=== PATIENT | female | born 1945 | race Caucasian/White ===

== ENCOUNTER 2022-12-13 07:48 | Outpatient (REF) | payer MEDICARE, SELFPAY ==
[2022-12-13 09:14] LABS: Estimated Average Glucose 186 mg/dL; Hemoglobin A1c % 8.1 %
[2022-12-13 09:20] LABS: Alanine Aminotransferase 28 U/L (0-31); Albumin Level 4.4 g/dL (3.5-5.0); Alkaline Phosphatase 66 U/L (39-117); Anion Gap 17 (12-20); Aspartate Amino Transferase 30 U/L (5-31); Bilirubin Total 0.6 mg/dL (0.0-1.0); Blood Urea Nitrogen 21 mg/dL (9-16); Calcium 10.1 mg/dL (8.4-10.2); Carbon Dioxide 27 mmol/L (22-29); Chloride 101 mmol/L (96-108); Estimated Glomerular Filt Rate > 60; Glucose Random 183 mg/dL (60-115); Potassium 4.6 mmol/L (3.3-5.1); Sodium 140 mmol/L (135-145)
== END 2022-12-13 07:49 | disposition home or self-care (01) ==
LOC: HO.LAB 07:48
PROVIDERS: PCP Internal Medicine; Visit Provider Internal Medicine
DX: Z00.00 Encounter for general adult medical examination without abnormal findings (principal); E11.9 Type 2 diabetes mellitus without complications; E78.00 Pure hypercholesterolemia, unspecified; F43.0 Acute stress reaction; I10 Essential (primary) hypertension
CPT/HCPCS: 36415; 80053; 83036

== ENCOUNTER 2023-03-16 07:24 | Outpatient (REF) | payer MEDICARE, SELFPAY ==
[2023-03-16 11:37] LABS: Estimated Average Glucose 160 mg/dL; Hemoglobin A1c % 7.2 %
[2023-03-16 11:50] LABS: Alanine Aminotransferase 16 U/L (0-31); Albumin Level 4.5 g/dL (3.5-5.0); Alkaline Phosphatase 64 U/L (39-117); Anion Gap 17 (12-20); Aspartate Amino Transferase 19 U/L (5-31); Bilirubin Total 0.8 mg/dL (0.0-1.0); Blood Urea Nitrogen 26 mg/dL (9-16); Calcium 10.4 mg/dL (8.4-10.2); Carbon Dioxide 27 mmol/L (22-29); Chloride 102 mmol/L (96-108); Estimated Glomerular Filt Rate 50; Glucose Random 149 mg/dL (60-115); Potassium 4.5 mmol/L (3.3-5.1); Sodium 141 mmol/L (135-145); Total Protein 7.6 g/dL (6.5-8.0)
== END 2023-03-16 07:25 | disposition home or self-care (01) ==
LOC: HO.HMGCLDS 07:24
PROVIDERS: PCP Internal Medicine; Visit Provider Internal Medicine
DX: E11.65 Type 2 diabetes mellitus with hyperglycemia (principal); I10 Essential (primary) hypertension
CPT/HCPCS: 36415; 80053; 83036

== ENCOUNTER 2023-06-13 08:09 | Outpatient (REF) | payer MEDICARE, SELFPAY ==
[2023-06-13 08:52] LABS: Estimated Average Glucose 174 mg/dL; Hemoglobin A1c % 7.7 % (<6.0)
[2023-06-13 09:30] LABS: Alanine Aminotransferase 21 U/L (0-31); Albumin Level 4.7 g/dL (3.5-5.0); Alkaline Phosphatase 66 U/L (39-117); Anion Gap 14 (12-20); Aspartate Amino Transferase 25 U/L (5-31); Bilirubin Total 0.7 mg/dL (0.0-1.0); Blood Urea Nitrogen 16 mg/dL (9-16); Calcium 10.1 mg/dL (8.4-10.2); Carbon Dioxide 27 mmol/L (22-29); Chloride 103 mmol/L (96-108); Estimated Glomerular Filt Rate > 60; Glucose Random 172 mg/dL (60-115); Potassium 4.6 mmol/L (3.3-5.1); Sodium 139 mmol/L (135-145); Total Protein 7.7 g/dL (6.5-8.0)
== END 2023-06-13 08:10 | disposition home or self-care (01) ==
LOC: HO.LAB 08:09
PROVIDERS: PCP Internal Medicine; Visit Provider Internal Medicine
DX: E11.9 Type 2 diabetes mellitus without complications (principal); E78.00 Pure hypercholesterolemia, unspecified; I10 Essential (primary) hypertension
CPT/HCPCS: 36415; 80053; 83036

== ENCOUNTER 2023-09-05 07:04 | Outpatient (REF) | payer MEDICARE, SELFPAY ==
[2023-09-05 11:15] LABS: Estimated Average Glucose 197 mg/dL; Hemoglobin A1c % 8.5 % (<6.0)
[2023-09-05 11:27] LABS: Alanine Aminotransferase 24 U/L (0-31); Albumin Level 4.6 g/dL (3.5-5.0); Alkaline Phosphatase 68 U/L (39-117); Anion Gap 15 (12-20); Aspartate Amino Transferase 26 U/L (5-31); Bilirubin Total 0.7 mg/dL (0.0-1.0); Blood Urea Nitrogen 23 mg/dL (9-16); Calcium 9.8 mg/dL (8.4-10.2); Carbon Dioxide 26 mmol/L (22-29); Chloride 103 mmol/L (96-108); Cholesterol 130 mg/dL (<200); Estimated Glomerular Filt Rate 59; Glucose Random 225 mg/dL (60-115); HDL Cholesterol 34 mg/dL (>40); LDL Cholesterol Calculated 29 mg/dL (<100); Potassium 4.7 mmol/L (3.3-5.1); Sodium 139 mmol/L (135-145); Total Protein 7.6 g/dL (6.5-8.0); Triglycerides 337 mg/dL (<150)
[2023-09-05 11:31] LABS: Microalbum/Creatinine Ratio Ur 16.1 ug/mg cr (<30)
[2023-09-05 11:44] LABS: Vitamin B12 368 pg/mL (200-900)
== END 2023-09-05 07:05 | disposition home or self-care (01) ==
LOC: HO.HMGCLDS 07:04
PROVIDERS: PCP Internal Medicine; Visit Provider Internal Medicine
DX: E11.65 Type 2 diabetes mellitus with hyperglycemia (principal); E78.00 Pure hypercholesterolemia, unspecified; I10 Essential (primary) hypertension; M81.8 Other osteoporosis without current pathological fracture
CPT/HCPCS: 36415; 80053; 80061; 82043; 82306; 82570; 82607; 83036; 84443

== ENCOUNTER 2023-12-05 07:40 | Outpatient (REF) | payer MEDICARE, SELFPAY ==
[2023-12-05 11:24] LABS: Estimated Average Glucose 203 mg/dL; Hemoglobin A1c % 8.7 % (<6.0)
[2023-12-05 12:09] LABS: Alanine Aminotransferase 22 U/L (0-31); Albumin Level 4.5 g/dL (3.5-5.0); Alkaline Phosphatase 69 U/L (39-117); Anion Gap 13 (12-20); Aspartate Amino Transferase 22 U/L (5-31); Bilirubin Total 0.6 mg/dL (0.0-1.0); Blood Urea Nitrogen 22 mg/dL (9-16); Calcium 10.1 mg/dL (8.4-10.2); Carbon Dioxide 27 mmol/L (22-29); Chloride 104 mmol/L (96-108); Estimated Glomerular Filt Rate > 60; Glucose Random 225 mg/dL (60-115); Sodium 139 mmol/L (135-145); Total Protein 7.7 g/dL (6.5-8.0)
== END 2023-12-05 07:41 | disposition home or self-care (01) ==
LOC: HO.HMGCLDS 07:40
PROVIDERS: PCP Internal Medicine; Visit Provider Internal Medicine
DX: Z00.01 Encounter for general adult medical examination with abnormal findings (principal); E11.65 Type 2 diabetes mellitus with hyperglycemia; E78.00 Pure hypercholesterolemia, unspecified; I10 Essential (primary) hypertension
CPT/HCPCS: 36415; 80053; 83036

== ENCOUNTER 2024-03-05 07:09 | Outpatient (REF) | payer MEDICARE, SELFPAY ==
[2024-03-05 11:24] LABS: Estimated Average Glucose 163 mg/dL; Hemoglobin A1c % 7.3 % (<6.0)
[2024-03-05 11:25] LABS: Alanine Aminotransferase 17 U/L (0-31); Albumin Level 4.5 g/dL (3.5-5.0); Alkaline Phosphatase 66 U/L (39-117); Anion Gap 14 (12-20); Aspartate Amino Transferase 20 U/L (5-31); Bilirubin Total 0.4 mg/dL (0.0-1.0); Blood Urea Nitrogen 23 mg/dL (9-16); Calcium 10.2 mg/dL (8.4-10.2); Carbon Dioxide 24 mmol/L (22-29); Chloride 105 mmol/L (96-108); Estimated Glomerular Filt Rate 53; Glucose Random 166 mg/dL (60-115); Potassium 4.5 mmol/L (3.3-5.1); Sodium 138 mmol/L (135-145); Total Protein 7.9 g/dL (6.5-8.0)
== END 2024-03-05 07:10 | disposition home or self-care (01) ==
LOC: HO.HMGCLDS 07:09
PROVIDERS: PCP Internal Medicine; Visit Provider Internal Medicine
DX: E11.65 Type 2 diabetes mellitus with hyperglycemia (principal); I10 Essential (primary) hypertension
CPT/HCPCS: 36415; 80053; 83036

== ENCOUNTER 2024-06-11 06:38 | Outpatient (REF) | payer MEDICARE, SELFPAY ==
[2024-06-11 11:22] LABS: Estimated Average Glucose 160 mg/dL; Hemoglobin A1c % 7.2 % (<6.0)
[2024-06-11 11:31] LABS: Alanine Aminotransferase 16 U/L (0-31); Albumin Level 4.3 g/dL (3.5-5.0); Alkaline Phosphatase 65 U/L (39-117); Anion Gap 13 (12-20); Aspartate Amino Transferase 19 U/L (5-31); Bilirubin Total 0.6 mg/dL (0.0-1.0); Blood Urea Nitrogen 15 mg/dL (9-16); Calcium 10.3 mg/dL (8.4-10.2); Carbon Dioxide 25 mmol/L (22-29); Chloride 105 mmol/L (96-108); Estimated Glomerular Filt Rate > 60; Glucose Random 184 mg/dL (60-115); Potassium 4.9 mmol/L (3.3-5.1); Sodium 138 mmol/L (135-145); Total Protein 8.2 g/dL (6.5-8.0)
== END 2024-06-11 06:39 | disposition home or self-care (01) ==
LOC: HO.HMGCLDS 06:38
PROVIDERS: PCP Internal Medicine; Visit Provider Internal Medicine
DX: E11.9 Type 2 diabetes mellitus without complications (principal); G47.62 Sleep related leg cramps; I10 Essential (primary) hypertension
CPT/HCPCS: 36415; 80053; 83036

== ENCOUNTER 2024-09-03 06:49 | Outpatient (REF) | payer MEDICARE, SELFPAY ==
[2024-09-03 11:12] LABS: MANUAL DIFF FLAG NO
[2024-09-03 11:33] LABS: Alanine Aminotransferase 13 U/L (0-31); Albumin Level 4.4 g/dL (3.5-5.0); Alkaline Phosphatase 65 U/L (39-117); Anion Gap 13 (12-20); Aspartate Amino Transferase 28 U/L (5-31); Bilirubin Total 0.5 mg/dL (0.0-1.0); Blood Urea Nitrogen 24 mg/dL (9-16); Calcium 10.1 mg/dL (8.4-10.2); Carbon Dioxide 26 mmol/L (22-29); Chloride 103 mmol/L (96-108); Cholesterol 104 mg/dL (<200); Estimated Glomerular Filt Rate > 60; Glucose Random 121 mg/dL (60-115); HDL Cholesterol 32 mg/dL (>40); LDL Cholesterol Calculated 14 mg/dL (<100); Potassium 4.2 mmol/L (3.3-5.1); Sodium 138 mmol/L (135-145); Total Protein 9.8 g/dL (6.5-8.0); Triglycerides 292 mg/dL (<150)
[2024-09-03 11:37] LABS: Basophils Percent Auto 0.4 % (0-2); Eosinophils Absolute Auto 0.1 X10*3/uL (0.0-0.4); Eosinophils Percent Auto 2.2 % (0-4); Hematocrit 35.1 % (37.0-47.0); Hemoglobin 11.2 g/dl (12.0-16.0); Imm Gran Abs Auto 0.03 X10*3/uL (0.00-0.03); Imm Gran Pct Auto 0.7 % (0.0-0.4); Lymphocytes Absolute Auto 1.8 X10*3/uL (1.2-4.9); Lymphocytes Percent Auto 39.8 % (20-40); Mean Corpuscular HGB Conc 31.9 g/dl (31.0-35.0); Mean Corpuscular Hemoglobin 29.3 pg (27.0-33.0); Mean Corpuscular Volume 91.9 fL (80.0-98.0); Mean Platelet Volume 9.3 fL (9.4-12.3); Monocytes Absolute Auto 0.4 X10*3/uL (0.1-1.2); Monocytes Percent Auto 9.2 % (2-11); Neutrophils Absolute Auto 2.2 x10*3/uL (2.0-8.3); Neutrophils Percent Auto 47.7 % (45-73); Platelet Count 290 X10*3/uL (160-400); Red Blood Count 3.82 X10*6/uL (4.20-5.50); Red Cell Distribution Width 14.6 % (11.0-16.0); White Blood Count 4.6 X10*3/uL (4.8-10.8)
[2024-09-03 11:58] LABS: Vitamin B12 438 pg/mL (200-900)
[2024-09-03 12:03] LABS: Estimated Average Glucose 154 mg/dL; Hemoglobin A1C 220.5227 umol/L
[2024-09-03 12:05] LABS: Creatinine Urine 76.73 mg/dL; Microalbum/Creatinine Ratio Ur 217.6 ug/mg cr (<30)
== END 2024-09-03 06:50 | disposition home or self-care (01) ==
LOC: HO.HMGCLDS 06:49
PROVIDERS: PCP Internal Medicine; Visit Provider Internal Medicine
DX: E11.9 Type 2 diabetes mellitus without complications (principal); G47.62 Sleep related leg cramps; I10 Essential (primary) hypertension
CPT/HCPCS: 36415; 80053; 80061; 82043; 82306; 82570; 82607; 83036; 85025

== ENCOUNTER 2024-10-27 09:00 | Outpatient (RCR) | payer MEDICARE, SELFPAY ==
--- NOTE | 2024-10-04 11:08 | MHC.PT.EP ---
[facility] [place] Office [place] [facility] [place] [facility] [address] Lucretia Traore [address] [phone] F: [phone] F: [phone] F: [phone] F: [phone] Physical Therapy Plan of Care Date of Evaluation: 10/04/24 Date of Surgery: n/a Diagnosis: back pain Assessment: Patient is a 79 year old female presenting to PT with complaints of pain in her back. Pt reports onset of pain began about 2 weeks ago due to possibly moving some furniture. She presents today with impairments in pain, lumbar ROM, core strength, hip strength. 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 Pt expresses residential goal of reducing pain, and is motivated to work towards this in PT. Clinical presentation today is most consistent with signs and sx associated with back pain and pt will benefit from skilled PT 2 week x 4 weeks to address the following problems and impairments noted upon evaluation: pain, lumbar ROM, core strength, hip strength. These problems limit the patient with the following functional activities: standing, ADLs, lifting, work. The prescribed treatment plan of care is medically necessary. Co-morbidities of DM, HTN were identified and taken into considerations of plan of care. Pt was educated on HEP, role of PT, prognosis, POC. Frequency and Duration: The patient will be seen 2 x week x 4 weeks Short Term Goals: Pt will demonstrate improved lumbar ROM to in available range to be pain free in 2 weeks. Pt will demonstrate improved hip strength by 1/3 grade in 2 weeks. Detention Goals: Pt will demonstrate improved Raymundo score by 10% in 4 weeks for improved functional mobility. Pt will demonstrate ability to ambulate with min to no pain in 4 weeks for return to work. Pt will demonstrate ability to lift with min to no pain in 4 weeks for return to PLOF. Treatment Plan: Modalities to reduce pain, spasms and effusion. Manual therapy to restore motion and function. Therapeutic exercise to improve strength and flexibility. Neuromuscular re-education for posture and balance. Therapeutic activities to return to functional activities of daily living. Electronically signed by: Candy Steel, PT, DPT, ATC Please sign and return to therapist. Thank you for your referral.
== END 2024-11-18 08:17 | disposition home or self-care (01) ==
LOC: HO.PTCHIC 09:00
PROVIDERS: PCP Internal Medicine; Visit Provider Internal Medicine
DX: M54.50 Low back pain, unspecified (principal); M48.061 Spinal stenosis, lumbar region without neurogenic claudication
CPT/HCPCS: 97110; 97140; 97161

== ENCOUNTER 2024-12-16 08:11 | Outpatient (REF) | payer MEDICARE, SELFPAY ==
[2024-12-16 10:34] LABS: Estimated Average Glucose 114 mg/dL; Hemoglobin A1C 112.5952 umol/L; Hemoglobin A1c % 5.6 % (<6.0)
[2024-12-16 10:58] LABS: Alanine Aminotransferase 8 U/L (0-31); Albumin Level 4.2 g/dL (3.5-5.0); Alkaline Phosphatase 65 U/L (39-117); Anion Gap 10 (12-20); Aspartate Amino Transferase 20 U/L (5-31); Bilirubin Total 0.5 mg/dL (0.0-1.0); Blood Urea Nitrogen 34 mg/dL (9-16); Carbon Dioxide 27 mmol/L (22-29); Chloride 104 mmol/L (96-108); Estimated Glomerular Filt Rate 41; Glucose Random 109 mg/dL (60-115); Potassium 4.2 mmol/L (3.3-5.1); Sodium 137 mmol/L (135-145); Total Protein 9.9 g/dL (6.5-8.0)
== END 2024-12-16 08:12 | disposition home or self-care (01) ==
LOC: HO.HMGCLDS 08:11
PROVIDERS: PCP Internal Medicine; Visit Provider Internal Medicine
DX: E11.9 Type 2 diabetes mellitus without complications (principal); E78.2 Mixed hyperlipidemia; I10 Essential (primary) hypertension; L57.0 Actinic keratosis
CPT/HCPCS: 36415; 80053; 83036

== ENCOUNTER 2025-03-16 07:14 | Outpatient (REF) | payer MEDICARE, SELFPAY ==
--- OUTSIDE RECORDS SUMMARY | 2025-03-16 07:17 | XMS_ITS | Patient Health Record ---
Author Organization [facility] Address [address] [place] [address] Care Team Providers Care Instructional Technology Coordinator Name Role Phone Didier Reyna MD Primary Care Provider Maria AlejandraMinh Denise Unavailable [phone] Reason For Referral No Information Medications Medication SIG (Take, Route, Frequency, Duration) Notes Start Date End Date Status Vitamin D Active Vitamin C Active Baby Aspirin Active Vanicream . as directed External ly bid to feet for 30 days Active Calcium Carbonate-Vit D-Min 600-200 MG-UNIT 1 tablet with food Orally Twice a day Active Centrum Silver Orally Activ e hydroCHLOROthiazide 25 MG 1 tablet Orall y Once a day Active Glimepiride 4 MG 1 tablet with breakf ast or the first main meal of the day Orally Once a day Active Lisinopril 40 MG 1 tablet Orally Once a day Active metFORMIN HCl 500 MG 1 tablet with meals Orally Twice a day Active Extra Depth Orthopedic Shoes (1 Pair) with Customized Heat Molded Multidensity Innersoles (3 Pair) as directed Dx: NIDDM (E11.9), Hammertoe Foot Deformity (M20.41,M20.42), Preulcerative Skin Lesion(s) (L85.1) 04/08/2016 Active Immunizations Vaccine Route Administration Date Status Comme nts Influenza Unknown 06/19/2015 Administered Problems Problem Type SNOMED Code ICD Code Onset Dates Problem Status W/U Status Risk Notes Problem Acquired hammer toe of right foot ([id number] 9105) Other hammer toe(s) (acquired), right foot (M20.41) Active confirmed Problem Acquired hammer toe of left foot (141747529712 9103) Other hammer toe(s) (acquired), left foot (M20.42) Active confirmed Problem Type 2 diabetes mellitus without complications (E11.9) Active confirmed Plan Of Treatment No Information Insurance Providers Payer Name Payer Address Payer Phone Subscriber Number Group Number Insured Name Patient Relationship to Insured Coverage Start Date Coverage End Date [employer] Preferred [address] [place] [address] [phone] [id number] Marlen Cesar i Self - patient is the insured Medical (General) History Medical History History ICD Code High blood pressure Diabetic
[2025-03-16 10:44] LABS: Estimated Average Glucose 128 mg/dL; Hemoglobin A1c % 6.1 % (<6.0)
[2025-03-16 11:10] LABS: Alanine Aminotransferase 8 U/L (0-31); Albumin Level 4.3 g/dL (3.5-5.0); Alkaline Phosphatase 57 U/L (39-117); Anion Gap 12 (12-20); Aspartate Amino Transferase 22 U/L (5-31); Bilirubin Total 0.4 mg/dL (0.0-1.0); Blood Urea Nitrogen 25 mg/dL (9-16); Carbon Dioxide 27 mmol/L (22-29); Chloride 102 mmol/L (96-108); Estimated Glomerular Filt Rate 54; Glucose Random 99 mg/dL (60-115); Potassium 4.1 mmol/L (3.3-5.1); Sodium 137 mmol/L (135-145); Total Protein 9.3 g/dL (6.5-8.0)
[2025-03-16 11:14] LABS: Thyroid Stimulating Hormone 5.94 uIU/mL (0.32-4.0); Vitamin D 25-OH Total 7.9 ng/mL (>30)
== END 2025-03-16 07:15 | disposition home or self-care (01) ==
LOC: HO.HMGCLDS 07:14
PROVIDERS: PCP Internal Medicine; Visit Provider Internal Medicine
DX: E11.9 Type 2 diabetes mellitus without complications (principal); I10 Essential (primary) hypertension; M48.061 Spinal stenosis, lumbar region without neurogenic claudication; M81.8 Other osteoporosis without current pathological fracture; R63.4 Abnormal weight loss
CPT/HCPCS: 36415; 80053; 82306; 83036; 84443

== ENCOUNTER 2025-06-19 08:17 | Outpatient (REF) | payer MEDICARE, SELFPAY ==
--- OUTSIDE RECORDS SUMMARY | 2025-06-19 09:29 | XMS_ITS | Patient Health Record ---
[facility] Address [address] [place] [address] Care Team Providers Care Member Of Parliament Name Role Phone Didier Reyna MD Primary Care Provider Minh Gongora Unavailable [phone] Reason For Referral No Information Medications Medication SIG (Take, Route, Frequency, Duration) Notes Start Date End Date Status Vitamin D Active Vitamin C Active Baby Aspirin Active Vanicream . as directed External ly bid to feet; Duration: 30 days Active Calcium Carbonate-Vit D-Min 600-200 [...] Problem Acquired hammer toe of right foot ([id number] 5) Other hammer toe(s) (acquired), right foot (M20.41) Active confirmed Problem Acquired hammer toe of left foot (737973948807188 3) Other hammer toe(s) (acquired), left foot (M20.42) Active confirmed Problem Type II diabetes mellitus without complication (322637007) Type 2 diabetes mellitus without complications (E11.9) Active confirmed Plan Of Treatment No Information Insurance Providers Payer Name Payer Address Payer Phone Subscriber Number Group Number Insured Name Patient Relationship to Insured Coverage Start Date Coverage End Date [employer] Preferred [address] [place] [address] [id number] Marlen Cesar i Self - patient is the insured Medical (General) History Medical History History ICD Code High blood pressure Diabetic
[2025-06-19 10:38] LABS: Hemoglobin A1C 106.3344 umol/L; Total Hemoglobin (HGBA1C) 2394.4810 umol/L
[2025-06-19 10:55] LABS: Alanine Aminotransferase < 6 U/L (0-31); Albumin Level 3.9 g/dL (3.5-5.0); Alkaline Phosphatase 70 U/L (39-117); Anion Gap 12 (12-20); Aspartate Amino Transferase 25 U/L (5-31); Blood Urea Nitrogen 40 mg/dL (9-16); Calcium 11.5 mg/dL (8.4-10.2); Carbon Dioxide 27 mmol/L (22-29); Chloride 99 mmol/L (96-108); Estimated Glomerular Filt Rate 37; Potassium 3.8 mmol/L (3.3-5.1); Sodium 134 mmol/L (135-145); Total Protein 10.2 g/dL (6.5-8.0)
== END 2025-06-19 08:18 | disposition home or self-care (01) ==
LOC: HO.HMGCLDS 08:17
PROVIDERS: PCP Internal Medicine; Visit Provider Internal Medicine
DX: I10 Essential (primary) hypertension (principal); E11.9 Type 2 diabetes mellitus without complications; E03.9 Hypothyroidism, unspecified; E55.9 Vitamin D deficiency, unspecified; M48.061 Spinal stenosis, lumbar region without neurogenic claudication
CPT/HCPCS: 36415; 80053; 83036

== ENCOUNTER 2025-06-30 11:52 | Outpatient (REF) | payer MEDICARE, SELFPAY ==
--- OUTSIDE RECORDS SUMMARY | 2025-06-30 12:52 | XMS_ITS | Patient Health Record ---
[facility] Address [address] [place] [address] Care Team Providers Care Director Of Patient Financial Services Name Role Phone Didier Reyna MD Primary Care Provider Minh Gongora Unavailable [phone] Reason For Referral No Information Medications Medication [...] Problem Acquired hammer toe of right foot (241379517967606 5) Other hammer toe(s) (acquired), right foot (M20.41) Active confirmed Problem Acquired hammer toe of left foot (641839112754323 3) Other hammer toe(s) (acquired), left foot (M20.42) Active confirmed Problem Type II diabetes mellitus without complication (788200011) Type 2 diabetes mellitus without complications (E11.9) Active confirmed Plan Of Treatment No Information Insurance Providers Payer Name Payer Address Payer Phone Subscriber Number Group Number Insured Name Patient Relationship to Insured Coverage Start Date Coverage End Date [employer] Preferred [address] [place] [address] [id number] Marlen Cesar i Self - patient is the insured Medical (General) History Medical History History ICD Code High blood pressure Diabetic
[2025-06-30 13:31] LABS: MANUAL DIFF FLAG NO
[2025-06-30 13:56] LABS: Hematocrit 27.5 % (37.0-47.0); Hemoglobin 8.5 g/dl (12.0-16.0); Imm Gran Abs Auto 0.04 X10*3/uL (0.00-0.03); Imm Gran Pct Auto 0.5 % (0.0-0.4); Lymphocytes Absolute Auto 2.2 X10*3/uL (1.2-4.9); Mean Corpuscular HGB Conc 30.9 g/dl (31.0-35.0); Mean Corpuscular Hemoglobin 27.2 pg (27.0-33.0); Mean Corpuscular Volume 88.1 fL (80.0-98.0); NRBC Abs Auto 0.000 X10*3/uL (0.0-0.012); NRBC Pct Auto 0.0 /100WBC (0.0-0.2); Platelet Count 439 X10*3/uL (160-400); Red Blood Count 3.12 X10*6/uL (4.20-5.50); White Blood Count 8.0 X10*3/uL (4.8-10.8)
[2025-06-30 14:27] LABS: Alanine Aminotransferase < 6 U/L (0-31); Albumin Level 3.4 g/dL (3.5-5.0); Alkaline Phosphatase 69 U/L (39-117); Anion Gap 13 (12-20); Aspartate Amino Transferase 29 U/L (5-31); Blood Urea Nitrogen 46 mg/dL (9-16); Carbon Dioxide 25 mmol/L (22-29); Chloride 100 mmol/L (96-108); Estimated Glomerular Filt Rate 20; Potassium 4.1 mmol/L (3.3-5.1); Sodium 134 mmol/L (135-145); Total Protein 9.7 g/dL (6.5-8.0)
[2025-06-30 14:40] LABS: Microalbum/Creatinine Ratio Ur 220.4 ug/mg cr (<30)
[2025-06-30 14:45] LABS: Calcium 12.8 mg/dL (8.4-10.2)
[2025-06-30 14:46] LABS: Parathyroid Hormone Intact 47.5 pg/mL (8.7-77.1)
[2025-06-30 14:50] LABS: Thyroid Stimulating Hormone 1.36 uIU/mL (0.32-4.0)
== END 2025-06-30 11:53 | disposition home or self-care (01) ==
LOC: HO.HMGCLDS 11:52
PROVIDERS: PCP Internal Medicine; Visit Provider Internal Medicine
DX: E83.52 Hypercalcemia (principal); E11.22 Type 2 diabetes mellitus with diabetic chronic kidney disease; N18.9 Chronic kidney disease, unspecified; M48.061 Spinal stenosis, lumbar region without neurogenic claudication; R54 Age-related physical debility; R63.4 Abnormal weight loss; Z68.20 Body mass index [BMI] 20.0-20.9, adult
CPT/HCPCS: 36415; 80053; 82043; 82306; 82570; 83970; 84100; 84443; 85025; 99202

== ENCOUNTER 2025-06-30 14:41 | Outpatient (AMB) | payer MEDICARE, SELFPAY ==
--- NOTE | 2025-06-30 14:46 | A.OFFVIS_ITS ---
Vital Signs 06/30/25 14:50 Height 5 ft 4 in Weight 117 lb 11.629 oz BMI 20.2 BP 92/44 L Blood Pressure Location Rt brachial Position Sitting Pulse 93 Pulse Source Pulse Oximeter Pulse Oximetry (%) 93 Oxygen Delivery Method Room Air Intake Visit Reasons: Hypercalcemia Intake Note: NEW Patient presents today to establish care for Hypercalcemia: Senior Quality Assurance Specialist Required: No Accompanied by: Daughter Allergies No Known Allergies Allergy (Verified 06/30/25 14:47) HPI Comments Details: 79 years old female with past medical history of type 2 diabetes, spinal stenosis, hypotension, seen in the office for evaluation of hypercalcemia suspected to be secondary to hyperparathyroidism. - The patient has been experiencing significant weight loss since August, having lost about 60 pounds from 180 lbs to 117 lbs. - There is a history of spinal stenosis, which the patient believes might be contributing to the weight loss, although this is not typically associated with such severe weight loss. - The patient has been experiencing back pain, which is reportedly painful when standing and alleviated when sitting or lying down. - Recent discovery of kidney damage, although previously the kidneys were in good condition. - The patient has been experiencing fatigue and increased thirst and polyuria/nocturia, but not irritability or mood changes or AMS. - There is a no family history of hypercalcemia or osteoporosis that the patient is aware of. - The patient has never been diagnosed with calcium problems or prescribed calcium supplements despite a past consultation suggesting stopping calcium intake. - The patient?s daughter has a history of kidney stones, but the patient does not. Review of Systems: - Constitutional: Notable weight loss, fatigue. - Musculoskeletal: Back pain, muscle weakness. - Renal: Recent kidney damage, history of increased thirst. - GI: No bleeding in stools. - Neuropsychiatric: Increased irritability Physical exam: General: Frail appearing, sitting in a wheelchair. NAD. Neck/Thyroid: Thyroid not palpable, no nodules. CV: RRR, no murmur. No edema. Resp:Lungs clear to auscultation bilaterally Abdomen: Soft, nontender. nondistended MSK: No tenderness to palpation of spinous processes Extremities/Neuro: No weakness or tremor of outstretched hands Labs Laboratory Tests 09/03/24 06/30/25 06:58 11:59 WBC 4.6 L 8.0 Hgb 11.2 L 8.5 L D RDW 14.6 17.2 H Plt Count 290 439 H D Laboratory Tests 03/16/25 06/19/25 06/30/25 07:47 08:30 11:59 Potassium 3.8 4.1 BUN 25 H 40 H 46 H Creatinine 0.99 1.38 2.31 H Estimated GFR 37 20 Calcium 10.0 11.5 H D 12.8 H* D Phosphorus 4.6 H Total Protein 9.3 H 10.2 H 9.7 H Albumin 4.3 3.9 3.4 L 25-OH Vitamin D Total 7.9 L 14.1 L TSH 5.94 H 1.36 Laboratory Tests 06/30/25 11:59 PTH Intact 47.5 PFSH Medical History History of high cholesterol Hx of type 2 diabetes mellitus Hx of spinal stenosis Hx of acute arthritis Hx of essential hypertension Surgical History No pertinent past surgical history Family History Father HTN (hypertension) Myocardial disease Diabetes mellitus Hypercholesteremia Mother Diabetes mellitus Family history of breast cancer Social History Alcohol intake: current Alcohol intake frequency: does not drink Patient Tobacco Use Status: Former Tobacco user Physical Exam Vital Signs: Last Vital Signs Pulse 93 06/30/25 14:50 BP 92/44 L 06/30/25 14:50 Pulse Ox 93 06/30/25 14:50 Oxygen Delivery Method Room Air 06/30/25 14:50 BMI result Body Mass Index 20.2 Assessment & Plan Assessment & Plan (1) Hypercalcemia: Code(s): E83.52 - Hypercalcemia Category: Medical (2) Hyperparathyroidism: Code(s): E21.3 - Hyperparathyroidism, unspecified Category: Medical Plan Hypercalcemia Hyperparathyroidism The patient is a 79 years old female, with recently diagnosed hypercalcemia as well as kidney dysfunction. Open for the questioning patient reports that she had lost about 60 lb since 09/19/2024 unintentionally. Review of her labs shows that besides hypercalcemia and progressive kidney dysfunction she also has hyperproteinemia, as well as inappropriately normal PTH despite hypercalcemia. What her kidney dysfunction could be related to progressive hypercalcemia, the other symptoms including weight loss, hyperproteinemia, anemia can not be explained by hypoparathyroidism. While her inappropriately normal PTH and hypercalcemia points toward primary hyperparathyroidism, I suspect that her severe vitamin-D deficiency may be the reason why PTH she is not entirely suppressed. Furthermore am concerned that the combination of hypercalcemia, kidney dysfunction, back pain, weight loss and hyperproteinemia is more concerning for multiple myeloma in this patient that is also noted to have anemia. Plan Discussed with the patient and his daughter the physiology of bone metabolism, hypocalcemia and its symptoms. Discussed with the patient differential diagnosis including primary hyperparathyroidism, multiple myeloma or other malignancy related or PTH independent hypercalcemia. Explained to the patient that PTH inappropriately normal could be related to severe vitamin-D deficiency Advised the patient to continue taking vitamin-D 17765 IU weekly and rechec her levels in 3-6 month to see improvement Discussed with the patient and her daughter that I would like to perform a series of studies that we would allow us to have a little more clarity on what is causing her hypercalcemia and other symptoms. Those test would include blood work, bone density scan and urine tests. Provided education to the patient and the daughter about symptoms of severe hypercalcemia and advised the patient that if the symptoms. Patient needs to go to emergency department. Advised the patient to stay well hydrated Discussed with the patient and the family that is our suspicion of multiple myeloma or other malignancy associated hypercalcemia, and referral to Oncology would be necessary Orders: Orders Calcium Today E21.3 - Hyperparathyroidism, unspecified, E83.52 - Hypercalcemia Calcium, Ionized Today E21.3 - Hyperparathyroidism, unspecified, E83.52 - Hypercalcemia Parathyroid Hormone Related Pr Today E21.3 - Hyperparathyroidism, unspecified, E83.52 - Hypercalcemia Protein Electrophoresis, Serum Today E21.3 - Hyperparathyroidism, unspecified, E83.52 - Hypercalcemia Protein Electrophoresis,Ran Ur Today E21.3 - Hyperparathyroidism, unspecified, E83.52 - Hypercalcemia XR DEXA appendicular skeleton Today E21.3 - Hyperparathyroidism, unspecified, E83.52 - Hypercalcemia XR DEXA axial skeleton Today E21.3 - Hyperparathyroidism, unspecified, E83.52 - Hypercalcemia Complete Blood Count Auto Diff Today E21.3 - Hyperparathyroidism, unspecified, E83.52 - Hypercalcemia [place]/Lambda Light Chain Serum Today E21.3 - Hyperparathyroidism, unspecified, E83.52 - Hypercalcemia Parathyroid Hormone Intact Today E21.3 - Hyperparathyroidism, unspecified, E83.52 - Hypercalcemia Magnesium Today E21.3 - Hyperparathyroidism, unspecified, E83.52 - Hypercalcemia Alkaline Phosphatase Bone Today E21.3 - Hyperparathyroidism, unspecified, E83.52 - Hypercalcemia Basic Metabolic Panel Today E21.3 - Hyperparathyroidism, unspecified, E83.52 - Hypercalcemia Immunoglobulins,IgG IgA IgM Today E21.3 - Hyperparathyroidism, unspecified, E83.52 - Hypercalcemia Patient Instructions: The [email or web address] location closest to [place], [place], is at?[address] [place] [address]. Hypercalcemia: What to Watch For What it is: Dbjdep-flcj-[id number] calcium in the blood. It can affect the brain, heart, kidneys, stomach, and muscles. Common Symptoms * Brain: fatigue, confusion or ?fog,? headache, irritability, sleepiness * Muscles: weakness, low energy * Kidneys/urine: peeing more often, dehydration, kidney stone pain (sharp flank pain, blood in urine) * Stomach/bowels: nausea, poor appetite, constipation, belly pain * Heart: palpitations, feeling faint * General: increased thirst, dry mouth, itching Call 911 or go to the ER now if you have: * Severe confusion, fainting, new chest pain, very fast or very slow heartbeat * Severe vomiting, cannot keep fluids down * Severe flank/back pain with fever or blood in urine Call your clinic within 24?48 hours if you notice: * Worsening confusion, new weakness, headaches * Increased thirst/urination or signs of dehydration (very dark urine, dizziness) * New or worsening constipation not improving with fluids/fiber * Any kidney-stone symptoms Daily Self-Check (takes 1 minute) * Fluids: Aim for pale-yellow urine; drink water regularly unless your clinician gave a fluid restriction. * Bowels: Note constipation or abdominal pain. * Mind/energy: Any new confusion, sleepiness, or unusual fatigue? * Urination: More frequent or painful? Any visible blood? * Meds taken today? (see list below) Hydration & Diet * Prefer water; limit alcohol. * Normal diet unless told otherwise; avoid excessive dairy or calcium-fortified products and mqee-yhm-kbdihpu calcium/vitamin D. Coding Level of Care Code New Pt Level 5 (91814) Complex EM visit Add On G2211 Diagnoses Hypercalcemia E83.52 Hyperparathyroidism E21.3 Time Spent (min) 60 Comment Time spent on review of previous records, history, exam/plan and patient education.
[2025-06-30 14:50] VITALS: BP 92/44; PULSE 93; O2SAT 93; BMI 20.2
== END 2025-06-30 16:03 | disposition home or self-care (01) ==
LOC: HO.ENCR 14:42
PROVIDERS: PCP Internal Medicine; Visit Provider Student in an Organized Health Care Education/Training Program
DX: E83.52 Hypercalcemia (principal)
CPT/HCPCS: 99205; G2211

== ENCOUNTER 2025-07-03 14:57 | Outpatient (AMB) | payer MEDICARE, SELFPAY ==
[2025-07-03 14:58] VITALS: BP 76/44; PULSE 97; O2SAT 98; BMI 20.1
--- NOTE | 2025-07-03 14:58 | HO.NEPHOV ---
Vital Signs 07/03/25 14:58 Height 5 ft 4 in Weight 117 lb BMI 20.1 BP 76/44 L Blood Pressure Location Rt brachial Position Sitting Pulse 97 Pulse Source Pulse Oximeter Pulse Oximetry (%) 98 Oxygen Delivery Method Room Air Intake Visit Reasons: ENP: CKD, Hypercalcemia, confirmed Supervisor Advice Required: No Accompanied by: Daughter Allergies No Known Allergies Allergy (Verified 07/03/25 15:01) Medication List - Last Reconciled 07/03/25 by Chidi Cohen MD amlodipine 2.5 mg PO DAILY aspirin 81 mg PO DAILY ergocalciferol (vitamin D2) 1,250 mcg PO QWEEK lisinopril 40 mg PO DAILY magnesium oxide 400 mg PO DAILY metformin 1,000 mg PO BID simvastatin 10 mg PO BEDTIME vitamins A,C,N-mrdw-jkymkm 4,296 mcg-226 mg-90 mg (PreserVision AREDS) 1 cap PO BID HPI Comments Details: - The patient is a 80-year-old female presenting with hypercalcemia, - Hypercalcemia: Calcium levels increased from 11.5 to 12.8 mg/dL. Recently seen by endocrinology. Workup has been ordered. - newly diagnosed Acute kidney injury: Kidney function decreased from 37% to 20%. In February 2025 serum creatinine was 0.99. On June 19 creatinine bumped up to 1.38 and as of June 30 creatinine was 2.31. She is currently on lisinopril 40 mg along with hydrochlorothiazide. - Anemia: Hemoglobin decreased from 11.2 in August 2024 to 8.5 g/dL, -history of Hypertension: Managed with lisinopril and amlodipine, - Diabetes mellitus: Controlled with metformin, - Spinal stenosis: Present but less concerning currently. She has recently lost about 60 lb over the last 10 months. Appetite has been fair. No nausea or vomiting. No constipation. No bone pain. No edema. No gross hematuria no kidney stones. [facility] Medical History History of high cholesterol Hx of type 2 diabetes mellitus Hx of spinal stenosis Hx of acute arthritis Hx of essential hypertension Surgical History No pertinent past surgical history Family History Father HTN (hypertension) Myocardial disease Diabetes mellitus Hypercholesteremia Mother Diabetes mellitus Family history of breast cancer Social History Alcohol intake: current Alcohol intake frequency: does not drink Patient Tobacco Use Status: Former Tobacco user Review of Systems Const Denies fever(s) and Denies weight loss Card Denies chest pain Resp Denies cough and Denies hemoptysis GI Denies abdominal pain, Denies diarrhea and Denies nausea Musc Denies back pain Neuro Denies focal weakness Physical Exam Vital Signs: Last Vital Signs Pulse 97 07/03/25 14:58 BP 76/44 L 07/03/25 14:58 Pulse Ox 98 07/03/25 14:58 Oxygen Delivery Method Room Air 07/03/25 14:58 BMI result Body Mass Index 20.1 Comfortable in a wheelchair Neck supple no JVD. Lungs entry equal no rales. Heart S1-S2 heard no gallop or rub. Abdomen soft nontender. Neuro alert awake oriented. No asterixis. Extremities no edema. Results Reviewed Nephrology Results: Hgb, (12.0-16.0) 8.5 g/dl L Δ 06/30/25 WBC, (4.8-10.8) 8.0 X10*3/uL 06/30/25 Plt Count, (160-400) 439 X10*3/uL H Δ 06/30/25 Sodium, (135-145) 134 mmol/L L 06/30/25 Potassium, (3.3-5.1) 4.1 mmol/L 06/30/25 Chloride, (96-108) 100 mmol/L 06/30/25 Carbon Dioxide, (22-29) 25 mmol/L 06/30/25 BUN, (9-16) 46 mg/dL H 06/30/25 Creatinine, (0.5-1.4) 2.31 mg/dL H 06/30/25 Calcium, (8.4-10.2) 12.8 mg/dL H* Δ 06/30/25 Phosphorus, (2.7-4.5) 4.6 mg/dL H 06/30/25 PTH Intact, (8.7-77.1) 47.5 pg/mL 06/30/25 Urine Creatinine 150.59 mg/dL 06/30/25 Assessment & Plan Assessment & Plan (1) JE (acute kidney injury): Code(s): N17.9 - Acute kidney failure, unspecified Category: Medical (2) Hypercalcemia: Code(s): E83.52 - Hypercalcemia Category: Medical (3) Anemia: Code(s): D64.9 - Anemia, unspecified Category: Medical Plan Elderly woman with acute kidney injury. The combination of anemia with hypercalcemia and anemia raises a suspicion for multiple myeloma. Intact PTH is appropriately suppressed Today the blood pressure is rather low This could be contributing to hypoperfusion and further lowering the kidney function Recommendations : Discontinue lisinopril and amlodipine due to low blood pressure. Workup ordered for JE including ultrasonogram. Urine for protein creatinine ratio. Check serum electrophoresis. Discontinue vitamin-D in view of severe hypercalcemia Clinically she appears euvolemic. She will have lab work done again in the next 48 hours if serum calcium continues to increase she made need IV hydration and further therapy to correct hypercalcemia while workup is in progress. All the questions were answered She returned to office in the next couple of weeks. . Orders: Orders Creatinine Urine Today E83.52 - Hypercalcemia, N17.9 - Acute kidney failure, unspecified Total Protein Urine Random Today E83.52 - Hypercalcemia, N17.9 - Acute kidney failure, unspecified UA and rflx microscopic Today E83.52 - Hypercalcemia, N17.9 - Acute kidney failure, unspecified US renal BI Today N17.9 - Acute kidney failure, unspecified Patient Instructions: - Stop taking vitamin D, lisinopril, and amlodipine. - Continue taking metformin as prescribed. - Begin iron supplements as directed. - Attend scheduled blood and urine tests. - Follow up for kidney ultrasound appointment. Patient was informed and verbally consented to the use of an ambient scribe for clinic note documentation during this visit. Coding Level of Care Code New Pt Level 4 (90217) Diagnoses JE (acute kidney injury) N17.9 Hypercalcemia E83.52 Anemia D64.9
--- OUTSIDE RECORDS SUMMARY | 2025-07-03 17:20 | XMS_ITS | Patient Health Record ---
[facility] Address [address] [place] [address] Care Team Providers Care Loom Cleaner Name Role Phone Didier Reyna MD Primary Care Provider Minh Gongora Unavailable [phone] Reason For Referral No Information Medications Medication [...] Problem Acquired hammer toe of right foot (549190099783725 5) Other hammer toe(s) (acquired), right foot (M20.41) Active confirmed Problem Acquired hammer toe of left foot (378010809046056 3) Other hammer toe(s) (acquired), left foot (M20.42) Active confirmed Problem Type II diabetes mellitus without complication (242564103) Type 2 diabetes mellitus without complications (E11.9) Active confirmed Plan Of Treatment No Information Insurance Providers Payer Name Payer Address Payer Phone Subscriber Number Group Number Insured Name Patient Relationship to Insured Coverage Start Date Coverage End Date [employer] Preferred [address] [place] [address] [phone] [id number] Marlen Cesar i Self - patient is the insured Medical (General) History Medical History History ICD Code High blood pressure Diabetic
== END 2025-07-03 15:22 | disposition home or self-care (01) ==
LOC: HO.HKA 14:58
PROVIDERS: PCP Internal Medicine; Referring Provider Internal Medicine; Visit Provider Internal Medicine Hypertension Specialist
DX: N17.9 Acute kidney failure, unspecified (principal); E83.52 Hypercalcemia; D64.9 Anemia, unspecified
CPT/HCPCS: 99204

== ENCOUNTER → 2025-07-03 14:57 | Outpatient (BNVA) | payer MEDICARE, SELFPAY | PROVIDERS: PCP Internal Medicine; Referring Provider Internal Medicine; Visit Provider Internal Medicine Hypertension Specialist | DX: N17.9 Acute kidney failure, unspecified (principal); E83.52 Hypercalcemia; D64.9 Anemia, unspecified | CPT/HCPCS: 99202 ==

== ENCOUNTER 2025-07-05 09:23 | Outpatient (REF) | payer MEDICARE, SELFPAY ==
--- NOTE | ~2025-07-05 | US_ITS ---
CLINICAL HISTORY: N17.9 - Acute kidney failure, unspecified US Renal Comparison: None provided Findings: Right kidney normal size and echotexture and measures 10.2 cm x 3.3 cm x 5.6 cm. Left kidney normal size and echotexture and measures 10.2 cm x 4.7 cm x 3.7 cm. There is a 1.2 cm cortical cyst of the midpole of the left kidney. No collecting system dilatation of either kidney. Normal color Doppler. IMPRESSION: 1. 1.2 cm left renal cyst. Otherwise unremarkable study. This document has been electronically signed by: Martha Shepherd MD on 07/05/2025 17:23:46
[2025-07-05 13:29] LABS: MANUAL DIFF FLAG NO
[2025-07-05 13:39] LABS: Hematocrit 28.6 % (37.0-47.0); Hemoglobin 8.4 g/dl (12.0-16.0); Imm Gran Abs Auto 0.03 X10*3/uL (0.00-0.03); Imm Gran Pct Auto 0.4 % (0.0-0.4); Lymphocytes Absolute Auto 2.1 X10*3/uL (1.2-4.9); Mean Corpuscular HGB Conc 29.4 g/dl (31.0-35.0); Mean Corpuscular Hemoglobin 26.5 pg (27.0-33.0); Mean Corpuscular Volume 90.2 fL (80.0-98.0); NRBC Abs Auto 0.020 X10*3/uL (0.0-0.012); NRBC Pct Auto 0.3 /100WBC (0.0-0.2); Platelet Count 454 X10*3/uL (160-400); Red Blood Count 3.17 X10*6/uL (4.20-5.50); White Blood Count 7.4 X10*3/uL (4.8-10.8)
[2025-07-05 13:44] LABS: Appearance Urine Hazy; Glucose Urine UA Negative (Negative); PH 5.5 (5.0-9.0); Specific Gravity - Urine >= 1.030 (1.005-1.025); UMIC TRIGGER UA YES
[2025-07-05 14:20] LABS: Epith (RTE) Cast Present
[2025-07-05 14:30] LABS: Parathyroid Hormone Intact 48.3 pg/mL (8.7-77.1)
[2025-07-05 14:37] LABS: Anion Gap 11 (12-20); Blood Urea Nitrogen 31 mg/dL (9-16); Calcium 12.9 mg/dL (8.4-10.2); Carbon Dioxide 26 mmol/L (22-29); Chloride 104 mmol/L (96-108); Estimated Glomerular Filt Rate 27; Magnesium 3.0 mg/dL (1.6-2.6); Potassium 4.4 mmol/L (3.3-5.1); Sodium 137 mmol/L (135-145)
[2025-07-05 14:58] LABS: Total Protein Urine Random 339 mg/dL (<12)
[2025-07-06 15:33] LABS: Calcium, Ionized 6.9 mg/dL (4.7-5.5)
[2025-07-07 15:48] LABS: PES - Abn Protein Band 1 3.3 g/dL (NONE DETECTED); Prot Elec - Albumin 3.6 g/dL (3.8-4.8); Prot Elec - Alpha1 0.6 g/dL (0.2-0.3); Prot Elec - Alpha2 1.3 g/dL (0.5-0.9); Prot Elec - Beta 1 0.4 g/dL (0.4-0.6); Prot Elec - Beta 2 0.2 g/dL (0.2-0.5); Prot Elec - Gamma 3.6 g/dL (0.8-1.7); Prot Elec - Total Protein 9.7 g/dL (6.1-8.1)
[2025-07-17 12:54] LABS: PEU Ran-Abn Protein Band 1 384.9 mg/dL (NONE DETECTED); PEU-Protein Creat Ratio Rand 4.787 (0.024-0.184); PEU-Rand. Prot/Creat Ratio 4787 mg/g creat (24-184); PEU-Random Ur. Gamma Globulin 76 %; PEU-Random Urine A1 Globulin 3 %; PEU-Random Urine A2 Globulin 7 %; PEU-Random Urine Albumin 9 %; PEU-Random Urine Beta Globulin 5 %; PEU-Random Urine Creatinine 127 mg/dL (20-275); PEU-Random Urine Protein 608 mg/dL (5-24)
== END 2025-07-05 09:24 | disposition home or self-care (01) ==
LOC: HO.US 09:23
PROVIDERS: Absent Provider Internal Medicine; PCP Internal Medicine; Referring Provider Student in an Organized Health Care Education/Training Program; Visit Provider Internal Medicine Hypertension Specialist
DX: E21.3 Hyperparathyroidism, unspecified (principal); N17.9 Acute kidney failure, unspecified
CPT/HCPCS: 76775; 80048; 81001; 82330; 82570; 82784; 83735; 83970; 84156; 84165; 84166; 85025

== ENCOUNTER → 2025-07-05 09:25 | Outpatient (BNV) | payer MEDICARE, SELFPAY | PROVIDERS: Absent Provider Internal Medicine; PCP Internal Medicine; Referring Provider Student in an Organized Health Care Education/Training Program; Visit Provider Specialist | DX: N17.9 Acute kidney failure, unspecified (principal); N28.1 Cyst of kidney, acquired | CPT/HCPCS: 76775 ==

== ENCOUNTER 2025-07-06 11:55 | Inpatient (IN) | payer MEDICARE, SELFPAY ==
--- NOTE | ~2025-07-06 | XR_ITS ---
CLINICAL HISTORY: hypercalcemia, concern for myeloma 18 view skeletal survey Comparison: None provided Findings: No fracture. Degenerative changes of the spine. Multifocal small lucent foci throughout the bones. No radiopaque foreign body. IMPRESSION: 1. Multifocal lucent foci throughout the bones, nonspecific, however may be seen in the setting of multiple myeloma. This document has been electronically signed by: Marilyn Hardwick MD on 07/06/2025 19:12:31
[2025-07-06 12:21] VITALS: BP 93/51; PULSE 91; RESP 18; TEMP 36.3; O2SAT 98; BMI 44.3
--- NOTE | 2025-07-06 12:21 | ED.GENADULT ---
HPI - General Adult General Chief complaint: Recheck/Abnormal Lab/Rx Stated complaint: High calcium Time Seen by Provider: 07/06/25 12:42 Source: patient and family Mode of arrival: ambulatory Limitations: no limitations History of Present Illness ED Provider: HPI narrative: 80-year-old female was instructed by Dr. Gomez to go to emergency department, she was referred to hematology by employee benefits specialist, Dr. Gomez has not seen the patient yet but noted abnormal blood work and notified patient to present to the ER for IV fluids and additional medications. Patient has been seen by employee benefits specialist and rod hanger on 06/30 and 07/03 respectively, has been losing a lot of weight and they understand that she has been worked up for either multiple myeloma or a blood dyscrasia. She has been generally tired, but when she presented to the ER she had an appetite and requested food. She is here with her daughter. Related Data Home Medications ?Medication ?Instructions ?Recorded ?Confirmed metformin 1,000 mg tablet 1,000 mg PO BID 06/27/25 07/06/25 simvastatin 10 mg tablet 10 mg PO BEDTIME 06/27/25 07/06/25 magnesium oxide 400 mg PO DAILY 06/30/25 07/06/25 vitamins A,C,B-ynhv-pjkhgk 4,296 1 cap PO BID 06/30/25 07/06/25 mcg-226 mg-90 mg capsule (PreserVision AREDS) acetaminophen 650 mg 650 mg PO Q8H PRN Pain 07/06/25 07/06/25 tablet,extended release aspirin 81 mg tablet,delayed 81 mg PO DAILY 07/06/25 07/06/25 release cetirizine 10 mg tablet 5 mg PO DAILY 07/06/25 07/06/25 ferrous sulfate 325 mg (65 mg 325 mg PO DAILY 07/06/25 07/06/25 iron) tablet multivitamin 1 tab PO DAILY 07/06/25 07/06/25 Allergies Allergy/AdvReac Type Severity Reaction Status Date / Time No Known Allergies Allergy Verified 07/06/25 12:25 Review of Systems Constitutional: Constitutional: Reports as per HPI [facility] Past Medical History Medical History History of high cholesterol Hx of type 2 diabetes mellitus Hx of spinal stenosis Hx of acute arthritis Hx of essential hypertension Surgical History No pertinent past surgical history Family History Family History Father HTN (hypertension) Myocardial disease Diabetes mellitus Hypercholesteremia Mother Diabetes mellitus Family history of breast cancer Social History Social History Household Members: Spouse Housing: House Do you presently have visiting nurse or other home services: No Alcohol intake: current Alcohol intake frequency: does not drink Patient Tobacco Use Status: Former Tobacco user service: No Physical Exam ED Vital Signs: Vital Signs - 24 hr 07/06/25 12:21 07/06/25 12:47 Temperature 97.4 F 97.9 F Pulse Rate 91 90 Respiratory Rate 18 19 Blood Pressure 93/51 L 144/63 H Pulse Oximetry 98 95 Oxygen Delivery Method Room Air Room Air BMI result Body Mass Index 44.3 Const Other: General: ?Elderly woman appears of stated age ? ?PERRLA, EOMI, MMM, ? Neck: Kyphosis ? ?CV: S1-S2 ? ?Resp: ?No wheezing rales rhonchi no stridor moving air well ? Abd: ?Bowel sounds are present, no tenderness no rebound no rigidity ? ?MSK: No lower extremity edema ? Skin: Skin call you consistent with her age ? ?Neuro: ?Alert and oriented x3, moving upper and lower extremities symmetrically, no obvious facial asymmetry noted, cranial nerves 2-12 intact Course Course Course Narrative: This is a rapid medical exam performed by Dot Lan NP: Additional HPI, ROS, PE not included below will be deferred to primary provider. Patient is a 80y/o F referred by oncology for hypercalcemia/anemia and admission. Daughter reports 60# wt loss since august. Mildly hypotensive in triage, 93/51. Medications Administered Generic Name Dose Route Start Last Admin Trade Name Freq PRN Reason Stop Dose Admin Aspirin 81 mg 07/07/25 09:00 07/09/25 08:22 Aspirin Enteric Coated 81 Mg Tablet. PO 81 mg DAILY SARA Administration Atorvastatin Calcium 10 mg 07/07/25 21:00 07/08/25 20:30 Atorvastatin Calcium 10 Mg Tablet PO 10 mg BEDTIME SARA Administration Ferrous Sulfate 324 mg 07/07/25 10:45 07/09/25 08:22 Ferrous Sulfate 324 Mg Tablet. PO 324 mg DAILY SARA Administration Furosemide 40 mg 07/07/25 09:30 07/09/25 08:29 Furosemide 40 Mg/4 Ml Vial IVPUSH 40 mg Q12H SARA Administration Protocol Heparin Sodium (Porcine) 5,000 unit 07/06/25 15:00 07/08/25 04:10 Heparin Sodium,Porcine 5,000 Unit/Ml Vial SUBCUT 5,000 unit On Hold: 07/08/25 10:20 Q12H SARA Administration Sodium Chloride 1,000 mls @ 100 mls/hr 07/07/25 09:30 07/08/25 23:39 Ns IVCONT 100 mls/hr .Q10H SARA Administration Insulin Human Lispro 0 unit 07/06/25 16:30 07/09/25 07:56 Insulin Lispro 100 Unit/Ml 3 Ml Vial SUBCUT Not Given QIDACHS [facility] Protocol Loratadine 5 mg 07/07/25 09:00 07/09/25 08:22 Loratadine 10 Mg Tablet PO 5 mg DAILY SARA Administration Melatonin 6 mg 07/06/25 14:41 07/06/25 20:19 Melatonin 3 Mg Tablet PO 6 mg BEDTIME PRN Administration Insomnia Multivitamins/Vitamin C 1 tab 07/08/25 09:00 07/09/25 08:22 Multivitamin Tablet PO 1 tab DAILY SARA Administration Pt Own(Vitamins A,C, 1 cap 07/07/25 21:30 07/09/25 08:25 E-Ofal-Ztdgdy [ PO 1 cap Preservision Areds] BID SARA Administration 4,296 Mcg-226 Mg Sodium Chloride 3 ml 07/06/25 16:00 07/09/25 08:23 0.9 % Sodium Chloride Flush 3 Ml Syringe IVFLUSH 3 ml QSHIFT SARA Administration Discontinued Medications Generic Name Dose Route Start Last Admin Trade Name Freq PRN Reason Stop Dose Admin Lactated Ringer's 1,000 mls @ 0 mls/hr 07/06/25 13:00 07/06/25 14:36 Lr IV Infused .Q0M SARA Infusion Wide Open Magnesium Oxide 400 mg 07/07/25 09:00 07/07/25 07:49 Magnesium Oxide 400 Mg Tablet PO 400 mg DAILY SARA Administration Non-Formulary Medication 1 cap 07/07/25 10:45 07/07/25 11:50 Vitamins A,C,F-Bzyk-Lvawvg [Preservision Areds] PO Not Given BID SARA Potassium Chloride 40 meq 07/09/25 07:27 07/09/25 08:23 Potassium Chloride Er 20 Meq Tab.Er.Prt PO 07/09/25 07:28 40 meq ONCE ONE Administration Potassium Chloride 10 meq 07/09/25 07:28 07/09/25 08:23 Potassium Chloride Er 10 Meq Tablet.Er PO 07/09/25 07:29 10 meq ONCE ONE Administration Zoledronic Acid 5 mg 07/06/25 13:32 07/06/25 15:38 Zoledronic Acid/Mannitol-Water 5 Mg/100 Ml Pggybk.Btl IV 5 mg ONCE PRN Administration Infusion Center Medical Decision Making Medical Decision Making MDM Narrative: 1:28 PM 07/06/2025 (Dr. Jay Lawrence): Upon initial patient's presentation I reached out to employee benefits specialist who saw her on June 30 2 figure out if this is any additional medications to provide to the patient outside of fluids, steroids, calcitonin etc. Dr. Tamez stated that he did not recommend patient to go to the ER, I measured patient is corrected calcium was 14.1 but that was when she had an JE and her renal function has that improved, I will recheck her electrolytes we will start with fluids, I also send a tiger text to Dr. Gomez to confirm that patient needs admission, as patient was sent to the ER but Dr. Gomez has not evaluated the patient yet. No ECG changes, on check-in patient was slightly hypotensive but her blood pressure has rebounded, and she requested food and has been eating without any issues. 1:35 PM 07/06/2025 (Dr. Jay Lawrence): Dr. Gomez would like for the patient to be admitted for bone skeletal survey as well as infusion of Zometa Differential Diagnosis Differential Diagnoses: The differential diagnosis associated with the presentation includes (Hypercalcemia, dysrhythmia, other electrolyte derangements, multiple myeloma, leukemia) Admission/Observation Consideration of admission/observation: Escalation of care including admission/observation considered Consult Healthcare Provider Management of the patient was discussed with: Safety Companion (Dr. Tamez, and Dr. Gomez) Lab Data [facility] Lab Attestation statement: I reviewed the patient's lab results. 07/09/25 06:16 07/09/25 06:16 Labs: Lab Results 07/06/25 Range/Units 13:10 WBC 6.7 (4.8-10.8) X10*3/uL RBC 3.26 L (4.20-5.50) X10*6/uL Hgb 8.7 L (12.0-16.0) g/dl Hct 29.0 L (37.0-47.0) % MCV 89.0 (80.0-98.0) fL MCH 26.7 L (27.0-33.0) pg MCHC 30.0 L (31.0-35.0) g/dl RDW 17.4 H (11.0-16.0) % Plt Count 386 (160-400) X10*3/uL MPV 8.3 L (9.4-12.3) fL Immature Gran % (Auto) 0.3 (0.0-0.4) % Neut % (Auto) 59.3 (45-73) % Lymph % (Auto) 26.9 (20-40) % [place] % (Auto) 10.2 (2-11) % Eos % (Auto) 2.7 (0-4) % Baso % (Auto) 0.6 (0-2) % Lymph # (Auto) 1.8 (1.2-4.9) X10*3/uL [place] # (Auto) 0.7 (0.1-1.2) X10*3/uL Eos # (Auto) 0.2 (0.0-0.4) X10*3/uL Baso # (Auto) 0.0 (0.0-0.2) X10*3/uL Abs Immat Gran (auto) 0.02 (0.00-0.03) X10*3/uL Absolute Neuts (auto) 4.0 (2.0-8.3) x10*3/uL Absolute Nucleated RBC 0.000 (0.0-0.012) X10*3/uL Nucleated RBC % (auto) 0.0 (0.0-0.2) /100WBC Sodium 137 (135-145) mmol/L Potassium 4.6 (3.3-5.1) mmol/L Chloride 105 (96-108) mmol/L Carbon Dioxide 27 (22-29) mmol/L Anion Gap 10 L (12-20) BUN 29 H (9-16) mg/dL Creatinine 1.82 H (0.5-1.4) mg/dL Estim Creat Clear Calc 32.0 Estimated GFR 27 Random Glucose 91 (60-115) mg/dL Calcium 12.9 H* (8.4-10.2) mg/dL Ionized Calcium 7.2 H* (4.7-5.5) mg/dL Magnesium 2.9 H (1.6-2.6) mg/dL Total Bilirubin 0.4 (0.0-1.0) mg/dL AST 29 (5-31) U/L ALT < 6 (0-31) U/L Alkaline Phosphatase 73 (39-117) U/L Total Creatine Kinase 18 L (26-140) U/L Total Protein 9.7 H (6.5-8.0) g/dL Albumin 3.5 (3.5-5.0) g/dL Lipase 131 H (8-78) U/L Independent Interpretation I performed an independent interpretation of an: EKG (98 B<P. No WI shortening, no QT shortening, no QTC prolongation, otherwise unremarkable EKG) Critical Care Time Critical Care Time Critical Care Time: Yes Total Critical Care Time: 35 Attestation: Time is exclusive of separately billable procedures. Time includes: direct patient care, patient reassessment, coordination of patient care, interpretation of data (laboratory data, pulse oximetry, arterial blood gases and chest xrays), review of patient's medical records, medical consultation and documentation of patient care. Procedures excluded from critical care time: central intravenous line placement and electrocardiography. Discharge Plan Discharge Clinical Impression: Hypercalcemia Patient Disposition: Admitted As Inpatient Interventions: Admission Worksheet (ED) Last Done: 07/06/25 15:25 Discharge Date/Time: 07/06/25 16:55
[2025-07-06 12:47] VITALS: BP 144/63; PULSE 90; RESP 19; TEMP 36.6; O2SAT 95
--- NOTE | 2025-07-06 12:49 | ECG_ITS ---
Test Reason : weakness Blood Pressure : */* mmHG Vent. Rate : 98 BPM Atrial Rate : 98 BPM P-R Int : 170 ms QRS Dur : 82 ms QT Int : 320 ms P-R-T Axes : -2 -26 54 degrees QTcB Int : 408 ms Normal sinus rhythm Cannot rule out Anterior infarct , age undetermined Abnormal ECG No previous ECGs available Referred By: Jay Lawrence Electronically Signed By: AILYN WRIGHT MD
[2025-07-06] MEDS: Lactated Ringers 1,000 ML 999 ML IV (13:11)
--- OUTSIDE RECORDS SUMMARY | 2025-07-06 13:11 | XMS_ITS | Patient Health Record ---
[facility] Address [address] [place] [address] Care Team Providers Care Collector Name Role Phone Didier Reyna MD Primary Care Provider Minh Gongora Unavailable [phone] Reason For Referral No Information Medications Medication [...] Problem Acquired hammer toe of right foot (338086586510698 5) Other hammer toe(s) (acquired), right foot (M20.41) Active confirmed Problem Acquired hammer toe of left foot ([id number] 3) Other hammer toe(s) (acquired), left foot (M20.42) Active confirmed Problem Type II diabetes mellitus without complication (908448102) Type 2 diabetes mellitus without complications (E11.9) Active confirmed Plan Of Treatment No Information Insurance Providers Payer Name Payer Address Payer Phone Subscriber Number Group Number Insured Name Patient Relationship to Insured Coverage Start Date Coverage End Date [employer] Pref[employer] [address] [place] [address] [id number] Marlen Cesar i Self - patient is the insured Medical (General) History Medical History History ICD Code High blood pressure Diabetic
[2025-07-06 13:19] LABS: MANUAL DIFF FLAG NO
[2025-07-06 13:21] LABS: Hematocrit 29.0 % (37.0-47.0); Hemoglobin 8.7 g/dl (12.0-16.0); Imm Gran Abs Auto 0.02 X10*3/uL (0.00-0.03); Imm Gran Pct Auto 0.3 % (0.0-0.4); Lymphocytes Absolute Auto 1.8 X10*3/uL (1.2-4.9); Mean Corpuscular HGB Conc 30.0 g/dl (31.0-35.0); Mean Corpuscular Hemoglobin 26.7 pg (27.0-33.0); Mean Corpuscular Volume 89.0 fL (80.0-98.0); NRBC Abs Auto 0.000 X10*3/uL (0.0-0.012); NRBC Pct Auto 0.0 /100WBC (0.0-0.2); Platelet Count 386 X10*3/uL (160-400); Red Blood Count 3.26 X10*6/uL (4.20-5.50); White Blood Count 6.7 X10*3/uL (4.8-10.8)
[2025-07-06 13:32] VITALS: BP 148/64; PULSE 87; RESP 17; TEMP 36.6; O2SAT 97
[2025-07-06 13:47] LABS: Alanine Aminotransferase < 6 U/L (0-31); Albumin Level 3.5 g/dL (3.5-5.0); Alkaline Phosphatase 73 U/L (39-117); Anion Gap 10 (12-20); Aspartate Amino Transferase 29 U/L (5-31); Blood Urea Nitrogen 29 mg/dL (9-16); Calcium 12.9 mg/dL (8.4-10.2); Carbon Dioxide 27 mmol/L (22-29); Chloride 105 mmol/L (96-108); Creatinine Clr Calc Pharmacy 32.0; Estimated Glomerular Filt Rate 27; Lipase 131 U/L (8-78); Magnesium 2.9 mg/dL (1.6-2.6); Potassium 4.6 mmol/L (3.3-5.1); Sodium 137 mmol/L (135-145); Total Protein 9.7 g/dL (6.5-8.0)
--- NOTE | 2025-07-06 14:48 | PM.IMHP ---
History of Present Illness Date of Service: 07/06/25 Attending physician on admission: Emanuel Cuevas Chief Complaint: hypercalcemia This is a 80-year-old female who was sent to the emergency department due to hypercalcemia. Patient has had increasing renal function, weight loss, increasing calcium levels. She has been followed by Nephrology and there is concern for multiple myeloma. Due to increasing calcium levels up to 12.9 she was sent to the emergency department for treatment. She reports 60 pound weight loss over the past year. In the emergency department she was treated with IV fluid and a dose of zoledronic acid. Patient has no specific physical complaints at this time. Review of Systems Review of Systems: Yes all other systems are reviewed and are negative Constitutional: Constitutional: Denies chills and Denies fever(s) ENT: Denies dizziness Cardiovascular: Cardiovascular: Denies chest pain, Denies palpitations and Denies dyspnea Respiratory: Respiratory: Denies cough and Denies dyspnea Gastrointestinal: Gastrointestinal: Denies abdominal pain, Denies nausea and Denies vomiting Neurologic: Denies dizziness Endocrine: Endocrine: Denies palpitations [facility] Medical History History of high cholesterol Hx of type 2 diabetes mellitus Hx of spinal stenosis Hx of acute arthritis Hx of essential hypertension Family History Father HTN (hypertension) Myocardial disease Diabetes mellitus Hypercholesteremia Mother Diabetes mellitus Family history of breast cancer Surgical History No pertinent past surgical history Social History Alcohol intake: current Alcohol intake frequency: does not drink Patient Tobacco Use Status: Former Tobacco user Advance Directives: No Advance Directives Information Provided: Yes Do you have a plan to hurt others: No Plan Patient : No Meds Allergies Allergy/AdvReac Type Severity Reaction Status Date / Time No Known Allergies Allergy Verified 07/06/25 12:25 Active Medications: Current Medications Acetaminophen (Acetaminophen 325 Mg Tablet) 650 mg PO ONCE PRN PRN Reason: Infusion Center Lactated Ringer's (Lr) 1,000 mls @ 0 mls/hr IV .Q0M SARA Last Infusion: 07/06/25 14:36 Dose: Infused Sodium Chloride (0.9 % Sodium Chloride Flush 10 Ml Syringe) 5 ml IVFLUSH ONCE PRN PRN Reason: Infusion Center Zoledronic Acid (Zoledronic Acid/Mannitol-Water 5 Mg/100 Ml Pggybk.Btl) 5 mg IV ONCE PRN PRN Reason: Infusion Center Home Medications ?Medication ?Instructions ?Recorded ?Confirmed ?Last Taken ?Type metformin 1,000 mg tablet 1,000 mg PO BID 06/27/25 07/06/25 07/06/25 History simvastatin 10 mg tablet 10 mg PO BEDTIME 06/27/25 07/06/25 07/05/25 History magnesium oxide 400 mg PO DAILY 06/30/25 07/06/25 07/06/25 History vitamins A,C,I-aigv-qmsxii 4,296 1 cap PO BID 06/30/25 07/06/25 07/06/25 History mcg-226 mg-90 mg capsule (PreserVision AREDS) acetaminophen 650 mg 650 mg PO Q8H PRN Pain 07/06/25 07/06/25 Unknown History tablet,extended release aspirin 81 mg tablet,delayed 81 mg PO DAILY 07/06/25 07/06/25 07/06/25 History release cetirizine 10 mg tablet 5 mg PO DAILY 07/06/25 07/06/25 07/06/25 History ferrous sulfate 325 mg (65 mg 325 mg PO DAILY 07/06/25 07/06/25 07/06/25 History iron) tablet multivitamin 1 tab PO DAILY 07/06/25 07/06/25 07/06/25 History Physical Exam Vital Signs and Narrative: Vital Signs: Last Vital Signs Temp 97.8 F 07/06/25 13:32 Pulse 87 07/06/25 13:32 Resp 17 07/06/25 13:32 BP 148/64 H 07/06/25 13:32 Pulse Ox 97 07/06/25 13:32 O2 Del Method Room Air 07/06/25 13:32 BMI result Body Mass Index 44.3 Const: Other: Frail elderly female resting in bed comfortably General: cooperative, alert and awake Orientation/consciousness: patient oriented x3 Resp: Effort & Inspection: normal respiratory effort, able to speak in complete sentences, no respiratory distress and no use of accessory muscles Cardio: Rate: regular rate GI: Inspection: No distended Palpation (GI): Soft to palpation and nontender Neuro: General: patient oriented x3, moves all extremities and CN's II-XI intact bilaterally Results Labs 07/06/25 13:10 07/06/25 13:10 Labs: Laboratory Results - last 24 hr 07/06/25 13:10 MCV 89.0 MCH 26.7 L MCHC 30.0 L RDW 17.4 H Plt Count 386 MPV 8.3 L Immature Gran % (Auto) 0.3 Neut % (Auto) 59.3 Lymph % (Auto) 26.9 [place] % (Auto) 10.2 Eos % (Auto) 2.7 Baso % (Auto) 0.6 Lymph # (Auto) 1.8 [place] # (Auto) 0.7 Eos # (Auto) 0.2 Baso # (Auto) 0.0 Abs Immat Gran (auto) 0.02 Absolute Neuts (auto) 4.0 Absolute Nucleated RBC 0.000 Nucleated RBC % (auto) 0.0 Anion Gap 10 L Estim Creat Clear Calc 32.0 Estimated GFR 27 Random Glucose 91 Calcium 12.9 H* Magnesium 2.9 H Total Bilirubin 0.4 AST 29 ALT < 6 Alkaline Phosphatase 73 Total Creatine Kinase 18 L Total Protein 9.7 H Albumin 3.5 Lipase 131 H Assessment and Plan (1) Hypercalcemia: Status: Acute (2) Anemia: Status: Acute Plan This is a 80-year-old female with history of diabetes, hypertension with recent weight loss, anemia, worsening renal insufficiency admitted for hypercalcemia Hypercalcemia calcium levels up to 12.9. With anemia, worsening renal function, concern for multiple myeloma Plan for bone survey IVF received dose of zometa in ED heme/onc consult, nephrology consult follow calcium levels CKD3 recently diagnosed and progressively worsening. work up ongoing will treated with IVF follow BMP nephrology consult Anemia hematology consult pending no acute blood loss possibly due to MM trend H/H DM hold metformin SSI, POCs, ADA diet HTN due to low bp recently, her bp meds have been stopped dvt ppx - mechanical devices code status - DNR/DNI Patient will likely require 2 midnight stay in the hospital for management of hypercalcemia requiring IV fluids, IV Zometa, specialist evaluation and close monitoring Quality Stroke Does the patient have a stroke diagnosis?: No VTE Prior VTE?: No VTE Risk Level:: Medical - moderate - high VTE Device Contraindication: N/A - Device Ordered VTE Drug Contraindication: N/A - Med Ordered
--- NOTE | 2025-07-06 15:24 | HO.NURTONUR ---
Pt being admitted for hypercalcemia and worsening kidney function. Pt has been seen by nephrology for hypercalcemia, weight loss, and kidney insufficiency. Concerned for multiple myeloma. Hem/onc MD Jason Cadena sent pt to ED today for calcium 12.9. Pt has no current complaints except chronic fatigue. Calcium- 12.9 Cr 1.82 Hgb- 8.7 Pt with 20g LFA. Received 1L LR. VSS. Neuro intact. Uses wheelchair per daughter. Calm and cooperative.
--- NOTE | 2025-07-06 15:25 | PHA.MEDREC ---
Addendum entered by Shawn Kaplan PharmD 07/06/25 15:28: reviewed Original Note: Pharmacy Consult ? Medication Reconciliation Pharmacy has completed the medication reconciliation. Spoke with pt and pt daughter at bedside and they had a list on hand they confirmed with me. Pt no longer taking Amlodipine, Hydrochlorothiazide or Lisinopril as of yesterday, stating she had a Dr visit and her BP was low so her Dr stopped those.
--- NOTE | 2025-07-06 16:10 | MHC.EDTECH ---
pt walked with assistance to restroom
[2025-07-06] MEDS: 0.9 % Sodium Chloride Flush 3 ML SYRINGE IVFLUSH (16:22)
--- NOTE | 2025-07-06 16:44 | PM.HEMONCCN ---
Subjective - Subjective Chief complaint: Consult for: 1. Hypercalcemia. 2. Plasma cell dyscrasia. Patient: new to practice Consult date: 07/06/25 Requesting Physician: Eve Briceno MD Primary Care Provider: Eve Briceno MD Family Provider: Eve Briceno MD Medical Summary: DIAGNOSIS: 1 HYPERCALCEMIA. 2. PLASMA CELL DYSCRASIA. Guide Dog Instructor Utilized?: No - Bengali Speaking HPI - Consult Narrative Reason for consult: Consult for: 1. Hypercalcemia. 2. Question of myeloma. Narrative: Marlen Rey is a 80 year old lady. I advised her to come in on account of hypercalcemia with a calcium of 12.9. BUN 46, IRON ERECTOR 2.3. 07/05: CBC: WBC 7.4, HGB 8.4, HCT 28.6, PLT 454. Total protein 9.7 She was recently seen by Dr. Tang from Endocrine, who started the workup for hypercalcemia. IPTH: Normal. IgG 4918, IgA 41, IgM 25. ROS: She tells me lately she has been extremely fatigued. Denies fever chills no night sweats. She has lost taste for food. Appetite has declined. She can only eat a little bit at a time. She has lost 60 lb since August. Last week he was 125 and now down to 117 lb. She denies any headache no dizziness. No chest pain or trouble breathing. Denies any abdominal pain nausea vomiting heartburn indigestion. She does get diarrhea now and then. She has been taking the iron so stool is black. He had a colonoscopy awhile back which was negative. Denies any dysuria or hematuria. Denies frequency. She has history of spinal stenosis. She gets back pain. She has to sit most of the time. Denies any lower extremity weakness. She has depression. Skin rashes no pruritus. In the emergency department she was treated with IV fluid and a dose of zoledronic acid. 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 She is . Has 3 children. She quit smoking in her 30s. Denied alcohol. Alcohol intake: current Alcohol intake frequency: does not drink Patient Tobacco Use Status: Former Tobacco user Advance Directives: No Advance Directives Information Provided: Yes Review of Systems - Constitutional Reports system reviewed and no additional complaints, except as documented, Reports fatigue, Reports lack of energy, Reports malaise, Reports poor appetite, Reports weight loss - Eyes Reports system reviewed and no additional complaints, except as documented - ENT Reports system reviewed and no additional complaints, except as documented - Cardiovascular Reports system reviewed and no additional complaints, except as documented - Respiratory Reports no additional respiratory complaints - Gastrointestinal Reports system reviewed and no additional complaints, except as documented - Genitourinary Reports no additional female genitourinary complaints - Musculoskeletal Reports system reviewed and no additional complaints, except as documented - Integumentary/Breasts Skin/Breast: Reports no additional skin complaints - Neurologic Denies dizziness - Psychiatric Reports system reviewed and no additional complaints, except as documented - Endocrine Reports no additional endocrine complaints - Hematologic/Lymphatic Reports system reviewed and no additional complaints, except as documented - Allergic/Immunologic Reports system reviewed and no additional complaints, except as documented Oncology Screenings - ECOG Performance Status ECOG Performance Status: 0 PMFSH Medical History: Medical History (Last Reviewed 07/07/25 @ 11:25 by Jerica Goss PT) History of high cholesterol Hx of acute arthritis Hx of essential hypertension Hx of spinal stenosis Hx of type 2 diabetes mellitus Functional capacity: independent ambulation Patient : No Family History: Family History (Last Reviewed 07/06/25 @ 14:50 by JOSIE Brown) Father HTN (hypertension) Myocardial disease Diabetes mellitus Hypercholesteremia Mother Diabetes mellitus Family history of breast cancer Surgical History: Surgical History (Last Reviewed 07/07/25 @ 11:25 by Jerica Goss PT) No pertinent past surgical history Social History: Social History (Last Reviewed 07/06/25 @ 14:50 by JOSIE Brown) Living Situation History: Household Members: Spouse Housing: House Do you presently have visiting nurse or other home services: No Tobacco History: Patient Tobacco Use Status: Former Tobacco user Occupation Assessmet: service: No Home Medications and Allergies Current Medications: Current Medications Acetaminophen (Acetaminophen 325 Mg Tablet) 650 mg PO ONCE PRN PRN Reason: Infusion Center Acetaminophen (Acetaminophen 325 Mg Tablet) 650 mg PO Q6H PRN PRN Reason: Pain, Mild 1-3,fever,headache Dextrose (Dextrose 50 % 25 Gm/50 Ml Syringe) 25 gm IVPUSH Q15M PRN; Protocol PRN Reason: per Hypoglycemia Standing Ord. Glucose (Glucose Gel 15 Gm Gel..Gram.) 15 gm PO Q15M PRN; Protocol PRN Reason: per Hypoglycemia Standing Ord. Heparin Sodium (Porcine) (Heparin Sodium,Porcine 5,000 Unit/Ml Vial) 5,000 unit SUBCUT Q12H [facility] Last Admin: 07/06/25 16:23 Dose: 5,000 unit Lactated Ringer's (Lr) 1,000 mls @ 0 mls/hr IV .Q0M [facility] Last Infusion: 07/06/25 14:36 Dose: Infused Insulin Human Lispro (Insulin Lispro 100 Unit/Ml 3 Ml Vial) 0 unit SUBCUT QIDACHS [facility]; Protocol Magnesium Hydroxide (Milk Of Magnesia 30 Ml Oral.Susp) 30 ml PO DAILY PRN PRN Reason: Constipation Melatonin (Melatonin 3 Mg Tablet) 6 mg PO BEDTIME PRN PRN Reason: Insomnia Sodium Chloride (0.9 % Sodium Chloride Flush 10 Ml Syringe) 5 ml IVFLUSH ONCE PRN PRN Reason: Infusion Center Sodium Chloride (0.9 % Sodium Chloride Flush 3 Ml Syringe) 3 ml IVFLUSH QSHIFT [facility] Last Admin: 07/06/25 16:22 Dose: 3 ml Home Medications ?Medication ?Instructions ?Recorded ?Confirmed ?Type metformin 1,000 mg tablet 1,000 mg PO BID 06/27/25 07/06/25 History simvastatin 10 mg tablet 10 mg PO BEDTIME 06/27/25 07/06/25 History magnesium oxide 400 mg PO DAILY 06/30/25 07/06/25 History vitamins A,C,Y-avrc-lokvpv 4,296 1 cap PO BID 06/30/25 07/06/25 History mcg-226 mg-90 mg capsule (PreserVision AREDS) acetaminophen 650 mg 650 mg PO Q8H PRN Pain 07/06/25 07/06/25 History tablet,extended release aspirin 81 mg tablet,delayed 81 mg PO DAILY 07/06/25 07/06/25 History release cetirizine 10 mg tablet 5 mg PO DAILY 07/06/25 07/06/25 History ferrous sulfate 325 mg (65 mg 325 mg PO DAILY 07/06/25 07/06/25 History iron) tablet multivitamin 1 tab PO DAILY 07/06/25 07/06/25 History Allergies Allergy/AdvReac Type Severity Reaction Status Date / Time No Known Allergies Allergy Verified 07/06/25 12:25 Physical Exam Vital signs: Vital Signs Temp 97.8 F 07/06/25 13:32 Pulse 87 07/06/25 13:32 Resp 17 07/06/25 13:32 BP 148/64 H 07/06/25 13:32 Pulse Ox 97 07/06/25 13:32 O2 Del Method Room Air 07/06/25 13:32 Intake & Output 07/05/25 07/06/25 07/06/25 18:59 06:59 18:59 Intake Total 1000 / 1000 Balance 1000 / 1000 Intake: Intake, IV Amount 1000 / 1000 Lactated Ringers 1,000 ml @ 1000 / 1000 Wide Open IV .Q0M [facility] Rx#: [id number] Other: Weight 117 kg Weight 117 kg - Constitutional Present: mild distress - Routine HEENT Exam Head: Present: normal inspection, normocephalic Eye: Present: normal appearance ENT: Present: mucous membranes moist - Routine Neck Exam Present: supple - Routine Respiratory Exam Present: CTAB - Routine Cardiovascular Exam Cardiovascular: Present: S1, S2 - Routine Abdominal Exam Present: soft, nontender - Routine Extremities Exam Present: nontender - Routine Skin Exam Present: intact, normal turgor Hem/Onc Consult Result - Labs CBC & Chem 7: 07/10/25 06:17 07/10/25 06:17 Labs: Short CBC 07/06/25 Range/Units 13:10 WBC 6.7 (4.8-10.8) X10*3/uL Hgb 8.7 L (12.0-16.0) g/dl Hct 29.0 L (37.0-47.0) % Plt Count 386 (160-400) X10*3/uL BMP 07/06/25 13:10 Sodium 137 Potassium 4.6 Chloride 105 Carbon Dioxide 27 BUN 29 H Creatinine 1.82 H Calcium 12.9 H* Cardiac Enzymes 07/06/25 Range/Units 13:10 Total Creatine Kinase 18 L (26-140) U/L Liver Function 07/06/25 Range/Units 13:10 Total Bilirubin 0.4 (0.0-1.0) mg/dL AST 29 (5-31) U/L ALT < 6 (0-31) U/L Alkaline Phosphatase 73 (39-117) U/L Albumin 3.5 (3.5-5.0) g/dL Assessment and Plan Patient Active problem list reviewed?: Yes (1) Hypercalcemia Status: Acute Assessment and plan: 80-year-old lady, with history of:History of high cholesterol, type 2 diabetes mellitus, spinal stenosis, acute arthritis, essential hypertension, presenting with Hypercalcemia. CBC: WBC 6.7, HGB 8.7, HCT 29, PLT 386. BUN 29. IRON ERECTOR 1.82. Mitch 12.9. ALB 3.5, AP 73. LDH: 99. Recently, her calcium level has been progressively increasing. DIFFERENTIAL DIAGNOSIS: 1. MULTIPLE MYELOMA: Her picture is consistent with it. Her SIEP: Ig, IgG A:41, IgM: 25. SPEP revealed: Restricted band, M spike. She has obvious secondary complications including anemia, CKD, B symptoms, and hypercalcemia. 2. HYPERPARATHYROIDISM: Not likely, iPTH is normal. 48.3. 3. HYPERVITAMINOSIS D: vitamin D levels were elevated on 06/30/2025 as she was on supplementation that has been stopped now. PLAN: Will proceed with further evaluation. She has had immunofixation done. Will look for a monoclonal spike. Will check serum free light chain ratio. Check a skeletal survey: 1. Multifocal lucent foci throughout the bones, nonspecific, however may be seen in the setting of multiple myeloma. She will need a bone marrow exam, to confirm the diagnosis. Then definitive treatment can be recommended. PET scan, will be needed for staging, can be scheduled as an outpatient. Meanwhile she has received IV bisphosphonate: Zometa and is being admitted for further workup and hydration. Thanks, CC: Eve Birceno. - Time Spent With Patient Time Spent with Patient (in minutes): 30
[2025-07-06 16:55] VITALS: BP 120/70; PULSE 56; RESP 14; TEMP 37.2; O2SAT 99
[2025-07-06 16:58] LABS: Glucose, Whole Blood 99 mg/dL (60-115)
[2025-07-06 20:00] VITALS: BP 134/62; PULSE 97; RESP 18; TEMP 36.7; O2SAT 96
[2025-07-06 20:42] LABS: Glucose, Whole Blood 88 mg/dL (60-115)
[2025-07-07] MEDS: 0.9 % Sodium Chloride Flush 3 ML SYRINGE IVFLUSH ×2 (00:10→07:53)
[2025-07-07 04:00] VITALS: BP 122/56; PULSE 74; RESP 18; TEMP 36.5; O2SAT 98
[2025-07-07 06:19] LABS: Anion Gap 8 (12-20); Blood Urea Nitrogen 24 mg/dL (9-16); Calcium 11.7 mg/dL (8.4-10.2); Carbon Dioxide 28 mmol/L (22-29); Chloride 106 mmol/L (96-108); Creatinine Clr Calc Pharmacy 32.9; Estimated Glomerular Filt Rate 28; Potassium 3.6 mmol/L (3.3-5.1); Sodium 138 mmol/L (135-145)
[2025-07-07 06:46] LABS: Hematocrit 24.7 % (37.0-47.0); Hemoglobin 7.2 g/dl (12.0-16.0); Mean Corpuscular HGB Conc 29.1 g/dl (31.0-35.0); Mean Corpuscular Hemoglobin 26.3 pg (27.0-33.0); Mean Corpuscular Volume 90.1 fL (80.0-98.0); NRBC Abs Auto 0.000 X10*3/uL (0.0-0.012); NRBC Pct Auto 0.0 /100WBC (0.0-0.2); Platelet Count 316 X10*3/uL (160-400); Red Blood Count 2.74 X10*6/uL (4.20-5.50); White Blood Count 4.7 X10*3/uL (4.8-10.8)
[2025-07-07 07:37] LABS: Glucose, Whole Blood 88 mg/dL (60-115)
[2025-07-07 07:46] VITALS: BP 149/68; PULSE 86; RESP 16; TEMP 36.1; O2SAT 94
[2025-07-07] MEDS: Aspirin Enteric Coated 81 MG TABLET.DR PO (07:49)
--- NOTE | 2025-07-07 09:15 | PM.PNNEP ---
Subjective Subjective Date of Service: 07/07/25 Interval history: Calcium trending down as well as creatinine wtih IV fluids skeletal survey showing multiple lytic lesions Physical Exam Vital Signs: Vital Signs: Last Vital Signs Temp 97.0 F 07/07/25 07:46 Pulse 86 07/07/25 07:46 Resp 16 07/07/25 07:46 BP 149/68 H 07/07/25 07:46 Pulse Ox 94 07/07/25 07:46 O2 Del Method Room Air 07/07/25 07:46 BMI result Body Mass Index 44.3 General: in mild acute distress, ill appearing Nutritional Appearance: well nourished and overweight Eyes: appearance normal, both eyes and all related structures; Alignment and Position: alignment normal and position normal Neck: No lymphadenopathy, no thyromegaly Resp: bilateral air entry equal, no added sounds present Cardio: Regular rate, regular rhythm; Heart sounds: S1 normal heart sound present and S2 normal heart sound present GI: soft, nontender, no guarding, no hepatosplenomegaly : bladder normal to inspection, bladder normal to palpation, no renal angle tenderness Skin: no rashes or lesions noted and elasticity normal Neuro: alert, oriented x 3, moves all extremities Objective Data Labs 07/07/25 05:42 07/07/25 05:42 Labs: Laboratory Results - last 24 hr 07/06/25 07/06/25 07/06/25 13:10 16:27 16:43 WBC 6.7 RBC 3.26 L Hgb 8.7 L Hct 29.0 L MCV 89.0 MCH 26.7 L MCHC 30.0 L RDW 17.4 H Plt Count 386 MPV 8.3 L Immature Gran % (Auto) 0.3 Neut % (Auto) 59.3 Lymph % (Auto) 26.9 Beckham % (Auto) 10.2 Eos % (Auto) 2.7 Baso % (Auto) 0.6 Lymph # (Auto) 1.8 Beckham # (Auto) 0.7 Eos # (Auto) 0.2 Baso # (Auto) 0.0 Abs Immat Gran (auto) 0.02 Absolute Neuts (auto) 4.0 Absolute Nucleated RBC 0.000 Nucleated RBC % (auto) 0.0 Hold Purple Top Sodium 137 Potassium 4.6 Chloride 105 Carbon Dioxide 27 Anion Gap 10 L BUN 29 H Creatinine 1.82 H Estim Creat Clear Calc 32.0 Estimated GFR 27 POC Glucose 99 Random Glucose 91 Calcium 12.9 H* Magnesium 2.9 H Total Bilirubin 0.4 AST 29 ALT < 6 Alkaline Phosphatase 73 Lactate Dehydrogenase 99 L Total Creatine Kinase 18 L Total Protein 9.7 H Albumin 3.5 Lipase 131 H Blood Type B Positive Antibody Screen NEGATIVE 07/06/25 07/07/25 07/07/25 20:33 05:42 07:11 WBC 4.7 L RBC 2.74 L Hgb 7.2 L Hct 24.7 L MCV 90.1 MCH 26.3 L MCHC 29.1 L RDW 17.7 H Plt Count 316 MPV 8.6 L Immature Gran % (Auto) Neut % (Auto) Lymph % (Auto) Beckham % (Auto) Eos % (Auto) Baso % (Auto) Lymph # (Auto) Beckham # (Auto) Eos # (Auto) Baso # (Auto) Abs Immat Gran (auto) Absolute Neuts (auto) Absolute Nucleated RBC 0.000 Nucleated RBC % (auto) 0.0 Hold Purple Top Sodium 138 Potassium 3.6 D Chloride 106 Carbon Dioxide 28 Anion Gap 8 L BUN 24 H Creatinine 1.77 H Estim Creat Clear Calc 32.9 Estimated GFR 28 POC Glucose 88 88 Random Glucose 92 Calcium 11.7 H D Magnesium Total Bilirubin AST ALT Alkaline Phosphatase Lactate Dehydrogenase Total Creatine Kinase Total Protein Albumin Lipase Blood Type Antibody Screen 07/07/25 Unknown WBC RBC Hgb Hct MCV MCH MCHC RDW Plt Count MPV Immature Gran % (Auto) Neut % (Auto) Lymph % (Auto) Beckham % (Auto) Eos % (Auto) Baso % (Auto) Lymph # (Auto) Beckham # (Auto) Eos # (Auto) Baso # (Auto) Abs Immat Gran (auto) Absolute Neuts (auto) Absolute Nucleated RBC Nucleated RBC % (auto) Hold Purple Top SEE NOTE Sodium Potassium Chloride Carbon Dioxide Anion Gap BUN Creatinine Estim Creat Clear Calc Estimated GFR POC Glucose Random Glucose Calcium Magnesium Total Bilirubin AST ALT Alkaline Phosphatase Lactate Dehydrogenase Total Creatine Kinase Total Protein Albumin Lipase Blood Type Antibody Screen Procedures Date of Service Date of Service: 07/07/25 Assessment & Plan Assessment and plan (1) Hypercalcemia: Status: Acute (2) JE (acute kidney injury): Status: Acute Plan Acute kidney injury: Hypercalcemia: Patient has JE secondary to hypercalcemia and volume depletion secondary to hypercalcemia and is improving with the correction PTH 48, vitamin D levels were elevated on 06/30/2025 as she was on supplementation that has been stopped now. Skeleteal survery concerning for multiple lytic lesions suggestive of myeloma, pending SPEP, UPEP and immunofixation. Would recommend consulting hematology. calcium decreased from 12.9 to 11.7 this morning; received a dose of Zolendronic acid in the ED Can switch from LR to NS as LR has some calcium (3meq/L), will add low dose lasix BID to assist with calcuria. Nephrology will continue to follow. Time Spent With Patient Time: Total time managing care of this patient today ____ minutes. Progress Note: Quality Stroke Does the patient have a stroke diagnosis?: No
[2025-07-07] MEDS: Furosemide 40 MG/4 ML VIAL IVPUSH ×2 (09:48→21:37)
--- NOTE | 2025-07-07 10:30 | MHC.CM.PN ---
pt lives with has mow has a ride home asking for a vna when dcd dc plan home
--- NOTE | 2025-07-07 10:36 | MHC.CM.PN ---
pt is indepedent has no services dc plan home no services
[2025-07-07 10:49] VITALS: BMI 20.1
[2025-07-07] MEDS: Ferrous Sulfate 324 MG TABLET.DR PO (11:02)
[2025-07-07 11:27] VITALS: BMI 20.1
--- NOTE | 2025-07-07 11:36 | MHC.CLN ---
NUTRITION DIET RX DM 2000 KCALS. SIGNIFICANT WEIGHT LOSS X 10 MONTHS -35%. PER ONCOLOGY NOTE, SUSPECTED MYELOMA. QUALIFIES MODERATELY MALNOURISHED IN THE CONTEXT OF CHRONIC ILLNESS. NO SUPPLEMENT AT THIS TIME DUE TO HYPERCALCEMIA. NO REPORTED CONCERNS WITH APPETITE. FOLLOW FOR PO INTAKE AND PLAN OF CARE. SEE CLINICAL NUTRITION ASSESSMENT 07/07/25.
--- NOTE | 2025-07-07 11:37 | P.PNIM_ITS ---
Subjective Subjective Date of Service: 07/07/25 Interval History: minimal bony pain but c/o weakness; Cr improved; OK with transfusion if needed Review of Systems Review of Systems: Yes all other systems are reviewed and are negative Physical Exam 2 Vital Signs: Vital Signs: Last Vital Signs Temp 97.0 F 07/07/25 07:46 Pulse 86 07/07/25 07:46 Resp 16 07/07/25 07:46 BP 149/68 H 07/07/25 07:46 Pulse Ox 94 07/07/25 07:46 O2 Del Method Room Air 07/07/25 07:46 BMI result Body Mass Index 20.1 Gen: in no acute distress HEENT: sclera anicteric, moist mucus membranes Neck: supple Lungs: clear to auscultation bilaterally Heart: regular rate and rhythm, no murmurs Abd: soft, non-tender, non-distended Ext: no edema Skin: warm/well-perfused Neuro: alert and oriented x3, no focal findings Psych: appropriate affect Objective Data Active Medications Acetaminophen (Acetaminophen 325 Mg Tablet) 650 mg PO ONCE PRN PRN Reason: Infusion Center Acetaminophen (Acetaminophen 325 Mg Tablet) 650 mg PO Q6H PRN PRN Reason: Pain, Mild 1-3,fever,headache Aspirin (Aspirin Enteric Coated 81 Mg Tablet.) 81 mg PO DAILY [facility] Last Admin: 07/07/25 07:49 Dose: 81 mg Documented By: LB Dextrose (Dextrose 50 % 25 Gm/50 Ml Syringe) 25 gm IVPUSH Q15M PRN; Protocol PRN Reason: per Hypoglycemia Standing Ord. Ferrous Sulfate (Ferrous Sulfate 324 Mg Tablet.) 324 mg PO DAILY [facility] Last Admin: 07/07/25 11:02 Dose: 324 mg Documented By: LB Furosemide (Furosemide 40 Mg/4 Ml Vial) 40 mg IVPUSH Q12H [facility]; Protocol Last Admin: 07/07/25 09:48 Dose: 40 mg Documented By: LB Glucose (Glucose Gel 15 Gm Gel..Gram.) 15 gm PO Q15M PRN; Protocol PRN Reason: per Hypoglycemia Standing Ord. Heparin Sodium (Porcine) (Heparin Sodium,Porcine 5,000 Unit/Ml Vial) 5,000 unit SUBCUT Q12H [facility] Last Admin: 07/07/25 04:43 Dose: 5,000 unit Documented By: MAAME Sodium Chloride (Ns) 1,000 mls @ 100 mls/hr IVCONT .Q10H [facility] Last Admin: 07/07/25 09:47 Dose: 100 mls/hr Documented By: LB Insulin Human Lispro (Insulin Lispro 100 Unit/Ml 3 Ml Vial) 0 unit SUBCUT QIDACHS [facility]; Protocol Last Admin: 07/07/25 07:42 Dose: Not Given Documented By: LB Non-Admin Reason: No Insulin Coverage Loratadine (Loratadine 10 Mg Tablet) 5 mg PO DAILY [facility] Last Admin: 07/07/25 07:49 Dose: 5 mg Documented By: LB Magnesium Hydroxide (Milk Of Magnesia 30 Ml Oral.Susp) 30 ml PO DAILY PRN PRN Reason: Constipation Melatonin (Melatonin 3 Mg Tablet) 6 mg PO BEDTIME PRN PRN Reason: Insomnia Last Admin: 07/06/25 20:19 Dose: 6 mg Documented By: JIGNA Sodium Chloride (0.9 % Sodium Chloride Flush 10 Ml Syringe) 5 ml IVFLUSH ONCE PRN PRN Reason: Infusion Center Sodium Chloride (0.9 % Sodium Chloride Flush 3 Ml [facility]) [facility] Last Admin: 07/07/25 07:53 Dose: 3 ml Documented By: LB Labs 07/07/25 05:42 07/07/25 05:42 Labs: Laboratory Results - last 24 hr 07/06/25 07/06/25 07/06/25 13:10 16:27 16:43 MCV 89.0 MCH 26.7 L MCHC 30.0 L RDW 17.4 H Plt Count 386 MPV 8.3 L Immature Gran % (Auto) 0.3 Neut % (Auto) 59.3 Lymph % (Auto) 26.9 [place] % (Auto) 10.2 Eos % (Auto) 2.7 Baso % (Auto) 0.6 Lymph # (Auto) 1.8 [place] # (Auto) 0.7 Eos # (Auto) 0.2 Baso # (Auto) 0.0 Abs Immat Gran (auto) 0.02 Absolute Neuts (auto) 4.0 Absolute Nucleated RBC 0.000 Nucleated RBC % (auto) 0.0 Hold Purple Top Anion Gap 10 L Estim Creat Clear Calc 32.0 Estimated GFR 27 POC Glucose 99 Random Glucose 91 Calcium 12.9 H* Magnesium 2.9 H Total Bilirubin 0.4 AST 29 ALT < 6 Alkaline Phosphatase 73 Lactate Dehydrogenase 99 L Total Creatine Kinase 18 L Total Protein 9.7 H Albumin 3.5 Lipase 131 H Blood Type B Positive Antibody Screen NEGATIVE 07/06/25 07/07/25 07/07/25 20:33 05:42 07:11 MCV 90.1 MCH 26.3 L MCHC 29.1 L RDW 17.7 H Plt Count 316 MPV 8.6 L Immature Gran % (Auto) Neut % (Auto) Lymph % (Auto) [place] % (Auto) Eos % (Auto) Baso % (Auto) Lymph # (Auto) [place] # (Auto) Eos # (Auto) Baso # (Auto) Abs Immat Gran (auto) Absolute Neuts (auto) Absolute Nucleated RBC 0.000 Nucleated RBC % (auto) 0.0 Hold Purple Top Anion Gap 8 L Estim Creat Clear Calc 32.9 Estimated GFR 28 POC Glucose 88 88 Random Glucose 92 Calcium 11.7 H D Magnesium Total Bilirubin AST ALT Alkaline Phosphatase Lactate Dehydrogenase Total Creatine Kinase Total Protein Albumin Lipase Blood Type Antibody Screen 07/07/25 Unknown MCV MCH MCHC RDW Plt Count MPV Immature Gran % (Auto) Neut % (Auto) Lymph % (Auto) [place] % (Auto) Eos % (Auto) Baso % (Auto) Lymph # (Auto) [place] # (Auto) Eos # (Auto) Baso # (Auto) Abs Immat Gran (auto) Absolute Neuts (auto) Absolute Nucleated RBC Nucleated RBC % (auto) Hold Purple Top SEE NOTE Anion Gap Estim Creat Clear Calc Estimated GFR POC Glucose Random Glucose Calcium Magnesium Total Bilirubin AST ALT Alkaline Phosphatase Lactate Dehydrogenase Total Creatine Kinase Total Protein Albumin Lipase Blood Type Antibody Screen Assessment and Plan (1) Hypercalcemia: Status: Acute (2) Monoclonal gammopathies: Status: Acute (3) JE (acute kidney injury): Status: Acute Plan d2, 80yo F with DM2, HTN, CKD3 sent in by kier tender for hypercalcemia and JE due to likely multiple myeloma hyperCa of malignancy JE/CKD3 - improved after IV zolendronate in ED, continue IV fluids and started furosemide to provoked calciuresis; Nephrology following multiple myeloma - immunofixation, SPEP, FLCR, b2MG pending, Heme/Onc consulted, will need outpt PET/CT + bone marrow biopsy then follow up for treatment anemia of chronic disease - T+S active, transfuse if Hb 7 or less tomorrow DM2: hold MTF, give kt-dose lispro HTN: no longer on meds due to low BP recently HLD: statin VTE ppx: UFH dispo: PT eval In my clinical judgment, the patient requires continued inpatient hospitalization for the following reasons: IV fluids, IV diuretic Total time managing care of this patient today: 45 minutes. Quality Stroke Does the patient have a stroke diagnosis?: No VTE Prior VTE?: No VTE Risk Level:: Medical - moderate - high VTE Device Contraindication: N/A - Device Ordered VTE Drug Contraindication: N/A - Med Ordered
[2025-07-07 11:46] LABS: Glucose, Whole Blood 100 mg/dL (60-115)
[2025-07-07 15:25] VITALS: BP 129/60; PULSE 90; RESP 16; TEMP 37; O2SAT 94
[2025-07-07 15:44] LABS: Calcium, Ionized 7.2 mg/dL (4.7-5.5)
[2025-07-07 16:09] LABS: Glucose, Whole Blood 99 mg/dL (60-115)
[2025-07-07 17:47] VITALS: TEMP 37
[2025-07-07 19:48] VITALS: BP 120/53; PULSE 90; RESP 18; TEMP 37.5; O2SAT 92
[2025-07-07 20:11] LABS: Glucose, Whole Blood 116 mg/dL (60-115)
[2025-07-07] MEDS: VITAMINS A C E ZINC COPPER 1 EACH PO (21:47)
[2025-07-08] VITALS (9 sets, daily range): BP systolic 104–143; BP diastolic 51–84; PULSE 78–96; RESP 16–19; TEMP 36.1–36.9; O2SAT 93–96
[2025-07-08 06:36] LABS: Hematocrit 22.4 % (37.0-47.0); Mean Corpuscular HGB Conc 30.4 g/dl (31.0-35.0); Mean Corpuscular Hemoglobin 26.9 pg (27.0-33.0); Mean Corpuscular Volume 88.5 fL (80.0-98.0); NRBC Abs Auto 0.000 X10*3/uL (0.0-0.012); NRBC Pct Auto 0.0 /100WBC (0.0-0.2); Platelet Count 263 X10*3/uL (160-400); Red Blood Count 2.53 X10*6/uL (4.20-5.50); White Blood Count 3.8 X10*3/uL (4.8-10.8)
[2025-07-08 06:48] LABS: Hemoglobin 6.8 g/dl (12.0-16.0)
[2025-07-08 07:09] LABS: Anion Gap 8 (12-20); Blood Urea Nitrogen 22 mg/dL (9-16); Carbon Dioxide 26 mmol/L (22-29); Chloride 108 mmol/L (96-108); Creatinine Clr Calc Pharmacy 26.4; Estimated Glomerular Filt Rate 34; Potassium 3.3 mmol/L (3.3-5.1); Sodium 139 mmol/L (135-145)
[2025-07-08 07:15] LABS: Glucose, Whole Blood 87 mg/dL (60-115)
[2025-07-08 07:18] LABS: Calcium 9.5 mg/dL (8.4-10.2)
[2025-07-08] MEDS: Ferrous Sulfate 324 MG TABLET.DR PO (07:59)
[2025-07-08] MEDS: Aspirin Enteric Coated 81 MG TABLET.DR PO (07:59)
[2025-07-08] MEDS: Furosemide 40 MG/4 ML VIAL IVPUSH ×2 (08:00→20:30)
[2025-07-08] MEDS: 0.9 % Sodium Chloride Flush 3 ML SYRINGE IVFLUSH ×2 (08:00→23:41)
[2025-07-08] MEDS: VITAMINS A C E ZINC COPPER 1 EACH PO ×2 (08:00→20:30)
--- NOTE | 2025-07-08 09:26 | HO.PM.IMPN ---
Subjective Subjective Date of Service: 07/08/25 Interval History: Ca normalized; SCr improved; but Hb 6.8; consents to transfusion. Weak but minimal pain. Review of Systems Review of Systems: Yes all other systems are reviewed and are negative Physical Exam Vital Signs: Vital Signs: Last Vital Signs Temp 98 F 07/08/25 06:58 Pulse 83 07/08/25 06:58 Resp 16 07/08/25 06:58 BP 130/66 07/08/25 06:58 Pulse Ox 95 07/08/25 06:58 O2 Del Method Room Air 07/08/25 06:58 BMI result Body Mass Index 20.1 Gen: in no acute distress HEENT: sclera anicteric, pale but moist mucus membranes Neck: supple Lungs: clear to auscultation bilaterally Heart: regular rate and rhythm, no murmurs Abd: soft, non-tender, non-distended Ext: no edema Skin: warm/well-perfused Neuro: alert and oriented x3, no focal findings Psych: appropriate affect Objective Data Active Medications Acetaminophen (Acetaminophen 325 Mg Tablet) 650 mg PO ONCE PRN PRN Reason: Infusion Center Acetaminophen (Acetaminophen 325 Mg Tablet) 650 mg PO Q6H PRN PRN Reason: Pain, Mild 1-3,fever,headache Aspirin (Aspirin Enteric Coated 81 Mg Tablet.) 81 mg PO DAILY [facility] Last Admin: 07/08/25 07:59 Dose: 81 mg Documented By: DOM Atorvastatin Calcium (Atorvastatin Calcium 10 Mg Tablet) 10 mg PO BEDTIME [facility] Last Admin: 07/07/25 21:37 Dose: 10 mg Documented By: NIKOLAI Dextrose (Dextrose 50 % 25 Gm/50 Ml Syringe) 25 gm IVPUSH Q15M PRN; Protocol PRN Reason: per Hypoglycemia Standing Ord. Ferrous Sulfate (Ferrous Sulfate 324 Mg Tablet.) 324 mg PO DAILY [facility] Last Admin: 07/08/25 07:59 Dose: 324 mg Documented By: DOM Furosemide (Furosemide 40 Mg/4 Ml Vial) 40 mg IVPUSH Q12H [facility]; Protocol Last Admin: 07/08/25 08:00 Dose: 40 mg Documented By: DOM Glucose (Glucose Gel 15 Gm Gel..Gram.) 15 gm PO Q15M PRN; Protocol PRN Reason: per Hypoglycemia Standing Ord. Heparin Sodium (Porcine) (Heparin Sodium,Porcine 5,000 Unit/Ml Vial) 5,000 unit SUBCUT Q12H [facility] Last Admin: 07/08/25 04:10 Dose: 5,000 unit Documented By: NIKOLAI Sodium Chloride (Ns) 1,000 mls @ 100 mls/hr IVCONT .Q10H [facility] Last Admin: 07/08/25 07:58 Dose: 100 mls/hr Documented By: DOM Insulin Human Lispro (Insulin Lispro 100 Unit/Ml 3 Ml Vial) 0 unit SUBCUT QIDACHS [facility]; Protocol Last Admin: 07/08/25 07:12 Dose: Not Given Documented By: DOM Non-Admin Reason: No Insulin Coverage Loratadine (Loratadine 10 Mg Tablet) 5 mg PO DAILY [facility] Last Admin: 07/08/25 07:59 Dose: 5 mg Documented By: DOM Magnesium Hydroxide (Milk Of Magnesia 30 Ml Oral.Susp) 30 ml PO DAILY PRN PRN Reason: Constipation Melatonin (Melatonin 3 Mg Tablet) 6 mg PO BEDTIME PRN PRN Reason: Insomnia Last Admin: 07/06/25 20:19 Dose: 6 mg Documented By: JIGNA Multivitamins/Vitamin C (Multivitamin Tablet) 1 tab PO DAILY [facility] Last Admin: 07/08/25 07:59 Dose: 1 tab Documented By: DOM Pt Own(Vitamins A,C, [id number] [ Preservision Areds] 4,296 Mcg-226 Mg 1 cap PO BID [facility] Last Admin: 07/08/25 08:00 Dose: 1 cap Documented By: DOM Sodium Chloride (0.9 % Sodium Chloride Flush 10 Ml Syringe) 5 ml IVFLUSH ONCE PRN PRN Reason: Infusion Center Sodium Chloride (0.9 % Sodium Chloride Flush 3 Ml Syringe) 3 ml IVFLUSH QSHIFT [facility] Last Admin: 07/08/25 08:00 Dose: 3 ml Documented By: DOM Labs 07/08/25 06:04 07/08/25 06:04 Labs: Laboratory Results - last 24 hr 07/06/25 07/06/25 07/07/25 13:10 16:43 11:42 MCV MCH MCHC RDW Plt Count MPV Absolute Nucleated RBC Nucleated RBC % (auto) Anion Gap Estim Creat Clear Calc Estimated GFR POC Glucose 100 Random Glucose Calcium Ionized Calcium 7.2 H* Vnxu-3-Sfnmguywbogiu 15.90 H Blood Type B Positive Antibody Screen NEGATIVE Crossmatch See Detail 07/07/25 07/07/25 07/08/25 16:01 20:08 06:04 MCV 88.5 MCH 26.9 L MCHC 30.4 L RDW 17.9 H Plt Count 263 MPV 8.2 L Absolute Nucleated RBC 0.000 Nucleated RBC % (auto) 0.0 Anion Gap 8 L Estim Creat Clear Calc 26.4 Estimated GFR 34 POC Glucose 99 116 H Random Glucose 87 Calcium 9.5 D Ionized Calcium [id number]-9-[id number] Blood Type Antibody Screen Crossmatch 07/08/25 07:11 MCV MCH MCHC RDW Plt Count MPV Absolute Nucleated RBC Nucleated RBC % (auto) Anion Gap Estim Creat Clear Calc Estimated GFR POC Glucose 87 Random Glucose Calcium Ionized Calcium [id number] Blood Type Antibody Screen Crossmatch Assessment and Plan (1) Hypercalcemia: Status: Acute (2) Monoclonal gammopathies: Status: Acute (3) JE (acute kidney injury): Status: Acute Plan d3, 80yo F with DM2, HTN, CKD3 sent in by leather scraper for hypercalcemia and JE due to likely multiple myeloma hyperCa of malignancy, JE/CKD3: improved after IV zolendronate in ED, continue IV fluids and started furosemide to provoked calciuresis; Nephrology following multiple myeloma: immunofixation, SPEP, FLCR, b2MG pending, Heme/Onc consulted, will need outpt PET/CT + bone marrow biopsy then follow up for treatment anemia of chronic disease: transfuse 2u pRBCs, recheck CBC tomorrow DM2: hold MTF, give kt-dose lispro HTN: no longer on meds due to low BP recently HLD: statin VTE ppx: UFH dispo: PT- STR In my clinical judgment, the patient requires continued inpatient hospitalization for the following reasons: transfusion Total time managing care of this patient today: 45 minutes. Quality Stroke Does the patient have a stroke diagnosis?: No VTE Prior VTE?: No VTE Risk Level:: Medical - moderate - high VTE Device Contraindication: N/A - Device Ordered VTE Drug Contraindication: N/A - Med Ordered
[2025-07-08 11:13] LABS: Glucose, Whole Blood 107 mg/dL (60-115)
--- NOTE | 2025-07-08 12:29 | P.CDIM_ITS ---
PROVIDER RESPONSE TEXT: To clarify, the appropriate diagnosis supported by the clinical indicators: Malnutrition: Moderate QUERY TEXT: PHYSICIAN'S DOCUMENTATION REQUEST Date of Query: 07/07/2025 12:18 PM EDT Patient Name: Marlen Rey Admit Date: 07/06/2025 Dear Emanuel Cuevas MD, A review of the medical record indicates additional documentation may be needed. Please review below and update the documentation accordingly. Clinical Indicators: Clinical nutrition notes 07/07/25 - Patient qualifies as moderately malnourished in context of chronic illness. Weight loss x 10 months. Per Oncology note, suspected Myeloma. No supplement at this time due to hypercalcemia. Based on the above, is there a diagnosis that correlates with these findings? Malnutrition mild, moderate, severe Cachectic possible, probable, suspected etc. Weight loss possible, probable, suspected etc. Other specified Other (explain) Clinically unable to determine (explain) Thank you, Roslyn Knight, CCS, CDIS Use of terms such as suspected, likely, concern for, or probable (associated with a specific diagnosis that is being evaluated, monitored, or treated as if it exists) are acceptable and can be coded in the inpatient setting, when documented at the time of discharge. Please use your independent medical judgment in providing your response. THIS QUERY IS PART OF THE PERMANENT MEDICAL RECORD
[2025-07-08 16:31] LABS: Glucose, Whole Blood 92 mg/dL (60-115)
[2025-07-08 20:32] LABS: Glucose, Whole Blood 125 mg/dL (60-115)
[2025-07-09 03:26] VITALS: BP 142/65; PULSE 77; RESP 18; TEMP 36.8; O2SAT 95
[2025-07-09 06:30] LABS: Hematocrit 29.2 % (37.0-47.0); Hemoglobin 9.2 g/dl (12.0-16.0); Mean Corpuscular HGB Conc 31.5 g/dl (31.0-35.0); Mean Corpuscular Hemoglobin 27.2 pg (27.0-33.0); Mean Corpuscular Volume 86.4 fL (80.0-98.0); NRBC Abs Auto 0.000 X10*3/uL (0.0-0.012); NRBC Pct Auto 0.0 /100WBC (0.0-0.2); Platelet Count 217 X10*3/uL (160-400); Red Blood Count 3.38 X10*6/uL (4.20-5.50); White Blood Count 4.2 X10*3/uL (4.8-10.8)
[2025-07-09 06:49] LABS: Anion Gap 7 (12-20); Blood Urea Nitrogen 19 mg/dL (9-16); Carbon Dioxide 25 mmol/L (22-29); Chloride 111 mmol/L (96-108); Creatinine Clr Calc Pharmacy 29.8; Estimated Glomerular Filt Rate 40; Potassium 3.0 mmol/L (3.3-5.1); Sodium 140 mmol/L (135-145)
[2025-07-09 06:53] LABS: Calcium 8.3 mg/dL (8.4-10.2)
--- NOTE | 2025-07-09 07:16 | HO.PM.IMPN ---
Subjective Subjective Date of Service: 07/09/25 Interval History: Daughter at the bedside during this interaction Hemoglobin 9.2 status post 2 units PRBC on 07/08/2025 Potassium 3-repleted to goal PT recommended short-term rehab awaiting placement Otherwise hypercalcemia downtrending Medically optimized Review of Systems Review of Systems: Yes all other systems are reviewed and are negative Physical Exam Exam: Exam: General: AOx3, frail, not in acute distress Resp: CTA bilaterally CVS: S1, S2, RRR GI: +BS, NT, no distention Skin: Warm, dry Neuro: Cranial nerves II-XII grossly intact bilaterally. Motor grossly intact bilaterally Extremities: No edema Psych: Appropriate affect Vital Signs: Vital Signs: Last Vital Signs Temp 98.2 F 07/09/25 03:26 Pulse 77 07/09/25 03:26 Resp 18 07/09/25 03:26 BP 142/65 H 07/09/25 03:26 Pulse Ox 95 07/09/25 03:26 O2 Del Method Room Air 07/09/25 03:26 BMI result Body Mass Index 20.1 Objective Data Active Medications Acetaminophen (Acetaminophen 325 Mg Tablet) 650 mg PO ONCE PRN PRN Reason: Infusion Center Acetaminophen (Acetaminophen 325 Mg Tablet) 650 mg PO Q6H PRN PRN Reason: Pain, Mild 1-3,fever,headache Aspirin (Aspirin Enteric Coated 81 Mg Tablet.) 81 mg PO DAILY [facility] Last Admin: 07/08/25 07:59 Dose: 81 mg Documented By: DOM Atorvastatin Calcium (Atorvastatin Calcium 10 Mg Tablet) 10 mg PO BEDTIME [facility] Last Admin: 07/08/25 20:30 Dose: 10 mg Documented By: NIKOLAI Dextrose (Dextrose 50 % 25 Gm/50 Ml Syringe) 25 gm IVPUSH Q15M PRN; Protocol PRN Reason: per Hypoglycemia Standing Ord. Ferrous Sulfate (Ferrous Sulfate 324 Mg Tablet.) 324 mg PO DAILY [facility] Last Admin: 07/08/25 07:59 Dose: 324 mg Documented By: DOM Furosemide (Furosemide 40 Mg/4 Ml Vial) 40 mg IVPUSH Q12H [facility]; Protocol Last Admin: 07/08/25 20:30 Dose: 40 mg Documented By: NIKOLAI Glucose (Glucose Gel 15 Gm Gel..Gram.) 15 gm PO Q15M PRN; Protocol PRN Reason: per Hypoglycemia Standing Ord. Heparin Sodium (Porcine) (Heparin Sodium,Porcine 5,000 Unit/Ml Vial) 5,000 unit SUBCUT Q12H [facility] On Hold: 07/08/25 10:20 Last Admin: 07/08/25 04:10 Dose: 5,000 unit Documented By: NIKOLAI Sodium Chloride (Ns) 1,000 mls @ 100 mls/hr IVCONT .Q10H [facility] Last Admin: 07/08/25 23:39 Dose: 100 mls/hr Documented By: NIKOLAI Insulin Human Lispro (Insulin Lispro 100 Unit/Ml 3 Ml Vial) 0 unit SUBCUT QIDACHS [facility]; Protocol Last Admin: 07/08/25 21:23 Dose: Not Given Documented By: NIKOLAI Non-Admin Reason: No Insulin Coverage Loratadine (Loratadine 10 Mg Tablet) 5 mg PO DAILY [facility] Last Admin: 07/08/25 07:59 Dose: 5 mg Documented By: DOM Magnesium Hydroxide (Milk Of Magnesia 30 Ml Oral.Susp) 30 ml PO DAILY PRN PRN Reason: Constipation Melatonin (Melatonin 3 Mg Tablet) 6 mg PO BEDTIME PRN PRN Reason: Insomnia Last Admin: 07/06/25 20:19 Dose: 6 mg Documented By: JIGNA Multivitamins/Vitamin C (Multivitamin Tablet) 1 tab PO DAILY [facility] Last Admin: 07/08/25 07:59 Dose: 1 tab Documented By: DOM Pt Own(Vitamins A,C, [id number] [ Preservision Areds] 4,296 Mcg-226 Mg 1 cap PO BID [facility] Last Admin: 07/08/25 20:30 Dose: 1 cap Documented By: NIKOLAI Sodium Chloride (0.9 % Sodium Chloride Flush 10 Ml Syringe) 5 ml IVFLUSH ONCE PRN PRN Reason: Infusion Center Sodium Chloride (0.9 % Sodium Chloride Flush 3 Ml Syringe) 3 ml IVFLUSH QSHIFT [facility] Last Admin: 07/08/25 23:41 Dose: 3 ml Documented By: NIKOLAI Labs 07/09/25 06:16 07/09/25 06:16 Labs: Laboratory Results - last 24 hr 07/06/25 07/08/25 07/08/25 16:43 06:04 11:07 MCV MCH MCHC RDW Plt Count MPV Absolute Nucleated RBC Nucleated RBC % (auto) Anion Gap Estim Creat Clear Calc Estimated GFR POC Glucose 107 Random Glucose Calcium 9.5 D Blood Type B Positive Antibody Screen NEGATIVE Crossmatch See Detail 07/08/25 07/08/25 07/09/25 16:26 20:29 06:16 MCV 86.4 MCH 27.2 MCHC 31.5 RDW 17.4 H Plt Count 217 MPV 8.3 L Absolute Nucleated RBC 0.000 Nucleated RBC % (auto) 0.0 Anion Gap 7 L Estim Creat Clear Calc 29.8 Estimated GFR 40 POC Glucose 92 125 H Random Glucose 86 Calcium 8.3 L D Blood Type Antibody Screen Crossmatch Assessment and Plan (1) Hypercalcemia: Status: Acute (2) Monoclonal gammopathies: Status: Acute Plan d4, 80yo F with DM2, HTN, CKD3 sent in by administrative liaison for hypercalcemia and JE due to likely multiple myeloma hyperCa of malignancy, JE/CKD3: improved after IV zolendronate in ED, DC IV fluids and cont furosemide to provoked calciuresis; Nephrology following multiple myeloma: immunofixation, SPEP, FLCR, b2MG pending, Heme/Onc consulted, will need outpt PET/CT + bone marrow biopsy then follow up for treatment anemia of chronic disease:s/p 2u pRBCs on 07/08/25 with optimal response DM2: hold MTF, give kt-dose lispro HTN: no longer on meds due to low BP recently HLD: statin VTE ppx: UFH dispo: PT- STR Patient needs ongoing hospitalization due to deconditioning and short-term rehab placement,electrolyte replacement, deconditioned Total time managing care of this patient today: 45 minutes. Quality Stroke Does the patient have a stroke diagnosis?: No VTE Prior VTE?: No VTE Risk Level:: Medical - moderate - high VTE Device Contraindication: N/A - Device Ordered VTE Drug Contraindication: N/A - Med Ordered
[2025-07-09 07:24] VITALS: BP 149/62; PULSE 70; RESP 18; TEMP 36.1; O2SAT 96
[2025-07-09 07:54] LABS: Glucose, Whole Blood 91 mg/dL (60-115)
[2025-07-09] MEDS: Aspirin Enteric Coated 81 MG TABLET.DR PO (08:22)
[2025-07-09] MEDS: Ferrous Sulfate 324 MG TABLET.DR PO (08:22)
[2025-07-09] MEDS: Potassium Chloride ER 20 MEQ TAB.ER.PRT 40 MEQ PO (08:23)
[2025-07-09] MEDS: 0.9 % Sodium Chloride Flush 3 ML SYRINGE IVFLUSH ×2 (08:23→16:34)
[2025-07-09] MEDS: Potassium Chloride ER 10 MEQ TABLET.ER PO (08:23)
[2025-07-09] MEDS: VITAMINS A C E ZINC COPPER 1 EACH PO (08:25)
[2025-07-09] MEDS: Furosemide 40 MG/4 ML VIAL IVPUSH (08:29)
--- NOTE | 2025-07-09 10:37 | MHC.CM.PN ---
PT rec STR. Discussed with patient and daughter at bedside. [facility] choice. Provided list of SNF's for review. After review, they will provide alternate choices.
[2025-07-09 11:32] LABS: Glucose, Whole Blood 119 mg/dL (60-115)
[2025-07-09 13:16] VITALS: BP 134/61
[2025-07-09 16:00] VITALS: BP 150/67; PULSE 70; RESP 16; TEMP 36.4; O2SAT 96
[2025-07-09 16:31] LABS: Glucose, Whole Blood 109 mg/dL (60-115)
[2025-07-09 20:00] VITALS: BP 141/61; PULSE 76; RESP 18; TEMP 36.3; O2SAT 95
[2025-07-09 20:16] LABS: Glucose, Whole Blood 178 mg/dL (60-115)
[2025-07-10] MEDS: 0.9 % Sodium Chloride Flush 3 ML SYRINGE IVFLUSH ×4 (00:09→20:11)
[2025-07-10 02:55] VITALS: BP 135/63; PULSE 66; RESP 16; TEMP 36.3; O2SAT 97
[2025-07-10 06:22] LABS: MANUAL DIFF FLAG NO
[2025-07-10 06:23] LABS: Hematocrit 33.3 % (37.0-47.0); Hemoglobin 10.3 g/dl (12.0-16.0); Imm Gran Abs Auto 0.02 X10*3/uL (0.00-0.03); Imm Gran Pct Auto 0.4 % (0.0-0.4); Lymphocytes Absolute Auto 1.8 X10*3/uL (1.2-4.9); Mean Corpuscular HGB Conc 30.9 g/dl (31.0-35.0); Mean Corpuscular Hemoglobin 27.1 pg (27.0-33.0); Mean Corpuscular Volume 87.6 fL (80.0-98.0); NRBC Abs Auto 0.000 X10*3/uL (0.0-0.012); NRBC Pct Auto 0.0 /100WBC (0.0-0.2); Platelet Count 250 X10*3/uL (160-400); Red Blood Count 3.80 X10*6/uL (4.20-5.50); White Blood Count 4.7 X10*3/uL (4.8-10.8)
[2025-07-10 06:43] LABS: Alanine Aminotransferase < 6 U/L (0-31); Albumin Level 3.0 g/dL (3.5-5.0); Alkaline Phosphatase 66 U/L (39-117); Anion Gap 8 (12-20); Aspartate Amino Transferase 27 U/L (5-31); Blood Urea Nitrogen 18 mg/dL (9-16); Calcium 8.3 mg/dL (8.4-10.2); Carbon Dioxide 25 mmol/L (22-29); Chloride 109 mmol/L (96-108); Creatinine Clr Calc Pharmacy 26.9; Estimated Glomerular Filt Rate 35; Magnesium 1.8 mg/dL (1.6-2.6); Potassium 3.1 mmol/L (3.3-5.1); Sodium 139 mmol/L (135-145); Total Protein 8.5 g/dL (6.5-8.0)
--- NOTE | 2025-07-10 07:07 | HO.PM.IMPN ---
Subjective Subjective Date of Service: 07/10/25 Interval History: Awaiting PTOT recs SDR placement likely tomorrow Ca 9.3 today pain free, able to ambulate without major pain as she reported Pt very grateful and thankful for the care she is receiving Review of Systems Review of Systems: Yes all other systems are reviewed and are negative Physical Exam Exam: Exam: General: AOx3, frail, not in acute distress Resp: CTA bilaterally CVS: S1, S2, RRR GI: +BS, NT, no distention Skin: Warm, dry Neuro:Motor grossly intact bilaterally Extremities: No edema Psych: Appropriate affect Vital Signs: Vital Signs: Last Vital Signs Temp 97.3 F 07/10/25 02:55 Pulse 66 07/10/25 02:55 Resp 16 07/10/25 02:55 BP 135/63 07/10/25 02:55 Pulse Ox 97 07/10/25 02:55 O2 Del Method Room Air 07/10/25 02:55 BMI result Body Mass Index 20.1 Objective Data Active Medications Acetaminophen (Acetaminophen 325 Mg Tablet) 650 mg PO ONCE PRN PRN Reason: Infusion Center Acetaminophen (Acetaminophen 325 Mg Tablet) 650 mg PO Q6H PRN PRN Reason: Pain, Mild 1-3,fever,headache Aspirin (Aspirin Enteric Coated 81 Mg Tablet.) 81 mg PO DAILY [facility] Last Admin: 07/09/25 08:22 Dose: 81 mg Documented By: NEHEMIAS Atorvastatin Calcium (Atorvastatin Calcium 10 Mg Tablet) 10 mg PO BEDTIME [facility] Last Admin: 07/09/25 20:40 Dose: 10 mg Documented By: BETH Dextrose (Dextrose 50 % 25 Gm/50 Ml Syringe) 25 gm IVPUSH Q15M PRN; Protocol PRN Reason: per Hypoglycemia Standing Ord. Ferrous Sulfate (Ferrous Sulfate 324 Mg Tablet.) 324 mg PO DAILY [facility] Last Admin: 07/09/25 08:22 Dose: 324 mg Documented By: NEHEMAIS Furosemide (Furosemide 40 Mg Tablet) 40 mg PO BID@0830,1330 [facility]; Protocol Last Admin: 07/09/25 13:16 Dose: 40 mg Documented By: NEHEMIAS Glucose (Glucose Gel 15 Gm Gel..Gram.) 15 gm PO Q15M PRN; Protocol PRN Reason: per Hypoglycemia Standing Ord. Heparin Sodium (Porcine) (Heparin Sodium,Porcine 5,000 Unit/Ml Vial) 5,000 unit SUBCUT Q12H [facility] On Hold: 07/08/25 10:20 Last Admin: 07/08/25 04:10 Dose: 5,000 unit Documented By: NIKOLAI Insulin Human Lispro (Insulin Lispro 100 Unit/Ml 3 Ml Vial) 0 unit SUBCUT QIDACHS [facility]; Protocol Last Admin: 07/09/25 20:40 Dose: 2 unit Documented By: BETH Loratadine (Loratadine 10 Mg Tablet) 5 mg PO DAILY [facility] Last Admin: 07/09/25 08:22 Dose: 5 mg Documented By: NEHEMIAS Magnesium Hydroxide (Milk Of Magnesia 30 Ml Oral.Susp) 30 ml PO DAILY PRN PRN Reason: Constipation Melatonin (Melatonin 3 Mg Tablet) 6 mg PO BEDTIME PRN PRN Reason: Insomnia Last Admin: 07/06/25 20:19 Dose: 6 mg Documented By: JIGNA Multivitamins/Vitamin C (Multivitamin Tablet) 1 tab PO DAILY [facility] Last Admin: 07/09/25 08:22 Dose: 1 tab Documented By: NEHEMIAS Pt Own(Vitamins A,C, [id number] [ Preservision Areds] 4,296 Mcg-226 Mg 1 cap PO BID [facility] Last Admin: 07/09/25 20:42 Dose: Not Given Documented By: BETH Non-Admin Reason: Med Not Available Sodium Chloride (0.9 % Sodium Chloride Flush 10 Ml Syringe) 5 ml IVFLUSH ONCE PRN PRN Reason: Infusion Center Sodium Chloride (0.9 % Sodium Chloride Flush 3 Ml Syringe) 3 ml IVFLUSH QSHIFT [facility] Last Admin: 07/10/25 00:09 Dose: 3 ml Documented By: BETH Labs 07/10/25 06:17 07/10/25 06:17 Labs: Laboratory Results - last 24 hr 07/09/25 07/09/25 07/09/25 07:28 11:17 16:26 MCV MCH MCHC RDW Plt Count MPV Immature Gran % (Auto) Neut % (Auto) Lymph % (Auto) Emery % (Auto) Eos % (Auto) Baso % (Auto) Lymph # (Auto) Emery # (Auto) Eos # (Auto) Baso # (Auto) Abs Immat Gran (auto) Absolute Neuts (auto) Absolute Nucleated RBC Nucleated RBC % (auto) Anion Gap Estim Creat Clear Calc Estimated GFR POC Glucose 91 119 H 109 Random Glucose Calcium Magnesium Total Bilirubin AST ALT Alkaline Phosphatase Total Protein Albumin 07/09/25 07/10/25 19:47 06:17 MCV 87.6 MCH 27.1 MCHC 30.9 L RDW 17.4 H Plt Count 250 MPV 8.2 L Immature Gran % (Auto) 0.4 Neut % (Auto) 45.5 Lymph % (Auto) 38.3 Emery % (Auto) 11.4 H Eos % (Auto) 4.0 Baso % (Auto) 0.4 Lymph # (Auto) 1.8 Emery # (Auto) 0.5 Eos # (Auto) 0.2 Baso # (Auto) 0.0 Abs Immat Gran (auto) 0.02 Absolute Neuts (auto) 2.1 Absolute Nucleated RBC 0.000 Nucleated RBC % (auto) 0.0 Anion Gap 8 L Estim Creat Clear Calc 26.9 Estimated GFR 35 POC Glucose 178 H Random Glucose 95 Calcium 8.3 L Magnesium 1.8 Total Bilirubin 0.4 AST 27 ALT < 6 Alkaline Phosphatase 66 Total Protein 8.5 H Albumin 3.0 L Assessment and Plan (1) Hypercalcemia: Status: Acute Plan d4, 80yo F with DM2, HTN, CKD3 sent in by sample distributor for hypercalcemia and JE due to likely multiple myeloma hyperCa of malignancy, JE/CKD3: improved after IV zolendronate in ED, DC IV fluids and cont furosemide to provoked calciuresis; Nephrology following. We will continue outpatient management once discharge multiple myeloma: immunofixation, SPEP, FLCR, b2MG pending, Heme/Onc consulted, will need outpt PET/CT + bone marrow biopsy then follow up for treatment anemia of chronic disease:s/p 2u pRBCs on 07/08/25 with optimal response, H&H stable since then DM2: Continue hold MTF, give kt-dose lispro HTN: no longer on meds due to low BP recently HLD: statin VTE ppx: UFH dispo: PT- STR Patient needs ongoing hospitalization due to deconditioning and short-term rehab placement,electrolyte replacement, deconditioned Total time managing care of this patient today: 45 minutes. Quality Stroke Does the patient have a stroke diagnosis?: No VTE Prior VTE?: No VTE Risk Level:: Medical - moderate - high VTE Device Contraindication: N/A - Device Ordered VTE Drug Contraindication: N/A - Med Ordered
[2025-07-10 07:35] VITALS: BP 153/69; PULSE 74; RESP 18; TEMP 36.4; O2SAT 96
[2025-07-10 07:40] LABS: Glucose, Whole Blood 92 mg/dL (60-115)
[2025-07-10] MEDS: Ferrous Sulfate 324 MG TABLET.DR PO (07:47)
[2025-07-10] MEDS: Aspirin Enteric Coated 81 MG TABLET.DR PO (07:47)
[2025-07-10] MEDS: Potassium Chloride ER 20 MEQ TAB.ER.PRT 40 MEQ PO (07:47)
--- NOTE | 2025-07-10 09:17 | MHC.CLN ---
F/U DIET RX DM 2000 KCALS. SIGNIFICANT WEIGHT LOSS X 10 MONTHS -35%. PO INTAKE 50-75%, USUALLY GOOD. FOLLOW FOR PO INTAKE AND PLAN OF CARE.
[2025-07-10 11:41] LABS: Glucose, Whole Blood 93 mg/dL (60-115)
[2025-07-10 12:24] LABS: Kappa/Lambda Lt Ch Free Ratio 0.01 (0.26-1.65)
--- NOTE | 2025-07-10 12:55 | MHC.CM.PN ---
Addendum entered by Lamar Schaeffer RN 07/10/25 12:57: Will need updated PT for authZoraida Munguia to covering PT w/ this request. Original Note: Patient accepted bed at [facility], who will initiate auth.
[2025-07-10 12:58] VITALS: BP 117/60
[2025-07-10 13:46] VITALS: BP 117/60
[2025-07-10 15:57] VITALS: BP 148/67; PULSE 73; RESP 16; TEMP 36.5; O2SAT 96
[2025-07-10 16:36] LABS: Glucose, Whole Blood 109 mg/dL (60-115)
[2025-07-10 20:00] VITALS: BP 161/70; PULSE 75; RESP 18; TEMP 36.2; O2SAT 96
[2025-07-10 20:32] LABS: Glucose, Whole Blood 115 mg/dL (60-115)
[2025-07-11 02:53] VITALS: BP 150/67; PULSE 67; RESP 16; TEMP 36; O2SAT 96
[2025-07-11 06:07] LABS: MANUAL DIFF FLAG NO
[2025-07-11 06:21] LABS: Hematocrit 32.4 % (37.0-47.0); Hemoglobin 10.1 g/dl (12.0-16.0); Imm Gran Abs Auto 0.02 X10*3/uL (0.00-0.03); Imm Gran Pct Auto 0.4 % (0.0-0.4); Lymphocytes Absolute Auto 1.8 X10*3/uL (1.2-4.9); Mean Corpuscular HGB Conc 31.2 g/dl (31.0-35.0); Mean Corpuscular Hemoglobin 27.0 pg (27.0-33.0); Mean Corpuscular Volume 86.6 fL (80.0-98.0); NRBC Abs Auto 0.000 X10*3/uL (0.0-0.012); NRBC Pct Auto 0.0 /100WBC (0.0-0.2); Platelet Count 259 X10*3/uL (160-400); Red Blood Count 3.74 X10*6/uL (4.20-5.50); White Blood Count 5.2 X10*3/uL (4.8-10.8)
[2025-07-11 06:34] LABS: Alanine Aminotransferase < 6 U/L (0-31); Albumin Level 2.9 g/dL (3.5-5.0); Alkaline Phosphatase 61 U/L (39-117); Anion Gap 8 (12-20); Aspartate Amino Transferase 26 U/L (5-31); Blood Urea Nitrogen 18 mg/dL (9-16); Calcium 8.2 mg/dL (8.4-10.2); Carbon Dioxide 25 mmol/L (22-29); Chloride 110 mmol/L (96-108); Creatinine Clr Calc Pharmacy 33.7; Estimated Glomerular Filt Rate 46; Magnesium 1.8 mg/dL (1.6-2.6); Potassium 3.3 mmol/L (3.3-5.1); Sodium 140 mmol/L (135-145); Total Protein 8.3 g/dL (6.5-8.0)
[2025-07-11 07:11] VITALS: BP 138/60; PULSE 70; RESP 16; TEMP 36.7; O2SAT 96
[2025-07-11 07:17] LABS: Glucose, Whole Blood 116 mg/dL (60-115)
--- NOTE | 2025-07-11 07:19 | P.PNIM_ITS ---
Subjective Subjective Date of Service: 07/11/25 Physical Exam 2 Vital Signs: Vital Signs: Last Vital Signs Temp 98.0 F 07/11/25 07:11 Pulse 70 07/11/25 07:11 Resp 16 07/11/25 07:11 BP 138/60 07/11/25 07:11 Pulse Ox 96 07/11/25 07:11 O2 Del Method Room Air 07/11/25 07:11 BMI result Body Mass Index 20.1 Objective Data Active Medications Acetaminophen (Acetaminophen 325 Mg Tablet) 650 mg PO ONCE PRN PRN Reason: Infusion Center Acetaminophen (Acetaminophen 325 Mg Tablet) 650 mg PO Q6H PRN PRN Reason: Pain, Mild 1-3,fever,headache Aspirin (Aspirin Enteric Coated 81 Mg Tablet.) 81 mg PO DAILY [facility] Last Admin: 07/10/25 07:47 Dose: 81 mg Documented By: NEHEMIAS Atorvastatin Calcium (Atorvastatin Calcium 10 Mg Tablet) 10 mg PO BEDTIME [facility] Last Admin: 07/10/25 20:11 Dose: 10 mg Documented By: WONGILFrancisco Dextrose (Dextrose 50 % 25 Gm/50 Ml Syringe) 25 gm IVPUSH Q15M PRN; Protocol PRN Reason: per Hypoglycemia Standing Ord. Ferrous Sulfate (Ferrous Sulfate 324 Mg Tablet.) 324 mg PO DAILY [facility] Last Admin: 07/10/25 07:47 Dose: 324 mg Documented By: NEHEMIAS Furosemide (Furosemide 40 Mg Tablet) 40 mg PO BID@0830,1330 [facility]; Protocol Last Admin: 07/10/25 12:58 Dose: 40 mg Documented By: NEHEMIAS Glucose (Glucose Gel 15 Gm Gel..Gram.) 15 gm PO Q15M PRN; Protocol PRN Reason: per Hypoglycemia Standing Ord. Heparin Sodium (Porcine) (Heparin Sodium,Porcine 5,000 Unit/Ml Vial) 5,000 unit SUBCUT Q12H [facility] On Hold: 07/08/25 10:20 Last Admin: 07/08/25 04:10 Dose: 5,000 unit Documented By: NIKOLAI Insulin Human Lispro (Insulin Lispro 100 Unit/Ml 3 Ml Vial) 0 unit SUBCUT QIDACHS [facility]; Protocol Last Admin: 07/11/25 07:18 Dose: Not Given Documented By: LOUISE Non-Admin Reason: No Insulin Coverage Loratadine (Loratadine 10 Mg Tablet) 5 mg PO DAILY [facility] Last Admin: 07/10/25 07:47 Dose: 5 mg Documented By: NEHEMIAS Magnesium Hydroxide (Milk Of Magnesia 30 Ml Oral.Susp) 30 ml PO DAILY PRN PRN Reason: Constipation Melatonin (Melatonin 3 Mg Tablet) 6 mg PO BEDTIME PRN PRN Reason: Insomnia Last Admin: 07/06/25 20:19 Dose: 6 mg Documented By: HEMANTASY Melatonin (Melatonin 3 Mg Tablet) 6 mg PO BEDTIME [facility] Last Admin: 07/10/25 20:10 Dose: 6 mg Documented By: ANN Multivitamins/Vitamin C (Multivitamin Tablet) 1 tab PO DAILY [facility] Last Admin: 07/10/25 07:47 Dose: 1 tab Documented By: NEHEMIAS Pt Own(Vitamins A,C, A-Lhtq-Ziyrgy [ Preservision Areds] 4,296 Mcg-226 Mg 1 cap PO BID [facility] Last Admin: 07/10/25 20:12 Dose: Not Given Documented By: ANN Non-Admin Reason: Med Not Available Sodium Chloride (0.9 % Sodium Chloride Flush 10 Ml Syringe) 5 ml IVFLUSH ONCE PRN PRN Reason: Infusion Center Sodium Chloride (0.9 % Sodium Chloride Flush 3 Ml Syringe) 3 ml IVFLUSH QSHIFT [facility] Last Admin: 07/10/25 20:11 Dose: 3 ml Documented By: ANN Labs 07/11/25 05:22 07/11/25 05:22 Labs: Laboratory Results - last 24 hr 07/07/25 07/08/25 07/10/25 17:50 06:04 07:37 MCV MCH MCHC RDW Plt Count MPV Immature Gran % (Auto) Neut % (Auto) Lymph % (Auto) [place] % (Auto) Eos % (Auto) Baso % (Auto) Lymph # (Auto) [place] # (Auto) Eos # (Auto) Baso # (Auto) Abs Immat Gran (auto) Absolute Neuts (auto) Absolute Nucleated RBC Nucleated RBC % (auto) Smear Path Review SEE NOTE Anion Gap Estim Creat Clear Calc Estimated GFR POC Glucose 92 Random Glucose Calcium Magnesium Total Bilirubin AST ALT Alkaline Phosphatase Total Protein Albumin Free [place] LC, Quant 17.0 Free Lambda LC, Quant 1249.4 H Free [place]/Lambda Ratio 0.01 L 07/10/25 07/10/25 07/10/25 11:36 16:18 20:27 MCV MCH MCHC RDW Plt Count MPV Immature Gran % (Auto) Neut % (Auto) Lymph % (Auto) [place] % (Auto) Eos % (Auto) Baso % (Auto) Lymph # (Auto) [place] # (Auto) Eos # (Auto) Baso # (Auto) Abs Immat Gran (auto) Absolute Neuts (auto) Absolute Nucleated RBC Nucleated RBC % (auto) Smear Path Review Anion Gap Estim Creat Clear Calc Estimated GFR POC Glucose 93 109 115 Random Glucose Calcium Magnesium Total Bilirubin AST ALT Alkaline Phosphatase Total Protein Albumin Free [place] LC, Quant Free Lambda LC, Quant Free [place]/Lambda Ratio 07/11/25 07/11/25 05:22 07:13 MCV 86.6 MCH 27.0 MCHC 31.2 RDW 17.3 H Plt Count 259 MPV 8.6 L Immature Gran % (Auto) 0.4 Neut % (Auto) 48.6 Lymph % (Auto) 35.3 [place] % (Auto) 11.4 H Eos % (Auto) 3.7 Baso % (Auto) 0.6 Lymph # (Auto) 1.8 [place] # (Auto) 0.6 Eos # (Auto) 0.2 Baso # (Auto) 0.0 Abs Immat Gran (auto) 0.02 Absolute Neuts (auto) 2.5 Absolute Nucleated RBC 0.000 Nucleated RBC % (auto) 0.0 Smear Path Review Anion Gap 8 L Estim Creat Clear Calc 33.7 Estimated GFR 46 POC Glucose 116 H Random Glucose 97 Calcium 8.2 L Magnesium 1.8 Total Bilirubin 0.4 AST 26 ALT < 6 Alkaline Phosphatase 61 Total Protein 8.3 H Albumin 2.9 L Free [place] LC, Quant Free Lambda LC, Quant Free [place]/Lambda Ratio Quality Stroke Does the patient have a stroke diagnosis?: No VTE Prior VTE?: No VTE Risk Level:: Medical - moderate - high VTE Device Contraindication: N/A - Device Ordered VTE Drug Contraindication: N/A - Med Ordered
--- NOTE | 2025-07-11 09:19 | MHC.CM.PN ---
pt being dcd today to [facility]
[2025-07-11] MEDS: Milk of Magnesia 30 ML ORAL.SUSP PO (09:28)
[2025-07-11] MEDS: Aspirin Enteric Coated 81 MG TABLET.DR PO (09:28)
[2025-07-11] MEDS: Ferrous Sulfate 324 MG TABLET.DR PO (09:28)
[2025-07-11] MEDS: 0.9 % Sodium Chloride Flush 3 ML SYRINGE IVFLUSH (09:30)
[2025-07-11 11:52] LABS: Glucose, Whole Blood 112 mg/dL (60-115)
--- NOTE | 2025-07-11 12:39 | PM.DS ---
DS: Providers Provider Date of Service: 07/11/25 Date of admission: 07/06/25 14:24 Date of discharge: 07/11/25 Primary care physician: Eve Briceno MD Consults: 07/06/25 14:20 Consult to Hematology / Oncology Routine Consulting Provider: [facility] Oncology/Hematology Reason for consultation: hypercalcemia, anemia ?MM Has provider been notified: No Consult to Nephrology Routine Consulting Provider: [facility] Reason for consultation: hypercalcemia, JE Has provider been notified: No DS: Diagnosis Discharge Diagnosis (1) Hypercalcemia: Status: Acute DS: Summary Hospital Course Hospital Course: Humeral hypercalcemia of undiagnosed malignancy (multiple myeloma) Patient is a very sweet and pleasant 80yo F with DM2, HTN, CKD3 sent in by import/export analyst for possible symptomatic (back pain, constipation) hypercalcemia and JE due to likely multiple myeloma on 07/06/2025. She was treated with zolendronate , fluids and furosemide and she responded well to the above management. We will need to follow-up with nephrology outpatient multiple myeloma: immunofixation, SPEP, FLCR, b2MG pending, Heme/Onc consulted, will need outpt PET/CT + bone marrow biopsy then follow up for treatment. Patient's bone marrow biopsy was scheduled for 07/11/2025 which has been postponed as she is just being discharged today on 07/11/2025. anemia of chronic disease: Patient had drop in her hemoglobin, unclear source. She was transfused 2u pRBCs on 07/08/25 with optimal response, H&H stable since then not requiring any further transfusions. Remained hemodynamically stable. Patient needs to follow up with PCP within a week and repeat her CBC DM2: Discontinued MTF during this hospitalization secondary to JE on CKD, and we gave her correction dose lispro while inpatient. Patient needs to see her jeep mechanic and re-initiate based on her HTN: no longer on meds due to low BP recently HLD: statin VTE ppx: UFH dispo: PT- STR Patient has mobility issues, PTOT recommended short-term rehab hence the patient is being discharged to rehab Time spent discussing smoking cessation with patient: more than 10 minutes Status at Discharge Functional status at discharge: uses cane/walker Overall status at discharge: patient is progressing back to baseline Time Attestation Discharge Coordination Time (in mins): 45 Quality: Safe Use of Opioids Does Pt have an Active Cancer Diagnosis on the Problem List?: Yes Opioid Measure Date for [facility] Report: 06/11/25 Opioid Measure Time for [facility] Report: 13:14 Quality: Stroke Does the patient have a stroke diagnosis?: No Physical Exam Vital Signs: Vital Signs: Last Vital Signs Temp 98.0 F 07/11/25 07:11 Pulse 70 07/11/25 07:11 Resp 16 07/11/25 07:11 BP 138/60 07/11/25 07:11 Pulse Ox 96 07/11/25 07:11 O2 Del Method Room Air 07/11/25 07:11 BMI result Body Mass Index 20.1 DS: Data Data Completed and Pending Labs on day of discharge: Laboratory Results - last 24 hr 07/10/25 07/10/25 07/11/25 16:18 20:27 05:22 WBC 5.2 RBC 3.74 L Hgb 10.1 L Hct 32.4 L MCV 86.6 MCH 27.0 MCHC 31.2 RDW 17.3 H Plt Count 259 MPV 8.6 L Immature Gran % (Auto) 0.4 Neut % (Auto) 48.6 Lymph % (Auto) 35.3 [place] % (Auto) 11.4 H Eos % (Auto) 3.7 Baso % (Auto) 0.6 Lymph # (Auto) 1.8 [place] # (Auto) 0.6 Eos # (Auto) 0.2 Baso # (Auto) 0.0 Abs Immat Gran (auto) 0.02 Absolute Neuts (auto) 2.5 Absolute Nucleated RBC 0.000 Nucleated RBC % (auto) 0.0 Sodium 140 Potassium 3.3 Chloride 110 H Carbon Dioxide 25 Anion Gap 8 L BUN 18 H Creatinine 1.15 Estim Creat Clear Calc 33.7 Estimated GFR 46 POC Glucose 109 115 Random Glucose 97 Calcium 8.2 L Magnesium 1.8 Total Bilirubin 0.4 AST 26 ALT < 6 Alkaline Phosphatase 61 Total Protein 8.3 H Albumin 2.9 L 07/11/25 07/11/25 07:13 11:43 WBC RBC Hgb Hct MCV MCH MCHC RDW Plt Count MPV Immature Gran % (Auto) Neut % (Auto) Lymph % (Auto) [place] % (Auto) Eos % (Auto) Baso % (Auto) Lymph # (Auto) [place] # (Auto) Eos # (Auto) Baso # (Auto) Abs Immat Gran (auto) Absolute Neuts (auto) Absolute Nucleated RBC Nucleated RBC % (auto) Sodium Potassium Chloride Carbon Dioxide Anion Gap BUN Creatinine Estim Creat Clear Calc Estimated GFR POC Glucose 116 H 112 Random Glucose Calcium Magnesium Total Bilirubin AST ALT Alkaline Phosphatase Total Protein Albumin Discharge Plan Discharge Anticipated Discharge Date/Time: 07/11/25 12:29 Patient Disposition: Xfer SNF Discharge Diagnosis: Symptomatic humoral hypercalcemia of malignancy, likely MM(not yet officially diagnosed) Referrals: [facility] [Other] - 1 Week Eve Briceno MD [Primary Care Provider, Internal Medicine] - 1 Week Discharge Medications: New furosemide 40 mg Tablet 40 mg PO BID@0830,1330 30 Days Qty: 60 3RF Protocol: Hold for SBP< HOLD for SBP < : 90 Continued cetirizine 10 mg Tablet 5 mg PO DAILY ferrous sulfate 325 mg (65 mg iron) Tablet 325 mg PO DAILY multivitamin Tablet 1 tab PO DAILY aspirin 81 mg tablet,delayed release (DR/EC) 81 mg PO DAILY acetaminophen 650 mg Tablet Extended Release 650 mg PO Q8H PRN (Reason: Pain) simvastatin 10 mg tablet 10 mg PO BEDTIME PreserVision AREDS 4,296 mcg-226 mg-90 mg capsule 1 cap PO BID magnesium oxide 400 mg magnesium capsule 400 mg PO DAILY Discontinued metformin 1,000 mg tablet 1,000 mg PO BID Discharge Orders: Discharge Order (Routine); Ordered 07/11/25 Ordered By: Annetta Danielson Diet: Low salt diet Activity on Discharge: As tolerated Stand Alone Forms: Patient Portal Discharge page Print Language: Serbian Activity Restrictions/Additional Instructions: Short-term rehab-please follow PTOT recommendations See your primary oncologist-for official diagnosis of multiple myeloma You were supposed to have biopsy today Please stop taking metformin as her kidney numbers have not completely recovered Care Plan Goals: Watching out for signs and symptoms of hypercalcemia: Causes Calcium helps build strong bones and teeth. It also helps muscles contract and nerves send signals. When the parathyroid glands work right, they release hormones that help maintain the right balance of calcium in the blood. Parathyroid hormones trigger: Bones to release calcium into the blood. The digestive tract to absorb more calcium. The kidneys to release less calcium and activate more vitamin D. Vitamin D plays a baron role in the body's ability to absorb calcium. This delicate balance between too little calcium in the blood and hypercalcemia can be affected by various factors. Hypercalcemia can be caused by: Overactive parathyroid glands. This also is called hyperparathyroidism. It's the most common cause of hypercalcemia. Overactive parathyroid glands make too much parathyroid hormone. The condition can stem from a small tumor that isn't cancer. It also can stem from one or more of the four parathyroid glands becoming larger. Cancer. Lung cancer, breast cancer and some blood cancers can raise the risk of hypercalcemia. Cancer that spreads to the bones also raises the risk. Other diseases. Conditions such as tuberculosis and sarcoidosis can raise blood levels of vitamin D. That in turn spurs the digestive tract to absorb more calcium. Genetic factors. A rare genetic condition called familial hypocalciuric hypercalcemia causes an increase of calcium in the blood. This condition doesn't cause symptoms or complications of hypercalcemia. Little or no movement. People who have a condition that causes them to spend a lot of time sitting or lying down can get hypercalcemia. Over time, bones that don't bear weight release calcium into the blood. Serious dehydration. This is a common cause of mild or short-term hypercalcemia. Having less fluid in the blood causes a rise in calcium. Some medicines. Medicines such as lithium and thiazide diuretics might cause more parathyroid hormone to be released. Supplements. Taking too much calcium or vitamin D supplements over time can raise calcium levels in the blood. Complications Hypercalcemia can lead to medical conditions that include: Osteoporosis. This condition involves thinning bones. It could develop if the bones keep releasing calcium into the blood. Osteoporosis can lead to broken bones, curving of the spinal column and loss of height. Kidney stones. If the urine contains too much calcium, crystals might form in the kidneys. Over time, the crystals can combine to form kidney stones. Passing a stone can be very painful. Kidney failure. This condition limits the kidneys' ability to clean the blood and get rid of extra fluid. It can develop over time as hypercalcemia damages the kidneys. Nervous system conditions. Serious hypercalcemia can lead to confusion, dementia and coma. Coma can be fatal. Irregular heart rhythm. This also is called arrhythmia. Hypercalcemia can affect the electrical signals that control the heartbeat. That can cause the heart to beat out of rhythm. Follow-up with primary care within a week after discharge Follow-up with primary jeep mechanic within a week after discharge for management of hypercalcemia Follow up with Nephrology for management of possible CKD Maintain adequate hydration Health Concerns: See above Plan of Treatment: See above Assessment: See above Patient Instructions: Multiple Myeloma (DC), Osteolysis (DC), Anemia (DC), Hypercalcemia (DC), Serum Free Light Chain Testing (GEN)
[2025-07-11 13:24] VITALS: BP 154/67; PULSE 89; RESP 18; TEMP 37.1; O2SAT 99
[2025-07-12 16:34] LABS: Kappa, Serum 25 mg/dL (176-443)
[2025-07-18 19:14] LABS: PES - Abn Protein Band 1 2.8 g/dL (NONE DETECTED); Prot Elec - Albumin 3.0 g/dL (3.8-4.8); Prot Elec - Alpha1 0.5 g/dL (0.2-0.3); Prot Elec - Alpha2 1.1 g/dL (0.5-0.9); Prot Elec - Beta 1 0.4 g/dL (0.4-0.6); Prot Elec - Beta 2 0.1 g/dL (0.2-0.5); Prot Elec - Gamma 3.1 g/dL (0.8-1.7); Prot Elec - Total Protein 8.2 g/dL (6.1-8.1)
== END 2025-07-11 13:35 | disposition skilled nursing facility (03) | DRG 841 ==
LOC: HO.ED 13:14 → HO.EDOVER 14:36 → HO.S3 15:01
PROVIDERS: Family Medicine; Internal Medicine; Internal Medicine Medical Oncology; Admitting Provider Physician Assistant Medical; Emergency Provider Emergency Medicine; PCP Internal Medicine; Visit Provider Student in an Organized Health Care Education/Training Program
DX: C90.00 Multiple myeloma not having achieved remission (principal); E44.0 Moderate protein-calorie malnutrition; N17.9 Acute kidney failure, unspecified; E83.52 Hypercalcemia; I12.9 Hypertensive chronic kidney disease with stage 1 through stage 4 chronic kidney disease, or unspecified chronic kidney disease; Z68.20 Body mass index [BMI] 20.0-20.9, adult; N18.30 Chronic kidney disease, stage 3 unspecified; E11.22 Type 2 diabetes mellitus with diabetic chronic kidney disease; D17.0 Benign lipomatous neoplasm of skin and subcutaneous tissue of head, face and neck; D63.0 Anemia in neoplastic disease; D63.1 Anemia in chronic kidney disease; E78.5 Hyperlipidemia, unspecified; Z87.891 Personal history of nicotine dependence; Z79.82 Long term (current) use of aspirin; Z79.899 Other long term (current) drug therapy
CPT/HCPCS: 36415; 77075; 80048; 80053; 82232; 82330; 82550; 82784; 82947; 83521; 83615; 83690; 83735; 83883; 84165; 85025; 85027; 86334; 86335; 86850; 86900; 86901; 86923; 93005; 97161; 97165; 97530; 99285; J1644; J1938; J3489; J7120; P9016

== ENCOUNTER → 2025-07-06 12:49 | Outpatient (BNV) | payer MEDICARE, SELFPAY | PROVIDERS: Admitting Provider Physician Assistant Medical; Emergency Provider Emergency Medicine; PCP Internal Medicine; Visit Provider Internal Medicine Cardiovascular Disease | DX: R94.31 Abnormal electrocardiogram [ECG] [EKG] (principal); R53.1 Weakness | CPT/HCPCS: 93010 ==

== ENCOUNTER 2025-07-06 14:24 | Outpatient (BNV) | payer MEDICARE, SELFPAY | END 2025-07-06 18:21 | PROVIDERS: Admitting Provider Physician Assistant Medical; Emergency Provider Emergency Medicine; PCP Internal Medicine; Visit Provider Student in an Organized Health Care Education/Training Program | DX: E83.52 Hypercalcemia (principal) | CPT/HCPCS: 77075 ==

== ENCOUNTER → 2025-07-06 14:24 | Outpatient (BNV) | payer MEDICARE, SELFPAY | PROVIDERS: Admitting Provider Physician Assistant Medical; Emergency Provider Emergency Medicine; PCP Internal Medicine; Visit Provider Physician Assistant Medical | DX: E83.52 Hypercalcemia (principal); D47.2 Monoclonal gammopathy; N17.9 Acute kidney failure, unspecified; D64.9 Anemia, unspecified | CPT/HCPCS: 99223; 99232 ==

== ENCOUNTER → 2025-07-06 14:24 | Outpatient (BNV) | payer MEDICARE, SELFPAY | PROVIDERS: Admitting Provider Physician Assistant Medical; Emergency Provider Emergency Medicine; PCP Internal Medicine; Visit Provider Internal Medicine Medical Oncology | DX: E83.52 Hypercalcemia (principal) | CPT/HCPCS: 99222 ==

== ENCOUNTER → 2025-07-06 14:24 | Outpatient (BNV) | payer MEDICARE, SELFPAY | PROVIDERS: Admitting Provider Physician Assistant Medical; Emergency Provider Emergency Medicine; PCP Internal Medicine; Visit Provider Internal Medicine Critical Care Medicine | DX: E83.52 Hypercalcemia (principal); N17.9 Acute kidney failure, unspecified | CPT/HCPCS: 99232 ==

== ENCOUNTER → 2025-07-17 09:20 | Outpatient (BNV) | payer MEDICARE, SELFPAY | PROVIDERS: PCP Internal Medicine; Visit Provider Internal Medicine Medical Oncology | DX: C90.00 Multiple myeloma not having achieved remission (principal) | CPT/HCPCS: 99214 ==

== ENCOUNTER 2025-07-28 09:56 | Outpatient (REF) | payer MEDICARE, SELFPAY ==
[2025-07-28 10:16] LABS: MANUAL DIFF FLAG NO
[2025-07-28 10:45] LABS: Hematocrit 34.7 % (37.0-47.0); Hemoglobin 10.6 g/dl (12.0-16.0); Imm Gran Abs Auto 0.03 X10*3/uL (0.00-0.03); Imm Gran Pct Auto 0.5 % (0.0-0.4); Lymphocytes Absolute Auto 2.2 X10*3/uL (1.2-4.9); Mean Corpuscular HGB Conc 30.5 g/dl (31.0-35.0); Mean Corpuscular Hemoglobin 26.9 pg (27.0-33.0); Mean Corpuscular Volume 88.1 fL (80.0-98.0); NRBC Abs Auto 0.000 X10*3/uL (0.0-0.012); NRBC Pct Auto 0.0 /100WBC (0.0-0.2); Platelet Count 434 X10*3/uL (160-400); Red Blood Count 3.94 X10*6/uL (4.20-5.50); White Blood Count 6.3 X10*3/uL (4.8-10.8)
--- OUTSIDE RECORDS SUMMARY | 2025-07-28 11:10 | XMS_ITS | Patient Health Record ---
[facility] Address [address] [place] [address] Care Team Providers Care Boom Conveyor Operator Name Role Phone Didier Reyna MD Primary Care Provider Minh Gongora Unavailable [phone] Reason For Referral No Information Medications Medication [...] Problem Acquired hammer toe of right foot (762515466041869 5) Other hammer toe(s) (acquired), right foot (M20.41) Active confirmed Problem Acquired hammer toe of left foot ([id number] 3) Other hammer toe(s) (acquired), left foot (M20.42) Active confirmed Problem Type II diabetes mellitus without complication (468568047) Type 2 diabetes mellitus without complications (E11.9) Active confirmed Plan Of Treatment No Information Insurance Providers Payer Name Payer Address Payer Phone Subscriber Number Group Number Insured Name Patient Relationship to Insured Coverage Start Date Coverage End Date [employer] [address] [place] [id number] [phone] [id number] Marlen Cesar i Self - patient is the insured Medical (General) History Medical History History ICD Code High blood pressure Diabetic
[2025-07-28 11:20] LABS: Albumin Level 3.6 g/dL (3.5-5.0); Calcium 9.1 mg/dL (8.4-10.2)
[2025-07-28 11:22] LABS: Alanine Aminotransferase 7 U/L (0-31); Albumin Level 3.6 g/dL (3.5-5.0); Alkaline Phosphatase 93 U/L (39-117); Anion Gap 11 (12-20); Aspartate Amino Transferase 29 U/L (5-31); Blood Urea Nitrogen 14 mg/dL (9-16); Calcium 9.3 mg/dL (8.4-10.2); Carbon Dioxide 31 mmol/L (22-29); Chloride 99 mmol/L (96-108); Estimated Glomerular Filt Rate 51; Potassium 3.3 mmol/L (3.3-5.1); Sodium 138 mmol/L (135-145); Total Protein 10.0 g/dL (6.5-8.0)
[2025-08-02 17:08] LABS: Kappa, Serum 29 mg/dL (176-443)
[2025-08-04 16:18] LABS: Parathyroid Hormone Related Pr 19 pg/mL (11-20)
--- OUTSIDE RECORDS SUMMARY | 2025-09-17 20:00 | XMS_ITS | Clinical Summary ---
Author Organization Unknown Care Team Providers Care Automotive Service Technician Name Role Phone ASHWINI OTHER, SADIA Unavailable Unavailab ruth FERNANDO RN, RUPALI Unavailable Unavailab ruth HANLEY LPN, DIMPLE Unavailable Unavailable TEMI PT, RADHA Unavailable Unavailable DIALLO AFTER SCHOOL COORDINATOR, RANDOLPH Unavailable Unavailable READING OT, GRACIA Unavailable Unavailable CONDINO BAD CLOTH CHECKER/HIGUERA, NASH Unavailable Unav ailable Payers Payer Name Policy Type Policy Number Effective Date Expira tion Date [id number] Problems Condition Name Condition Details Condition Category Status Onset Date Resolution Date Last Treatment Date Treating Clinician Comments HYPERCALCEMI A Active 2024-09 00:00: 00 Allergies, Adverse Reactions, Alerts Allergy Name Allergy Type Status Severity Reaction(s) Onset Date Inactive Date Treating Clinician Comments NO KNOWN ALLERGIES Propensity to adverse reactions Active 2024-09 10:14: 57 Vital Signs Vital Name Observation Time Observation Value Commen ts Temperature 2025-07-26 08:27:00.000 97.7 [degF] Temperature 2025-07-25 10:59:00.000 97.5 [degF] Temperature 2025-07-21 10:18:00.000 98.7 [degF] BMI (%) 2025-07-21 10:03:12.000 18 kg/m2 Height 2025-07-21 10:03:07.000 64 [in_us] Pulse 2025-07-26 08:27:00.000 80 /min Pulse 2025-07-25 10:59:00.000 81 /min Pulse 2025-07-21 10:18:00.000 86 /min O2 Saturation (%) 2025-07-26 08:27:00.000 99 % O2 Saturation (%) 2025-07-25 10:59:00.000 99 % O2 Saturation (%) 2025-07-21 10:18:00.000 96 % Respirations 2025-07-26 08:27:00.000 18 /min Respirations 2025-07-25 10:59:00.000 18 /min Respirations 2025-07-21 10:18:00.000 17 /min Weight (lbs) 2025-07-21 10:03:12.000 109 [lb_av] Systolic Blood Pressure 2025-07-26 08:27:00.000 132 mm [Hg] Systolic Blood Pressure 2025-07-25 10:59:00.000 118 mm [Hg] Systolic Blood Pressure 2025-07-21 10:18:00.000 114 mm [Hg] Diastolic Blood Pressure 2025-07-26 08:27:00.000 [...] TION MANAGEMENT; RN TO ASSESS AND OBSERVE, SPORTS PSYCHOLOGIST/FINANCIAL SUPERVISOR TO OBSERVE FALL RISK FACTORS AND EDUCATE PATIENT/CAREGIVER ON STRATEGIES TO MINIMIZE THE RISK OF FALLING. [code = FALL REDUCTION MANAGEMENT; RN TO ASSESS AND OBSERVE, SPORTS PSYCHOLOGIST/FINANCIAL SUPERVISOR TO OBSERVE FALL RISK FACTORS AND EDUCATE PATIENT/CAREGIVER ON STRATEGIES TO MINIMIZE THE RISK OF FALLING.] Future Scheduled Test GENITOURIN JULIETTE MANAGEMENT; RN TO ASSESS AND TEACH, SPORTS PSYCHOLOGIST/FINANCIAL SUPERVISOR TO OBSERVE AND TEACH RELATED TO ALTERED GENITOURINARY STATUS TO MINIMIZE COMPLICATIONS AND REDUCE HOSPITALIZATION. [code = GENITOURINARY MANAGEMENT; RN TO ASSESS AND TEACH, SPORTS PSYCHOLOGIST/FINANCIAL SUPERVISOR TO OBSERVE AND TEACH RELATED TO ALTERED GENITOURINARY STATUS TO MINIMIZE COMPLICATIONS AND REDUCE HOSPITALIZATION.] Future Scheduled Test ANEMIA MAN AGEMENT; RN TO ASSESS AND TEACH, FINANCIAL SUPERVISOR/SPORTS PSYCHOLOGIST TO OBSERVE AND TEACH AND PROVIDE EDUCATION ON ANEMIA. [code = ANEMIA MANAGEMENT; RN TO ASSESS AND TEACH, FINANCIAL SUPERVISOR/SPORTS PSYCHOLOGIST TO OBSERVE AND TEACH AND PROVIDE EDUCATION ON ANEMIA.] Future Scheduled Test RN TO OBSE RVE, ASSESS, EVALUATE, AND DEVELOP AN INDIVIDUALIZED PLAN OF CARE. AGENCY MAY ACCEPT ORDERS FROM CONSULTING PHYSICIANS. RN TO OBSERVE AND ASSESS, SPORTS PSYCHOLOGIST/FINANCIAL SUPERVISOR TO OBSERVE FOR RISK FOR FALLS AND INSTRUCT IN FALL PREVENTION, HOME SAFETY, MEDICATION MANAGEMENT, INFECTION PREVENTION, AND NUTRITION MANAGEMENT. RN/SPORTS PSYCHOLOGIST/FINANCIAL SUPERVISOR NURSE MAY PERFORM O2 SATURATION LEVEL ON ADMISSION AND PRN FOR RN TO ASSESS/SPORTS PSYCHOLOGIST TO OBSERVE PATIENT, WITH NOTIFICATION TO THE PHYSICIAN IF SATURATION IS 90% IN THE ABSENCE OF MORE SPECIFIC PARAMETERS FROM THE PHYSICIAN. AGENCY MAY PERFORM A RESUMPTION OF CARE VISIT FOLLOWING ANY HOSPITAL ADMISSION. RN/SPORTS PSYCHOLOGIST/FINANCIAL SUPERVISOR TO MONITOR CO-MORBID CONDITIONS LISTED ON THE PLAN OF CARE AND ANY NEW CONDITIONS THAT PRESENT THEMSELVES DURING THIS EPISODE TO IDENTIFY CHANGES AND INTERVENE TO MINIMIZE COMPLICATIONS. [code = RN TO OBSERVE, ASSESS, EVALUATE, AND DEVELOP AN INDIVIDUALIZED PLAN OF CARE. AGENCY MAY ACCEPT ORDERS FROM CONSULTING PHYSICIANS. RN TO OBSERVE AND ASSESS, SPORTS PSYCHOLOGIST/FINANCIAL SUPERVISOR TO OBSERVE FOR RISK FOR FALLS AND INSTRUCT IN FALL PREVENTION, HOME SAFETY, MEDICATION MANAGEMENT, INFECTION PREVENTION, AND NUTRITION MANAGEMENT. RN/SPORTS PSYCHOLOGIST/FINANCIAL SUPERVISOR NURSE MAY PERFORM O2 SATURATION LEVEL ON ADMISSION AND PRN FOR RN TO ASSESS/SPORTS PSYCHOLOGIST TO OBSERVE PATIENT, WITH NOTIFICATION TO THE PHYSICIAN IF SATURATION IS 90% IN THE ABSENCE OF MORE SPECIFIC PARAMETERS FROM THE PHYSICIAN. AGENCY MAY PERFORM A RESUMPTION OF CARE VISIT FOLLOWING ANY HOSPITAL ADMISSION. RN/SPORTS PSYCHOLOGIST/FINANCIAL SUPERVISOR TO MONITOR CO-MORBID CONDITIONS LISTED ON THE PLAN OF CARE AND ANY NEW CONDITIONS THAT PRESENT THEMSELVES DURING THIS EPISODE TO IDENTIFY CHANGES AND INTERVENE TO MINIMIZE COMPLICATIONS.] Future Scheduled Test PAIN MANAG EMENT; RN TO ASSESS AND TEACH, FINANCIAL SUPERVISOR/SPORTS PSYCHOLOGIST TO OBSERVE AND TEACH AND PROVIDE EDUCATION ON PAIN MANAGEMENT TECHNIQUES. [code = PAIN MANAGEMENT; RN TO ASSESS AND TEACH, FINANCIAL SUPERVISOR/SPORTS PSYCHOLOGIST TO OBSERVE AND TEACH AND PROVIDE EDUCATION ON PAIN MANAGEMENT TECHNIQUES.] Future Scheduled Test RISK FOR H OSPITALIZATION; RN TO ASSESS/TEACH, FINANCIAL SUPERVISOR/SPORTS PSYCHOLOGIST TO OBSERVE/TEACH PATIENT/CAREGIVER ON RISK FOR HOSPITALIZATION/EMERGENCY ROOM VISITS, TEACH SIGNS AND SYMPTOMS THAT PUT PATIENT AT RISK, WHEN TO NOTIFY NURSE/PHYSICIAN OF COMPLICATIONS/DECLINE, AND WHEN TO CALL 911. [code = RISK FOR HOSPITALIZATION; RN TO ASSESS/TEACH, FINANCIAL SUPERVISOR/SPORTS PSYCHOLOGIST TO OBSERVE/TEACH PATIENT/CAREGIVER ON RISK FOR HOSPITALIZATION/EMERGENCY ROOM VISITS, TEACH SIGNS AND SYMPTOMS THAT PUT PATIENT AT RISK, WHEN TO NOTIFY NURSE/PHYSICIAN OF COMPLICATIONS/DECLINE, AND WHEN TO CALL 911.] Future Scheduled Test MEDICATION MANAGEMENT; RN/SPORTS PSYCHOLOGIST/FINANCIAL SUPERVISOR TO REVIEW MEDICATIONS FOR INTERACTIONS, EFFECTIVENESS OF DRUG THERAPY, AND SIGNS/SYMPTOMS OF ADVERSE REACTIONS. MAY INSTRUCT AND REINFORCE MEDICATION TEACHING RELATED TO THE USE OF MEDICATIONS, DOSAGE, FREQUENCY, PURPOSE, SIDE EFFECTS, AND TO REPORT COMPLICATIONS. [code = MEDICATION MANAGEMENT; RN/SPORTS PSYCHOLOGIST/FINANCIAL SUPERVISOR TO REVIEW MEDICATIONS FOR INTERACTIONS, EFFECTIVENESS OF DRUG THERAPY, AND SIGNS/SYMPTOMS OF ADVERSE REACTIONS. MAY INSTRUCT AND REINFORCE MEDICATION TEACHING RELATED TO THE USE OF MEDICATIONS, DOSAGE, FREQUENCY, PURPOSE, SIDE EFFECTS, AND TO REPORT COMPLICATIONS.] Future Scheduled Test RN TO ASSE SS, OBSERVE, AND EDUCATE; SPORTS PSYCHOLOGIST/FINANCIAL SUPERVISOR TO OBSERVE AND REINFORCE EDUCATION ON ELECTROLYTE IMBALANCES INCLUDING STRATEGIES TO MINIMIZE THE RISK OF HOSPITALIZATION. [code = RN TO ASSESS, OBSERVE, AND EDUCATE; SPORTS PSYCHOLOGIST/FINANCIAL SUPERVISOR TO OBSERVE AND REINFORCE EDUCATION ON ELECTROLYTE IMBALANCES INCLUDING STRATEGIES TO MINIMIZE THE RISK OF HOSPITALIZATION.] Future Scheduled Test AGENCY MAY PERFORM A RESUMPTION OF CARE VISIT FOLLOWING ANY HOSPITAL ADMISSION. OT TO EVALUATE, OBSERVE / ASSESS, AND MONITOR, ANUPAM TO OBSERVE AND MONITOR, PROVIDE SKILLED THERAPEUTIC INTERVENTION, ACTIVITY, EDUCATION, AND TRAINING TO ADDRESS; ACTIVITIES OF DAILY LIVING (OT/BAD CLOTH CHECKER) MEAL PREPARATION AND CLEANUP (OT/BAD CLOTH CHECKER) CHAIR TRANSFERS (OT/BAD CLOTH CHECKER) TOILET TRANSFER (OT/BAD CLOTH CHECKER) BATH/SHOWER TRANSFER (OT/BAD CLOTH CHECKER) CAR TRANSFER (OT/ANUPAM) HOME ACTIVITY / EXERCISE PROGRAM (OT/BAD CLOTH CHECKER) POSTURAL CONTROL/BALANCE (OT/BAD CLOTH CHECKER) THERAPEUTIC EXERCISE (OT/BAD CLOTH CHECKER) OT/ANUPAM TO MONITOR AND EDUCATE ON OXYGEN SATURATION DURING ADLS/IADLS, NOTIFY PHYSICIAN AND/OR THE RN CLINICAL PARTS SALES REPRESENTATIVE FOR PHYSICIAN NOTIFICATION AND IF O2 SATS BELOW 90% AFTER 10 MIN OF REST. OT/BAD CLOTH CHECKER MAY EDUCATE ON PAIN MANAGEMENT CLINICALLY INDICATED. [code = AGENCY MAY PERFORM A RESUMPTION OF CARE VISIT FOLLOWING ANY HOSPITAL ADMISSION. OT TO EVALUATE, OBSERVE / ASSESS, AND MONITOR, ANUPAM TO OBSERVE AND MONITOR, PROVIDE SKILLED THERAPEUTIC INTERVENTION, ACTIVITY, EDUCATION, AND TRAINING TO ADDRESS; ACTIVITIES OF DAILY LIVING (OT/ANUPAM) MEAL PREPARATION AND CLEANUP (OT/BAD CLOTH CHECKER) CHAIR TRANSFERS (OT/ANUPAM) TOILET TRANSFER (OT/BAD CLOTH CHECKER) BATH/SHOWER TRANSFER (OT/ANUPAM) CAR TRANSFER (OT/BAD CLOTH CHECKER) HOME ACTIVITY / EXERCISE PROGRAM (OT/ANUPAM) POSTURAL CONTROL/BALANCE (OT/ANUPAM) THERAPEUTIC EXERCISE (OT/ANUPAM) OT/ANUPAM TO MONITOR AND EDUCATE ON OXYGEN SATURATION DURING ADLS/IADLS, NOTIFY PHYSICIAN AND/OR THE RN CLINICAL PARTS SALES REPRESENTATIVE FOR PHYSICIAN NOTIFICATION AND IF O2 SATS BELOW 90% AFTER 10 MIN OF REST. OT/BAD CLOTH CHECKER MAY EDUCATE ON PAIN MANAGEMENT CLINICALLY INDICATED.] Future Scheduled Test AGENCY MAY PERFORM A RESUMPTION OF CARE VISIT FOLLOWING ANY HOSPITAL ADMISSION. PT TO EVALUATE, OBSERVE / ASSESS, AND MONITOR, AFTER SCHOOL COORDINATOR TO OBSERVE AND MONITOR, PROVIDE SKILLED THERAPEUTIC INTERVENTION, ACTIVITY, EDUCATION, AND TRAINING TO ADDRESS; PT/AFTER SCHOOL COORDINATOR TO PROVIDE GAIT TRAINING FOR IMPROVED MOBILITY AND /OR TO NORMALIZE GAIT PATTERN NEUROMUSCULAR RE-EDUCATION / BALANCE / POSTURAL CONTROL (PT) THERAPEUTIC EXERCISES AND ESTABLISHING A HOME EXERCISE PROGRAM (PT/AFTER SCHOOL COORDINATOR) PT/AFTER SCHOOL COORDINATOR TO PROVIDE STAIR TRAINING SIT TO/FROM STAND TRANSFERS (PT/AFTER SCHOOL COORDINATOR) PT / AFTER SCHOOL COORDINATOR TO MONITOR AND EDUCATE ON OXYGEN SATURATION DURING ADLS/IADLS, NOTIFY PHYSICIAN AND/OR THE RN CLINICAL PARTS SALES REPRESENTATIVE FOR PHYSICIAN NOTIFICATION AND IF O2 SATS BELOW PHYSICIAN ORDERED PARAMETERS AFTER 10 MIN OF REST PT / AFTER SCHOOL COORDINATOR TO MONITOR FOR HYPO/HYPERGLYCEMIA AND CONDUCT ROUTINE FOOT INSPECTIONS. RECORD PATIENT REPORTED BLOOD SUGAR LEVELS AND NOTIFY PHYSICIAN AND/OR THE RN CLINICAL PARTS SALES REPRESENTATIVE FOR PHYSICIAN NOTIFICATION IF BLOOD SUGAR LEVELS ARE OUTSIDE ORDERED PARAMETERS. TEACH PATIENT/CAREGIVER ON DAILY FOOT INSPECTIONS PT/AFTER SCHOOL COORDINATOR TO IDENTIFY FALL RISK FACTORS; EDUCATE THE PATIENT/CAREGIVER ON WAYS TO REDUCE FALL RISK FACTORS AND ESTABLISH HOME EXERCISE PROGRAM TO MINIMIZE FALL RISK. MAY TEACH THE PATIENT FLOOR RECOVERY WHEN CLINICALLY APPROPRIATE PT / AFTER SCHOOL COORDINATOR MAY EDUCATE ON PAIN MANAGEMENT CLINICALLY INDICATED, INCLUDING NON-PHARMACOLOGICAL PAIN REDUCTION TECHNIQUES [code = AGENCY MAY PERFORM A RESUMPTION OF CARE VISIT FOLLOWING ANY HOSPITAL ADMISSION. PT TO EVALUATE, OBSERVE / ASSESS, AND MONITOR, AFTER SCHOOL COORDINATOR TO OBSERVE AND MONITOR, PROVIDE SKILLED THERAPEUTIC INTERVENTION, ACTIVITY, EDUCATION, AND TRAINING TO ADDRESS; PT/AFTER SCHOOL COORDINATOR TO PROVIDE GAIT TRAINING FOR IMPROVED MOBILITY AND /OR TO NORMALIZE GAIT PATTERN NEUROMUSCULAR RE-EDUCATION / BALANCE / POSTURAL CONTROL (PT) THERAPEUTIC EXERCISES AND ESTABLISHING A HOME EXERCISE PROGRAM (PT/AFTER SCHOOL COORDINATOR) PT/AFTER SCHOOL COORDINATOR TO PROVIDE STAIR TRAINING SIT TO/FROM STAND TRANSFERS (PT/AFTER SCHOOL COORDINATOR) PT / AFTER SCHOOL COORDINATOR TO MONITOR AND EDUCATE ON OXYGEN SATURATION DURING ADLS/IADLS, NOTIFY PHYSICIAN AND/OR THE RN CLINICAL PARTS SALES REPRESENTATIVE FOR PHYSICIAN NOTIFICATION AND IF O2 SATS BELOW PHYSICIAN ORDERED PARAMETERS AFTER 10 MIN OF REST PT / AFTER SCHOOL COORDINATOR TO MONITOR FOR HYPO/HYPERGLYCEMIA AND CONDUCT ROUTINE FOOT INSPECTIONS. RECORD PATIENT REPORTED BLOOD SUGAR LEVELS AND NOTIFY PHYSICIAN AND/OR THE RN CLINICAL PARTS SALES REPRESENTATIVE FOR PHYSICIAN NOTIFICATION IF BLOOD SUGAR LEVELS ARE OUTSIDE ORDERED PARAMETERS. TEACH PATIENT/CAREGIVER ON DAILY FOOT INSPECTIONS PT/AFTER SCHOOL COORDINATOR TO IDENTIFY FALL RISK FACTORS; EDUCATE THE PATIENT/CAREGIVER ON WAYS TO REDUCE FALL RISK FACTORS AND ESTABLISH HOME EXERCISE PROGRAM TO MINIMIZE FALL RISK. MAY TEACH THE PATIENT FLOOR RECOVERY WHEN CLINICALLY APPROPRIATE PT / AFTER SCHOOL COORDINATOR MAY EDUCATE ON PAIN MANAGEMENT CLINICALLY INDICATED, [...] Notes Progress Notes <paragraph>[Visit Date: 2024 by GRACIA AGUIRRE OT]:</paragraph><paragraph>PROVIDED CARE:PATIENT IS 80-YEAR-OLD FEMALE REFERRED FOR SKILLED OCCUPATIONAL THERAPY EVALUATION DUE TO BACK PAIN, HYPERCALCEMIA AND ACUTE KIDNEY INJURY. PATIENT DENIES ANY CURRENT BACK PAIN AND STATES PAIN WAS IN AUGUST WHEN SHE WAS DIAGNOSED SPINAL STENOSIS HOWEVER SHE IS EXPERIENCING SIGNIFICANT AMOUNTS OF WEAKNESS SECONDARY TO HYPERCALCEMIA. PATIENT CURRENTLY LIVES IN A SINGLE FAMILY TWO-STORY HOME WITH HER AND DOG AND STATES THAT HER DAUGHTER LIVES CLOSE BY AND IS HER PRIMARY CAREGIVER FOR APPOINTMENTS. PATIENT IS UTILIZING A ROLLATOR FOR ALL MOBILITY AND AMBULATION AND STATES SHE HAS HAS BEEN HAVING DIFFICULTY MANEUVERING STAIRS SINCE RETURNING HOME WELL GETTING IN AND OUT OF SHOWER. PATIENT STATES HER MAIN GOAL IS TO IMPROVE HER STRENGTH AND ACTIVITY TOLERANCE IN THE HOPES OF RETURNING TO WORK AT [employer].</paragraph><paragraph></paragraph><paragraph>PMH:ANEMIA CKD DM HTN</paragraph><paragraph></paragraph><paragraph>PLOF: AUGUST 2024- INDEPENDENT WITH ALL ADLS, IADLS, MOBILITY WITHOUT DEVICE. WAS DRIVING</paragraph><paragraph></paragraph><paragraph>CLOF: CGA FOR HYGIENE, DRESSING AND TOILETING, AND AMBULATION.CGA FOR SHOWERING AND MIN A FOR SHOWER TRANSFER, USING ROLLATOR FOR ALL MOBILITY. </paragraph><paragraph></paragraph><paragraph>MBI SCORE OF 83/100 INDICATING A MILD LEVEL OF DEPENDENCY ON CAREGIVER.</paragraph><paragraph></paragraph><paragraph>PATIENT WILL BENEFIT FROM SKILLED OCCUPATIONAL THERAPY SERVICES IN ORDER TO INCREASE STRENGTH AND PROVE ACTIVITY TOLERANCE AND INCREASE INDEPENDENCE WITH FUNCTIONAL TRANSFERS AND IADLS</paragraph><paragraph></paragraph><paragraph>GOALS ESTABLISHED WITH PATIENT/CAREGIVER AND IN AGREEMENT WITH POC.</paragraph><paragraph></paragraph><paragraph>NASH HIGUERA TO BE CONTACTED TO DISCUSS PLAN OF CARE AND GOALS</paragraph> <paragraph>[Visit Date: 2024 by RADHA MEMBRENO PT]:</paragraph><paragraph>PROVIDED CARE: PATIENT IS A 80 YEAR OLD FEMALE REFERRED TO SKILLED THERAPY AFTER HOSPITAL AND REHAB STAY DUE TO ACUTE BACK PAIN, HYPERCALCEMIA AND ACUTE KIDNEY INJURY. PATIENTS BACK PAIN HAS RESOLVED AND WAS MOST LIKELY RELATED TO KIDNEY INJURY. 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 SHE HAS SEVERAL APPOINTMENTS SCHEDULED FOR FURTHER TESTING. PATIENT REPORTING SIGNIFICANT FATIGUE AND WEAKNESS SINCE RETURNING HOME. PATIENT STATES SHE IS HAVING DIFFICULTY WITH ALL ASPECTS OF MOBILITY. PATIENT LIVES WITH HER ELDERLY IN A SINGLE FAMILY HOME WITH 5 STEPS REQUIRED TO ENTER WITH RAIL AND GRAB BARS AVAILABLE. PATIENT HAS A SUPPORTIVE DTR NEARBY. AT BASELINE PATIENT REPORTS SHE AMBULATED INDEPENDENTLY WITHOUT AD, WAS DRIVING, WAS WORKING AND WAS INDEPENDENT WITH ADLS AND IADLS PRIOR TO August. CURRENTLY PATIENT REQUIRES SBA WITH TRANSFERS, CGA WITH HOUSEHOLD AMBULATION AT ROLLATOR LEVEL AND MIN ASSIST WITH SINGLE PLATFORM STEP ASSESSED TODAY. PMH INCLUDES DM AND HLD.TODAY PATIENT PRESENTS WITH LOWER EXTREMITY WEAKNESS BILATERALLY, POOR FUNCTIONAL ENDURANCE AND DELAYED BALANCE REACTIONS ALL CURRENTLY CONTRIBUTING TO IMPAIRMENTS IN TRANSFERS, GAIT AND STAIR MOBILITY PLACING PATIENT AT ELEVATED RISK FOR FALLS. ELEVATED FALL RISK IS FURTHER EVIDENCED BY NEED FOR 25 SECONDS TO COMPLETE TUG TEST AND 26 SECONDS TO COMPLETE 5TSTST. PATIENT REQUIRES SKILLED THERAPY INTERVENTION TO ADDRESS THESE ISSUES AND TO MAXIMIZE SAFETY AND INDEPENDENCE WITH FUNCTIONAL MOBILITY. PATIENT AND PHYSICIAN ARE IN AGREEMENT WITH PLAN OF CARE. COMMUNICATION WITH CM AND AFTER SCHOOL COORDINATOR REGARDING PATIENT STATUS AND PLAN OF CARE. CALL US REINFORCED WITH PATIENT ABLE TO VERBALIZE UNDERSTANDING.</paragraph> <paragraph>[Visit Date: 2024 by DIMPLE HANLEY LPN]:</paragraph><paragraph>PATIENT ALERT AND ORIENTED X3 WITH FORGETFULNESS AT TIMES. PATIENTS LS CLEAR BILATERAL AND NO EDEMA TO LOWER EXTREMITIES. PATIENT DENIES ANY PAIN OR PULMONARY DISTRESS AT THIS TIME. PATIENT REPORTS FEELING WEAK THROUGHOUT THE DAY. SN EDUCATED PATIENT ON SAFETY WHEN AMBULATING AND TRANSFERRING BY GETTING UP SLOWLY AND WEARING SUPPORTIVE FOOT WEAR WITH WALKER AT ALL TIMES. PATIENT VERBALIZED UNDERSTANDING. PATIENT IS HOMEBOUND RELATED TO DECREASE STRENGHT AND POOR ENDURANCE WITH THE NEED FOR A ASSISTED DEVICE TO AMBULATE FOR BALANCE. MAKING IT A TAXING EFFORT TO LEAVE THE HOME WITHOUT THE ASSISTANCE OF ANOTHER PERSON.</paragraph> Encounters Start Date/Time End Date/Time Encounter Type Admission Type Attending [facility] Facility Care Department Encounter ID Discharge Date Discharge Status Discharge Condition Discharge Reason Percent Goals Met 2025-07-21 00:00:00 2025-09-18 00:00:00 Outpatient NEW ADMISSION RUPALI FERNANDO [facility] [id number] 33.33
== END 2025-07-28 09:57 | disposition home or self-care (01) ==
LOC: HO.LAB 09:56
PROVIDERS: Student in an Organized Health Care Education/Training Program; PCP Internal Medicine; Visit Provider Internal Medicine Medical Oncology
DX: E21.3 Hyperparathyroidism, unspecified (principal); D64.9 Anemia, unspecified
CPT/HCPCS: 36415; 80053; 82040; 82310; 83519; 83883; 84075; 85025

== ENCOUNTER 2025-08-02 10:52 | Outpatient (AMB) | payer MEDICARE, SELFPAY ==
--- OUTSIDE RECORDS SUMMARY | 2025-07-31 09:52 | XMS_ITS | Encounter Summary ---
Author Organization [facility] Address [address] [place] [address] Care Team Providers Care Early Childhood Assistant Name Role Phone Elder, Susu Rodriguez MD Primary Care Provider + Reason for Referral * Imaging (Routine) - Pending Review Specialty Diagnoses / Procedures Referred By Nunu mcgarry Referred To Contact Radiology Diagnoses Multiple myeloma, remission status unspecified (CMS/HCC V24, CMS/HCC V28) Procedures PET CT Skull to Mid Thigh Initial Nesha Gomez MD [address] [place] [address] ATTN: HEMATOLOGY/[place] [address] Phone: tel: fax: [facility] Referral ID Status Reason Start Date Expiration Date V isits Requested Visits Authorized [id number] Pending Review 07/28/2025 07/28/2026 1 1 Reason for Visit * Imaging (Routine) - Pending Review Specialty Diagnoses / Procedures Referred By Nunu mcgarry Referred To Contact Radiology Diagnoses Multiple myeloma, remission status unspecified (CMS/HCC V24, CMS/HCC V28) Procedures PET CT Skull to Mid Thigh Initial Nesha Gmoez MD [address] [place] [address] ATTN: HEMATOLOGY/[place] [address] Phone: tel: fax: [facility] Referral ID Status Reason Start Date Expiration Date V isits Requested Visits Authorized [id number] Pending Review 07/28/2025 07/28/2026 1 1 Encounter Details Date Type Department Care Team (Latest Contact Info) Description 07/31/2025 9:52 AM EST Hospital Encounter [facility] PET Scan [address] [place] [address] Multiple myeloma, remission status unspecified ([facility] V24, [facility] V28) Social History Tobacco Use Types Packs/Day Years Used Date Smoking Tobacco: Former Alcohol Use Standard Drinks/Week Comments Not Asked 0 (1 standard drink = 0.6 oz pur e alcohol) Comments Unknown Sex and Gender Information Value Date Recorded Sex Assigned at Not on file Legal Sex Female 1:59 AM EST Gender Identity Not on file Sexual Orientation Not on file documented as of this encounter Plan of Treatment Not on file documented as of this encounter Procedures Procedure Name Priority Date/Time Associated Diagnosis Comments PET CT SKULL TO MID THIGH INITIAL Routine 07/31/2025 12:15 PM EST Multiple myeloma, remission status unspecified ([facility] V24, [facility] V28) documented in this encounter Results * PET CT Skull to Mid Thigh Initial (07/31/2025 12:15 PM EST) Anatomical Region Laterality Modality Body Radiographic Cindy ging 08/01/2025 8:09 AM EST Impressions 08/01/2025 9:46 AM EST 1. Innumerable lytic osseous lesions with associated increased FDG activity in keeping with active myelomatous lesions 2. Destructive bifrontal and right frontoparietal, right iliac and right sided pleural based osseous lesions with associated soft tissue lesions which may represent plasmacytomas and/or active myelomatous lesions 3. Nonspecific mild FDG avid right level II cervical lymph node as well as abdominal lymph nodes either reactive or metastatic in etiology Please note: The CT was acquired at a low radiation dose settings. The images are of nondiagnostic quality and used solely for purposes of attenuation correction and slice localization for the PET scan. If a diagnostic CT study is desired it must be ordered separately. -------- FINAL REPORT -------- Dictated By: Kim Heller Dictated Date: 08/01/2025 08:09 ET Assigned Physician: Kim Heller Reviewed and Electronically Signed By: Kim Heller Signed Date: 08/01/2025 09:46 ET Workstation ID: [id number] Transcribed By: Self Edit Transcribed Date: 08/01/2025 08:09 ET Narrative 08/01/2025 9:46 AM EST INDICATION: multiple myeloma. Outside radiographs demonstrated multiple lucent foci throughout the bones. TECHNIQUE: FDG PET-CT imaging was performed from the head through the thighs in a single acquisition with data set reconstructed in axial, coronal, and sagittal planes at the computer workstation with fused data from both the PET imaging study and attenuation correction CT. The CT portion of the examination was done strictly for attenuation correction and is not a true diagnostic CT examination. DLP: 712 mGy-cm Radiopharmaceutical: 12.3 mCi of F-18 FDG IV. Blood glucose: 134 mg/dl. COMPARISON: None. FINDINGS: HEAD AND NECK: Destructive 2.9 x 3.1 cm bifrontal soft tissue lesion measuring up to SUV Max 3.5 within the confines of misregistration due to patient's positioning. Within the confines of misregistration due to patient positioning, similar appearing destructive soft tissue lesion in the right frontoparietal calvarium SUV max 4.6. Asymmetric 6 mm right-sided level II lymph node SUV max 3.5. THORAX: Right-sided pleural-based masses with associated cortical destruction. For example, right anterior pleural-based mass along the right anterior second rib SUV max 3.3 and along the posterior eighth rib SUV max 2.7. Small pulmonary nodules without significant FDG activity. No significant FDG avid thoracic or axillary lymph nodes. ABDOMEN/PELVIS: Nonspecific activity involving the GE junction extending into the fundus of the stomach with an associated moderate size hiatal hernia SUV max 3.6. Gastrohepatic and sharonda hepatis lymph nodes including prominent 9 mm portacaval lymph node SUV max 3.2. Retroperitoneal lymph nodes measuring up to SUV Max 2.4. Diverticulosis with nonspecific bowel activity, most significantly involving the right side of the colon. MUSCULOSKELETAL: Innumerable lytic osseous lesions, some of which have a soft tissue component with increased FDG activity. For example, left inferior pubic ramus SUV Max 4.3, right femoral neck SUV max 5.1, destructive right iliac soft tissue mass SUV max 3.5, sacrum SUV max 5.0, L3 SUV max 4.6, multiple rib lesions including the right seventh rib SUV max 4, sternum SUV Max 5 and left humerus SUV Max 3.1. Multiple compression fractures of the spine with variable FDG activity. Compression deformity at L1 with increased activity SUV max 3.6, likely representing a pathologic fracture. Compression fractures at T11 and T12 without significant increased activity. Procedure Note Kim Heller MD - 08/01/2025 INDICATION: multiple myeloma. Outside radiographs demonstrated multiplelucent foci throughout the bones. TECHNIQUE: FDG PET-CT imaging was performed from the head through thethighs in a single acquisition with data set reconstructed in axial,coronal, and sagittal planes at the computer workstation with fused datafrom both the PET imaging study and attenuation correction CT. The CTportion of the examination was done strictly for attenuation correctionand is not a true diagnostic CT examination. DLP: 712 mGy-cm Radiopharmaceutical: 12.3 mCi of F-18 FDG IV. Blood glucose: 134 mg/dl. COMPARISON: None. FINDINGS: HEAD AND NECK: Destructive 2.9 x 3.1 cm bifrontal soft tissue lesionmeasuring up to SUV Max 3.5 within the confines of misregistration due topatient's positioning. Within the confines of misregistration due to patient positioning, similarappearing destructive soft tissue lesion in the right frontoparietalcalvarium SUV max 4.6. Asymmetric 6 mm right-sided level II lymph node SUV max 3.5. THORAX: Right-sided pleural-based masses with associated corticaldestruction. For example, right anterior pleural-based mass along theright anterior second rib SUV max 3.3 and along the posterior eighth ribSUV max 2.7. Small pulmonary nodules without significant FDG activity. No significantFDG avid thoracic or axillary lymph nodes. ABDOMEN/PELVIS: Nonspecific activity involving the GE junction extendinginto the fundus of the stomach with an associated moderate size hiatalhernia SUV max 3.6. Gastrohepatic and sharonda hepatis lymph nodes including prominent 9 mmportacaval lymph node SUV max 3.2. Retroperitoneal lymph nodes measuringup to SUV Max 2.4. Diverticulosis with nonspecific bowel activity, most significantlyinvolving the right side of the colon. MUSCULOSKELETAL: Innumerable lytic osseous lesions, some of which have asoft tissue component with increased FDG activity. For example, leftinferior pubic ramus SUV Max 4.3, right femoral neck SUV max 5.1,destructive right iliac soft tissue mass SUV max 3.5, sacrum SUV max 5.0,L3 SUV max 4.6, multiple rib lesions including the right seventh rib SUVmax 4, sternum SUV Max 5 and left humerus SUV Max 3.1. Multiple compression fractures of the spine with variable FDG activity.Compression deformity at L1 with increased activity SUV max 3.6, likelyrepresenting a pathologic fracture. Compression fractures at T11 and [id number] significant increased activity. IMPRESSION: 1. Innumerable lytic osseous lesions with associated increased FDGactivity in keeping with active myelomatous lesions 2. Destructive bifrontal and right frontoparietal, right iliac and rightsided pleural based osseous lesions with associated soft tissue lesionswhich may represent plasmacytomas and/or active myelomatous lesions 3. Nonspecific mild FDG avid right level II cervical lymph node as wellas abdominal lymph nodes either reactive or metastatic in etiology Please note: The CT was acquired at a low radiation dose settings. The images are ofnondiagnostic quality and used solely for purposes of attenuationcorrection and slice localization for the PET scan. If a diagnostic CTstudy is desired it must be ordered separately. -------- FINAL REPORT -------- Dictated By: Kim Heller Dictated Date: 08/01/2025 08:09 ET Assigned Physician: Kim Heller Reviewed and Electronically Signed By: Kim Heller Signed Date: 08/01/2025 09:46 ET Workstation ID: [id number] Transcribed By: Self Edit Transcribed Date: 08/01/2025 08:09 ET Nesha Gomez MD [facility] PROCEDURES Final Result documented in this encounter Visit Diagnoses Diagnosis Multiple myeloma, remission status unspecified ([facility] V24, [facility] V28) documented in this encounter Administered Medications Inactive Administered Medications - up to 3 most recent administrations Medication Order MAR Action Action Date Dose Rate Site F-18 FDG pet diag radio-isotope injection 12.3 millicurie 12.3 millicurie, intravenous, Once in imaging, Starting on 07/31/25 at 1045, For 1 dose Given 07/31/2025 10:33 AM EST 12.3 millicuries Left Antecubital documented in this encounter Orders Medications Ordered That Krish ht Not Have Been Administered Count Last Ordered Date First Ordered Date F-18 FDG pet diag radio-isot ope injection 12.3 millicurie 1 07/31/2025 documented in this encounter Care Teams Early Childhood Assistant Relationship Specialty Start Date End Date Susu Carreno MD [address] [phone] PCP - General Family Medicine 07/12/25 documented as of this encounter
--- NOTE | 2025-08-02 10:56 | A.OFFVIS_ITS ---
Vital Signs 08/02/25 10:59 Height 5 ft 4 in BP 112/68 Blood Pressure Location Rt brachial Position Sitting Pulse 85 Pulse Source Pulse Oximeter Pulse Oximetry (%) 95 Oxygen Delivery Method Room Air Intake Visit Reasons: Hypercalcemia Intake Note: Patient presents here today for a follow-up after completion of work-up for Hyperglycemia. Melting Supervisor Required: No Accompanied by: Daughter Allergies No Known Allergies Allergy (Verified 08/02/25 10:57) Medication List - Last Reconciled 08/02/25 by Ana Tamez MD acetaminophen ER 650 mg PO Q8H PRN aspirin 81 mg PO DAILY cetirizine 5 mg PO DAILY cholecalciferol (vitamin D3) 25 mcg PO DAILY ferrous sulfate 325 mg PO DAILY furosemide 40 mg See Protocol PO BID@0830,1330 30 days magnesium oxide 400 mg PO DAILY multivitamin 1 tab PO DAILY simvastatin 10 mg PO BEDTIME vitamins A,C,X-uwgy-enanbf 4,296 mcg-226 mg-90 mg (PreserVision AREDS) 1 cap PO BID HPI Comments Details: 79 years old female with past medical history of type 2 diabetes, spinal stenosis, hypotension, seen in the office for evaluation of hypercalcemia suspected to be secondary to hyperparathyroidism. - The patient has been experiencing significant weight loss since August, having lost about 60 pounds from 180 lbs to 117 lbs. - There is a history of spinal stenosis, which the patient believes might be contributing to the weight loss, although this is not typically associated with such severe weight loss. - The patient has been experiencing back pain, which is reportedly painful when standing and alleviated when sitting or lying down. - Recent discovery of kidney damage, although previously the kidneys were in good condition. - The patient has been experiencing fatigue and increased thirst and polyuria/nocturia, but not irritability or mood changes or AMS. - There is a no family history of hypercalcemia or osteoporosis that the patient is aware of. - The patient has never been diagnosed with calcium problems or prescribed calcium supplements despite a past consultation suggesting stopping calcium intake. - The patient?s daughter has a history of kidney stones, but the patient does not. Review of Systems: - Constitutional: Notable weight loss, fatigue. - Musculoskeletal: Back pain, muscle weakness. - Renal: Recent kidney damage, history of increased thirst. - GI: No bleeding in stools. - Neuropsychiatric: Increased irritability Interval history: She was admitted to the hospital on June 2025 for hypercalcemia, dehydration and acute anemia. During hospitalization she was adviced to stop vitamin D and calcium due to hypercalcemia Since her hospital discharge, she had noticed an increase in appetite and her weight She will be followed as an outpatient by hematology oncology, she is pending to have the PET scan and bone biopsy. Physical exam: General: Frail appearing, sitting in a wheelchair. NAD. Neck/Thyroid: Thyroid not palpable, no nodules. CV: RRR, no murmur. No edema. Resp:Lungs clear to auscultation bilaterally Abdomen: Soft, nontender. nondistended Extremities/Neuro: No tremor of outstretched hands Laboratory Tests 06/30/25 07/05/25 07/06/25 11:59 11:48 13:10 Hgb 8.5 L D 8.4 L 8.7 L Hct 27.5 L D 28.6 L 29.0 L BUN 46 H Creatinine 2.31 H Estimated GFR Calcium 12.8 H* D Phosphorus 4.6 H Magnesium Total Protein 9.7 H Albumin 3.4 L 25-OH Vitamin D Total 14.1 L TSH 1.36 PTH Intact 47.5 07/07/25 07/11/25 07/28/25 05:42 05:22 10:10 Hgb 7.2 L Hct 24.7 L BUN Creatinine 1.15 1.04 Estimated GFR 51 Calcium 8.2 L 9.1 Phosphorus Magnesium 1.8 Total Protein 8.3 H 10.0 H Albumin 2.9 L 3.6 25-OH Vitamin D Total TSH PTH Intact Laboratory Tests 09/03/24 06/30/25 06:58 11:59 WBC 4.6 L 8.0 Hgb 11.2 L 8.5 L D RDW 14.6 17.2 H Plt Count 290 439 H D Laboratory Tests 03/16/25 06/19/25 06/30/25 07:47 08:30 11:59 Potassium 3.8 4.1 BUN 25 H 40 H 46 H Creatinine 0.99 1.38 2.31 H Estimated GFR 37 20 Calcium 10.0 11.5 H D 12.8 H* D Phosphorus 4.6 H Total Protein 9.3 H 10.2 H 9.7 H Albumin 4.3 3.9 3.4 L 25-OH Vitamin D Total 7.9 L 14.1 L TSH 5.94 H 1.36 Laboratory Tests 06/30/25 11:59 PTH Intact 47.5 PFSH Medical History History of high cholesterol Hx of type 2 diabetes mellitus Hx of spinal stenosis Hx of acute arthritis Hx of essential hypertension Surgical History No pertinent past surgical history Family History Father HTN (hypertension) Myocardial disease Diabetes mellitus Hypercholesteremia Mother Diabetes mellitus Family history of breast cancer Social History Household Members: Spouse Housing: House Are you a primary residential caregiver to a significant other at home: No Do you presently have visiting nurse or other home services: No Alcohol intake: current Alcohol intake frequency: does not drink Patient Tobacco Use Status: Former Tobacco user service: No Current occupational status: retired Physical Exam Vital Signs: Last Vital Signs Pulse 85 08/02/25 10:59 BP 112/68 08/02/25 10:59 Pulse Ox 95 08/02/25 10:59 Oxygen Delivery Method Room Air 08/02/25 10:59 Assessment & Plan Assessment & Plan (1) Hyperparathyroidism: Code(s): E21.3 - Hyperparathyroidism, unspecified Category: Medical (2) Vitamin D deficiency: Code(s): E55.9 - Vitamin D deficiency, unspecified Category: Medical Plan: Hypercalcemia Hyperparathyroidism The patient is a 79 years old female, with recently diagnosed hypercalcemia as well as kidney dysfunction. The patient reported that she had unintentionally lost about 60 lb since August 2023. Her laboratory results showed hypercalcemia, progressive kidney dysfunction, hyperproteinemia, and an inappropriately normal PTH despite hypercalcemia. While her kidney dysfunction could have been related to progressive hypercalcemia, her other symptoms?including weight loss, hyperproteinemia, and anemia?could not be explained by hyperparathyroidism. Although the combination of inappropriately normal PTH and hypercalcemia suggested primary hyperparathyroidism, it was suspected that her severe vitamin D deficiency may have prevented full suppression of PTH. However, the combination of hypercalcemia, kidney dysfunction, back pain, weight loss, hyperproteinemia, and anemia was more concerning for multiple myeloma. Patient labs ordered during the last visit we are highly suspicious for multiple myeloma and given the finding altered monoclonal gammopathy. In terms of hypercalcemia, she did receive zoledronic acid x1, and currently she had normalized creatinine (with GFR 51) and normal calcium, likely indicating the hypercalcemia had some impact in her kidney function, in addition to the multiple myeloma. In terms of the inappropriately normal PTH in the setting of hypercalcemia previously seen, I think that this is consistent with secondary hyperparathyroidism in the setting of vitamin-D deficiency. I discussed with the patient my rational for restarting vitamin D and calcium intake to a maximun of 800 mg daily to avoid osteoporosis secondary to hyperparathyroidism due to poor calcium intake. Plan Advised the patient to consume to a maximum of 800 mg per day (written recommendations in regards to food content of calcium provided) Advised the patient vitamin-D 1000 IU daily Discussed with the patient to monitor for symptoms of hypercalcemia Counseled the patient regards to fall prevention We will follow the patient in six-month for now Plan 30 minutes spent reviewing previous records, labs, imaging, education and documenting in the chart Medications: New cholecalciferol (vitamin D3) 25 mcg PO DAILY 30 caps 0RF E21.3 - Hyperparathyroidism, unspecified, E55.9 - Vitamin D deficiency, unspecified Coding Level of Care Code Est Pt Level 4 (79751) Diagnoses Hyperparathyroidism E21.3 Vitamin D deficiency E55.9
[2025-08-02 10:59] VITALS: BP 112/68; PULSE 85; O2SAT 95
--- OUTSIDE RECORDS SUMMARY | 2025-08-02 12:50 | XMS_ITS | Encounter Summary ---
Author Organization [facility] Address [address] [place] [address] Care Team Providers Care Inspector Final Assembly Mechanical Name Role Phone Susu Carreno MD Primary Care Provider + Encounter Details Date Type Department Care Team (Late st Contact Info) Description 07/12/2025 Lab Requisition [facility] - Main Lab [address] [facility] [place] [address] Susu Carreno MD [address] [facility] 1 [place] [address] Weakness; Type 2 diabetes mellitus without complications ([facility] V24, [facility] V28) Social History Tobacco Use [...] Procedure Name Priority Date/Time Associated Diagnosis Comments THYROID STIMULATING HORMONE WITH REFLEX TO FREE T4 AND FREE T3 Routine 07/12/2025 5:56 AM EDT Weakness Type 2 diabetes mellitus without complications (CMS/HCC V24, CMS/HCC V28) COMPLETE BLOOD COUNT Routine 07/12/2025 5:56 AM EDT Weakness Type 2 diabetes mellitus without complications ([facility] V24, [facility] V28) HEMOGLOBIN A1C Routine 07/12/2025 5:56 AM EDT Weakness Type 2 diabetes mellitus without complications ([facility] V24, [facility] V28) FOLATE Routine 07/12/2025 5:56 AM EDT Weakness Type 2 diabetes mellitus without complications ([facility] V24, [facility] V28) VITAMIN B12 Routine 07/12/2025 5:56 AM EDT Weakness Type 2 diabetes mellitus without complications ([facility] V24, [facility] V28) COMPREHENSIVE METABOLIC PANEL Routine 07/12/2025 5:56 AM EDT Weakness Type 2 diabetes mellitus without complications ([facility] V24, [facility] V28) documented in this encounter Results * Hemoglobin A1c (07/12/2025 5:56 AM EDT) Hemoglobin A1C 6.0 <6.5 % LAB CHEMISTRY METHOD 07/12/2025 1:10 PM EDT [facility] Mean Bld Glu Estim. 126 mg/dL LAB CHEMISTRY METHOD 07/12/2025 1:10 PM EDT [facility] Blood Venous blood specimen / Unknown Venipuncture / Unknown 07/12/2025 5:56 AM EDT 07/12/2025 9:03 AM EDT us Susu Carreno MD LAB BLOOD ORDERABLES Fin al Result [facility] [address] [place] [address], * (ABNORMAL) Folate (07/12/2025 5:56 AM EDT) Folate >20.0(H) 2.8 - 17.0 ng/ml LAB CHEMISTRY METHOD 07/12/2025 11:28 AM EDT [facility] Blood Venous blood specimen / Unknown Venipuncture / Unknown 07/12/2025 5:56 AM EDT 07/12/2025 9:03 AM EDT Susu Carreno MD LAB BLOOD ORDERABLES Fin al Result [facility] [address] [place] [address], [place] [phone] * Vitamin B12 (07/12/2025 5:56 AM EDT) Pathologist [facility] Vitamin B-12 580 250 - 900 pcg/mL LAB CHEMISTRY METHOD 07/12/2025 11:28 AM EDT [facility] Blood Venous blood specimen / Unknown Venipuncture / Unknown 07/12/2025 5:56 AM EDT 07/12/2025 9:03 AM EDT Susu Carreno MD LAB BLOOD ORDERABLES Fin al Result Performing Organization Address [facility]/ZIP Co de Phone Number [facility] [address] [place] [address], [place] [phone] * Thyroid stimulating hormone with reflex to free t4 and free t3 (07/12/2025 5:56 AM EDT) Pathologist [facility] TSH 0.54 0.40 - 4.00 mcIU/mL LAB CHEMISTRY METHOD 07/12/2025 11:58 AM EDT [facility] Blood Venous blood specimen / Unknown Venipuncture / Unknown 07/12/2025 5:56 AM EDT 07/12/2025 9:03 AM EDT Susu Carreno MD LAB BLOOD ORDERABLES Fin al Result [facility] [address] [place] [address], [place] [phone] * (ABNORMAL) Comprehensive metabolic panel (07/12/2025 5:56 AM EDT) Pathologist [facility] Sodium 140 133 - 145 mmol/L LAB CHEMISTRY METHOD 07/12/2025 11:[address] [facility] Potassium 3.9 3.5 - 5.5 mmol/L LAB CHEMISTRY METHOD 07/12/2025 11:[address] [facility] Chloride 110 96 - 110 mmol/L LAB CHEMISTRY METHOD 07/12/2025 11:[address] [facility] CO2 25 21 - 32 mmol/L LAB CHEMISTRY METHOD 07/12/2025 11:[address] [facility] Anion Gap 5 3 - 11 LAB CHEMISTRY METHOD 07/12/2025 11:[address] [facility] Glucose 90 70 - 100 mg/dL LAB CHEMISTRY METHOD 07/12/2025 11:[address] [facility] BUN 15 5 - 25 mg/dL LAB CHEMISTRY METHOD 07/12/2025 11:[address] [facility] Creatinine 1.12(H) 0.50 - 1.10 mg/dL LAB CHEMISTRY METHOD 07/12/2025 11:[address] [facility] eGFR 50(L) >=60 mL/min/1. 73m2 LAB CHEMISTRY METHOD 07/12/2025 11:[address] [facility] Comment:Calculation based on the Chronic Kidney Disease Epidemiology Collaboration (CKD-EPI) equation refit without adjustment for race. BUN/Creatinine Ratio 13.4 LAB CHEMISTRY METHOD 07/12/2025 11:[address] [facility] Calcium 8.2(L) 8.5 - 10.5 mg/dL LAB CHEMISTRY METHOD 07/12/2025 11:[address] [facility] AST (SGOT) 19 10 - 42 unit/L LAB CHEMISTRY METHOD 07/12/2025 11:[address] [facility] ALT (SGPT) 10 10 - 60 unit/L LAB CHEMISTRY METHOD 07/12/2025 11:[address] [facility] Alkaline Phosphatase 66 42 - 121 unit/L LAB CHEMISTRY METHOD 07/12/2025 11:28 AM EDT [facility] Total Protein 8.1(H) 6.0 - 8.0 g/dL LAB CHEMISTRY METHOD 07/12/2025 11:28 AM EDT [facility] Albumin 2.3(L) 3.2 - 5.0 g/dL LAB CHEMISTRY METHOD 07/12/2025 11:28 AM EDT [facility] Total Bilirubin 0.4 0.0 - 1.4 mg/dL LAB CHEMISTRY METHOD 07/12/2025 11:28 AM EDT [facility] Blood Venous blood specimen / Unknown Venipuncture / Unknown 07/12/2025 5:56 AM EDT 07/12/2025 9:03 AM EDT us Susu Carreno MD LAB BLOOD ORDERABLES Fin al Result [facility] [address] [place] [address], * (ABNORMAL) Complete blood count (07/12/2025 5:56 AM EDT) WBC 5.6 4.8 - 10.8 K/mcL LAB HEMETOLOGY METHOD 07/12/2025 10:25 AM T [facility] RBC 3.70(L) 3.80 - 4.80 M/mcL LAB HEMETOLOGY METHOD 07/12/2025 10:25 AM EDT [facility] Hemoglobin 9.9(L) 11.5 - 16.0 g/dL LAB HEMETOLOGY METHOD 07/12/2025 10:25 AM EDT [facility] Hematocrit 32.6(L) 35.0 - 47.0 % LAB HEMETOLOGY METHOD 07/12/2025 10:25 AM EDT [facility] MCV 88.8 79.0 - 98.0 FL LAB HEMETOLOGY METHOD 07/12/2025 10:25 AM EDT [facility] MCH 27.0 27.0 - 32.0 pcg LAB HEMETOLOGY METHOD 07/12/2025 10:25 AM EDT [facility] MCHC 30.4(L) 32.0 - 37.0 g/dL LAB HEMETOLOGY METHOD 07/12/2025 10:25 AM EDT [facility] RDW 17.2(H) 11.0 - 15.0 % LAB HEMETOLOGY METHOD 07/12/2025 10:25 AM EDT [facility] Platelets 278 130 - 400 K/mcL LAB HEMETOLOGY METHOD 07/12/2025 10:25 AM EDT [facility] MPV 8.9 7.0 - 11.0 FL LAB HEMETOLOGY METHOD 07/12/2025 10:25 AM EDT [facility] NRBC 0.0 <1.0 % LAB HEMETOLOGY METHOD 07/12/2025 10:25 AM EDT [facility] NRBC Absolute 0.00 <0.10 K/mcL LAB HEMETOLOGY METHOD 07/12/2025 10:25 AM T [facility] Blood Venous blood specimen / Unknown Venipuncture / Unknown 07/12/2025 5:56 AM EDT 07/12/2025 9:03 AM EDT us Susu Carreno MD LAB BLOOD ORDERABLES Fin al Result [facility] [address] [place] [address], documented in this encounter Visit Diagnoses Diagnosis Weakness Other malaise and fatigue Type 2 diabetes mellitus without complications (CMS/HCC V24, CMS/HCC V28) documented in this encounter Care Teams Inspector Final Assembly Mechanical Relationship Specialty Start Date End Date Susu Carreno MD [address] [place] [phone] PCP - General Family Medicine 07/12/25 documented as of this encounter
--- OUTSIDE RECORDS SUMMARY | 2025-08-02 12:50 | XMS_ITS | Encounter Summary ---
Author Organization [facility] Address [address] [place] [phone] Care Team Providers Care Authorizer Name Role Phone Susu Carreno MD Primary Care Provider + Encounter Details Date Type Department Care Team (Late st Contact Info) Description 07/24/[address] [facility] - Main Lab [address] [facility] [place] [address] Susu Carreno MD [address] [phone] Weakness; Type 2 diabetes mellitus without complications (CMS/HCC V24, CMS/HCC V28) Social History Tobacco Use Types Packs/Day [...] on file documented as of this encounter Visit Diagnoses Diagnosis Weakness Other malaise and fatigue Type 2 diabetes mellitus without complications (CMS/HCC V24, CMS/HCC V28) documented in this encounter Care Teams Authorizer Relationship Specialty Start Date End Date Susu Carreno MD [address] [place] [address] [phone] PCP - General Family Medicine 07/12/25 documented as of this encounter
--- OUTSIDE RECORDS SUMMARY | 2025-08-02 12:50 | XMS_ITS | Encounter Summary ---
Author Organization [facility] Address [address] [place] [phone] Care Team Providers Care Market Research Coordinator Name Role Phone Susu Carreno MD Primary Care Provider + Encounter Details Date Type Department Care Team (Late st Contact Info) Description 07/21/2025 Lab Requisition [facility] - Main Lab [address] [facility] [place] [address] Susu Carreno MD [address] [place] [address] [phone] Weakness; Type 2 diabetes mellitus without complications [...] V28) documented in this encounter Care Teams Market Research Coordinator Relationship Specialty Start Date End Date Susu Carreno MD [address] [place] [phone] PCP - General Family Medicine 07/12/25 documented as of this encounter
--- OUTSIDE RECORDS SUMMARY | 2025-08-02 12:50 | XMS_ITS | Clinical Summary ---
Author Organization [address] Address [address] [place] [address] Phone Care Team Providers Care Mold Repairer Name Role Phone Susu Carreno MD Primary Care Provider + Encounters Date Type Department Care Team Description 07/31/2025 9:52 AM EST Hospital Encounter [facility] PET Scan [address] [place] [phone] Multiple myeloma, remission status unspecified ([facility] V24, [facility] V28) 07/24/2025 Lab Requisition [facility] [address] [place] [phone] Susu Carreno MD Weakness; Type 2 diabetes mellitus without complications ([facility] V24, [facility] V28) 07/21/2025 Lab Requisition [facility] [address] [place] [phone] Susu Carreno MD Weakness; Type 2 diabetes mellitus without complications ([facility] V24, [facility] V28) 07/19/2025 Lab Requisition [facility] [address] [place] [phone] Susu Carreno MD Multiple myeloma not having achieved remission ([facility] V24, [facility] V28) 07/16/2025 Lab Requisition [facility] [address] [place] [phone] Susu Carreno MD Weakness; Type 2 diabetes mellitus without complications ([facility] V24, [facility] V28) 07/12/2025 Lab Requisition [facility] [address] [facility] [place] [phone] Susu Carreno MD Weakness; Type 2 diabetes mellitus without complications ([facility]/HCC V24, CMS/HCC V28) from Last 3 Months Surgical History Surgery Date Site/Laterality Comments OTHER SURGICAL HISTORY PROCEDURE: DENIES PREVIOUS SURGERY Medical History Medical History Date Comments Essential hypertension, benign D X:Essential hypertension, benign Type II or unspecified type diabetes mellitus without mention of complication, uncontrolled 11/03/2006 DX:Type II or unspecified t ype diabetes mellitus without mention of complication, uncontrolled Family History Relation Name Status Comments Brother 1 Alive DM Brother 2 Alive Brother 3 Alive Brother 4 Alive Brother 5 Alive Brother 6 Alive Brother 7 Alive Brother 8 Father DM Mother breast cancer Sister 1 Alive DM Sister 2 Alive Sister 3 Alive Social History Tobacco Use Types Packs/Day Years Used Date Smoking Tobacco: Former Alcohol Use Standard Drinks/Week Comments Not Asked 0 (1 standard drink = 0.6 oz pur e alcohol) Comments Unknown Sex and Gender Information Value Date Recorded Sex Assigned at Not on file Legal Sex Female 1:59 AM EST Gender Identity Not on file Sexual Orientation Not on file Obstetrics History Plan of Treatment Health Maintenance Due Date Last Done Comments Diabetes: Annual Foot Exam 1957 Diabetes: Annual Retina Eye Exam 1955 DTaP,Tdap,and Td Vaccines (1 - Tdap) 1966 Pneumococcal Vaccine: 50+ Years (3 of 3 - PCV) 03/29/2019 03/29/2018, 07/19/2013 Depression Screening 09/28/2024 COVID-19 Vaccine (10 - Pfizer risk 2023- season) 2025 07/29/2024, 08/06/2023, 08/01/2022, Additional history exists Influenza Vaccine (#1) 2025 , 07/16/2023, 07/04/2022, Additional history exists Cholesterol Screening (Lipid Panel) 07/12/2025 Colorectal Cancer Screening: Stool Based Tests (FOBT/FIT) 07/12/2025 Diabetes: Annual Urine Albumin-Creatinine Ratio (uACR) 07/12/2025 Falls Risk Assessment 07/12/2025 Hepatitis C Screening 07/12/2025 Osteoporosis Screening (Bone Density Screening) 07/12/2025 Social Influencers of Health Screening 07/12/2025 Diabetes: Blood Sugar Control Test (HGBA1C) 01/10/2026 07/12/2025 Diabetes: Annual GFR (Glomerular Filtration Rate) 07/19/2026 07/19/2025, 07/17/2025, 07/12/2025 Zoster Vaccines Completed 08/01/2021, 04/29, 11/19/2019, Additional history exists RSV Immunization Adult Patients Completed 07/09/2023 HIB Vaccines Aged Out No longer eligi ble based on patient's age to complete this topic HPV Vaccines Aged Out No longer eligi ble based on patient's age to complete this topic Hepatitis A Vaccines Aged Out No long er eligible based on patient's age to complete this topic Hepatitis B Vaccines Aged Out No long er eligible based on patient's age to complete this topic IPV Vaccines Aged Out No longer eligi ble based on patient's age to complete this topic MMR Vaccines Aged Out No longer eligi ble based on patient's age to complete this topic Meningococcal ACWY Vaccine Aged Out N o longer eligible based on patient's age to complete this topic Meningococcal B Vaccine Aged Out No l onger eligible based on patient's age to complete this topic RSV Immunization Patients Under 20 months Aged Out No longer eligible based on patient's age to complete this topic Varicella Vaccines Aged Out No longer eligible based on patient's age to complete this topic Procedures Procedure Name Priority Date/Time Associated Diagnosis Comments PET CT SKULL TO MID THIGH INITIAL Routine 07/31/2025 12:15 PM EST Multiple myeloma, remission status unspecified (CMS/HCC V24, CMS/HCC V28) TN IMMUNOFIXATION ELECTROPHORESIS SERUM Routine 07/19/2025 5:28 AM EDT Multiple myeloma not having achieved remission (CMS/HCC V24, CMS/HCC V28) IMMUNOGLOBULINS IGG, IGA, IGM Routine 07/19/2025 5:28 AM EDT Multiple myeloma not having achieved remission (CMS/HCC V24, CMS/HCC V28) IMMUNOFIXATION ELECTROPHORESIS Routine 07/19/2025 5:28 AM EDT Multiple myeloma not having achieved remission (CMS/HCC V24, CMS/HCC V28) IMMUNOFIXATION ELECTROPHORESIS Routine 07/19/2025 5:28 AM EDT Multiple myeloma not having achieved remission (CMS/HCC V24, CMS/HCC V28) SST - GOLD Routine 07/19/2025 5:28 AM EDT Multiple myeloma not having achieved remission (CMS/HCC V24, CMS/HCC V28) CBC WITH AUTO DIFFERENTIAL Routine 07/19/2025 5:28 AM EDT Multiple myeloma not having achieved remission (CMS/HCC V24, CMS/HCC V28) BETA 2 MICROGLOBULIN, SERUM Routine 07/19/2025 5:28 AM EDT Multiple myeloma not having achieved remission (CMS/HCC V24, CMS/HCC V28) KAPPA-LAMBDA QUANTITATIVE FREE LIGHT CHAINS Routine 07/19/2025 5:28 AM EDT Multiple myeloma not having achieved remission (CMS/HCC V24, CMS/HCC V28) CBC AND DIFFERENTIAL Routine 07/19/2025 5:28 AM EDT Multiple myeloma not having achieved remission (CMS/HCC V24, CMS/HCC V28) COMPREHENSIVE METABOLIC PANEL Routine 07/19/2025 5:28 AM EDT Multiple myeloma not having achieved remission (CMS/HCC V24, CMS/HCC V28) BASIC METABOLIC PANEL Routine 07/17/2025 7:28 AM EDT Weakness Type 2 diabetes mellitus without complications (CMS/HCC V24, CMS/HCC V28) COMPLETE BLOOD COUNT Routine 07/17/2025 7:28 AM EDT Weakness Type 2 diabetes mellitus without complications (CMS/HCC V24, CMS/HCC V28) HEMOGLOBIN A1C Routine 07/12/2025 5:56 AM EDT Weakness Type 2 diabetes mellitus without complications (CMS/HCC V24, CMS/HCC V28) FOLATE Routine 07/12/2025 5:56 AM EDT Weakness Type 2 diabetes mellitus without complications (CMS/HCC V24, CMS/HCC V28) VITAMIN B12 Routine 07/12/2025 5:56 AM EDT Weakness Type 2 diabetes mellitus without complications (CMS/HCC V24, CMS/HCC V28) THYROID STIMULATING HORMONE WITH REFLEX TO FREE T4 AND FREE T3 Routine 07/12/2025 5:56 AM EDT Weakness Type 2 diabetes mellitus without complications (CMS/HCC V24, CMS/HCC V28) COMPREHENSIVE METABOLIC PANEL Routine 07/12/2025 5:56 AM EDT Weakness Type 2 diabetes mellitus without complications (CMS/HCC V24, CMS/HCC V28) COMPLETE BLOOD COUNT Routine 07/12/2025 5:56 AM EDT Weakness Type 2 diabetes mellitus without complications (CMS/HCC V24, CMS/HCC V28) from Last 3 Months Results * PET CT Skull to Mid [...] Signed Date: 08/01/2025 09:46 ET Workstation ID: [id number] Transcribed By: Self Edit Transcribed Date: 08/01/2025 [...] pathologic fracture. Compression fractures at T11 and [id number] significant increased activity. IMPRESSION: 1. Innumerable lytic [...] Signed Date: 08/01/2025 09:46 ET Workstation ID: [id number] Transcribed By: Self Edit Transcribed Date: 08/01/2025 08:09 ET us Nesha Gomez MD [facility] PROCEDURES Final Result * Pathologist Review Immunofixation (07/19/2025 5:28 AM EDT) Pathologist Interpretation Reviewed by Josette Munguia MD 07/20/2025 4:00 PM EDT [facility]) [facility] Blood Venous blood specimen / Unknown 07/19/2025 5:28 AM EDT 07/20/2025 1:17 PM EDT Susu Carreno MD LAB BLOOD ORDERABLES Fin al Result Performing Organization Address City/[facility]/ZIP Co de Phone Number [facility] [address] [place] [address], [place] [phone] * SST tube (07/19/2025 5:28 AM EDT) Pathologist [facility] Extra Tube Hold for add-ons. 07/19/2025 10:01 AM EDT [facility] Comment:Auto resulted. Blood Venous blood specimen / Unknown 07/19/2025 5:28 AM EDT 07/19/2025 8:55 AM EDT Susu Carreno MD LAB BLOOD ORDERABLES Fin al Result Performing Organization Address [facility] Co de Phone Number [facility] [address] [place] [address], [place] [phone] * (ABNORMAL) [place]-lambda free light chains, quantitative (07/19/2025 5:28 AM EDT) [place] Free Light Chain 1.34 0.33 - 1.94 mg/dL 07/21/2025 11:38 AM EDT [facility] Lambda Free Light Chain 143.05(H) 0.57 - 2.63 mg/dL 07/21/2025 11:38 AM EDT [facility] [place]/Lambda FLC Ratio <0.01(L) 0.26 - 1.65 07/21/2025 11:38 AM EDT [facility] Comment: Test performed at [facility], [address] , [place] [address] Adele Luna MD, PhD - Family Life Educator Blood Venous blood specimen / Unknown Venipuncture / Unknown 07/19/2025 5:28 AM EDT 07/19/2025 8:52 AM EDT us Susu Carreno MD LAB BLOOD ORDERABLES Fin al Result [facility] [address] [place] [address] * (ABNORMAL) CBC auto differential (07/19/2025 5:28 AM EDT) WBC 5.7 4.8 - 10.8 K/mcL LAB HEMETOLOGY METHOD 07/19/2025 9:19 AM EDT [facility] RBC 3.80 3.80 - 4.80 M/mcL LAB HEMETOLOGY METHOD 07/19/2025 9:19 AM [facility] Hemoglobin 10.0(L) 11.5 - 16.0 g/dL LAB HEMETOLOGY METHOD 07/19/2025 9:19 AM [facility] Hematocrit 32.9(L) 35.0 - 47.0 % LAB HEMETOLOGY METHOD 07/19/2025 9:19 AM [facility] MCV 87.7 79.0 - 98.0 FL LAB HEMETOLOGY METHOD 07/19/2025 9:19 AM [facility] MCH 26.7(L) 27.0 - 32.0 pcg LAB HEMETOLOGY METHOD 07/19/2025 9:19 AM [facility] MCHC 30.4(L) 32.0 - 37.0 g/dL LAB HEMETOLOGY METHOD 07/19/2025 9:19 AM [facility] RDW 16.0(H) 11.0 - 15.0 % LAB HEMETOLOGY METHOD 07/19/2025 9:19 AM [facility] Platelets 406(H) 130 - 400 K/mcL LAB HEMETOLOGY METHOD 07/19/2025 9:19 AM EDT [facility] MPV 9.0 7.0 - 11.0 FL LAB HEMETOLOGY METHOD 07/19/2025 9:19 AM [facility] NRBC 0.0 <1.0 % LAB HEMETOLOGY METHOD 07/19/2025 9:19 AM [facility] NRBC Absolute 0.00 <0.10 K/mcL LAB HEMETOLOGY METHOD 07/19/2025 9:19 AM [facility] Neutrophils Relative 52.8 % LAB HEMETOLOGY METHOD 07/19/2025 9:19 AM [facility] Lymphocytes Relative 33.9 % LAB HEMETOLOGY METHOD 07/19/2025 9:19 AM [facility] Monocytes Relative 9.1 % LAB HEMETOLOGY METHOD 07/19/2025 9:19 AM [facility] Eosinophils Relative 3.0 % LAB HEMETOLOGY METHOD 07/19/2025 9:19 AM [facility] Basophils Relative 0.9 % LAB HEMETOLOGY METHOD 07/19/2025 9:19 AM [facility] Immature Granulocytes Relative 0.3 % LAB HEMETOLOGY METHOD 07/19/2025 9:19 AM [facility] Neutrophils Absolute 3.03 1.50 - 7.00 K/mcL LAB HEMETOLOGY METHOD 07/19/2025 9:19 AM [facility] Lymphocytes Absolute 1.94 1.00 - 5.00 K/mcL LAB HEMETOLOGY METHOD 07/19/2025 9:19 AM [facility] Monocytes Absolute 0.52 0.20 - 1.00 K/mcL LAB HEMETOLOGY METHOD 07/19/2025 9:19 AM [facility] Eosinophils Absolute 0.17 0.00 - 0.50 K/mcL LAB HEMETOLOGY METHOD 07/19/2025 9:19 AM EDT [facility] Basophils Absolute 0.05 0.00 - 0.20 K/[facility] LAB HEMETOLOGY METHOD 07/19/2025 9:19 AM EDT [facility] Immature Granulocytes Absolute 0.02 0.00 - 0.03 K/[facility] LAB HEMETOLOGY METHOD 07/19/2025 9:19 AM EDT [facility] Blood Venous blood specimen / Unknown Venipuncture / Unknown 07/19/2025 5:28 AM EDT 07/19/2025 8:52 AM EDT Susu Carreno MD LAB BLOOD ORDERABLES Fin al Result Performing Organization Address [facility]/ZIP Co de Phone Number [facility] [address] [place] [address], [place] [phone] * Immunofixation electrophoresis serum (07/19/2025 5:28 AM EDT) [facility] Immunofixation Result, Serum IgG Lambda monoclonal immunoglobulins detected. LAB CHEMISTRY METHOD 07/20/2025 4:00 PM EDT [facility] Blood Venous blood specimen / Unknown 07/19/2025 5:28 AM EDT 07/20/2025 1:17 PM EDT Susu Carreno MD LAB BLOOD ORDERABLES Fin al Result [facility] [address] [place] [address], [place] [phone] * (ABNORMAL) Immunoglobulins IgG, IgA, IgM (07/19/2025 5:28 AM EDT) [facility] Total IgG 3,700(H) 549 - 1,584 mg/dL LAB CHEMISTRY METHOD 07/20/2025 3:22 PM EDT [facility] IgA 40(L) 61 - 348 mg/dL LAB CHEMISTRY METHOD 07/20/2025 3:22 PM EDT [facility] IgM 21(L) 23 - 259 mg/dL LAB CHEMISTRY METHOD 07/20/2025 3:22 PM EDT [facility] Blood Venous blood specimen / Unknown 07/19/2025 5:28 AM EDT 07/20/2025 1:17 PM EDT Susu Carreno MD LAB BLOOD ORDERABLES Fin al Result Performing Organization Address City/[facility]/ZIP Co de Phone Number [facility] [address] [place] [address], [place] [phone] * (ABNORMAL) Beta 2 microglobulin, serum (07/19/2025 5:28 AM EDT) Beta-2 Microglobulin 12.5(H) 0.7 - 1.8 mg/L LAB CHEMISTRY METHOD 07/19/2025 11:39 AM EDT [facility] Blood Venous blood specimen / Unknown Venipuncture / Unknown 07/19/2025 5:28 AM EDT 07/19/2025 8:52 AM EDT Susu Carreno MD LAB BLOOD ORDERABLES Fin al Result Performing Organization Address [facility]/ZIP Co de Phone Number [facility] [address] [place] [address], [place] [phone] * (ABNORMAL) Comprehensive metabolic panel (07/19/2025 5:28 AM EDT) Only the most recent of2 resultswithin the time period is included. Sodium 137 133 - 145 mmol/L LAB CHEMISTRY METHOD 07/19/2025 11:39 AM EDT [facility] Potassium 3.1(L) 3.5 - 5.5 mmol/L LAB CHEMISTRY METHOD 07/19/2025 11:39 AM EDT [facility] Chloride 100 96 - 110 mmol/L LAB CHEMISTRY METHOD 07/19/2025 11:39 AM [facility] CO2 31 21 - 32 mmol/L LAB CHEMISTRY METHOD 07/19/2025 11:39 AM [facility] Anion Gap 6 3 - 11 LAB CHEMISTRY METHOD 07/19/2025 11:39 AM [facility] Glucose 92 70 - 100 mg/dL LAB CHEMISTRY METHOD 07/19/2025 11:39 AM [facility] BUN 16 5 - 25 mg/dL LAB CHEMISTRY METHOD 07/19/2025 11:39 AM [facility] Creatinine 1.14(H) 0.50 - 1.10 mg/dL LAB CHEMISTRY METHOD 07/19/2025 11:39 AM [facility] eGFR 49(L) >=60 mL/min/1. 73m2 LAB CHEMISTRY METHOD 07/19/2025 11:39 AM [facility] Comment:Calculation based on the Chronic Kidney Disease Epidemiology Collaboration (CKD-EPI) equation refit without adjustment for race. BUN/Creatinine Ratio 14.0 LAB CHEMISTRY METHOD 07/19/2025 11:39 AM [facility] Calcium 8.7 8.5 - 10.5 mg/dL LAB CHEMISTRY METHOD 07/19/2025 11:39 AM [facility] AST (SGOT) 20 10 - 42 unit/L LAB CHEMISTRY METHOD 07/19/2025 11:39 AM [facility] ALT (SGPT) 14 10 - 60 unit/L LAB CHEMISTRY METHOD 07/19/2025 11:39 AM [facility] Alkaline Phosphatase 78 42 - 121 unit/L LAB CHEMISTRY METHOD 07/19/2025 11:39 AM [facility] Total Protein 9.1(H) 6.0 - 8.0 g/dL LAB CHEMISTRY METHOD 07/19/2025 11:39 AM [facility] Albumin 2.7(L) 3.2 - 5.0 g/dL LAB CHEMISTRY METHOD 07/19/2025 11:39 AM EDT [facility] Total Bilirubin 0.4 0.0 - 1.4 mg/dL LAB CHEMISTRY METHOD 07/19/2025 11:39 AM [facility] Blood Venous blood specimen / Unknown Venipuncture / Unknown 07/19/2025 5:28 AM EDT 07/19/2025 8:52 AM EDT us Susu Carreno MD LAB BLOOD ORDERABLES Fin al Result [facility] [address] [place] [address], * (ABNORMAL) Complete blood count (07/17/2025 7:28 AM EDT) Only the most recent of2 resultswithin the time period is included. WBC 5.9 4.8 - 10.8 K/mcL LAB HEMETOLOGY METHOD 07/17/2025 10:36 AM [facility] RBC 4.00 3.80 - 4.80 M/[facility] LAB HEMETOLOGY METHOD 07/17/2025 10:36 AM [facility] Hemoglobin 10.6(L) 11.5 - 16.0 g/dL LAB HEMETOLOGY METHOD 07/17/2025 10:36 AM [facility] Hematocrit 35.0 35.0 - 47.0 % LAB HEMETOLOGY METHOD 07/17/2025 10:36 AM [facility] MCV 87.9 79.0 - 98.0 FL LAB HEMETOLOGY METHOD 07/17/2025 10:36 AM [facility] MCH 26.6(L) 27.0 - 32.0 pcg LAB HEMETOLOGY METHOD 07/17/2025 10:36 AM [facility] MCHC 30.3(L) 32.0 - 37.0 g/dL LAB HEMETOLOGY METHOD 07/17/2025 10:36 AM EDT [facility] RDW 16.3(H) 11.0 - 15.0 % LAB HEMETOLOGY METHOD 07/17/2025 10:36 AM EDT [facility] Platelets 474(H) 130 - 400 K/mcL LAB HEMETOLOGY METHOD 07/17/2025 10:36 AM EDT [facility] MPV 9.5 7.0 - 11.0 FL LAB HEMETOLOGY METHOD 07/17/2025 10:36 AM EDT [facility] NRBC 0.0 <1.0 % LAB HEMETOLOGY METHOD 07/17/2025 10:36 AM EDT [facility] NRBC Absolute 0.00 <0.10 K/mcL LAB HEMETOLOGY METHOD 07/17/2025 10:36 AM T [facility] Blood Venous blood specimen / Unknown Venipuncture / Unknown 07/17/2025 7:28 AM EDT 07/17/2025 9:50 AM EDT us Susu Carreno MD LAB BLOOD ORDERABLES Fin al Result [facility] [address] [place] [address], * (ABNORMAL) Basic metabolic panel (07/17/2025 7:28 AM EDT) Sodium 137 133 - 145 mmol/L LAB CHEMISTRY METHOD 07/17/2025 10:35 AM EDT [facility] Potassium 3.2(L) 3.5 - 5.5 mmol/L LAB CHEMISTRY METHOD 07/17/2025 10:35 AM EDT [facility] Chloride 102 96 - 110 mmol/L LAB CHEMISTRY METHOD 07/17/2025 10:35 AM [facility] CO2 27 21 - 32 mmol/L LAB CHEMISTRY METHOD 07/17/2025 10:35 AM [facility] Anion Gap 8 3 - 11 LAB CHEMISTRY METHOD 07/17/2025 10:35 AM [facility] Glucose 105(H) 70 - 100 mg/dL LAB CHEMISTRY METHOD 07/17/2025 10:35 AM [facility] BUN 14 5 - 25 mg/dL LAB CHEMISTRY METHOD 07/17/2025 10:35 AM [facility] Creatinine 1.08 0.50 - 1.10 mg/dL LAB CHEMISTRY METHOD 07/17/2025 10:35 AM [facility] eGFR 53(L) >=60 mL/min/1. 73m2 LAB CHEMISTRY METHOD 07/17/2025 10:35 AM [facility] Comment:Calculation based on the Chronic Kidney Disease Epidemiology Collaboration (CKD-EPI) equation refit without adjustment for race. BUN/Creatinine Ratio 13.0 LAB CHEMISTRY METHOD 07/17/2025 10:35 AM [facility] Calcium 8.3(L) 8.5 - 10.5 mg/dL LAB CHEMISTRY METHOD 07/17/2025 10:35 AM [facility] Blood Venous blood specimen / Unknown Venipuncture / Unknown 07/17/2025 7:28 AM EDT 07/17/2025 9:49 AM EDT us Susu Carreno MD LAB BLOOD ORDERABLES Fin al Result [facility] [address] [place] [address], * Thyroid stimulating hormone with reflex to free t4 and free t3 (07/12/2025 5:56 AM EDT) TSH 0.54 0.40 - 4.00 mcIU/mL LAB CHEMISTRY METHOD 07/12/2025 11:58 AM EDT [facility] Blood Venous blood specimen / Unknown Venipuncture / Unknown 07/12/2025 5:56 AM EDT 07/12/2025 9:03 AM EDT Susu Carreno MD LAB BLOOD ORDERABLES Fin al Result Performing Organization Address City/[facility]/ZIP Co de Phone Number [facility] [address] [place] [address], [place] [phone] * Hemoglobin A1c (07/12/2025 5:56 AM EDT) Hemoglobin A1C 6.0 <6.5 % LAB CHEMISTRY METHOD 07/12/2025 1:10 PM EDT [facility] Mean Bld Glu Estim. 126 mg/dL LAB CHEMISTRY METHOD 07/12/2025 1:10 PM EDT [facility] Blood Venous blood specimen / Unknown Venipuncture / Unknown 07/12/2025 5:56 AM EDT 07/12/2025 9:03 AM EDT Susu Carreno MD LAB BLOOD ORDERABLES Fin al Result Performing Organization Address [facility] de Phone Number [facility] [address] [place] [address], [place] [phone] * (ABNORMAL) Folate (07/12/2025 5:56 AM EDT) Folate >20.0(H) 2.8 - 17.0 ng/ml LAB CHEMISTRY METHOD 07/12/2025 11:28 AM EDT [facility] Blood Venous blood specimen / Unknown Venipuncture / Unknown 07/12/2025 5:56 AM EDT 07/12/2025 9:03 AM EDT Susu Carreno MD LAB BLOOD ORDERABLES Fin al Result [facility] [address] [place] [address], [place] [phone] * Vitamin B12 (07/12/2025 5:56 AM EDT) [facility] Vitamin B-12 580 250 - 900 pcg/mL LAB CHEMISTRY METHOD 07/12/2025 11:28 AM EDT [facility] Blood Venous blood specimen / Unknown Venipuncture / Unknown 07/12/2025 5:56 AM EDT 07/12/2025 9:03 AM EDT Susu Carreno MD LAB BLOOD ORDERABLES Fin al Result Performing Organization Address [facility]/ZIP Co de Phone Number [facility] [address] [place] [address], [place] [phone] from Last [address] [place] [address] PLAN Care Teams Mold Repairer Relationship Specialty Start Date End Date Susu Carreno MD [address] [place] [id number] PCP - General Family Medicine 07/12/25
--- OUTSIDE RECORDS SUMMARY | 2025-08-02 12:50 | XMS_ITS | Encounter Summary ---
Author Organization [facility] Address [address] [place] [id number] Care Team Providers Care Full Stack Engineer Name Role Phone Susu Carreno MD Primary Care Provider + Encounter Details Date Type Department Care Team (Late st Contact Info) Description 07/16/2025 Lab Requisition [facility] - Main Lab [address] [facility] [place] [address] Susu Carreno MD [address] [facility] 1 [place], [place] [phone] Weakness; Type 2 diabetes mellitus without complications [...] Procedure Name Priority Date/Time Associated Diagnosis Comments COMPLETE BLOOD COUNT Routine 07/17/2025 7:28 AM EDT Weakness Type 2 diabetes mellitus without complications (CMS/HCC V24, CMS/HCC V28) BASIC METABOLIC PANEL Routine 07/17/2025 7:28 AM EDT Weakness Type 2 diabetes mellitus without complications (CMS/HCC V24, CMS/HCC V28) documented in this encounter Results * (ABNORMAL) Basic metabolic panel (07/17/2025 7:28 AM EDT) Sodium 137 133 - 145 mmol/L LAB CHEMISTRY METHOD 07/17/2025 10:[address] [facility] Potassium 3.2(L) 3.5 - 5.5 mmol/L LAB CHEMISTRY METHOD 07/17/2025 10:[address] [facility] Chloride 102 96 - 110 mmol/L LAB CHEMISTRY METHOD 07/17/2025 10:[address] [facility] CO2 27 21 - 32 mmol/L LAB CHEMISTRY METHOD 07/17/2025 10:[address] [facility] Anion Gap 8 3 - 11 LAB CHEMISTRY METHOD 07/17/2025 10:[address] [facility] Glucose 105(H) 70 - 100 mg/dL LAB CHEMISTRY METHOD 07/17/2025 10:[address] [facility] BUN 14 5 - 25 mg/dL LAB CHEMISTRY METHOD 07/17/2025 10:[address] [facility] Creatinine 1.08 0.50 - 1.10 mg/dL LAB CHEMISTRY METHOD 07/17/2025 10:[address] [facility] eGFR 53(L) >=60 mL/min/1. 73m2 LAB CHEMISTRY METHOD 07/17/2025 10:[address] [facility] Comment:Calculation based on the Chronic Kidney Disease Epidemiology Collaboration (CKD-EPI) equation refit without adjustment for race. BUN/Creatinine Ratio 13.0 LAB CHEMISTRY METHOD 07/17/2025 10:[address] [facility] Calcium 8.3(L) 8.5 - 10.5 mg/dL LAB CHEMISTRY METHOD 07/17/2025 10:[address] [facility] Blood Venous blood specimen / Unknown Venipuncture / Unknown 07/17/2025 7:28 AM EDT 07/17/2025 9:49 AM EDT Susu Carreno MD LAB BLOOD ORDERABLES Fin al Result [facility] [address] [place] [address], * (ABNORMAL) Complete blood count (07/17/2025 7:28 AM EDT) [facility] Signature WBC 5.9 4.8 - 10.8 K/mcL LAB HEMETOLOGY METHOD 07/17/2025 10:36 AM EDT [facility] RBC 4.00 3.80 - 4.80 M/mcL LAB HEMETOLOGY METHOD 07/17/2025 10:36 AM EDT [facility] Hemoglobin 10.6(L) 11.5 - 16.0 g/dL LAB HEMETOLOGY METHOD 07/17/2025 10:36 AM EDT [facility] Hematocrit 35.0 35.0 - 47.0 % LAB HEMETOLOGY METHOD 07/17/2025 10:36 AM EDT [facility] MCV 87.9 79.0 - 98.0 FL LAB HEMETOLOGY METHOD 07/17/2025 10:36 AM EDT [facility] MCH 26.6(L) 27.0 - 32.0 pcg LAB HEMETOLOGY METHOD 07/17/2025 10:36 AM EDT [facility] MCHC 30.3(L) 32.0 - 37.0 g/dL LAB HEMETOLOGY METHOD 07/17/2025 10:36 AM EDT [facility] RDW 16.3(H) 11.0 - 15.0 % LAB HEMETOLOGY METHOD 07/17/2025 10:36 AM EDT [facility] Platelets 474(H) 130 - 400 K/mcL LAB HEMETOLOGY METHOD 07/17/2025 10:36 AM EDT [facility] MPV 9.5 7.0 - 11.0 FL LAB HEMETOLOGY METHOD 07/17/2025 10:36 AM EDT [facility] NRBC 0.0 <1.0 % LAB HEMETOLOGY METHOD 07/17/2025 10:36 AM EDT [facility] NRBC Absolute 0.00 <0.10 K/mcL LAB HEMETOLOGY METHOD 07/17/2025 10:36 AM EDT [facility] Blood Venous blood specimen / Unknown Venipuncture / Unknown 07/17/2025 7:28 AM EDT 07/17/2025 9:50 AM EDT us Susu Carreno MD LAB BLOOD ORDERABLES Fin al Result [facility] [address] [place] [address], [place] [phone] documented in this encounter Visit Diagnoses Diagnosis Weakness Other malaise and fatigue Type 2 diabetes mellitus without complications (CMS/HCC V24, CMS/HCC V28) documented in this encounter Care Teams Full Stack Engineer Relationship Specialty Start Date End Date Susu Carreno MD [address] [place] [id number] PCP - General Family Medicine 07/12/25 documented as of this encounter
--- OUTSIDE RECORDS SUMMARY | 2025-08-02 12:50 | XMS_ITS | Encounter Summary ---
Author Organization [facility] Address [address] [place] [address] Care Team Providers Care Tuna Purse Seiner Name Role Phone Susu Carreno MD Primary Care Provider + Encounter Details Date Type Department Care Team (Late st Contact Info) Description 07/19/2025 Lab Requisition [facility] - Main Lab [address] [facility] [place] [address] Susu Carreno MD [address] [facility] 1 [place] [address] Multiple myeloma not having achieved remission (CMS/HCC V24, CMS/HCC V28) Social History Tobacco [...] Procedure Name Priority Date/Time Associated Diagnosis Comments CT IMMUNOFIXATION ELECTROPHORESIS SERUM Routine 07/19/2025 5:28 AM [...] EDT Multiple myeloma not having achieved remission ([facility]/HCC V24, CMS/HCC V28) COMPREHENSIVE METABOLIC PANEL Routine 07/19/2025 5:28 AM EDT Multiple myeloma not having achieved remission ([facility]/HCC V24, CMS/HCC V28) documented in this encounter Results * Pathologist Review Immunofixation (07/19/2025 5:28 AM EDT) Pathologist Interpretation Reviewed by Josette Munguia MD 07/20/2025 4:00 PM EDT [facility] ([facility]) [facility] Blood Venous blood specimen / Unknown 07/19/2025 5:28 AM EDT 07/20/2025 1:17 PM EDT us Susu Carreno MD LAB BLOOD ORDERABLES Fin al Result [facility] [address] [place] [address], [place] [phone] * (ABNORMAL) Immunoglobulins IgG, IgA, IgM (07/19/2025 5:28 AM EDT) [facility] Total IgG 3,700(H) 549 - 1,584 mg/dL LAB CHEMISTRY METHOD 07/20/2025 3:22 PM EDT [facility] IgA 40(L) 61 - 348 mg/dL LAB CHEMISTRY METHOD 07/20/2025 3:22 PM EDT [facility] IgM 21(L) 23 - 259 mg/dL LAB CHEMISTRY METHOD 07/20/2025 3:22 PM EDT [facility] Blood Venous blood specimen / Unknown 07/19/2025 5:28 AM EDT 07/20/2025 1:17 PM EDT Susu Carreno MD LAB BLOOD ORDERABLES Fin al Result Performing Organization Address [facility] Co de Phone Number [facility] [address] [place] [address], [place] [phone] * Immunofixation electrophoresis serum (07/19/2025 5:28 AM EDT) [facility] Immunofixation Result, Serum IgG Lambda monoclonal immunoglobulins detected. LAB CHEMISTRY METHOD 07/20/2025 4:00 PM EDT [facility] Blood Venous blood specimen / Unknown 07/19/2025 5:28 AM EDT 07/20/2025 1:17 PM EDT Susu Carreno MD LAB BLOOD ORDERABLES Fin al Result [facility] [address] [place] [address], [place] [phone] * SST tube (07/19/2025 5:28 AM EDT) [facility] Extra Tube Hold for add-ons. 07/19/2025 10:01 AM EDT [facility] Comment:Auto resulted. Blood Venous blood specimen / Unknown 07/19/2025 5:28 AM EDT 07/19/2025 8:55 AM EDT us Susu Carreno MD LAB BLOOD ORDERABLES Fin al Result [facility] [address] [place] [address], * (ABNORMAL) CBC auto differential (07/19/2025 5:28 AM EDT) [facility] WBC 5.7 4.8 - 10.8 K/mcL LAB HEMETOLOGY METHOD 07/19/2025 9:19 AM [facility] RBC 3.80 3.80 - 4.80 M/mcL LAB HEMETOLOGY METHOD 07/19/2025 9:19 AM [facility] Hemoglobin 10.0(L) 11.5 - 16.0 g/dL LAB HEMETOLOGY METHOD 07/19/2025 9:19 AM [facility] Hematocrit 32.9(L) 35.0 - 47.0 % LAB HEMETOLOGY METHOD 07/19/2025 9:19 AM [facility] MCV 87.7 79.0 - 98.0 FL LAB HEMETOLOGY METHOD 07/19/2025 9:19 AM [facility] MCH 26.7(L) 27.0 - 32.0 pcg LAB HEMETOLOGY METHOD 07/19/2025 9:19 AM [facility] MCHC 30.4(L) 32.0 - 37.0 g/dL LAB HEMETOLOGY METHOD 07/19/2025 9:19 AM EDT [facility] RDW 16.0(H) 11.0 - 15.0 % LAB HEMETOLOGY METHOD 07/19/2025 9:19 AM [facility] Platelets 406(H) 130 - 400 K/mcL LAB HEMETOLOGY METHOD 07/19/2025 9:19 AM [facility] MPV 9.0 7.0 - 11.0 FL LAB HEMETOLOGY METHOD 07/19/2025 9:19 AM [facility] NRBC 0.0 <1.0 % LAB HEMETOLOGY METHOD 07/19/2025 9:19 AM [facility] NRBC Absolute 0.00 <0.10 K/[facility] LAB HEMETOLOGY METHOD 07/19/2025 9:19 AM [facility] Neutrophils Relative 52.8 % LAB HEMETOLOGY METHOD 07/19/2025 9:19 AM [facility] Lymphocytes Relative 33.9 % LAB HEMETOLOGY METHOD 07/19/2025 9:19 AM [facility] Monocytes Relative 9.1 % LAB HEMETOLOGY METHOD 07/19/2025 9:19 AM [facility] Eosinophils Relative 3.0 % LAB HEMETOLOGY METHOD 07/19/2025 9:19 AM [facility] Basophils Relative 0.9 % LAB HEMETOLOGY METHOD 07/19/2025 9:19 AM [facility] Immature Granulocytes Relative 0.3 % LAB HEMETOLOGY METHOD 07/19/2025 9:19 AM [facility] Neutrophils Absolute 3.03 1.50 - 7.00 K/mcL LAB HEMETOLOGY METHOD 07/19/2025 9:19 AM [facility] Lymphocytes Absolute 1.94 1.00 - 5.00 K/mcL LAB HEMETOLOGY METHOD 07/19/2025 9:19 AM EDT [facility] Monocytes Absolute 0.52 0.20 - 1.00 K/mcL LAB HEMETOLOGY METHOD 07/19/2025 9:19 AM EDT [facility] Eosinophils Absolute 0.17 0.00 - 0.50 K/mcL LAB HEMETOLOGY METHOD 07/19/2025 9:19 AM EDT [facility] Basophils Absolute 0.05 0.00 - 0.20 K/[facility] LAB HEMETOLOGY METHOD 07/19/2025 9:19 AM EDT [facility] Immature Granulocytes Absolute 0.02 0.00 - 0.03 K/mcL LAB HEMETOLOGY METHOD 07/19/2025 9:19 AM EDT [facility] Blood Venous blood specimen / Unknown Venipuncture / Unknown 07/19/2025 5:28 AM EDT 07/19/2025 8:52 AM EDT Susu Carreno MD LAB BLOOD ORDERABLES Fin al Result [facility] [address] [place] [address], [place] [phone] * (ABNORMAL) Beta 2 microglobulin, serum (07/19/2025 5:28 AM EDT) Beta-2 Microglobulin 12.5(H) 0.7 - 1.8 mg/L LAB CHEMISTRY METHOD 07/19/2025 11:39 AM EDT [facility] Blood Venous blood specimen / Unknown Venipuncture / Unknown 07/19/2025 5:28 AM EDT 07/19/2025 8:52 AM EDT Susu Carreno MD LAB BLOOD ORDERABLES Fin al Result [facility] [address] [place] [address], [place] [phone] * (ABNORMAL) Steger-lambda free light chains, quantitative (07/19/2025 5:28 AM EDT) Steger Free Light Chain 1.34 0.33 - 1.94 mg/dL 07/21/2025 11:38 AM EDT [facility] Lambda Free Light Chain 143.05(H) 0.57 - 2.63 mg/dL 07/21/2025 11:38 AM EDT [facility] Steger/Lambda FLC Ratio <0.01(L) 0.26 - 1.65 07/21/2025 11:38 AM EDT [facility] Comment: Test performed at [facility], [address], [place] [address] Adele Luna MD, PhD - Set Up Operator Tool Blood Venous blood specimen / Unknown Venipuncture / Unknown 07/19/2025 5:28 AM EDT 07/19/2025 8:52 AM EDT Susu Carreno MD LAB BLOOD ORDERABLES Fin al Result [facility] [address] [place], [place] [phone] * (ABNORMAL) Comprehensive metabolic panel (07/19/2025 5:28 AM EDT) [facility] Sodium 137 133 - 145 mmol/L LAB CHEMISTRY METHOD 07/19/2025 11:39 AM EDT [facility] Potassium 3.1(L) 3.5 - 5.5 mmol/L LAB CHEMISTRY METHOD 07/19/2025 11:39 AM EDT [facility] Chloride 100 96 - 110 mmol/L LAB CHE[facility]STRY METHOD 07/19[facility]25 [facility] CO2 31 21 - 32 mmol/L LAB CHEMISTRY METHOD 07/19/2025 11:39 AM EDT [facility] Anion Gap 6 3 - 11 LAB CHEMISTRY METHOD 07/19/2025 11:39 AM EDT [facility] Glucose 92 70 - 100 mg/dL LAB CHEMISTRY METHOD 07/19/2025 11:39 AM [facility] BUN 16 5 - 25 mg/dL LAB CHEMISTRY METHOD 07/19/2025 11:39 AM [facility] Creatinine 1.14(H) 0.50 - 1.10 mg/dL LAB CHEMISTRY METHOD 07/19/2025 11:39 AM [facility] eGFR 49(L) >=60 mL/min/1. 73m2 LAB CHEMISTRY METHOD 07/19/2025 11:39 AM [facility] Comment:Calculation based on the Chronic Kidney Disease Epidemiology Collaboration (CKD-EPI) equation refit without adjustment for race. BUN/Creatinine Ratio 14.0 LAB CHEMISTRY METHOD 07/19/2025 11:39 AM [facility] Calcium 8.7 8.5 - 10.5 mg/dL LAB CHEMISTRY METHOD 07/19/2025 11:39 AM [facility] AST (SGOT) 20 10 - 42 unit/L LAB CHEMISTRY METHOD 07/19/2025 11:39 AM [facility] ALT (SGPT) 14 10 - 60 unit/L LAB CHEMISTRY METHOD 07/19/2025 11:39 AM [facility] Alkaline Phosphatase 78 42 - 121 unit/L LAB CHEMISTRY METHOD 07/19/2025 11:39 AM [facility] Total Protein 9.1(H) 6.0 - 8.0 g/dL LAB CHEMISTRY METHOD 07/19/2025 11:39 AM [facility] Albumin 2.7(L) 3.2 - 5.0 g/dL LAB CHEMISTRY METHOD 07/19/2025 11:39 AM [facility] Total Bilirubin 0.4 0.0 - 1.4 mg/dL LAB CHEMISTRY METHOD 07/19/2025 11:39 AM [facility] Blood Venous blood specimen / Unknown Venipuncture / Unknown 07/19/2025 5:28 AM EDT 07/19/2025 8:52 AM EDT us Susu Carreno MD LAB BLOOD ORDERABLES Fin al Result [facility] ([facility]) [facility] [address] [place] [address], documented in this encounter Visit Diagnoses Diagnosis Multiple myeloma not having achieved remission (CMS/HCC V24, CMS/HCC V28) documented in this encounter Care Teams Tuna Purse Seiner Relationship Specialty Start Date End Date Susu Carreno MD [address] [place] [address] PCP - General Family Medicine 07/12/25 documented as of this encounter
--- OUTSIDE RECORDS SUMMARY | 2025-08-02 12:50 | XMS_ITS | Patient Health Record ---
Author Organization [facility] Address [address] [place] [address] Care Team Providers Care Split Leather Mosser Name Role Phone Didier Reyna MD Primary Care Provider Minh Gongora Unavailable [phone] Reason For Referral No Information Medications Medication [...] Problem Acquired hammer toe of right foot (630698650240905 5) Other hammer toe(s) (acquired), right foot (M20.41) Active confirmed Problem Acquired hammer toe of left foot ([id number] 3) Other hammer toe(s) (acquired), left foot (M20.42) Active confirmed Problem Type II diabetes mellitus without complication (899648922) Type 2 diabetes mellitus without complications (E11.9) Active confirmed Plan Of Treatment No Information Insurance Providers Payer Name Payer Address Payer Phone Subscriber Number Group Number Insured Name Patient Relationship to Insured Coverage Start Date Coverage End Date [employer] [address] [place] [phone] [id number] Marlen Cesar i Self - patient is the insured Medical (General) History Medical History History ICD Code High blood pressure Diabetic
== END 2025-08-02 11:36 | disposition home or self-care (01) ==
LOC: HO.ENCR 10:52
PROVIDERS: PCP Internal Medicine; Visit Provider Student in an Organized Health Care Education/Training Program
DX: E21.3 Hyperparathyroidism, unspecified (principal); E55.9 Vitamin D deficiency, unspecified
CPT/HCPCS: 99214

== ENCOUNTER → 2025-08-02 10:52 | Outpatient (BNVA) | payer MEDICARE, SELFPAY | PROVIDERS: PCP Internal Medicine; Visit Provider Student in an Organized Health Care Education/Training Program | DX: E21.3 Hyperparathyroidism, unspecified (principal); E55.9 Vitamin D deficiency, unspecified | CPT/HCPCS: 99212 ==

== ENCOUNTER 2025-08-07 14:17 | Outpatient (AMB) | payer MEDICARE, SELFPAY ==
--- OUTSIDE RECORDS SUMMARY | 2025-07-31 09:52 | XMS_ITS | Encounter Summary ---
Author Organization [facility] Address [address] [place] [address] Care Team Providers Care Music Therapy Teacher Name Role Phone Elder, Susu Rodriguez MD Primary Care Provider + Reason for Referral * Imaging (Routine) - Pending Review Specialty Diagnoses / Procedures Referred By Nunu mcgarry Referred To Contact Radiology Diagnoses Multiple myeloma, remission status unspecified (CMS/HCC V24, CMS/HCC V28) Procedures PET CT Skull to Mid Thigh Initial Nesha Gomez MD [address] [place] [address] ATTN: HEMATOLOGY/[place] [address] Phone: tel: fax: [facility] Referral ID Status Reason Start Date Expiration Date V isits Requested Visits Authorized [id number] Pending Review 07/28/2025 07/28/2026 1 1 Reason for Visit * Imaging (Routine) - Pending Review Specialty Diagnoses / Procedures Referred By Nunu mcgarry Referred To Contact Radiology Diagnoses Multiple myeloma, remission status unspecified (CMS/HCC V24, CMS/HCC V28) Procedures PET CT Skull to Mid Thigh Initial Nesha Gomez MD [address] [place] [address] ATTN: HEMATOLOGY/[place] [address] Phone: tel: fax: [facility] Referral ID Status Reason Start Date Expiration Date V isits Requested Visits Authorized [id number] Pending Review 07/28/2025 07/28/2026 1 1 Encounter Details Date Type Department Care Team (Latest Contact Info) Description 07/31/2025 9:52 AM EST Hospital Encounter [facility] PET Scan [address] [place] [address] Multiple myeloma, remission status unspecified ([facility] V24, [facility] V28) Social History Tobacco Use Types Packs/Day [...] PM EST Multiple myeloma, remission status unspecified ([facility] V24, [facility] V28) documented in this encounter Results * [...] Signed Date: 08/01/2025 09:46 ET Workstation ID: [id number] Transcribed By: Self Edit Transcribed Date: 08/01/2025 [...] pathologic fracture. Compression fractures at T11 and [id number] significant increased activity. IMPRESSION: 1. Innumerable lytic [...] Signed Date: 08/01/2025 09:46 ET Workstation ID: [id number] Transcribed By: Self Edit Transcribed Date: 08/01/2025 08:09 ET Nesha Gomez MD [facility] PROCEDURES Final Result documented in this encounter Visit Diagnoses Diagnosis Multiple myeloma, remission status unspecified ([facility] V24, [facility] V28) documented in this encounter Administered Medications [...] 07/31/2025 documented in this encounter Care Teams Music Therapy Teacher Relationship Specialty Start Date End Date Susu Carreno MD [address] [phone] PCP - General Family Medicine 07/12/25 documented as of this encounter
[2025-08-07 14:21] VITALS: BP 114/64; PULSE 91; O2SAT 97; BMI 20.6
--- NOTE | 2025-08-07 14:21 | HO.NEPHOV ---
Vital Signs 08/07/25 14:21 Height 5 ft 4 in Weight 120 lb BMI 20.6 BP 114/64 Blood Pressure Location Lt brachial Position Sitting Pulse 91 Pulse Source Pulse Oximeter Pulse Oximetry (%) 97 Oxygen Delivery Method Room Air Intake Visit Reasons: 1mon f/u w/labs Fence Machine Operator Required: No Accompanied by: Daughter Allergies No Known Allergies Allergy (Verified 08/07/25 14:24) Medication List - Last Reconciled 08/07/25 by Chidi Cohen MD acetaminophen ER 650 mg PO Q8H PRN aspirin 81 mg PO DAILY cetirizine 5 mg PO DAILY cholecalciferol (vitamin D3) 25 mcg PO DAILY ferrous sulfate 325 mg PO DAILY furosemide 40 mg See Protocol PO BID@0830,1330 30 days magnesium oxide 400 mg PO DAILY multivitamin 1 tab PO DAILY simvastatin 10 mg PO BEDTIME vitamins A,C,M-jilg-fasyvp 4,296 mcg-226 mg-90 mg (PreserVision AREDS) 1 cap PO BID HPI Comments Details: - The patient is a 80-year-old female presenting with hypercalcemia, - Hypercalcemia: Calcium levels increased from 11.5 to 12.8 mg/dL. Recently seen by endocrinology. Workup has been ordered. - newly diagnosed Acute kidney injury: Kidney function decreased from 37% to 20%. In February 2025 serum creatinine was 0.99. On June 19 creatinine bumped up to 1.38 and as of June 30 creatinine was 2.31. She is currently on lisinopril 40 mg along with hydrochlorothiazide. - Anemia: Hemoglobin decreased from 11.2 in August 2024 to 8.5 g/dL, -history of Hypertension: Managed with lisinopril and amlodipine, - Diabetes mellitus: Controlled with metformin, - Spinal stenosis: Present but less concerning currently. She has recently lost about 60 lb over the last 10 months. Appetite has been fair. No nausea or vomiting. No constipation. No bone pain. No edema. No gross hematuria no kidney stones. 08/07/2025. Recently hospitalized with hypercalcemia. 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 Seen by Hematology and scheduled for bone marrow biopsy. She had a recent PET scan which revealed significant extensive lytic lesions. At present serum calcium has normalized PFSH Medical History History of high cholesterol Hx of type 2 diabetes mellitus Hx of spinal stenosis Hx of acute arthritis Hx of essential hypertension Surgical History No pertinent past surgical history Family History Father HTN (hypertension) Myocardial disease Diabetes mellitus Hypercholesteremia Mother Diabetes mellitus Family history of breast cancer Social History Household Members: Spouse Housing: House Are you a primary health care facilities inspector to a significant other at home: No Do you presently have visiting nurse or other home services: No Alcohol intake: current Alcohol intake frequency: does not drink Patient Tobacco Use Status: Former Tobacco user service: No Current occupational status: retired Physical Exam Vital Signs: Last Vital Signs Pulse 91 08/07/25 14:21 BP 114/64 08/07/25 14:21 Pulse Ox 97 08/07/25 14:21 Oxygen Delivery Method Room Air 08/07/25 14:21 BMI result Body Mass Index 20.6 Comfortable Neck supple no JVD. Lungs entry equal no rales. Heart S1-S2 heard no gallop or rub. Abdomen soft nontender. Neuro alert awake oriented. No asterixis. Extremities no edema. Results Reviewed Results Reviewed: Jun 2025 Findings: Right kidney normal size and echotexture and measures 10.2 cm x 3.3 cm x 5.6 cm. Left kidney normal size and echotexture and measures 10.2 cm x 4.7 cm x 3.7 cm. There is a 1.2 cm cortical cyst of the midpole of the left kidney. No collecting system dilatation of either kidney. Normal color Doppler. IMPRESSION: 1. 1.2 cm left renal cyst. Otherwise unremarkable study. Nephrology Results: Hgb, (12.0-16.0) 10.6 g/dl L 07/28/25 WBC, (4.8-10.8) 6.3 X10*3/uL 07/28/25 Plt Count, (160-400) 434 X10*3/uL H Δ 07/28/25 Sodium, (135-145) 138 mmol/L 07/28/25 Potassium, (3.3-5.1) 3.3 mmol/L 07/28/25 Chloride, (96-108) 99 mmol/L 07/28/25 Carbon Dioxide, (22-29) 31 mmol/L H 07/28/25 BUN, (9-16) 14 mg/dL 07/28/25 Creatinine, (0.5-1.4) 1.04 mg/dL 07/28/25 Calcium, (8.4-10.2) 9.3 mg/dL Δ 07/28/25 Renal US 07/05/25 Assessment & Plan Assessment & Plan (1) JE (acute kidney injury): Code(s): N17.9 - Acute kidney failure, unspecified Category: Medical (2) Hypercalcemia: Code(s): E83.52 - Hypercalcemia Category: Medical (3) Anemia: Code(s): D64.9 - Anemia, unspecified Category: Medical Plan 80-year-old woman with acute kidney injury superimposed on CKD. Newly diagnosed multiple myeloma. Hypercalcemia stance corrected at this time. Acute kidney injury has resolved after adequate IV hydration and correction of serum calcium. Renal function is at baseline with a creatinine 1.04. Goal is to slow the progression of renal disease. Continue to avoid nephrotoxic agents including NSAIDs and IV contrast dyes. At present blood pressure is acceptable. Encouraged her to stay on low-sodium diet. Increase p.o. fluid intake Follow up with Hematology regarding further management of multiple myeloma. . Orders: Orders Basic Metabolic Panel 2 Months D64.9 - Anemia, unspecified, E83.52 - Hypercalcemia Coding Level of Care Code Est Pt Level 4 (71635) Diagnoses JE (acute kidney injury) N17.9 Hypercalcemia E83.52 Anemia D64.9
--- OUTSIDE RECORDS SUMMARY | 2025-08-07 16:38 | XMS_ITS | Clinical Summary ---
Author Organization [address] Address [address] [place] [address] Phone Care Team Providers Care Instructional Support Assistant Name Role Phone Susu Carreno MD Primary Care Provider + Encounters Date Type Department Care Team Description 07/31/2025 9:52 AM EST Hospital Encounter [facility] PET Scan [address] [place] [phone] Multiple myeloma, remission status unspecified ([facility] V24, [facility] V28) 07/24/2025 Lab Requisition [facility] [address] [place] [phone] Susu Carreno MD Weakness; Type 2 diabetes mellitus without complications ([facility] V24, [facility] V28) 07/21/2025 Lab Requisition [facility] [address] [place] [phone] Susu Carreno MD Weakness; Type 2 diabetes mellitus without complications ([facility] V24, [facility] V28) 07/19/2025 Lab Requisition [facility] [address] [place] [phone] Susu Carreno MD Multiple myeloma not having achieved remission ([facility] V24, [facility] V28) 07/16/2025 Lab Requisition [facility] [address] [place] [phone] Susu Carreno MD Weakness; Type 2 diabetes mellitus without complications ([facility] V24, [facility] V28) 07/12/2025 Lab Requisition [facility] [address] [facility] [place] [address] Susu Carreno MD Weakness; Type 2 diabetes mellitus without complications ([facility]/HCC V24, CMS/HCC V28) from Last [...] remission status unspecified (CMS/HCC V24, CMS/HCC V28) CT IMMUNOFIXATION ELECTROPHORESIS SERUM Routine 07/19/2025 5:28 [...] Signed Date: 08/01/2025 09:46 ET Workstation ID: [id number] Transcribed By: Self Edit Transcribed Date: 08/01/2025 [...] pathologic fracture. Compression fractures at T11 and [id number] significant increased activity. IMPRESSION: 1. Innumerable lytic [...] Signed Date: 08/01/2025 09:46 ET Workstation ID: [id number] Transcribed By: Self Edit Transcribed Date: 08/01/2025 08:09 ET us Nesha Gomez MD [facility] PROCEDURES Final Result * Pathologist Review Immunofixation (07/19/2025 5:28 AM EDT) Pathologist Interpretation Reviewed by Josette Munguia MD 07/20/2025 4:00 PM EDT [facility]) [facility] Blood Venous blood specimen / Unknown 07/19/2025 5:28 AM EDT 07/20/2025 1:17 PM EDT Susu Carreno MD LAB BLOOD ORDERABLES Fin al Result Performing Organization Address City/[facility]/ZIP Co de Phone Number [facility] [address] [place] [address], [place] [phone] * SST tube (07/19/2025 5:28 AM EDT) Pathologist [facility] Extra Tube Hold for add-ons. 07/19/2025 10:01 AM EDT [facility] Comment:Auto resulted. Blood Venous blood specimen / Unknown 07/19/2025 5:28 AM EDT 07/19/2025 8:55 AM EDT Susu Carreno MD LAB BLOOD ORDERABLES Fin al Result Performing Organization Address [facility] Co de Phone Number [facility] [address] [place] [address], [place] [phone] * (ABNORMAL) [place]-lambda free light chains, quantitative (07/19/2025 5:28 AM EDT) [place] Free Light Chain 1.34 0.33 - 1.94 mg/dL 07/21/2025 11:38 AM EDT [facility] Lambda Free Light Chain 143.05(H) 0.57 - 2.63 mg/dL 07/21/2025 11:38 AM EDT [facility] [place]/Lambda FLC Ratio <0.01(L) 0.26 - 1.65 07/21/2025 11:38 AM EDT [facility] Comment: Test performed at [facility], [address] , [place] [address] Adele Luna MD, PhD - Director Cardiac Blood Venous blood specimen / Unknown Venipuncture / Unknown 07/19/2025 5:28 AM EDT 07/19/2025 8:52 AM EDT us Susu Carreno MD LAB BLOOD ORDERABLES Fin al Result [facility] [address] [place] [address] * (ABNORMAL) CBC auto differential (07/19/2025 5:28 AM EDT) WBC 5.7 4.8 - 10.8 K/mcL LAB HEMETOLOGY METHOD 07/19/2025 9:19 AM EDT [facility] RBC 3.80 3.80 - 4.80 [...] 9:19 AM [facility] RDW 16.0(H) 11.0 - 15.0 % LAB HEMETOLOGY METHOD 07/19/2025 9:19 AM [facility] Platelets 406(H) 130 - 400 K/mcL LAB HEMETOLOGY METHOD 07/19/2025 9:19 AM EDT [facility] MPV 9.0 7.0 - 11.0 [...] AM [facility] Monocytes Absolute 0.52 0.20 - 1.00 K/mcL LAB HEMETOLOGY METHOD 07/19/2025 9:19 AM [facility] Eosinophils Absolute 0.17 0.00 - 0.50 K/mcL LAB HEMETOLOGY METHOD 07/19/2025 9:19 AM EDT [facility] Basophils Absolute 0.05 0.00 - 0.20 K/[facility] LAB HEMETOLOGY METHOD 07/19/2025 9:19 AM EDT [facility] Immature Granulocytes Absolute 0.02 0.00 - 0.03 K/[facility] LAB HEMETOLOGY METHOD 07/19/2025 9:19 AM EDT [facility] Blood Venous blood specimen / Unknown Venipuncture / Unknown 07/19/2025 5:28 AM EDT 07/19/2025 8:52 AM EDT Susu Carreno MD LAB BLOOD ORDERABLES Fin al Result Performing Organization Address [facility]/ZIP Co de Phone Number [facility] [address] [place] [address], [place] [phone] * Immunofixation electrophoresis serum (07/19/2025 5:28 AM EDT) [facility] Immunofixation Result, Serum IgG Lambda monoclonal immunoglobulins detected. LAB CHEMISTRY METHOD 07/20/2025 4:00 PM EDT [facility] Blood Venous blood specimen / Unknown 07/19/2025 5:28 AM EDT 07/20/2025 1:17 PM EDT Susu Carreno MD LAB BLOOD ORDERABLES Fin al Result [facility] [address] [place] [address], [place] [phone] * (ABNORMAL) Immunoglobulins IgG, IgA, IgM (07/19/2025 5:28 AM EDT) [facility] Total IgG 3,700(H) 549 - 1,584 mg/dL LAB CHEMISTRY METHOD 07/20/2025 3:22 PM EDT [facility] IgA 40(L) 61 - 348 mg/dL LAB CHEMISTRY METHOD 07/20/2025 3:22 PM EDT [facility] IgM 21(L) 23 - 259 mg/dL LAB CHEMISTRY METHOD 07/20/2025 3:22 PM EDT [facility] Blood Venous blood specimen / Unknown 07/19/2025 5:28 AM EDT 07/20/2025 1:17 PM EDT Susu Carreno MD LAB BLOOD ORDERABLES Fin al Result Performing Organization Address City[facility]/ZIP Co de Phone Number [facility] [address] [place] [address], [place] [phone] * (ABNORMAL) Beta 2 microglobulin, serum (07/19/2025 5:28 AM EDT) Beta-2 Microglobulin 12.5(H) 0.7 - 1.8 mg/L LAB CHEMISTRY METHOD 07/19/2025 11:39 AM EDT [facility] Blood Venous blood specimen / Unknown Venipuncture / Unknown 07/19/2025 5:28 AM EDT 07/19/2025 8:52 AM EDT uSsu Carreno MD LAB BLOOD ORDERABLES Fin al Result Performing Organization Address [facility]/ZIP Co de Phone Number [facility] [address] [place] [address], [place] [phone] * (ABNORMAL) Comprehensive metabolic panel (07/19/2025 5:28 AM EDT) Only the most recent of2 resultswithin the time period is included. Sodium 137 133 - 145 mmol/L LAB CHEMISTRY METHOD 07/19/2025 11:39 AM EDT [facility] Potassium 3.1(L) 3.5 - 5.5 mmol/L LAB CHEMISTRY METHOD 07/19/2025 11:39 AM EDT [facility] Chloride 100 96 - 110 mmol/L LAB CHEMISTRY METHOD 07/19/2025 11:39 AM [facility] CO2 31 21 - 32 mmol/L LAB CHEMISTRY METHOD 07/19/2025 11:39 AM [facility] Anion Gap 6 3 - 11 LAB CHEMISTRY METHOD 07/19/2025 11:39 AM [facility] Glucose 92 70 - [...] LAB CHEMISTRY METHOD 07/19/2025 11:39 AM EDT [facility] Total Bilirubin 0.4 0.0 - 1.4 mg/dL LAB CHEMISTRY METHOD 07/19/2025 11:39 AM [facility] Blood Venous blood specimen / Unknown Venipuncture / Unknown 07/19/2025 5:28 AM EDT 07/19/2025 8:52 AM EDT us Susu Carreno MD LAB BLOOD ORDERABLES Fin al Result [facility] [address] [place] [address], * (ABNORMAL) Complete blood count (07/17/2025 7:28 AM EDT) Only the most recent of2 resultswithin the time period is included. WBC 5.9 4.8 - 10.8 K/mcL LAB HEMETOLOGY METHOD 07/17/2025 10:36 AM [facility] RBC 4.00 3.80 - 4.80 M/[facility] LAB HEMETOLOGY METHOD 07/17/2025 10:36 AM [facility] Hemoglobin 10.6(L) 11.5 - 16.0 g/dL LAB HEMETOLOGY METHOD 07/17/2025 10:36 AM [facility] Hematocrit 35.0 35.0 - 47.0 % LAB HEMETOLOGY METHOD 07/17/2025 10:36 AM [facility] MCV 87.9 79.0 - 98.0 FL LAB HEMETOLOGY METHOD 07/17/2025 10:36 AM [facility] MCH 26.6(L) 27.0 - 32.0 pcg LAB HEMETOLOGY METHOD 07/17/2025 10:36 AM [facility] MCHC 30.3(L) 32.0 - 37.0 g/dL LAB HEMETOLOGY METHOD 07/17/2025 10:36 AM EDT [facility] RDW 16.3(H) 11.0 - 15.0 % LAB HEMETOLOGY METHOD 07/17/2025 10:36 AM EDT [facility] Platelets 474(H) 130 - 400 K/mcL LAB HEMETOLOGY METHOD 07/17/2025 10:36 AM EDT [facility] MPV 9.5 7.0 - 11.0 FL LAB HEMETOLOGY METHOD 07/17/2025 10:36 AM EDT [facility] NRBC 0.0 <1.0 % LAB HEMETOLOGY METHOD 07/17/2025 10:36 AM EDT [facility] NRBC Absolute 0.00 <0.10 K/mcL LAB HEMETOLOGY METHOD 07/17/2025 10:36 AM T [facility] Blood Venous blood specimen / Unknown Venipuncture / Unknown 07/17/2025 7:28 AM EDT 07/17/2025 9:50 AM EDT us Susu Carreno MD LAB BLOOD ORDERABLES Fin al Result [facility] [address] [place] [address], * (ABNORMAL) Basic metabolic panel (07/17/2025 7:28 AM EDT) Sodium 137 133 - 145 mmol/L LAB CHEMISTRY METHOD 07/17/2025 10:35 AM EDT [facility] Potassium 3.2(L) 3.5 - 5.5 mmol/L LAB CHEMISTRY METHOD 07/17/2025 10:35 AM EDT [facility] Chloride 102 96 - 110 mmol/L LAB CHEMISTRY METHOD 07/17/2025 10:35 AM [facility] CO2 27 21 - 32 mmol/L LAB CHEMISTRY METHOD 07/17/2025 10:35 AM [facility] Anion Gap 8 3 - 11 LAB CHEMISTRY METHOD 07/17/2025 10:35 AM [facility] Glucose 105(H) 70 - 100 mg/dL LAB CHEMISTRY METHOD 07/17/2025 10:35 AM [facility] BUN 14 5 - 25 mg/dL LAB CHEMISTRY METHOD 07/17/2025 10:35 AM [facility] Creatinine 1.08 0.50 - 1.10 mg/dL LAB CHEMISTRY METHOD 07/17/2025 10:35 AM [facility] eGFR 53(L) >=60 mL/min/1. 73m2 LAB CHEMISTRY METHOD 07/17/2025 10:35 AM [facility] Comment:Calculation based on the Chronic Kidney Disease Epidemiology Collaboration (CKD-EPI) equation refit without adjustment for race. BUN/Creatinine Ratio 13.0 LAB CHEMISTRY METHOD 07/17/2025 10:35 AM [facility] Calcium 8.3(L) 8.5 - 10.5 mg/dL LAB CHEMISTRY METHOD 07/17/2025 10:35 AM [facility] Blood Venous blood specimen / Unknown Venipuncture / Unknown 07/17/2025 7:28 AM EDT 07/17/2025 9:49 AM EDT us Susu Carreno MD LAB BLOOD ORDERABLES Fin al Result [facility] [address] [place] [address], * Thyroid stimulating hormone with reflex to free t4 and free t3 (07/12/2025 5:56 AM EDT) TSH 0.54 0.40 - 4.00 mcIU/mL LAB CHEMISTRY METHOD 07/12/2025 11:58 AM EDT [facility] Blood Venous blood specimen / Unknown Venipuncture / Unknown 07/12/2025 5:56 AM EDT 07/12/2025 9:03 AM EDT Susu Carreno MD LAB BLOOD ORDERABLES Fin al Result Performing Organization Address [facility]/ZIP Co de Phone Number [facility] [address] [place] [address], [place] [phone] * Hemoglobin A1c (07/12/2025 5:56 AM EDT) Hemoglobin A1C 6.0 <6.5 % LAB CHEMISTRY METHOD 07/12/2025 1:10 PM EDT [facility] Mean Bld Glu Estim. 126 mg/dL LAB CHEMISTRY METHOD 07/12/2025 1:10 PM EDT [facility] Blood Venous blood specimen / Unknown Venipuncture / Unknown 07/12/2025 5:56 AM EDT 07/12/2025 9:03 AM EDT Susu Carreno MD LAB BLOOD ORDERABLES Fin al Result Performing Organization Address [facility] de Phone Number [facility] [address] [place] [address], [place] [phone] * (ABNORMAL) Folate (07/12/2025 5:56 AM EDT) Folate >20.0(H) 2.8 - 17.0 ng/ml LAB CHEMISTRY METHOD 07/12/2025 11:28 AM EDT [facility] Blood Venous blood specimen / Unknown Venipuncture / Unknown 07/12/2025 5:56 AM EDT 07/12/2025 9:03 AM EDT Susu Carreno MD LAB BLOOD ORDERABLES Fin al Result [facility] [address] [place] [address], [place] [phone] * Vitamin B12 (07/12/2025 5:56 AM EDT) [facility] Vitamin B-12 580 250 - 900 pcg/mL LAB CHEMISTRY METHOD 07/12/2025 11:28 AM EDT [facility] Blood Venous blood specimen / Unknown Venipuncture / Unknown 07/12/2025 5:56 AM EDT 07/12/2025 9:03 AM EDT Susu Carreno MD LAB BLOOD ORDERABLES Fin al Result Performing Organization Address [facility]/ZIP Co de Phone Number [facility] [address] [place] [address], [place] [phone] from Last [address] [place] [address] PLAN Care Teams Instructional Support Assistant Relationship Specialty Start Date End Date Susu Carreno MD [address] [place] [phone] PCP - General Family Medicine 07/12/25
--- OUTSIDE RECORDS SUMMARY | 2025-08-07 16:38 | XMS_ITS | Encounter Summary ---
Author Organization [facility] Address [address] [place] [address] Care Team Providers Care Senior Data Quality Analyst Name Role Phone Susu Carreno MD Primary Care Provider + Encounter Details Date Type Department Care Team (Late st Contact Info) Description 07/12/2025 Lab Requisition [facility] [address] [facility] [place] [address] Susu Carreno MD [address] [facility] [address] [place] [address] Weakness; Type 2 diabetes mellitus without complications (CMS/[facility] V24, CMS/[facility] V28) Social History Tobacco Use Types Packs/Day [...] Weakness Type 2 diabetes mellitus without complications (CMS/[facility] V24, CMS/[facility] V28) HEMOGLOBIN A1C Routine 07/12/2025 5:56 AM EDT Weakness Type 2 diabetes mellitus without complications (CMS/[facility] V24, CMS/[facility] V28) FOLATE Routine 07/12/2025 5:56 AM EDT Weakness Type 2 diabetes mellitus without complications ([facility] V24, [facility] V28) VITAMIN B12 Routine 07/12/2025 5:56 AM EDT Weakness Type 2 diabetes mellitus without complications ([facility] V24, [facility] V28) COMPREHENSIVE METABOLIC PANEL Routine 07/12/2025 5:56 AM EDT Weakness Type 2 diabetes mellitus without complications ([facility] V24, [facility] V28) documented in this encounter Results * Hemoglobin A1c (07/12/2025 5:56 AM EDT) Hemoglobin A1C 6.0 <6.5 % LAB CHEMISTRY METHOD 07/12/2025 1:10 PM EDT [facility] Mean Bld Glu Estim. 126 mg/dL LAB CHEMISTRY METHOD 07/12/2025 1:10 PM EDT [facility] Blood Venous blood specimen / Unknown Venipuncture / Unknown 07/12/2025 5:56 AM EDT 07/12/2025 9:03 AM EDT us Susu Carreno MD LAB BLOOD ORDERABLES Fin al Result [facility] [address] [place] [address], * (ABNORMAL) Folate (07/12/2025 5:56 AM EDT) Folate >20.0(H) 2.8 - 17.0 ng/ml LAB CHEMISTRY METHOD 07/12/2025 11:28 AM EDT [facility] Blood Venous blood specimen / Unknown Venipuncture / Unknown 07/12/2025 5:56 AM EDT 07/12/2025 9:03 AM EDT Susu Carreno MD LAB BLOOD ORDERABLES Fin al Result [facility] [address] [place] [address], [place] [phone] * Vitamin B12 (07/12/2025 5:56 AM EDT) Pathologist [facility] Vitamin B-12 580 250 - 900 pcg/mL LAB CHEMISTRY METHOD 07/12/2025 11:28 AM EDT [facility] Blood Venous blood specimen / Unknown Venipuncture / Unknown 07/12/2025 5:56 AM EDT 07/12/2025 9:03 AM EDT Susu Carreno MD LAB BLOOD ORDERABLES Fin al Result Performing Organization Address [facility]/ZIP Co de Phone Number [facility] [address] [place] [address], [place] [phone] * Thyroid stimulating hormone with reflex to free t4 and free t3 (07/12/2025 5:56 AM EDT) Pathologist [facility] TSH 0.54 0.40 - 4.00 mcIU/mL LAB CHEMISTRY METHOD 07/12/2025 11:58 AM EDT [facility] Blood Venous blood specimen / Unknown Venipuncture / Unknown 07/12/2025 5:56 AM EDT 07/12/2025 9:03 AM EDT Susu Carreno MD LAB BLOOD ORDERABLES Fin al Result [facility] [address] [place] [address], [place] [phone] * (ABNORMAL) Comprehensive metabolic panel (07/12/2025 5:56 AM EDT) Pathologist [facility] Sodium 140 133 - 145 mmol/L LAB CHEMISTRY METHOD 07/12/2025 11:28 AM [facility] Potassium 3.9 3.5 - 5.5 mmol/L LAB CHEMISTRY METHOD 07/12/2025 11:28 AM [facility] Chloride 110 96 - 110 mmol/L LAB CHEMISTRY METHOD 07/12/2025 11:28 AM [facility] CO2 25 21 - 32 mmol/L LAB CHEMISTRY METHOD 07/12/2025 11:28 AM [facility] Anion Gap 5 3 - 11 LAB CHEMISTRY METHOD 07/12/2025 11:28 AM [facility] Glucose 90 70 - 100 mg/dL LAB CHEMISTRY METHOD 07/12/2025 11:28 AM [facility] BUN 15 5 - 25 mg/dL LAB CHEMISTRY METHOD 07/12/2025 11:28 AM [facility] Creatinine 1.12(H) 0.50 - 1.10 mg/dL LAB CHEMISTRY METHOD 07/12/2025 11:28 AM [facility] eGFR 50(L) >=60 mL/min/1. 73m2 LAB CHEMISTRY METHOD 07/12/2025 11:28 AM [facility] Comment:Calculation based on the Chronic Kidney Disease Epidemiology Collaboration (CKD-EPI) equation refit without adjustment for race. BUN/Creatinine Ratio 13.4 LAB CHEMISTRY METHOD 07/12/2025 11:28 AM [facility] Calcium 8.2(L) 8.5 - 10.5 mg/dL LAB CHEMISTRY METHOD 07/12/2025 11:28 AM [facility] AST (SGOT) 19 10 - 42 unit/L LAB CHEMISTRY METHOD 07/12/2025 11:28 AM [facility] ALT (SGPT) 10 10 - 60 unit/L LAB CHEMISTRY METHOD 07/12/2025 11:28 AM [facility] Alkaline Phosphatase 66 42 - 121 unit/L LAB CHEMISTRY METHOD 07/12/2025 11:28 AM EDT [facility] Total Protein 8.1(H) 6.0 - 8.0 g/dL LAB CHEMISTRY METHOD 07/12/2025 11:28 AM EDT [facility] Albumin 2.3(L) 3.2 - 5.0 g/dL LAB CHEMISTRY METHOD 07/12/2025 11:28 AM EDT [facility] Total Bilirubin 0.4 0.0 - 1.4 mg/dL LAB CHEMISTRY METHOD 07/12/2025 11:28 AM EDT [facility] Blood Venous blood specimen / Unknown Venipuncture / Unknown 07/12/2025 5:56 AM EDT 07/12/2025 9:03 AM EDT us Susu Carreno MD LAB BLOOD ORDERABLES Fin al Result [facility] [address] [place] [address], * (ABNORMAL) Complete blood count (07/12/2025 5:56 AM EDT) WBC 5.6 4.8 - 10.8 K/mcL LAB HEMETOLOGY METHOD 07/12/2025 10:25 AM T [facility] RBC 3.70(L) 3.80 - 4.80 M/mcL LAB HEMETOLOGY METHOD 07/12/2025 10:25 AM EDT [facility] Hemoglobin 9.9(L) 11.5 - 16.0 g/dL LAB HEMETOLOGY METHOD 07/12/2025 10:25 AM EDT [facility] Hematocrit 32.6(L) 35.0 - 47.0 % LAB HEMETOLOGY METHOD 07/12/2025 10:25 AM EDT [facility] MCV 88.8 79.0 - 98.0 FL LAB HEMETOLOGY METHOD 07/12/2025 10:25 AM EDT [facility] MCH 27.0 27.0 - 32.0 pcg LAB HEMETOLOGY METHOD 07/12/2025 10:25 AM EDT [facility] MCHC 30.4(L) 32.0 - 37.0 g/dL LAB HEMETOLOGY METHOD 07/12/2025 10:25 AM EDT [facility] RDW 17.2(H) 11.0 - 15.0 % LAB HEMETOLOGY METHOD 07/12/2025 10:25 AM EDT [facility] Platelets 278 130 - 400 K/mcL LAB HEMETOLOGY METHOD 07/12/2025 10:25 AM EDT [facility] MPV 8.9 7.0 - 11.0 FL LAB HEMETOLOGY METHOD 07/12/2025 10:25 AM EDT [facility] NRBC 0.0 <1.0 % LAB HEMETOLOGY METHOD 07/12/2025 10:25 AM EDT [facility] NRBC Absolute 0.00 <0.10 K/mcL LAB HEMETOLOGY METHOD 07/12/2025 10:25 AM T [facility] Blood Venous blood specimen / Unknown Venipuncture / Unknown 07/12/2025 5:56 AM EDT 07/12/2025 9:03 AM EDT us Susu Carreno MD LAB BLOOD ORDERABLES Fin al Result [facility] [address] [place] [address], documented in this encounter Visit Diagnoses Diagnosis Weakness Other malaise and fatigue Type 2 diabetes mellitus without complications (CMS/HCC V24, CMS/HCC V28) documented in this encounter Care Teams Senior Data Quality Analyst Relationship Specialty Start Date End Date Susu Carreno MD [address] [place] [phone] PCP - General Family Medicine 07/12/25 documented as of this encounter
--- OUTSIDE RECORDS SUMMARY | 2025-08-07 16:38 | XMS_ITS | Encounter Summary ---
Author Organization [facility] Address [address] [place] [phone] Care Team Providers Care Trim Line Worker Name Role Phone Susu Carreno MD Primary Care Provider + Encounter Details Date Type Department Care Team (Late st Contact Info) Description 07/24/2025 Lab Requisition [facility] - Main Lab [address] [facility] [place] [address] Susu Carreno MD [address] [id number] Weakness; Type 2 diabetes mellitus without complications [...] V28) documented in this encounter Care Teams Trim Line Worker Relationship Specialty Start Date End Date Susu Carreno MD [address] [place] [address] [phone] PCP - General Family Medicine 07/12/25 documented as of this encounter
--- OUTSIDE RECORDS SUMMARY | 2025-08-07 16:38 | XMS_ITS | Encounter Summary ---
Author Organization [facility] Address [address] [place] [address] Care Team Providers Care Oral Pathologist Name Role Phone Susu Carreno MD Primary Care Provider + Encounter Details Date Type Department Care Team (Late st Contact Info) Description 07/19/2025 Lab Requisition [facility] - Main Lab [address] [place] [address] Susu Carreno MD [address] [facility] 1 [place] [address] Multiple myeloma not having achieved [...] Procedure Name Priority Date/Time Associated Diagnosis Comments GA IMMUNOFIXATION ELECTROPHORESIS SERUM Routine 07/19/2025 5:28 AM [...] EDT Multiple myeloma not having achieved remission ([facility]/HCC V24, CMS/HCC V28) COMPREHENSIVE METABOLIC PANEL Routine 07/19/2025 5:28 AM EDT Multiple myeloma not having achieved remission ([facility]/HCC V24, CMS/HCC V28) documented in this encounter Results * Pathologist Review Immunofixation (07/19/2025 5:28 AM EDT) Pathologist Interpretation Reviewed by Josette Munguia MD 07/20/2025 4:00 PM EDT [facility] Blood Venous blood specimen / Unknown 07/19/2025 5:28 AM EDT 07/20/2025 1:17 PM EDT us Susu Carreno MD LAB BLOOD ORDERABLES Fin al Result [facility] [address] [place] [address], [place] [phone] * (ABNORMAL) Immunoglobulins IgG, IgA, IgM (07/19/2025 5:28 AM EDT) [facility] Total IgG 3,700(H) 549 - 1,584 mg/dL LAB CHEMISTRY METHOD 07/20/2025 3:22 PM EDT [facility] IgA 40(L) 61 - 348 mg/dL LAB CHEMISTRY METHOD 07/20/2025 3:22 PM EDT [facility] IgM 21(L) 23 - 259 mg/dL LAB CHEMISTRY METHOD 07/20/2025 3:22 PM EDT [facility] Blood Venous blood specimen / Unknown 07/19/2025 5:28 AM EDT 07/20/2025 1:17 PM EDT Susu Carreno MD LAB BLOOD ORDERABLES Fin al Result Performing Organization Address [facility] Co de Phone Number [facility] [address] [place] [address], [place] [phone] * Immunofixation electrophoresis serum (07/19/2025 5:28 AM EDT) [facility] Immunofixation Result, Serum IgG Lambda monoclonal immunoglobulins detected. LAB CHEMISTRY METHOD 07/20/2025 4:00 PM EDT [facility] Blood Venous blood specimen / Unknown 07/19/2025 5:28 AM EDT 07/20/2025 1:17 PM EDT Susu Carreno MD LAB BLOOD ORDERABLES Fin al Result [facility] [address] [place] [address], [place] [phone] * SST tube (07/19/2025 5:28 AM EDT) [facility] Extra Tube Hold for add-ons. 07/19/2025 10:01 AM EDT [facility] Comment:Auto resulted. Blood Venous blood specimen / Unknown 07/19/2025 5:28 AM EDT 07/19/2025 8:55 AM EDT us Susu Carreno MD LAB BLOOD ORDERABLES Fin al Result [facility] [address] [place] [address], * (ABNORMAL) CBC auto differential (07/19/2025 5:28 AM EDT) [facility] WBC 5.7 4.8 - 10.8 K/mcL LAB HEMETOLOGY METHOD 07/19/2025 9:19 AM [facility] RBC 3.80 3.80 - 4.80 M/mcL LAB HEMETOLOGY METHOD 07/19/2025 9:19 AM [facility] Hemoglobin 10.0(L) 11.5 - 16.0 g/dL LAB HEMETOLOGY METHOD 07/19/2025 9:19 AM [facility] Hematocrit 32.9(L) 35.0 - 47.0 % LAB HEMETOLOGY METHOD 07/19/2025 9:19 AM [facility] MCV 87.7 79.0 - 98.0 FL LAB HEMETOLOGY METHOD 07/19/2025 9:19 AM [facility] MCH 26.7(L) 27.0 - 32.0 pcg LAB HEMETOLOGY METHOD 07/19/2025 9:19 AM [facility] MCHC 30.4(L) 32.0 - 37.0 g/dL LAB HEMETOLOGY METHOD 07/19/2025 9:19 AM EDT [facility] RDW 16.0(H) 11.0 - 15.0 % LAB HEMETOLOGY METHOD 07/19/2025 9:19 AM [facility] Platelets 406(H) 130 - 400 K/mcL LAB HEMETOLOGY METHOD 07/19/2025 9:19 AM [facility] MPV 9.0 7.0 - 11.0 FL LAB HEMETOLOGY METHOD 07/19/2025 9:19 AM [facility] NRBC 0.0 <1.0 % LAB HEMETOLOGY METHOD 07/19/2025 9:19 AM [facility] NRBC Absolute 0.00 <0.10 K/[facility] LAB HEMETOLOGY METHOD 07/19/2025 9:19 AM [facility] Neutrophils Relative 52.8 % LAB HEMETOLOGY METHOD 07/19/2025 9:19 AM [facility] Lymphocytes Relative 33.9 % LAB HEMETOLOGY METHOD 07/19/2025 9:19 AM [facility] Monocytes Relative 9.1 % LAB HEMETOLOGY METHOD 07/19/2025 9:19 AM [facility] Eosinophils Relative 3.0 % LAB HEMETOLOGY METHOD 07/19/2025 9:19 AM [facility] Basophils Relative 0.9 % LAB HEMETOLOGY METHOD 07/19/2025 9:19 AM [facility] Immature Granulocytes Relative 0.3 % LAB HEMETOLOGY METHOD 07/19/2025 9:19 AM [facility] Neutrophils Absolute 3.03 1.50 - 7.00 K/mcL LAB HEMETOLOGY METHOD 07/19/2025 9:19 AM [facility] Lymphocytes Absolute 1.94 1.00 - 5.00 K/mcL LAB HEMETOLOGY METHOD 07/19/2025 9:19 AM EDT [facility] Monocytes Absolute 0.52 0.20 - 1.00 K/mcL LAB HEMETOLOGY METHOD 07/19/2025 9:19 AM EDT [facility] Eosinophils Absolute 0.17 0.00 - 0.50 K/mcL LAB HEMETOLOGY METHOD 07/19/2025 9:19 AM EDT [facility] Basophils Absolute 0.05 0.00 - 0.20 K/[facility] LAB HEMETOLOGY METHOD 07/19/2025 9:19 AM EDT [facility] Immature Granulocytes Absolute 0.02 0.00 - 0.03 K/mcL LAB HEMETOLOGY METHOD 07/19/2025 9:19 AM EDT [facility] Blood Venous blood specimen / Unknown Venipuncture / Unknown 07/19/2025 5:28 AM EDT 07/19/2025 8:52 AM EDT Susu Carreno MD LAB BLOOD ORDERABLES Fin al Result [facility] [address] [place] [address], [place] [phone] * (ABNORMAL) Beta 2 microglobulin, serum (07/19/2025 5:28 AM EDT) Beta-2 Microglobulin 12.5(H) 0.7 - 1.8 mg/L LAB CHEMISTRY METHOD 07/19/2025 11:39 AM EDT [facility] Blood Venous blood specimen / Unknown Venipuncture / Unknown 07/19/2025 5:28 AM EDT 07/19/2025 8:52 AM EDT Susu Carreno MD LAB BLOOD ORDERABLES Fin al Result [facility] [address] [place] [address], [place] [phone] * (ABNORMAL) [place]-lambda free light chains, quantitative (07/19/2025 5:28 AM EDT) [place] Free Light Chain 1.34 0.33 - 1.94 mg/dL 07/21/2025 11:38 AM EDT [facility] Lambda Free Light Chain 143.05(H) 0.57 - 2.63 mg/dL 07/21/2025 11:38 AM EDT [facility] [place]/Lambda FLC Ratio <0.01(L) 0.26 - 1.65 07/21/2025 11:38 AM EDT [facility] Comment: Test performed at [facility], [address], [place] [address] Adele Luna MD, PhD - Food Vendor Blood Venous blood specimen / Unknown Venipuncture / Unknown 07/19/2025 5:28 AM EDT 07/19/2025 8:52 AM EDT Susu Carreno MD LAB BLOOD ORDERABLES Fin al Result [facility] [address] [place], [place] [phone] * (ABNORMAL) Comprehensive metabolic panel (07/19/2025 5:28 AM EDT) [facility] Sodium 137 133 - 145 mmol/L LAB CHEMISTRY METHOD 07/19/2025 11:39 AM EDT [facility] Potassium 3.1(L) 3.5 - 5.5 mmol/L LAB CHEMISTRY METHOD 07/19/2025 11:39 AM EDT [facility] Chloride 100 96 - 110 mmol/L LAB CHEMISTRY METHOD 07/19[facility]2025 11:[facility] CO2 31 21 - 32 mmol/L LAB CHEMISTRY METHOD 07/19/2025 11:39 AM EDT [facility] Anion Gap 6 3 - 11 LAB CHEMISTRY METHOD 07/19/2025 11:39 AM EDT [facility] Glucose 92 70 - 100 mg/dL LAB CHEMISTRY METHOD 07/19/2025 11:39 AM [facility] BUN 16 5 - 25 mg/dL LAB CHEMISTRY METHOD 07/19/2025 11:39 AM [facility] Creatinine 1.14(H) 0.50 - 1.10 mg/dL LAB CHEMISTRY METHOD 07/19/2025 11:39 AM [facility] eGFR 49(L) >=60 mL/min/1. 73m2 LAB CHEMISTRY METHOD 07/19/2025 11:39 AM [facility] Comment:Calculation based on the Chronic Kidney Disease Epidemiology Collaboration (CKD-EPI) equation refit without adjustment for race. BUN/Creatinine Ratio 14.0 LAB CHEMISTRY METHOD 07/19/2025 11:39 AM [facility] Calcium 8.7 8.5 - 10.5 mg/dL LAB CHEMISTRY METHOD 07/19/2025 11:39 AM [facility] AST (SGOT) 20 10 - 42 unit/L LAB CHEMISTRY METHOD 07/19/2025 11:39 AM [facility] ALT (SGPT) 14 10 - 60 unit/L LAB CHEMISTRY METHOD 07/19/2025 11:39 AM [facility] Alkaline Phosphatase 78 42 - 121 unit/L LAB CHEMISTRY METHOD 07/19/2025 11:39 AM [facility] Total Protein 9.1(H) 6.0 - 8.0 g/dL LAB CHEMISTRY METHOD 07/19/2025 11:39 AM [facility] Albumin 2.7(L) 3.2 - 5.0 g/dL LAB CHEMISTRY METHOD 07/19/2025 11:39 AM [facility] Total Bilirubin 0.4 0.0 - 1.4 mg/dL LAB CHEMISTRY METHOD 07/19/2025 11:39 AM [facility] Blood Venous blood specimen / Unknown Venipuncture / Unknown 07/19/2025 5:28 AM EDT 07/19/2025 8:52 AM EDT us Susu Carreno MD LAB BLOOD ORDERABLES Fin al Result [facility] ([facility]) [facility] [address] [place] [address], documented in this encounter Visit Diagnoses Diagnosis Multiple myeloma not having achieved remission (CMS/HCC V24, CMS/HCC V28) documented in this encounter Care Teams Oral Pathologist Relationship Specialty Start Date End Date Susu Carreno MD [address] [place] [id number] PCP - General Family Medicine 07/12/25 documented as of this encounter
--- OUTSIDE RECORDS SUMMARY | 2025-08-07 16:38 | XMS_ITS | Encounter Summary ---
Author Organization [facility] Address [address] [place] [phone] Care Team Providers Care Manager Pricing Name Role Phone Susu Carreno MD Primary Care Provider + Encounter Details Date Type Department Care Team (Late st Contact Info) Description 07/16/2025 Lab Requisition [facility] - Main Lab [address] [facility] [place] [address] Susu Carreno MD [address] [facility] 1 [place], [place] [phone] Weakness; Type 2 diabetes mellitus without complications [...] MD LAB BLOOD ORDERABLES Fin al Result [facility] [address] [place] [address], * (ABNORMAL) Complete blood count (07/17/2025 7:28 AM EDT) [facility] Signature WBC 5.9 4.8 - 10.8 K/mcL LAB HEMETOLOGY METHOD 07/17/2025 10:36 AM EDT [facility] RBC 4.00 3.80 - 4.80 M/mcL LAB HEMETOLOGY METHOD 07/17/2025 10:36 AM EDT [facility] Hemoglobin 10.6(L) 11.5 - 16.0 g/dL LAB HEMETOLOGY METHOD 07/17/2025 10:36 AM EDT [facility] Hematocrit 35.0 35.0 - 47.0 % LAB HEMETOLOGY METHOD 07/17/2025 10:36 AM EDT [facility] MCV 87.9 79.0 - 98.0 FL LAB HEMETOLOGY METHOD 07/17/2025 10:36 AM EDT [facility] MCH 26.6(L) 27.0 - 32.0 pcg LAB HEMETOLOGY METHOD 07/17/2025 10:36 AM EDT [facility] MCHC 30.3(L) 32.0 - 37.0 g/dL LAB HEMETOLOGY METHOD 07/17/2025 10:36 AM EDT [facility] RDW 16.3(H) 11.0 - 15.0 % LAB HEMETOLOGY METHOD 07/17/2025 10:36 AM EDT [facility] Platelets 474(H) 130 - 400 K/mcL LAB HEMETOLOGY METHOD 07/17/2025 10:36 AM EDT [facility] MPV 9.5 7.0 - 11.0 FL LAB HEMETOLOGY METHOD 07/17/2025 10:36 AM EDT [facility] NRBC 0.0 <1.0 % LAB HEMETOLOGY METHOD 07/17/2025 10:36 AM EDT [facility] NRBC Absolute 0.00 <0.10 K/mcL LAB HEMETOLOGY METHOD 07/17/2025 10:36 AM EDT [facility] Blood Venous blood specimen / Unknown Venipuncture / Unknown 07/17/2025 7:28 AM EDT 07/17/2025 9:50 AM EDT us Susu Carreno MD LAB BLOOD ORDERABLES Fin al Result [facility] [address] [place] [address], [place] [phone] documented in this encounter Visit Diagnoses Diagnosis Weakness Other malaise and fatigue Type 2 diabetes mellitus without complications (CMS/HCC V24, CMS/HCC V28) documented in this encounter Care Teams Manager Pricing Relationship Specialty Start Date End Date Susu Carreno MD [address] [place] [id number] PCP - General Family Medicine 07/12/25 documented as of this encounter
--- OUTSIDE RECORDS SUMMARY | 2025-08-07 16:38 | XMS_ITS | Encounter Summary ---
Author Organization [facility] Address [address] [place] [phone] Care Team Providers Care Flux Mixer Name Role Phone Susu Carreno MD Primary Care Provider + Encounter Details Date Type Department Care Team (Late st Contact Info) Description 07/21/2025 Lab Requisition [facility] - Main Lab [address] [facility] [place] [address] Susu Carreno MD [address] [phone] Weakness; Type 2 diabetes mellitus without complications [...] V28) documented in this encounter Care Teams Flux Mixer Relationship Specialty Start Date End Date Susu Carreno MD [address] [place] [phone] PCP - General Family Medicine 07/12/25 documented as of this encounter
== END 2025-08-07 14:44 | disposition home or self-care (01) ==
LOC: HO.HKA 14:17
PROVIDERS: PCP Internal Medicine; Visit Provider Internal Medicine Hypertension Specialist
DX: N17.9 Acute kidney failure, unspecified (principal); E83.52 Hypercalcemia; D64.9 Anemia, unspecified
CPT/HCPCS: 99214

== ENCOUNTER → 2025-08-07 14:17 | Outpatient (BNVA) | payer MEDICARE, SELFPAY | PROVIDERS: PCP Internal Medicine; Visit Provider Internal Medicine Hypertension Specialist | DX: E83.52 Hypercalcemia (principal); N17.9 Acute kidney failure, unspecified; D64.9 Anemia, unspecified | CPT/HCPCS: 99212 ==

== ENCOUNTER 2025-08-09 11:17 | Day surgery (SDC) | payer MEDICARE, SELFPAY ==
[2025-08-09] VITALS (14 sets, daily range): BP systolic 112–178; BP diastolic 42–81; PULSE 80–108; RESP 16–21; TEMP 36.6–36.7; O2SAT 93–100; BMI 20.1
--- NOTE | ~2025-08-09 | CT_ITS ---
History: Question of multiple myeloma PROCEDURES: 1. Limited preprocedure CT of the pelvis. Permanent images saved in PACS. 2. 11 g bone marrow core biopsy of the left posterior iliac spine 3. 11 g bone marrow aspirate of the left posterior iliac spine CLINICIANS: José Decker NP Preprocedural imaging reviewed with Gavino Matta MD MEDICATIONS: -Versed, Fentanyl , and lidocaine 1% SQ -Antibiotics: None -For additional details, please see nursing flowsheet. COMPLICATIONS: None ESTIMATED BLOOD LOSS: < 5 ml CONTRAST: None SPECIMENS: 11 g core placed in formalin. Bone marrow aspirate placed in EDTA and sodium heparin tube MODERATE SEDATION TIME: 30 min PROCEDURE NOTE: The procedure, risks, benefits, and alternatives were carefully explained to the patient and written informed consent was obtained. The patient was placed prone on the CT table. A timeout was performed. A limited CT of the pelvis was performed to localize posterior iliac spine and choose appropriate needle entry and trajectory. The patient was prepped and draped in usual sterile fashion. The skin, subcutaneous tissues, and periosteum were anesthetized with lidocaine. Under CT guidance, an 11-gauge bone marrow biopsy needle was advanced into the posterior iliac spine, with the tip positioned slightly cephalad. The edge of the periosteum could only be engaged as the patient was not tolerating the procedure well and was unfortunately moving a lot .A bone marrow aspirate was attempted and only 1 mL was obtained, aspiration was stopped due to extreme patient discomfort. The specimen was placed in the provided EDTA tube. Next, the 11-gauge bone marrow biopsy needle was unable to be advanced into the posterior iliac spine as the patient was continuing to move and in much discomfort despite more sedation. Without advancing any further an 11-gauge biopsy of the bone marrow/periosteal area was attempted and the patient requested us to stop. The needle was removed and the specimen was placed in formalin. A dry dressing was applied and secured with Tegaderm. There were no immediate complications. The patient was stable after the procedure and was transferred to the post anesthesia care unit. The procedure was done under moderate sedation with a dedicated nurse for monitoring of vital signs. CT/CT biopsy bone marrow Impression: CT-guided bone marrow biopsy and aspirate Plan: Due to tolerability, the procedure was expedited during the sampling process. If nondiagnostic sample, can repeat with a level greater than moderate sedation based on anesthesiologist discretion. This procedure was performed by José Decker NP and supervised by Gavino Matta MD. Electronically signed by: Gavino Matta MD 08/15/2025 02:59 PM [facility] Workstation: [id number]
[2025-08-09 12:04] LABS: INTERNATIONAL NORM RATIO 1.2 (0.9-1.1); Prothrombin Time 14.7 SEC (11.2-13.5)
== END 2025-08-09 15:48 | disposition home or self-care (01) ==
PROVIDERS: Radiology Diagnostic Radiology; PCP Internal Medicine; Visit Provider Internal Medicine Medical Oncology
DX: C90.00 Multiple myeloma not having achieved remission (principal); E83.52 Hypercalcemia; Z79.82 Long term (current) use of aspirin; Z79.899 Other long term (current) drug therapy; Z87.891 Personal history of nicotine dependence
CPT/HCPCS: 36415; 38221; 38222; 77012; 85610; 88305; 88307; 88311; 88313; 88342; 99152; J2003; J2250; J3010

== ENCOUNTER → 2025-08-09 13:11 | Outpatient (BNV) | payer MEDICARE, SELFPAY | PROVIDERS: PCP Internal Medicine | DX: C90.00 Multiple myeloma not having achieved remission (principal) | CPT/HCPCS: 38221; 77012 ==

== ENCOUNTER 2025-08-15 12:15 | Day surgery (SDC) | payer MEDICARE, SELFPAY ==
--- OUTSIDE RECORDS SUMMARY | 2025-08-10 17:10 | XMS_ITS | Encounter Summary ---
Author Organization [facility] Address [address] [place] [address] Care Team Providers Care Air Deodorizer Servicer Name Role Phone Susu Carreno MD Primary Care Provider + Encounter Details Date Type Department Care Team (Late st Contact Info) Description 07/19/2025 Lab Requisition [facility] - Main Lab [address] [facility] [place] [address] Susu Carreno MD [address] [facility] 1 [place] [address] Multiple myeloma not having achieved [...] Procedure Name Priority Date/Time Associated Diagnosis Comments [place] IMMUNOFIXATION ELECTROPHORESIS SERUM Routine 07/19/2025 5:28 AM [...] EDT Multiple myeloma not having achieved remission ([facility]/HCC V24, CMS/HCC V28) COMPREHENSIVE METABOLIC PANEL Routine 07/19/2025 5:28 AM EDT Multiple myeloma not having achieved remission ([facility]/HCC V24, CMS/HCC V28) documented in this encounter Results * Pathologist Review Immunofixation (07/19/2025 5:28 AM EDT) Pathologist Interpretation Reviewed by Josette Munguia MD 07/20/2025 4:00 PM EDT [facility]) [facility] Blood Venous blood specimen / Unknown 07/19/2025 5:28 AM EDT 07/20/2025 1:17 PM EDT us Susu Carreno MD LAB BLOOD ORDERABLES Fin al Result [facility] [address] [place] [address], [place] [phone] * (ABNORMAL) Immunoglobulins IgG, IgA, IgM (07/19/2025 5:28 AM EDT) [facility] Total IgG 3,700(H) 549 - 1,584 mg/dL LAB CHEMISTRY METHOD 07/20/2025 3:[address] [facility] IgA 40(L) 61 - 348 mg/dL LAB CHEMISTRY METHOD 07/20/2025 3:[address] [facility] IgM 21(L) 23 - 259 mg/dL LAB CHEMISTRY METHOD 07/20/2025 3:[address] [facility] Blood Venous blood specimen / Unknown 07/19/2025 5:28 AM EDT 07/20/2025 1:17 PM EDT Susu Carreno MD LAB BLOOD ORDERABLES Fin al Result Performing Organization Address [facility] Co de Phone Number [facility] [address] [place] [address], [place] [phone] * Immunofixation electrophoresis serum (07/19/2025 5:28 AM EDT) [facility] Immunofixation Result, Serum IgG Lambda monoclonal immunoglobulins detected. LAB CHEMISTRY METHOD 07/20/2025 4:[address] [facility] Blood Venous blood specimen / Unknown 07/19/2025 5:28 AM EDT 07/20/2025 1:17 PM EDT Susu Carreno MD LAB BLOOD ORDERABLES Fin al Result [facility] [address] [place] [address], [place] [phone] * SST tube (07/19/2025 5:28 AM EDT) [facility] Extra Tube Hold for add-ons. 07/19/2025 10:[address] [facility] Comment:Auto resulted. Blood Venous blood specimen / Unknown 07/19/2025 5:28 AM EDT 07/19/2025 8:55 AM EDT us Susu Carreno MD LAB BLOOD ORDERABLES Fin al Result [facility] [address] [place] [address], * (ABNORMAL) CBC auto differential (07/19/2025 5:28 AM EDT) [facility] WBC 5.7 4.8 - 10.8 K/mcL LAB HEMETOLOGY METHOD 07/19/2025 9:19 AM [facility] RBC 3.80 3.80 - 4.80 M/mcL LAB HEMETOLOGY METHOD 07/19/2025 9:19 AM [facility] Hemoglobin 10.0(L) 11.5 - 16.0 g/dL LAB HEMETOLOGY METHOD 07/19/2025 9:19 AM [facility] Hematocrit 32.9(L) 35.0 - 47.0 % LAB HEMETOLOGY METHOD 07/19/2025 9:19 AM [facility] MCV 87.7 79.0 - 98.0 FL LAB HEMETOLOGY METHOD 07/19/2025 9:19 AM [facility] MCH 26.7(L) 27.0 - 32.0 pcg LAB HEMETOLOGY METHOD 07/19/2025 9:19 AM [facility] MCHC 30.4(L) 32.0 - 37.0 g/dL LAB HEMETOLOGY METHOD 07/19/2025 9:[address] [facility] RDW 16.0(H) 11.0 - 15.0 % LAB HEMETOLOGY METHOD 07/19/2025 9:19 AM [facility] Platelets 406(H) 130 - 400 K/mcL LAB HEMETOLOGY METHOD 07/19/2025 9:19 AM [facility] MPV 9.0 7.0 - 11.0 FL LAB HEMETOLOGY METHOD 07/19/2025 9:19 AM [facility] NRBC 0.0 <1.0 % LAB HEMETOLOGY METHOD 07/19/2025 9:19 AM [facility] NRBC Absolute 0.00 <0.10 K/[facility] LAB HEMETOLOGY METHOD 07/19/2025 9:19 AM [facility] Neutrophils Relative 52.8 % LAB HEMETOLOGY METHOD 07/19/2025 9:19 AM [facility] Lymphocytes Relative 33.9 % LAB HEMETOLOGY METHOD 07/19/2025 9:19 AM [facility] Monocytes Relative 9.1 % LAB HEMETOLOGY METHOD 07/19/2025 9:19 AM [facility] Eosinophils Relative 3.0 % LAB HEMETOLOGY METHOD 07/19/2025 9:19 AM [facility] Basophils Relative 0.9 % LAB HEMETOLOGY METHOD 07/19/2025 9:19 AM [facility] Immature Granulocytes Relative 0.3 % LAB HEMETOLOGY METHOD 07/19/2025 9:19 AM [facility] Neutrophils Absolute 3.03 1.50 - 7.00 K/mcL LAB HEMETOLOGY METHOD 07/19/2025 9:19 AM [facility] Lymphocytes Absolute 1.94 1.00 - 5.00 K/mcL LAB HEMETOLOGY METHOD 07/19/2025 9:[address] [facility] Monocytes Absolute 0.52 0.20 - 1.00 K/mcL LAB HEMETOLOGY METHOD 07/19/2025 9:[address] [facility] Eosinophils Absolute 0.17 0.00 - 0.50 K/mcL LAB HEMETOLOGY METHOD 07/19/2025 9:[address] [facility] Basophils Absolute 0.05 0.00 - 0.20 K/[facility] LAB HEMETOLOGY METHOD 07/19/2025 9:[address] [facility] Immature Granulocytes Absolute 0.02 0.00 - 0.03 K/mcL LAB HEMETOLOGY METHOD 07/19/2025 9:[address] [facility] Blood Venous blood specimen / Unknown Venipuncture / Unknown 07/19/2025 5:28 AM EDT 07/19/2025 8:52 AM EDT Susu Carreno MD LAB BLOOD ORDERABLES Fin al Result [facility] [address] [place] [address], [place] [phone] * (ABNORMAL) Beta 2 microglobulin, serum (07/19/2025 5:28 AM EDT) Beta-2 Microglobulin 12.5(H) 0.7 - 1.8 mg/L LAB CHEMISTRY METHOD 07/19/2025 11:[address] [facility] Blood Venous blood specimen / Unknown Venipuncture / Unknown 07/19/2025 5:28 AM EDT 07/19/2025 8:52 AM EDT Susu Carreno MD LAB BLOOD ORDERABLES Fin al Result [facility] [address] [place] [address], [place] [phone] * (ABNORMAL) [place]-lambda free light chains, quantitative (07/19/2025 5:28 AM EDT) [place] Free Light Chain 1.34 0.33 - 1.94 mg/dL 07/21/2025 11:38 AM EDT [facility] Lambda Free Light Chain 143.05(H) 0.57 - 2.63 mg/dL 07/21/2025 11:38 AM EDT [facility] [place]/Lambda FLC Ratio <0.01(L) 0.26 - 1.65 07/21/2025 11:38 AM EDT [facility] Comment: Test performed at [facility], [address], [place] [address] Adele Luna MD, PhD - Inking Machine Tender Blood Venous blood specimen / Unknown Venipuncture / Unknown 07/19/2025 5:28 AM EDT 07/19/2025 8:52 AM EDT Susu Carreno MD LAB BLOOD ORDERABLES Fin al Result [facility] [address] [place], [place] [id number] * (ABNORMAL) Comprehensive metabolic panel (07/19/2025 5:28 AM EDT) [facility] Sodium 137 133 - 145 mmol/L LAB CHEMISTRY METHOD 07/19/2025 11:[address] [facility] Potassium 3.1(L) 3.5 - 5.5 mmol/L LAB CHEMISTRY METHOD 07/19/2025 11:[address] [facility] Chloride 100 96 - 110 mmol/L LAB CHEMISTRY METHOD 07/19/2025 11:[facility] CO2 31 21 - 32 mmol/L LAB CHEMISTRY METHOD 07/19/2025 11:[address] [facility] Anion Gap 6 3 - 11 LAB CHEMISTRY METHOD 07/19/2025 11:[address] [facility] Glucose 92 70 - 100 mg/dL LAB CHEMISTRY METHOD 07/19/2025 11:39 AM [facility] BUN 16 5 - 25 mg/dL LAB CHEMISTRY METHOD 07/19/2025 11:39 AM [facility] Creatinine 1.14(H) 0.50 - 1.10 mg/dL LAB CHEMISTRY METHOD 07/19/2025 11:39 AM [facility] eGFR 49(L) >=60 mL/min/1. 73m2 LAB CHEMISTRY METHOD 07/19/2025 11:39 AM [facility] Comment:Calculation based on the Chronic Kidney Disease Epidemiology Collaboration (CKD-EPI) equation refit without adjustment for race. BUN/Creatinine Ratio 14.0 LAB CHEMISTRY METHOD 07/19/2025 11:39 AM [facility] Calcium 8.7 8.5 - 10.5 mg/dL LAB CHEMISTRY METHOD 07/19/2025 11:39 AM [facility] AST (SGOT) 20 10 - 42 unit/L LAB CHEMISTRY METHOD 07/19/2025 11:39 AM [facility] ALT (SGPT) 14 10 - 60 unit/L LAB CHEMISTRY METHOD 07/19/2025 11:39 AM [facility] Alkaline Phosphatase 78 42 - 121 unit/L LAB CHEMISTRY METHOD 07/19/2025 11:39 AM [facility] Total Protein 9.1(H) 6.0 - 8.0 g/dL LAB CHEMISTRY METHOD 07/19/2025 11:39 AM [facility] Albumin 2.7(L) 3.2 - 5.0 g/dL LAB CHEMISTRY METHOD 07/19/2025 11:39 AM [facility] Total Bilirubin 0.4 0.0 - 1.4 mg/dL LAB CHEMISTRY METHOD 07/19/2025 11:39 AM [facility] Blood Venous blood specimen / Unknown Venipuncture / Unknown 07/19/2025 5:28 AM EDT 07/19/2025 8:52 AM EDT us Susu Carreno MD LAB BLOOD ORDERABLES Fin al Result [facility] ([facility]) [facility] [address] [place] [address], documented in this encounter Visit Diagnoses Diagnosis Multiple myeloma not having achieved remission (CMS/HCC V24, CMS/HCC V28) documented in this encounter Care Teams Air Deodorizer Servicer Relationship Specialty Start Date End Date Susu Carreno MD [address] [place] [phone] PCP - General Family Medicine 07/12/25 documented as of this encounter
--- OUTSIDE RECORDS SUMMARY | 2025-08-10 17:10 | XMS_ITS | Encounter Summary ---
Author Organization [facility] Address [address] [place] [address] Care Team Providers Care Clinical Transformation Specialist Name Role Phone Susu Carreno MD Primary Care Provider + Encounter Details Date Type Department Care Team (Late st Contact Info) Description 07/12/2025 Lab Requisition [facility] - Main Lab [address] [facility] [place] [address] Susu Carreno MD [address] [facility] 1 [place] [address] Weakness; Type 2 diabetes mellitus without complications (CMS/[facility] V24, CMS/[facility] V28) Social History Tobacco Use Types Packs/Day [...] Weakness Type 2 diabetes mellitus without complications (CMS/[facility] V24, CMS/[facility] V28) HEMOGLOBIN A1C Routine 07/12/2025 5:56 AM EDT Weakness Type 2 diabetes mellitus without complications (CMS/[facility] V24, CMS/[facility] V28) FOLATE Routine 07/12/2025 5:56 AM EDT Weakness Type 2 diabetes mellitus without complications ([facility] V24, [facility] V28) VITAMIN B12 Routine 07/12/2025 5:56 AM EDT Weakness Type 2 diabetes mellitus without complications ([facility] V24, [facility] V28) COMPREHENSIVE METABOLIC PANEL Routine 07/12/2025 5:56 AM EDT Weakness Type 2 diabetes mellitus without complications ([facility] V24, [facility] V28) documented in this encounter Results * Hemoglobin A1c (07/12/2025 5:56 AM EDT) Hemoglobin A1C 6.0 <6.5 % LAB CHEMISTRY METHOD 07/12/2025 1:10 PM EDT [facility] Mean Bld Glu Estim. 126 mg/dL LAB CHEMISTRY METHOD 07/12/2025 1:10 PM EDT [facility] Blood Venous blood specimen / Unknown Venipuncture / Unknown 07/12/2025 5:56 AM EDT 07/12/2025 9:03 AM EDT us Susu Carreno MD LAB BLOOD ORDERABLES Fin al Result [facility] [address] [place] [address], * (ABNORMAL) Folate (07/12/2025 5:56 AM EDT) Folate >20.0(H) 2.8 - 17.0 ng/ml LAB CHEMISTRY METHOD 07/12/2025 11:28 AM EDT [facility] Blood Venous blood specimen / Unknown Venipuncture / Unknown 07/12/2025 5:56 AM EDT 07/12/2025 9:03 AM EDT Susu Carreno MD LAB BLOOD ORDERABLES Fin al Result [facility] [address] [place] [address], [place] [phone] * Vitamin B12 (07/12/2025 5:56 AM EDT) Pathologist [facility] Vitamin B-12 580 250 - 900 pcg/mL LAB CHEMISTRY METHOD 07/12/2025 11:28 AM EDT [facility] Blood Venous blood specimen / Unknown Venipuncture / Unknown 07/12/2025 5:56 AM EDT 07/12/2025 9:03 AM EDT Susu Carreno MD LAB BLOOD ORDERABLES Fin al Result Performing Organization Address [facility]/ZIP Co de Phone Number [facility] [address] [place] [address], [place] [phone] * Thyroid stimulating hormone with reflex to free t4 and free t3 (07/12/2025 5:56 AM EDT) Pathologist [facility] TSH 0.54 0.40 - 4.00 mcIU/mL LAB CHEMISTRY METHOD 07/12/2025 11:58 AM EDT [facility] Blood Venous blood specimen / Unknown Venipuncture / Unknown 07/12/2025 5:56 AM EDT 07/12/2025 9:03 AM EDT Susu Carreno MD LAB BLOOD ORDERABLES Fin al Result [facility] [address] [place] [address], [place] [phone] * (ABNORMAL) Comprehensive metabolic panel (07/12/2025 5:56 AM EDT) Pathologist [facility] Sodium 140 133 - 145 mmol/L LAB [...] LAB CHEMISTRY METHOD 07/12/2025 11:28 AM EDT [facility] Total Protein 8.1(H) 6.0 - 8.0 g/dL LAB CHEMISTRY METHOD 07/12/2025 11:28 AM EDT [facility] Albumin 2.3(L) 3.2 - 5.0 g/dL LAB CHEMISTRY METHOD 07/12/2025 11:28 AM EDT [facility] Total Bilirubin 0.4 0.0 - 1.4 mg/dL LAB CHEMISTRY METHOD 07/12/2025 11:28 AM EDT [facility] Blood Venous blood specimen / Unknown Venipuncture / Unknown 07/12/2025 5:56 AM EDT 07/12/2025 9:03 AM EDT us Susu Carreno MD LAB BLOOD ORDERABLES Fin al Result [facility] [address] [place] [address], * (ABNORMAL) Complete blood count (07/12/2025 5:56 AM EDT) WBC 5.6 4.8 - 10.8 K/mcL LAB HEMETOLOGY METHOD 07/12/2025 10:25 AM T [facility] RBC 3.70(L) 3.80 - 4.80 M/mcL LAB HEMETOLOGY METHOD 07/12/2025 10:25 AM EDT [facility] Hemoglobin 9.9(L) 11.5 - 16.0 g/dL LAB HEMETOLOGY METHOD 07/12/2025 10:25 AM EDT [facility] Hematocrit 32.6(L) 35.0 - 47.0 % LAB HEMETOLOGY METHOD 07/12/2025 10:25 AM EDT [facility] MCV 88.8 79.0 - 98.0 FL LAB HEMETOLOGY METHOD 07/12/2025 10:25 AM EDT [facility] MCH 27.0 27.0 - 32.0 pcg LAB HEMETOLOGY METHOD 07/12/2025 10:25 AM EDT [facility] MCHC 30.4(L) 32.0 - 37.0 g/dL LAB HEMETOLOGY METHOD 07/12/2025 10:25 AM EDT [facility] RDW 17.2(H) 11.0 - 15.0 % LAB HEMETOLOGY METHOD 07/12/2025 10:25 AM EDT [facility] Platelets 278 130 - 400 K/mcL LAB HEMETOLOGY METHOD 07/12/2025 10:25 AM EDT [facility] MPV 8.9 7.0 - 11.0 FL LAB HEMETOLOGY METHOD 07/12/2025 10:25 AM EDT [facility] NRBC 0.0 <1.0 % LAB HEMETOLOGY METHOD 07/12/2025 10:25 AM EDT [facility] NRBC Absolute 0.00 <0.10 K/mcL LAB HEMETOLOGY METHOD 07/12/2025 10:25 AM T [facility] Blood Venous blood specimen / Unknown Venipuncture / Unknown 07/12/2025 5:56 AM EDT 07/12/2025 9:03 AM EDT us Susu Carreno MD LAB BLOOD ORDERABLES Fin al Result [facility] [address] [place] [address], documented in this encounter Visit Diagnoses Diagnosis Weakness Other malaise and fatigue Type 2 diabetes mellitus without complications (CMS/HCC V24, CMS/HCC V28) documented in this encounter Care Teams Clinical Transformation Specialist Relationship Specialty Start Date End Date Susu Carreno MD [address] [place] [phone] PCP - General Family Medicine 07/12/25 documented as of this encounter
--- OUTSIDE RECORDS SUMMARY | 2025-08-10 17:10 | XMS_ITS | Encounter Summary ---
Author Organization [facility] Address [address] [place] [address] Care Team Providers Care Associate Biological Sales Name Role Phone Susu Carreno MD Primary Care Provider + Encounter Details Date Type Department Care Team (Late st Contact Info) Description 07/16/2025 Lab Requisition [facility] - Main Lab 299 [facility] [place] [address] Susu Carreno MD 8[address] [facility] 1 [place], [place] [phone] Weakness; Type 2 diabetes mellitus without complications [...] mmol/L LAB CHEMISTRY METHOD 07/17/2025 10:35 AM [facility] Potassium 3.2(L) 3.5 - 5.5 mmol/L LAB CHEMISTRY METHOD 07/17/2025 10:35 AM [facility] Chloride 102 96 - 110 mmol/L LAB CHEMISTRY METHOD 07/17/2025 10:35 AM [facility] CO2 27 21 - 32 mmol/L LAB CHEMISTRY METHOD 07/17/2025 10:35 AM [facility] Anion Gap 8 3 - 11 LAB CHEMISTRY METHOD 07/17/2025 10:35 AM [facility] Glucose 105(H) 70 - 100 mg/dL LAB CHEMISTRY METHOD 07/17/2025 10:35 AM [facility] BUN 14 5 - 25 mg/dL LAB CHEMISTRY METHOD 07/17/2025 10:35 AM [facility] Creatinine 1.08 0.50 - 1.10 mg/dL LAB CHEMISTRY METHOD 07/17/2025 10:35 AM [facility] eGFR 53(L) >=60 mL/min/1. 73m2 LAB CHEMISTRY METHOD 07/17/2025 10:35 AM [facility] Comment:Calculation based on the Chronic Kidney Disease Epidemiology Collaboration (CKD-EPI) equation refit without adjustment for race. BUN/Creatinine Ratio 13.0 LAB CHEMISTRY METHOD 07/17/2025 10:35 AM [facility] Calcium 8.3(L) 8.5 - 10.5 mg/dL LAB CHEMISTRY METHOD 07/17/2025 10:35 AM [facility] Blood Venous blood specimen / Unknown Venipuncture / Unknown 07/17/2025 7:28 AM EDT 07/17/2025 9:49 AM EDT Susu Carreno MD LAB BLOOD ORDERABLES Fin al Result [facility] [address] [place] [address], * (ABNORMAL) Complete blood count (07/17/2025 7:28 AM EDT) [facility] Signature WBC 5.9 4.8 - 10.8 K/mcL LAB HEMETOLOGY METHOD 07/17/2025 10:36 AM EDT [facility] RBC 4.00 3.80 - 4.80 M/mcL LAB HEMETOLOGY METHOD 07/17/2025 10:36 AM EDT [facility] Hemoglobin 10.6(L) 11.5 - 16.0 g/dL LAB HEMETOLOGY METHOD 07/17/2025 10:36 AM EDT [facility] Hematocrit 35.0 35.0 - 47.0 % LAB HEMETOLOGY METHOD 07/17/2025 10:36 AM EDT [facility] MCV 87.9 79.0 - 98.0 FL LAB HEMETOLOGY METHOD 07/17/2025 10:36 AM EDT [facility] MCH 26.6(L) 27.0 - 32.0 pcg LAB HEMETOLOGY METHOD 07/17/2025 10:36 AM EDT [facility] MCHC 30.3(L) 32.0 - 37.0 g/dL LAB HEMETOLOGY METHOD 07/17/2025 10:36 AM EDT [facility] RDW 16.3(H) 11.0 - 15.0 % LAB HEMETOLOGY METHOD 07/17/2025 10:36 AM EDT [facility] Platelets 474(H) 130 - 400 K/mcL LAB HEMETOLOGY METHOD 07/17/2025 10:36 AM EDT [facility] MPV 9.5 7.0 - 11.0 FL LAB HEMETOLOGY METHOD 07/17/2025 10:36 AM EDT [facility] NRBC 0.0 <1.0 % LAB HEMETOLOGY METHOD 07/17/2025 10:36 AM EDT [facility] NRBC Absolute 0.00 <0.10 K/mcL LAB HEMETOLOGY METHOD 07/17/2025 10:36 AM EDT [facility] Blood Venous blood specimen / Unknown Venipuncture / Unknown 07/17/2025 7:28 AM EDT 07/17/2025 9:50 AM EDT us Susu Carreno MD LAB BLOOD ORDERABLES Fin al Result [facility] [address] [place] [address], [place] [phone] documented in this encounter Visit Diagnoses Diagnosis Weakness Other malaise and fatigue Type 2 diabetes mellitus without complications (CMS/HCC V24, CMS/HCC V28) documented in this encounter Care Teams Associate Biological Sales Relationship Specialty Start Date End Date Susu Carreno MD [address] [place] [phone] PCP - General Family Medicine 07/12/25 documented as of this encounter
--- OUTSIDE RECORDS SUMMARY | 2025-08-10 17:10 | XMS_ITS | Patient Health Record ---
Author Organization [facility] Address [address] [place] [address] Care Team Providers Care Estimator Project Manager Name Role Phone Didier Reyna MD Primary Care Provider Minh Gongora Unavailable [phone] Reason For Referral No Information Medications Medication [...] Problem Acquired hammer toe of right foot (621612609667225 5) Other hammer toe(s) (acquired), right foot (M20.41) Active confirmed Problem Acquired hammer toe of left foot ([id number] 3) Other hammer toe(s) (acquired), left foot (M20.42) Active confirmed Problem Type II diabetes mellitus without complication (240070370) Type 2 diabetes mellitus without complications (E11.9) Active confirmed Plan Of Treatment No Information Insurance Providers Payer Name Payer Address Payer Phone Subscriber Number Group Number Insured Name Patient Relationship to Insured Coverage Start Date Coverage End Date [employer] Preferred [address] [place] [address] [phone] [id number] Marlen Cesar i Self - patient is the insured Medical (General) History Medical History History ICD Code High blood pressure Diabetic
--- OUTSIDE RECORDS SUMMARY | 2025-08-10 17:10 | XMS_ITS | Encounter Summary ---
Author Organization [facility] Address [address] [place] [address] Care Team Providers Care Distribution Systems Serviceperson Name Role Phone Susu Carreno MD Primary Care Provider + Encounter Details Date Type Department Care Team (Late st Contact Info) Description 07/21/[address] [facility] - Main Lab 299 [facility] [place] [address] Susu Carreno MD [address] [phone] Weakness; Type 2 diabetes mellitus without complications [...] V28) documented in this encounter Care Teams Distribution Systems Serviceperson Relationship Specialty Start Date End Date Susu Carreno MD [address] [place] [phone] PCP - General Family Medicine 07/12/25 documented as of this encounter
--- OUTSIDE RECORDS SUMMARY | 2025-08-10 17:10 | XMS_ITS | Encounter Summary ---
Author Organization [facility] Address [address] [place] [phone] Care Team Providers Care Packing Checker Name Role Phone Susu Carreno MD Primary Care Provider + Encounter Details Date Type Department Care Team (Late st Contact Info) Description 07/24/2025 Lab Requisition [facility] - Main Lab 299 [facility] [place] [address] Susu Carreno MD [address] [phone] Weakness; Type 2 diabetes mellitus without complications [...] V28) documented in this encounter Care Teams Packing Checker Relationship Specialty Start Date End Date Susu Carreno MD [address] [place] [phone] PCP - General Family Medicine 07/12/25 documented as of this encounter
--- OUTSIDE RECORDS SUMMARY | 2025-08-10 17:10 | XMS_ITS | Clinical Summary ---
Author Organization [address] Address [address] [place] [address] Phone Care Team Providers Care Asphalt Dauber Name Role Phone Susu Carreno MD Primary Care Provider + Encounters Date Type Department Care Team Description 07/31/2025 9:52 AM EST - 07/31/2025 11:59 PM EST Hospital Encounter [facility] PET Scan [address] [place] [phone] Multiple myeloma, remission status unspecified ([facility] V24, [facility] V28) Discharge Disposition: Home or Self Care 07/24/2025 Lab Requisition [facility] [address] [place] [phone] Susu Carreno MD Weakness; Type 2 diabetes mellitus without complications ([facility] V24, [facility] V28) 07/21/2025 Lab Requisition [facility] [address] [place] [phone] Susu Carreno MD Weakness; Type 2 diabetes mellitus without complications ([facility] V24, [facility] V28) 07/19/2025 Lab Requisition [facility] [address] [place] [phone] Susu Carreno MD Multiple myeloma not having achieved remission ([facility] V24, [facility] V28) 07/16/2025 Lab Requisition [facility] [address] [place] [phone] Susu Carreno MD Weakness; Type 2 diabetes mellitus without complications ([facility] V24, [facility] V28) 07/12/2025 Lab Requisition [facility] [address] [place] [address] Susu Carreno MD Weakness; Type 2 diabetes mellitus without complications ([facility] V24, [facility] V28) from Last 3 Months Surgical History [...] 03/29/2018, 07/19/2013 Depression Screening 09/28/2024 COVID-19 Vaccine (2024- season) 2025 07/29/2024, 08/06/2023, 08/01/2022, Additional history [...] remission status unspecified (CMS/HCC V24, CMS/HCC V28) HI IMMUNOFIXATION ELECTROPHORESIS SERUM Routine 07/19/2025 5:28 AM [...] Signed Date: 08/01/2025 09:46 ET Workstation ID: [id number] Transcribed By: Self Edit Transcribed Date: 08/01/2025 [...] pathologic fracture. Compression fractures at T11 and [id number] significant increased activity. IMPRESSION: 1. Innumerable lytic [...] Signed Date: 08/01/2025 09:46 ET Workstation ID: [id number] Transcribed By: Self Edit Transcribed Date: 08/01/2025 08:09 ET us Nesha Gomez MD [facility] [place] Final Result * Pathologist Review Immunofixation (07/19/2025 5:28 AM EDT) Pathologist Interpretation Reviewed by Josette Munguia MD 07/20/2025 4:00 PM EDT [facility] Blood Venous blood specimen / Unknown 07/19/2025 5:28 AM EDT 07/20/2025 1:17 PM EDT Susu Carreno MD LAB BLOOD ORDERABLES Fin al Result Performing Organization Address City/[facility]/ZIP Co de Phone Number [facility] [address] [place] [address], [place] [phone] * SST tube (07/19/2025 5:28 AM EDT) Extra Tube Hold for add-ons. 07/19/2025 10:01 AM EDT [facility] Comment:Auto resulted. Blood Venous blood specimen / Unknown 07/19/2025 5:28 AM EDT 07/19/2025 8:55 AM EDT Susu Carreno MD LAB BLOOD ORDERABLES Fin al Result Performing Organization Address City/[facility]/ZIP Co de Phone Number [facility] [address] [place] [address], [place] [phone] * (ABNORMAL) [place]-lambda free light chains, quantitative (07/19/2025 5:28 AM EDT) [place] Free Light Chain 1.34 0.33 - 1.94 mg/dL 07/21/2025 11:38 AM EDT [facility] Lambda Free Light Chain 143.05(H) 0.57 - 2.63 mg/dL 07/21/2025 11:38 AM EDT [facility] [place]/Lambda FLC Ratio <0.01(L) 0.26 - 1.65 07/21/2025 11:38 AM EDT [facility] Comment: Test performed at [facility], [address] , [place] [address] Adele Luna MD, PhD - Manager Skilled Blood Venous blood specimen / Unknown Venipuncture / Unknown 07/19/2025 5:28 AM EDT 07/19/2025 8:52 AM EDT Susu Carreno MD LAB BLOOD ORDERABLES Fin al Result ALAN RENEE [address] [place] [address] * (ABNORMAL) CBC auto differential (07/19/2025 5:28 AM EDT) Pathologist [facility] WBC 5.7 4.8 - 10.8 K/mcL LAB HEMETOLOGY METHOD 07/19/2025 9:19 AM EDT [facility] RBC 3.80 3.80 - 4.80 [...] LAB Basophils Absolute 0.05 0.00 - 0.20 K/[facility] LAB HEMETOLOGY METHOD 07/19/2025 9:19 AM EDT [facility] Immature Granulocytes Absolute 0.02 0.00 - 0.03 K/[facility] LAB HEMETOLOGY METHOD 07/19/2025 9:19 AM EDT [facility] Blood Venous blood specimen / Unknown Venipuncture / Unknown 07/19/2025 5:28 AM EDT 07/19/2025 8:52 AM EDT Susu Carreno MD LAB BLOOD ORDERABLES Fin al Result Performing Organization Address [facility]/ZIP Co de Phone Number [facility] [address] [place] [address], [place] [phone] * Immunofixation electrophoresis serum (07/19/2025 5:28 AM EDT) Pathologist [facility] Immunofixation Result, Serum IgG Lambda monoclonal immunoglobulins detected. LAB CHEMISTRY METHOD 07/20/2025 4:00 PM EDT [facility] Blood Venous blood specimen / Unknown 07/19/2025 5:28 AM EDT 07/20/2025 1:17 PM EDT Susu Carreno MD LAB BLOOD ORDERABLES Fin al Result [facility] [address] [place] [address], [place] [phone] * (ABNORMAL) Immunoglobulins IgG, IgA, IgM (07/19/2025 5:28 AM EDT) Pathologist [facility] Total IgG 3,700(H) 549 - 1,584 mg/dL [...] ORDERABLES Fin al Result Performing Organization Address City/[facility]/ZIP Co de Phone Number [facility] [address] [place] [address], [place] [phone] * (ABNORMAL) Beta 2 microglobulin, serum (07/19/2025 5:28 AM EDT) Beta-2 Microglobulin 12.5(H) 0.7 - 1.8 mg/L LAB CHEMISTRY METHOD 07/19/2025 11:39 AM EDT [facility] Blood Venous blood specimen / Unknown Venipuncture / Unknown 07/19/2025 5:28 AM EDT 07/19/2025 8:52 AM EDT Susu Carreno MD LAB BLOOD ORDERABLES Fin al Result Performing Organization Address City/[facility]/ZIP Co de Phone Number [facility] [address] [place] [address], [place] [phone] * (ABNORMAL) Comprehensive metabolic panel (07/19/2025 5:28 [...] 11:39 AM EDT [facility] Albumin 2.7(L) 3.2 - 5.0 g/dL LAB CHEMISTRY METHOD 07/19/2025 11:39 AM EDT [facility] Total Bilirubin 0.4 0.0 - 1.4 mg/dL LAB CHEMISTRY METHOD 07/19/2025 11:39 AM T [facility] Blood Venous blood specimen / Unknown Venipuncture / Unknown 07/19/2025 5:28 AM EDT 07/19/2025 8:52 AM EDT us Susu Carreno MD LAB BLOOD ORDERABLES Fin al Result [facility] [address] [place] [address], [place] [phone] * (ABNORMAL) Complete blood count (07/17/2025 7:28 AM EDT) Only the most recent of2 resultswithin the time period is included. WBC 5.9 4.8 - 10.8 K/mcL LAB HEMETOLOGY METHOD 07/17/2025 10:36 AM [facility] RBC 4.00 3.80 - 4.80 M/mcL LAB HEMETOLOGY METHOD 07/17/2025 10:36 AM [facility] [...] LAB HEMETOLOGY METHOD 07/17/2025 10:36 AM EDT [facility] MCHC 30.3(L) 32.0 - 37.0 g/dL LAB HEMETOLOGY METHOD 07/17/2025 10:36 AM EDT [facility] RDW 16.3(H) 11.0 - 15.0 % LAB HEMETOLOGY METHOD 07/17/2025 10:36 AM EDT [facility] Platelets 474(H) 130 - 400 K/mcL LAB HEMETOLOGY METHOD 07/17/2025 10:36 AM EDT [facility] MPV 9.5 7.0 - 11.0 FL LAB HEMETOLOGY METHOD 07/17/2025 10:36 AM EDT [facility] NRBC 0.0 <1.0 % LAB HEMETOLOGY METHOD 07/17/2025 10:36 AM EDT [facility] NRBC Absolute 0.00 <0.10 K/mcL LAB HEMETOLOGY METHOD 07/17/2025 10:36 AM T [facility] Blood Venous blood specimen / Unknown Venipuncture / Unknown 07/17/2025 7:28 AM EDT 07/17/2025 9:50 AM EDT us Susu Carreno MD LAB BLOOD ORDERABLES Fin al Result [facility] [address] [place] [address], * (ABNORMAL) Basic metabolic panel (07/17/2025 7:28 AM EDT) Sodium 137 133 - 145 mmol/L LAB CHEMISTRY METHOD 07/17/2025 10:35 AM EDT [facility] Potassium 3.2(L) 3.5 - 5.5 mmol/L LAB CHEMISTRY METHOD 07/17/2025 10:35 AM EDT [facility] Chloride 102 96 - 110 [...] al Result [facility] [address] [place] [address], * Thyroid stimulating hormone with reflex to free t4 and free t3 (07/12/2025 5:56 AM EDT) TSH 0.54 0.40 - 4.00 mcIU/mL LAB CHEMISTRY METHOD 07/12/2025 11:58 AM EDT [facility] Blood Venous blood specimen / Unknown Venipuncture / Unknown 07/12/2025 5:56 AM EDT 07/12/2025 9:03 AM EDT Susu Carreno MD LAB BLOOD ORDERABLES Fin al Result Performing Organization Address [facility]/ZIP Co de Phone Number [facility] [address] [place] [address], [place] [phone] * Hemoglobin A1c (07/12/2025 5:56 AM EDT) Pathologist [facility] Hemoglobin A1C 6.0 <6.5 % LAB CHEMISTRY METHOD 07/12/2025 1:10 PM EDT [facility] Mean Bld Glu Estim. 126 mg/dL LAB CHEMISTRY METHOD 07/12/2025 1:10 PM EDT [facility] Blood Venous blood specimen / Unknown Venipuncture / Unknown 07/12/2025 5:56 AM EDT 07/12/2025 9:03 AM EDT Susu Carreno MD LAB BLOOD ORDERABLES Fin al Result Performing Organization Address [facility]/ZIP Co de Phone Number [facility] [address] [place] [address], [place] [phone] * (ABNORMAL) Folate (07/12/2025 5:56 AM EDT) Pathologist [facility] Folate >20.0(H) 2.8 - 17.0 ng/ml LAB CHEMISTRY METHOD 07/12/2025 11:28 AM EDT [facility] Blood Venous blood specimen / Unknown Venipuncture / Unknown 07/12/2025 5:56 AM EDT 07/12/2025 9:03 AM EDT us Susu Carreno MD LAB BLOOD ORDERABLES Fin al Result Performing Organization Address City/[facility]/ZIP Co de Phone Number [facility] [address] [place] [address], [place] [phone] * Vitamin B12 (07/12/2025 5:56 AM EDT) Vitamin B-12 580 250 - 900 pcg/mL LAB CHEMISTRY METHOD 07/12/2025 11:28 AM EDT [facility] Blood Venous blood specimen / Unknown Venipuncture / Unknown 07/12/2025 5:56 AM EDT 07/12/2025 9:03 AM EDT Susu Carreno MD LAB BLOOD ORDERABLES Fin al Result Performing Organization Address City/[facility] Co de Phone Number [facility] [address] [place] [address], [place] [phone] from Last [address] [place] [place] [address] PLAN Care Teams Asphalt Dauber Relationship Specialty Start Date End Date Susu Carreno MD [address] [place] [id number] PCP - General Family Medicine 07/12/25
--- NOTE | 2025-08-11 14:09 | HO.ANESPROP2 ---
Documented by User: Kendra Duarte NP 08/11/25 14:10 HPI - Anesthesia Eval Consult details Narrative: 80 yr old female for fine needle biopsy CT guided Newly diagnosed Multiple myeloma (Jun 2025) [facility] Active Problems Active Problems: All Active Problems Vitamin D deficiency (Acute) Multiple myeloma (Acute) Monoclonal gammopathies (Acute) Anemia (Acute) Hyperparathyroidism (Acute) Hypercalcemia (Acute) Past Medical History Medical History History of high cholesterol Hx of type 2 diabetes mellitus Hx of acute arthritis Hx of essential hypertension Family History Family History Father HTN (hypertension) Myocardial disease Diabetes mellitus Hypercholesteremia Mother Diabetes mellitus Family history of breast cancer Surgical History Surgical History No pertinent past surgical history Social History Social History Household Members: Spouse Housing: House Are you a primary respiratory care program director to a significant other at home: No Do you presently have visiting nurse or other home services: No Alcohol intake: current Alcohol intake frequency: does not drink Patient Tobacco Use Status: Former Tobacco user Second Hand Smoke Exposure: No Have you been hit, kicked, punched, or otherwise hurt by someone within the past year? If so, by whom?: No Are you DNR?: No Advance Directives: No Advance Directives Information Provided: Yes service: No Current occupational status: retired [employer] Allergies Allergy/AdvReac Type Severity Reaction Status Date / Time No Known Allergies Allergy Verified 08/15/25 13:15 Home Medications ?Medication ?Instructions ?Recorded ?Confirmed ?Last Taken ?Type simvastatin 10 mg tablet 10 mg PO BEDTIME 06/27/25 08/15/25 08/08/25 History magnesium oxide 400 mg PO DAILY 06/30/25 08/15/25 08/15/25 History vitamins A,C,J-ijhs-rnjuqr 4,296 1 cap PO BID 06/30/25 08/15/25 08/09/25 History mcg-226 mg-90 mg capsule (PreserVision AREDS) acetaminophen 650 mg 650 mg PO Q8H PRN Pain 07/06/25 08/15/25 Unknown History tablet,extended release aspirin 81 mg tablet,delayed 81 mg PO DAILY 07/06/25 08/15/25 08/14/25 History release cetirizine 10 mg tablet 5 mg PO DAILY 07/06/25 08/15/25 08/15/25 History ferrous sulfate 325 mg (65 mg 325 mg PO DAILY 07/06/25 08/15/25 08/15/25 History iron) tablet multivitamin 1 tab PO DAILY 07/06/25 08/15/25 08/09/25 History amlodipine 2.5 mg tablet 2.5 mg PO DAILY 08/15/25 08/15/25 Unknown History metformin 1,000 mg tablet 1,000 mg PO BID 08/15/25 08/15/25 Unknown History Documented by User: Leigh Doyle MD 08/15/25 14:14 PMFSH Past Medical History Medical History History of high cholesterol Hx of type 2 diabetes mellitus Hx of acute arthritis Hx of essential hypertension Family History Family History Father HTN (hypertension) Myocardial disease Diabetes mellitus Hypercholesteremia Mother Diabetes mellitus Family history of breast cancer Family history of problems with anesthesia: No Surgical History Surgical History No pertinent past surgical history History of Problems with Anesthesia: No Social History Social History Household Members: Spouse Housing: House Are you a primary respiratory care program director to a significant other at home: No Do you presently have visiting nurse or other home services: No Alcohol intake: current Alcohol intake frequency: does not drink Patient Tobacco Use Status: Former Tobacco user Second Hand Smoke Exposure: No Have you been hit, kicked, punched, or otherwise hurt by someone within the past year? If so, by whom?: No Are you DNR?: No Advance Directives: No Advance Directives Information Provided: Yes service: No Current occupational status: retired Meds Allergies Allergy/AdvReac Type Severity Reaction Status Date / Time No Known Allergies Allergy Verified 08/15/25 13:15 Home Medications ?Medication ?Instructions ?Recorded ?Confirmed ?Last Taken ?Type simvastatin 10 mg tablet 10 mg PO BEDTIME 06/27/25 08/15/25 08/08/25 History magnesium oxide 400 mg PO DAILY 06/30/25 08/15/25 08/15/25 History vitamins A,C,L-yjjp-rgoucr 4,296 1 cap PO BID 06/30/25 08/15/25 08/09/25 History mcg-226 mg-90 mg capsule (PreserVision AREDS) acetaminophen 650 mg 650 mg PO Q8H PRN Pain 07/06/25 08/15/25 Unknown History tablet,extended release aspirin 81 mg tablet,delayed 81 mg PO DAILY 07/06/25 08/15/25 08/14/25 History release cetirizine 10 mg tablet 5 mg PO DAILY 07/06/25 08/15/25 08/15/25 History ferrous sulfate 325 mg (65 mg 325 mg PO DAILY 07/06/25 08/15/25 08/15/25 History iron) tablet multivitamin 1 tab PO DAILY 07/06/25 08/15/25 08/09/25 History amlodipine 2.5 mg tablet 2.5 mg PO DAILY 08/15/25 08/15/25 Unknown History metformin 1,000 mg tablet 1,000 mg PO BID 08/15/25 08/15/25 Unknown History Exam Airway Mallampati Class: II TM Dist: >3cm Neck ROM: Poor Heart: rrr Lungs: cta Assessment and Plan Assessment Anesthesia Assessment: Anesthesia Plan Discussed and Chart Reviewed Final Anesthetic Review Family History of Problems with Anesthesia: No History of Problems with Anesthesia: No NPO: Yes ASA Class: III Final Preanesthetic Review: No Changes in Pt Med Stat, Meds/Allgs Chart Reviewed, Consent Obtained/Reviewed and Anes Risks/Benef Reviewed Patient Risk: Intermediate Procedure Risk: Low Anesthetic Plan Anesthetic Plan: MAC: and Agree w/ Assess. and Plan Disposition: Standard PACU
[2025-08-15] VITALS (9 sets, daily range): BP systolic 113–149; BP diastolic 42–97; PULSE 71–93; RESP 12–18; TEMP 36.6–37.1; O2SAT 95–97; BMI 20.1
--- NOTE | ~2025-08-15 | CT_ITS ---
EXAMINATION: CT-guided bone marrow biopsy left iliac crest. CLINICAL INDICATIONS: Multiple myeloma. TECHNIQUE: Following explaining CT fluoroscopy guided iliac crest bone marrow biopsy procedure, benefits and risk, a written consent was obtained from the patient. Anesthesia consent was obtained separately. Patient was placed prone on CT fluoroscopy table and preliminary CT imaging was obtained through the posterior pelvis. Markers were placed on the posterior pelvis and imaging performed. An optimal marker was selected and marked on the skin. The marked site was cleaned and draped in usual sterile manner. 1% lidocaine was injected puncture site. Through a small skin incision a 11 guide needle was advanced from the skin to the posterior cortex of the left posterior iliac crest. A drill was utilized and needle advanced through the cortex into the bone marrow. The stylet was withdrawn and bone marrow was aspirated approximately 15 mL of blood was collected and sent to lab in test tubes as required. Subsequently a core biopsy was performed x2 coaxially. Minimal bleeding was visualized but subsided immediately. After removing the needle complete hemostasis achieved at puncture site. Sterile dressing applied post procedure. Patient tolerated procedure extremely well. Please note patient was anesthetized by anesthesia department. FINDINGS: On preliminary CT imaging there is colonic diverticulosis without diverticulitis. There is moderate size cyst in the splenorenal renal fossa but its exact origin not known. A 3 pass core biopsy of left posterior iliac crest bone marrow was performed under CT fluoroscopy guidance. CT/CT biopsy asp core bone marrow IMPRESSION: Successful CT fluoroscopy guided left posterior iliac crest bone marrow biopsy was performed. Electronically signed by: Carlos Stevenson MD 08/15/2025 03:50 PM [facility]
[2025-08-15 12:54] LABS: MANUAL DIFF FLAG NO
[2025-08-15 12:58] LABS: Hematocrit 32.4 % (37.0-47.0); Hemoglobin 10.0 g/dl (12.0-16.0); Imm Gran Abs Auto 0.02 X10*3/uL (0.00-0.03); Imm Gran Pct Auto 0.3 % (0.0-0.4); Lymphocytes Absolute Auto 1.9 X10*3/uL (1.2-4.9); Mean Corpuscular HGB Conc 30.9 g/dl (31.0-35.0); Mean Corpuscular Hemoglobin 27.1 pg (27.0-33.0); Mean Corpuscular Volume 87.8 fL (80.0-98.0); NRBC Abs Auto 0.000 X10*3/uL (0.0-0.012); NRBC Pct Auto 0.0 /100WBC (0.0-0.2); Platelet Count 386 X10*3/uL (160-400); Red Blood Count 3.69 X10*6/uL (4.20-5.50); White Blood Count 6.1 X10*3/uL (4.8-10.8)
[2025-08-15] MEDS: Lactated Ringers 1,000 ML 50 ML IVCONT (13:08)
[2025-08-15 13:13] LABS: Alanine Aminotransferase < 6 U/L (0-31); Albumin Level 3.7 g/dL (3.5-5.0); Alkaline Phosphatase 91 U/L (39-117); Anion Gap 13 (12-20); Aspartate Amino Transferase 32 U/L (5-31); Blood Urea Nitrogen 26 mg/dL (9-16); Calcium 10.2 mg/dL (8.4-10.2); Carbon Dioxide 28 mmol/L (22-29); Chloride 98 mmol/L (96-108); Creatinine Clr Calc Pharmacy 30.3; Estimated Glomerular Filt Rate 40; Potassium 4.6 mmol/L (3.3-5.1); Sodium 134 mmol/L (135-145); Total Protein 10.5 g/dL (6.5-8.0)
--- NOTE | 2025-08-15 14:01 | PC.NURSE ---
dr. raymond aware that patient took asa 81 mg yesterday okay to proceed. dr. raymond also updated by nayely biggs rn via tiger text that dr. chinchilla ordered labs today and results were available. dr. raymond at bedside receiving consent now.
[2025-08-16 13:58] LABS: Kappa/Lambda Lt Ch Free Ratio 0.01 (0.26-1.65)
--- OUTSIDE RECORDS SUMMARY | 2025-09-17 19:00 | XMS_ITS | Clinical Summary ---
Author Organization Unknown Care Team Providers Care Technology Officer Name Role Phone ASHWINI OTHER, SADIA Unavailable Unavailab ruth FERNANDO RN, RUPALI Unavailable Unavailab ruth HANLEY LPN, DIMPLE Unavailable Unavailable TEMI PT, RADHA Unavailable Unavailable DIALLO PARTITION MAKING MACHINE OPERATOR, RANDOLPH Unavailable Unavailable READING OT, GRACIA Unavailable Unavailable CONDINO EGG PROCESSING SUPERVISOR/HIGUERA, NASH Unavailable Unav ailable Payers Payer Name Policy Type Policy Number Effective Date Expira tion Date [id number] Problems Condition Name Condition Details Condition Category [...] 40 mg tablet 2024-09 00:00: 00 Yes [id number] FLUID RETENTION 1 tablet 2 TIMES DAILY 1 tablet 2 TIMES DAILY (route: oral) Med Classific ation: Cardiovas cular Therapy Agents FeroSul 325 mg (65 mg iron) tablet 2024-09 0- 00:00: 00 Yes [id number] SUPPLEMENT 1 tablet DAILY 1 tablet DAILY (route: oral) Med Classific ation: Electroly te Balance-N utritiona l Products simvastatin 10 mg tablet 06-22 00:00: 00 Yes [id number] HIGH CHOLESTEROL 1 tablet DAILY 1 tablet DAILY (route: oral) Med Classific ation: Cardiovas cular Therapy Agents acetaminoph en 325 mg tablet 2024-09 00:00: 00 Yes [id number] PAIN 2 tablet EVERY 4 HOURS 2 tablet EVERY 4 HOURS (route: oral) Med Classific ation: Analgesic , Anti-infl ammatory or Antipyret ic aspirin 81 mg tablet 2024-09 00:00: 00 Yes [id number] ANTIPLATELE T 1 tablet DAILY 1 tablet DAILY (route: oral) Med Classific ation: Hematolog ical Agents magnesium oxide 400 mg (241.3 mg magnesium) tablet 2024-09 00:00: 00 Yes [id number] SUPPLEMENT 1 tablet DAILY 1 tablet DAILY (route: oral) Med Classific ation: Electroly te Balance-N utritiona l Products melatonin 3 mg capsule 2024-09 00:00: 00 Yes [id number] SLEEP 1 capsule BEDTIME 1 capsule BEDTIME (route: oral) Med Classific ation: Central Nervous System Agents Multivitami n 50 Plus tablet 2024-09 00:00: 00 Yes [id number] SUPPLEMENT 1 tablet DAILY 1 tablet DAILY (route: oral) Med Classific ation: Electroly te Balance-N utritiona l Products PreserVisio n AREDS 2 CO Q-10 250 mg-90 mg-40 mg-1 mg-5 mg capsule 2024-09 00:00: 00 Yes [id number] SUPPLEMENT 1 capsule DAILY 1 capsule DAILY (route: oral) Med Classific ation: Electroly te Balance-N utritiona l Products Zyrtec 10 mg capsule 2024-09 00:00: 00 Yes [id number] ALLERGIES 1 capsule DAILY 1 capsule DAILY (route: oral) Med Classific ation: Respirato ry Therapy Agents Vital Signs Vital Name Observation Time Observation Value Commen ts Temperature 2025-08-08 10:06:00.000 98.2 [degF] Temperature 2025-08-04 09:59:00.000 97.5 [degF] Temperature 2025-08-01 11:33:00.000 97 [degF] Temperature 2025-07-26 08:27:00.000 97.7 [degF] Temperature 2025-07-25 10:59:00.000 97.5 [degF] Temperature 2025-07-21 10:18:00.000 98.7 [degF] BMI (%) 2025-07-21 10:03:12.000 18 kg/m2 Height 2025-07-21 10:03:07.000 64 [in_us] Pulse 2025-08-08 10:06:00.000 72 /min Pulse 2025-08-04 09:59:00.000 78 /min Pulse 2025-08-01 11:33:00.000 80 /min Pulse 2025-07-26 08:27:00.000 80 /min Pulse 2025-07-25 10:59:00.000 81 /min Pulse 2025-07-21 10:18:00.000 86 /min O2 Saturation (%) 2025-08-04 09:59:00.000 98 % O2 Saturation (%) 2025-07-26 08:27:00.000 99 % O2 Saturation (%) 2025-07-25 10:59:00.000 99 % O2 Saturation (%) 2025-07-21 10:18:00.000 96 % Respirations 2025-08-08 10:06:00.000 18 /min Respirations 2025-08-04 09:59:00.000 18 /min Respirations 2025-08-01 11:33:00.000 18 /min Respirations 2025-07-26 08:27:00.000 18 /min Respirations 2025-07-25 10:59:00.000 18 /min Respirations 2025-07-21 10:18:00.000 17 /min Weight (lbs) 2025-07-21 10:03:12.000 109 [lb_av] Systolic Blood Pressure 2025-08-08 10:06:00.000 142 mm [Hg] Systolic Blood Pressure 2025-08-04 09:59:00.000 140 mm [Hg] Systolic Blood Pressure 2025-08-01 11:33:00.000 122 mm [Hg] Systolic Blood Pressure 2025-07-26 08:27:00.000 132 mm [Hg] Systolic Blood Pressure 2025-07-25 10:59:00.000 118 mm [Hg] Systolic Blood Pressure 2025-07-21 10:18:00.000 114 mm [Hg] Diastolic Blood Pressure 2025-08-08 10:06:00.000 [...] TION MANAGEMENT; RN TO ASSESS AND OBSERVE, HEAD OF BIOLOGY/PHOTOGRAPHER AERIAL TO OBSERVE FALL RISK FACTORS AND EDUCATE PATIENT/CAREGIVER ON STRATEGIES TO MINIMIZE THE RISK OF FALLING. [code = FALL REDUCTION MANAGEMENT; RN TO ASSESS AND OBSERVE, HEAD OF BIOLOGY/PHOTOGRAPHER AERIAL TO OBSERVE FALL RISK FACTORS AND EDUCATE PATIENT/CAREGIVER ON STRATEGIES TO MINIMIZE THE RISK OF FALLING.] Future Scheduled Test GENITOURIN JULIETTE MANAGEMENT; RN TO ASSESS AND TEACH, HEAD OF BIOLOGY/PHOTOGRAPHER AERIAL TO OBSERVE AND TEACH RELATED TO ALTERED GENITOURINARY STATUS TO MINIMIZE COMPLICATIONS AND REDUCE HOSPITALIZATION. [code = GENITOURINARY MANAGEMENT; RN TO ASSESS AND TEACH, HEAD OF BIOLOGY/PHOTOGRAPHER AERIAL TO OBSERVE AND TEACH RELATED TO ALTERED GENITOURINARY STATUS TO MINIMIZE COMPLICATIONS AND REDUCE HOSPITALIZATION.] Future Scheduled Test ANEMIA MAN AGEMENT; RN TO ASSESS AND TEACH, PHOTOGRAPHER AERIAL/HEAD OF BIOLOGY TO OBSERVE AND TEACH AND PROVIDE EDUCATION ON ANEMIA. [code = ANEMIA MANAGEMENT; RN TO ASSESS AND TEACH, PHOTOGRAPHER AERIAL/HEAD OF BIOLOGY TO OBSERVE AND TEACH AND PROVIDE EDUCATION ON ANEMIA.] Future Scheduled Test RN TO OBSE RVE, ASSESS, EVALUATE, AND DEVELOP AN INDIVIDUALIZED PLAN OF CARE. AGENCY MAY ACCEPT ORDERS FROM CONSULTING PHYSICIANS. RN TO OBSERVE AND ASSESS, HEAD OF BIOLOGY/PHOTOGRAPHER AERIAL TO OBSERVE FOR RISK FOR FALLS AND INSTRUCT IN FALL PREVENTION, HOME SAFETY, MEDICATION MANAGEMENT, INFECTION PREVENTION, AND NUTRITION MANAGEMENT. RN/HEAD OF BIOLOGY/PHOTOGRAPHER AERIAL NURSE MAY PERFORM O2 SATURATION LEVEL ON ADMISSION AND PRN FOR RN TO ASSESS/HEAD OF BIOLOGY TO OBSERVE PATIENT, WITH NOTIFICATION TO THE PHYSICIAN IF SATURATION IS 90% IN THE ABSENCE OF MORE SPECIFIC PARAMETERS FROM THE PHYSICIAN. AGENCY MAY PERFORM A RESUMPTION OF CARE VISIT FOLLOWING ANY HOSPITAL ADMISSION. RN/HEAD OF BIOLOGY/PHOTOGRAPHER AERIAL TO MONITOR CO-MORBID CONDITIONS LISTED ON THE PLAN OF CARE AND ANY NEW CONDITIONS THAT PRESENT THEMSELVES DURING THIS EPISODE TO IDENTIFY CHANGES AND INTERVENE TO MINIMIZE COMPLICATIONS. [code = RN TO OBSERVE, ASSESS, EVALUATE, AND DEVELOP AN INDIVIDUALIZED PLAN OF CARE. AGENCY MAY ACCEPT ORDERS FROM CONSULTING PHYSICIANS. RN TO OBSERVE AND ASSESS, HEAD OF BIOLOGY/PHOTOGRAPHER AERIAL TO OBSERVE FOR RISK FOR FALLS AND INSTRUCT IN FALL PREVENTION, HOME SAFETY, MEDICATION MANAGEMENT, INFECTION PREVENTION, AND NUTRITION MANAGEMENT. RN/HEAD OF BIOLOGY/PHOTOGRAPHER AERIAL NURSE MAY PERFORM O2 SATURATION LEVEL ON ADMISSION AND PRN FOR RN TO ASSESS/HEAD OF BIOLOGY TO OBSERVE PATIENT, WITH NOTIFICATION TO THE PHYSICIAN IF SATURATION IS 90% IN THE ABSENCE OF MORE SPECIFIC PARAMETERS FROM THE PHYSICIAN. AGENCY MAY PERFORM A RESUMPTION OF CARE VISIT FOLLOWING ANY HOSPITAL ADMISSION. RN/HEAD OF BIOLOGY/PHOTOGRAPHER AERIAL TO MONITOR CO-MORBID CONDITIONS LISTED ON THE PLAN OF CARE AND ANY NEW CONDITIONS THAT PRESENT THEMSELVES DURING THIS EPISODE TO IDENTIFY CHANGES AND INTERVENE TO MINIMIZE COMPLICATIONS.] Future Scheduled Test PAIN MANAG EMENT; RN TO ASSESS AND TEACH, PHOTOGRAPHER AERIAL/HEAD OF BIOLOGY TO OBSERVE AND TEACH AND PROVIDE EDUCATION ON PAIN MANAGEMENT TECHNIQUES. [code = PAIN MANAGEMENT; RN TO ASSESS AND TEACH, PHOTOGRAPHER AERIAL/HEAD OF BIOLOGY TO OBSERVE AND TEACH AND PROVIDE EDUCATION ON PAIN MANAGEMENT TECHNIQUES.] Future Scheduled Test RISK FOR H OSPITALIZATION; RN TO ASSESS/TEACH, PHOTOGRAPHER AERIAL/HEAD OF BIOLOGY TO OBSERVE/TEACH PATIENT/CAREGIVER ON RISK FOR HOSPITALIZATION/EMERGENCY ROOM VISITS, TEACH SIGNS AND SYMPTOMS THAT PUT PATIENT AT RISK, WHEN TO NOTIFY NURSE/PHYSICIAN OF COMPLICATIONS/DECLINE, AND WHEN TO CALL 911. [code = RISK FOR HOSPITALIZATION; RN TO ASSESS/TEACH, PHOTOGRAPHER AERIAL/HEAD OF BIOLOGY TO OBSERVE/TEACH PATIENT/CAREGIVER ON RISK FOR HOSPITALIZATION/EMERGENCY ROOM VISITS, TEACH SIGNS AND SYMPTOMS THAT PUT PATIENT AT RISK, WHEN TO NOTIFY NURSE/PHYSICIAN OF COMPLICATIONS/DECLINE, AND WHEN TO CALL 911.] Future Scheduled Test MEDICATION MANAGEMENT; RN/HEAD OF BIOLOGY/PHOTOGRAPHER AERIAL TO REVIEW MEDICATIONS FOR INTERACTIONS, EFFECTIVENESS OF DRUG THERAPY, AND SIGNS/SYMPTOMS OF ADVERSE REACTIONS. MAY INSTRUCT AND REINFORCE MEDICATION TEACHING RELATED TO THE USE OF MEDICATIONS, DOSAGE, FREQUENCY, PURPOSE, SIDE EFFECTS, AND TO REPORT COMPLICATIONS. [code = MEDICATION MANAGEMENT; RN/HEAD OF BIOLOGY/PHOTOGRAPHER AERIAL TO REVIEW MEDICATIONS FOR INTERACTIONS, EFFECTIVENESS OF DRUG THERAPY, AND SIGNS/SYMPTOMS OF ADVERSE REACTIONS. MAY INSTRUCT AND REINFORCE MEDICATION TEACHING RELATED TO THE USE OF MEDICATIONS, DOSAGE, FREQUENCY, PURPOSE, SIDE EFFECTS, AND TO REPORT COMPLICATIONS.] Future Scheduled Test RN TO ASSE SS, OBSERVE, AND EDUCATE; HEAD OF BIOLOGY/PHOTOGRAPHER AERIAL TO OBSERVE AND REINFORCE EDUCATION ON ELECTROLYTE IMBALANCES INCLUDING STRATEGIES TO MINIMIZE THE RISK OF HOSPITALIZATION. [code = RN TO ASSESS, OBSERVE, AND EDUCATE; HEAD OF BIOLOGY/PHOTOGRAPHER AERIAL TO OBSERVE AND REINFORCE EDUCATION ON ELECTROLYTE IMBALANCES INCLUDING STRATEGIES TO MINIMIZE THE RISK OF HOSPITALIZATION.] Future Scheduled Test AGENCY MAY PERFORM A RESUMPTION OF CARE VISIT FOLLOWING ANY HOSPITAL ADMISSION. OT TO EVALUATE, OBSERVE / ASSESS, AND MONITOR, EGG PROCESSING SUPERVISOR TO OBSERVE AND MONITOR, PROVIDE SKILLED THERAPEUTIC INTERVENTION, ACTIVITY, EDUCATION, AND TRAINING TO ADDRESS; ACTIVITIES OF DAILY LIVING (OT/EGG PROCESSING SUPERVISOR) MEAL PREPARATION AND CLEANUP (OT/EGG PROCESSING SUPERVISOR) CHAIR TRANSFERS (OT/ANUPAM) TOILET TRANSFER (OT/ANUPAM) BATH/SHOWER TRANSFER (OT/ANUPAM) CAR TRANSFER (OT/ANUPAM) HOME ACTIVITY / EXERCISE PROGRAM (OT/ANUPAM) POSTURAL CONTROL/BALANCE (OT/EGG PROCESSING SUPERVISOR) THERAPEUTIC EXERCISE (OT/EGG PROCESSING SUPERVISOR) OT/ANUPAM TO MONITOR AND EDUCATE ON OXYGEN SATURATION DURING ADLS/IADLS, NOTIFY PHYSICIAN AND/OR THE RN CLINICAL TOOLROOM HELPER FOR PHYSICIAN NOTIFICATION AND IF O2 SATS BELOW 90% AFTER 10 MIN OF REST. OT/ANUPAM MAY EDUCATE ON PAIN MANAGEMENT CLINICALLY INDICATED. [code = AGENCY MAY PERFORM A RESUMPTION OF CARE VISIT FOLLOWING ANY HOSPITAL ADMISSION. OT TO EVALUATE, OBSERVE / ASSESS, AND MONITOR, EGG PROCESSING SUPERVISOR TO OBSERVE AND MONITOR, PROVIDE SKILLED THERAPEUTIC INTERVENTION, ACTIVITY, EDUCATION, AND TRAINING TO ADDRESS; ACTIVITIES OF DAILY LIVING (OT/EGG PROCESSING SUPERVISOR) MEAL PREPARATION AND CLEANUP (OT/ANUPAM) CHAIR TRANSFERS (OT/EGG PROCESSING SUPERVISOR) TOILET TRANSFER (OT/ANUPAM) BATH/SHOWER TRANSFER (OT/EGG PROCESSING SUPERVISOR) CAR TRANSFER (OT/ANUPAM) HOME ACTIVITY / EXERCISE PROGRAM (OT/EGG PROCESSING SUPERVISOR) POSTURAL CONTROL/BALANCE (OT/EGG PROCESSING SUPERVISOR) THERAPEUTIC EXERCISE (OT/ANUPAM) OT/EGG PROCESSING SUPERVISOR TO MONITOR AND EDUCATE ON OXYGEN SATURATION DURING ADLS/IADLS, NOTIFY PHYSICIAN AND/OR THE RN CLINICAL TOOLROOM HELPER FOR PHYSICIAN NOTIFICATION AND IF O2 SATS BELOW 90% AFTER 10 MIN OF REST. OT/EGG PROCESSING SUPERVISOR MAY EDUCATE ON PAIN MANAGEMENT CLINICALLY INDICATED.] Future Scheduled Test AGENCY MAY PERFORM A RESUMPTION OF CARE VISIT FOLLOWING ANY HOSPITAL ADMISSION. PT TO EVALUATE, OBSERVE / ASSESS, AND MONITOR, PARTITION MAKING MACHINE OPERATOR TO OBSERVE AND MONITOR, PROVIDE SKILLED THERAPEUTIC INTERVENTION, ACTIVITY, EDUCATION, AND TRAINING TO ADDRESS; PT/PARTITION MAKING MACHINE OPERATOR TO PROVIDE GAIT TRAINING FOR IMPROVED MOBILITY AND /OR TO NORMALIZE GAIT PATTERN NEUROMUSCULAR RE-EDUCATION / BALANCE / POSTURAL CONTROL (PT) THERAPEUTIC EXERCISES AND ESTABLISHING A HOME EXERCISE PROGRAM (PT/PARTITION MAKING MACHINE OPERATOR) PT/PARTITION MAKING MACHINE OPERATOR TO PROVIDE STAIR TRAINING SIT TO/FROM STAND TRANSFERS (PT/PARTITION MAKING MACHINE OPERATOR) PT / PARTITION MAKING MACHINE OPERATOR TO MONITOR AND EDUCATE ON OXYGEN SATURATION DURING ADLS/IADLS, NOTIFY PHYSICIAN AND/OR THE RN CLINICAL TOOLROOM HELPER FOR PHYSICIAN NOTIFICATION AND IF O2 SATS BELOW PHYSICIAN ORDERED PARAMETERS AFTER 10 MIN OF REST PT / PARTITION MAKING MACHINE OPERATOR TO MONITOR FOR HYPO/HYPERGLYCEMIA AND CONDUCT ROUTINE FOOT INSPECTIONS. RECORD PATIENT REPORTED BLOOD SUGAR LEVELS AND NOTIFY PHYSICIAN AND/OR THE RN CLINICAL TOOLROOM HELPER FOR PHYSICIAN NOTIFICATION IF BLOOD SUGAR LEVELS ARE OUTSIDE ORDERED PARAMETERS. TEACH PATIENT/CAREGIVER ON DAILY FOOT INSPECTIONS PT/PARTITION MAKING MACHINE OPERATOR TO IDENTIFY FALL RISK FACTORS; EDUCATE THE PATIENT/CAREGIVER ON WAYS TO REDUCE FALL RISK FACTORS AND ESTABLISH HOME EXERCISE PROGRAM TO MINIMIZE FALL RISK. MAY TEACH THE PATIENT FLOOR RECOVERY WHEN CLINICALLY APPROPRIATE PT / PARTITION MAKING MACHINE OPERATOR MAY EDUCATE ON PAIN MANAGEMENT CLINICALLY INDICATED, INCLUDING NON-PHARMACOLOGICAL PAIN REDUCTION TECHNIQUES [code = AGENCY MAY PERFORM A RESUMPTION OF CARE VISIT FOLLOWING ANY HOSPITAL ADMISSION. PT TO EVALUATE, OBSERVE / ASSESS, AND MONITOR, PARTITION MAKING MACHINE OPERATOR TO OBSERVE AND MONITOR, PROVIDE SKILLED THERAPEUTIC INTERVENTION, ACTIVITY, EDUCATION, AND TRAINING TO ADDRESS; PT/PARTITION MAKING MACHINE OPERATOR TO PROVIDE GAIT TRAINING FOR IMPROVED MOBILITY AND /OR TO NORMALIZE GAIT PATTERN NEUROMUSCULAR RE-EDUCATION / BALANCE / POSTURAL CONTROL (PT) THERAPEUTIC EXERCISES AND ESTABLISHING A HOME EXERCISE PROGRAM (PT/PARTITION MAKING MACHINE OPERATOR) PT/PARTITION MAKING MACHINE OPERATOR TO PROVIDE STAIR TRAINING SIT TO/FROM STAND TRANSFERS (PT/PARTITION MAKING MACHINE OPERATOR) PT / PARTITION MAKING MACHINE OPERATOR TO MONITOR AND EDUCATE ON OXYGEN SATURATION DURING ADLS/IADLS, NOTIFY PHYSICIAN AND/OR THE RN CLINICAL TOOLROOM HELPER FOR PHYSICIAN NOTIFICATION AND IF O2 SATS BELOW PHYSICIAN ORDERED PARAMETERS AFTER 10 MIN OF REST PT / PARTITION MAKING MACHINE OPERATOR TO MONITOR FOR HYPO/HYPERGLYCEMIA AND CONDUCT ROUTINE FOOT INSPECTIONS. RECORD PATIENT REPORTED BLOOD SUGAR LEVELS AND NOTIFY PHYSICIAN AND/OR THE RN CLINICAL TOOLROOM HELPER FOR PHYSICIAN NOTIFICATION IF BLOOD SUGAR LEVELS ARE OUTSIDE ORDERED PARAMETERS. TEACH PATIENT/CAREGIVER ON DAILY FOOT INSPECTIONS PT/PARTITION MAKING MACHINE OPERATOR TO IDENTIFY FALL RISK FACTORS; EDUCATE THE PATIENT/CAREGIVER ON WAYS TO REDUCE FALL RISK FACTORS AND ESTABLISH HOME EXERCISE PROGRAM TO MINIMIZE FALL RISK. MAY TEACH THE PATIENT FLOOR RECOVERY WHEN CLINICALLY APPROPRIATE PT / PARTITION MAKING MACHINE OPERATOR MAY EDUCATE ON PAIN MANAGEMENT [...] End Date/Time Encounter Type Admission Type Attending [facility] Care Department Encounter ID Discharge Date Discharge Status Discharge Condition Discharge Reason Percent Goals Met 2025-07-21 00:00:00 2025-09-18 00:00:00 Outpatient NEW ADMISSION RUPALI FERNANDO [facility] [id number]
== END 2025-08-15 17:00 | disposition home or self-care (01) ==
PROVIDERS: Radiology Diagnostic Radiology; PCP Internal Medicine; Visit Provider Internal Medicine Medical Oncology
DX: C90.00 Multiple myeloma not having achieved remission (principal); I10 Essential (primary) hypertension; E78.00 Pure hypercholesterolemia, unspecified; E11.9 Type 2 diabetes mellitus without complications; M19.90 Unspecified osteoarthritis, unspecified site; K57.30 Diverticulosis of large intestine without perforation or abscess without bleeding; Z79.82 Long term (current) use of aspirin; Z79.899 Other long term (current) drug therapy; Z87.891 Personal history of nicotine dependence
CPT/HCPCS: 36415; 38222; 77012; 80053; 82784; 83521; 85025; 86334; 88184; 88185; 88237; 88264; 88305; 88311; 88313; 88342; 88344; J2003; J3010

== ENCOUNTER → 2025-08-15 14:30 | Outpatient (BNV) | payer MEDICARE, SELFPAY | PROVIDERS: PCP Internal Medicine; Visit Provider Radiology Diagnostic Radiology | DX: C90.00 Multiple myeloma not having achieved remission (principal) | CPT/HCPCS: 38222; 77012 ==

== ENCOUNTER 2025-09-01 10:47 | Outpatient (REF) | payer MEDICARE, SELFPAY ==
[2025-09-01 13:04] LABS: MANUAL DIFF FLAG NO
--- OUTSIDE RECORDS SUMMARY | 2025-09-01 13:12 | XMS_ITS | Encounter Summary ---
Author Organization [facility] Address [address] [place] [phone] Care Team Providers Care [employer] Manager Name Role Phone Susu Carreno MD Primary Care Provider + Encounter Details Date Type Department Care Team (Late st Contact Info) Description 07/24/2025 Lab Requisition [facility] [address] [facility] [place] [address] Susu Carreno MD [address] [place] [address] [phone] Weakness; Type 2 diabetes mellitus without complications [...] V28) documented in this encounter Care Teams [employer] Manager Relationship Specialty Start Date End Date Susu Carreno MD [address] [place] [address] [phone] PCP - General Family Medicine 07/12/25 documented as of this encounter
--- OUTSIDE RECORDS SUMMARY | 2025-09-01 13:12 | XMS_ITS | Encounter Summary ---
Author Organization [facility] Address [address] [place] [phone] Care Team Providers Care In Flight Refueling Craftsman Name Role Phone Susu Carreno MD Primary Care Provider + Encounter Details Date Type Department Care Team (Late st Contact Info) Description 07/21/2025 Lab Requisition [facility] [address] [facility] [place] [address] Susu Carreno MD [address] [place] [address] [phone] Weakness; Type 2 diabetes mellitus without complications [...] V28) documented in this encounter Care Teams In Flight [employer]ueling Craftsman Relationship Specialty Start Date End Date Susu Carreno MD [address] [place] [address] [phone] PCP - General Family Medicine 07/12/25 documented as of this encounter
--- OUTSIDE RECORDS SUMMARY | 2025-09-01 13:13 | XMS_ITS | Encounter Summary ---
Author Organization [facility] Address [address] [place] [address] Care Team Providers Care Drywall Taper Helper Name Role Phone Susu Carreno MD Primary Care Provider + Encounter Details Date Type Department Care Team (Late st Contact Info) Description 07/19/2025 Lab Requisition [facility] - Main Lab [address] [facility] [place] [address] Susu Carreno MD [address] [facility] 1 [place] [address] Multiple myeloma not having achieved [...] Procedure Name Priority Date/Time Associated Diagnosis Comments [place] IMMUNOFIXATION ELECTROPHORESIS SERUM Routine 07/19/2025 5:28 AM [...] EDT Multiple myeloma not having achieved remission ([facility]/HCC V24, CMS/HCC V28) COMPREHENSIVE METABOLIC PANEL Routine 07/19/2025 5:28 AM EDT Multiple myeloma not having achieved remission ([facility]/HCC V24, CMS/HCC V28) documented in this encounter Results * Pathologist Review Immunofixation (07/19/2025 5:28 AM EDT) Pathologist Interpretation Reviewed by Josette Munguia MD 07/20/2025 4:00 PM EDT [facility] Blood Venous blood specimen / Unknown 07/19/2025 5:28 AM EDT 07/20/2025 1:17 PM EDT us Susu Carreno MD LAB BLOOD ORDERABLES Fin al Result [facility] [address] [place] [address], [place] [phone] * (ABNORMAL) Immunoglobulins IgG, IgA, IgM (07/19/2025 5:28 AM EDT) [facility] Total IgG 3,700(H) 549 - 1,584 mg/dL LAB CHEMISTRY METHOD 07/20/2025 3:22 PM EDT [facility] IgA 40(L) 61 - 348 mg/dL LAB CHEMISTRY METHOD 07/20/2025 3:22 PM EDT [facility] IgM 21(L) 23 - 259 mg/dL LAB CHEMISTRY METHOD 07/20/2025 3:22 PM EDT [facility] Blood Venous blood specimen / Unknown 07/19/2025 5:28 AM EDT 07/20/2025 1:17 PM EDT Susu Carreno MD LAB BLOOD ORDERABLES Fin al Result Performing Organization Address [facility] Co de Phone Number [facility] [address] [place] [address], [place] [phone] * Immunofixation electrophoresis serum (07/19/2025 5:28 AM EDT) [facility] Immunofixation Result, Serum IgG Lambda monoclonal immunoglobulins detected. LAB CHEMISTRY METHOD 07/20/2025 4:00 PM EDT [facility] Blood Venous blood specimen / Unknown 07/19/2025 5:28 AM EDT 07/20/2025 1:17 PM EDT Susu Carreno MD LAB BLOOD ORDERABLES Fin al Result [facility] [address] [place] [address], [place] [phone] * SST tube (07/19/2025 5:28 AM EDT) [facility] Extra Tube Hold for add-ons. 07/19/2025 10:01 AM EDT [facility] Comment:Auto resulted. Blood Venous blood specimen / Unknown 07/19/2025 5:28 AM EDT 07/19/2025 8:55 AM EDT us Susu Carreno MD LAB BLOOD ORDERABLES Fin al Result [facility] [address] [place] [address], * (ABNORMAL) CBC auto differential (07/19/2025 5:28 AM EDT) [facility] WBC 5.7 4.8 - 10.8 K/mcL [...] LAB HEMETOLOGY METHOD 07/19/2025 9:19 AM EDT [facility] RDW 16.0(H) 11.0 - 15.0 [...] [facility] NRBC Absolute 0.00 <0.10 K/[facility] LAB HEMETOLOGY METHOD 07/19/2025 9:19 AM [facility] [...] LAB HEMETOLOGY METHOD 07/19/2025 9:19 AM EDT [facility] Monocytes Absolute 0.52 0.20 - 1.00 K/mcL LAB HEMETOLOGY METHOD 07/19/2025 9:19 AM EDT [facility] Eosinophils Absolute 0.17 0.00 - 0.50 K/mcL LAB HEMETOLOGY METHOD 07/19/2025 9:19 AM EDT [facility] Basophils Absolute 0.05 0.00 - 0.20 K/[facility] LAB HEMETOLOGY METHOD 07/19/2025 9:19 AM EDT [facility] Immature Granulocytes Absolute 0.02 0.00 - 0.03 K/mcL LAB HEMETOLOGY METHOD 07/19/2025 9:19 AM EDT [facility] Blood Venous blood specimen / Unknown Venipuncture / Unknown 07/19/2025 5:28 AM EDT 07/19/2025 8:52 AM EDT Susu Carreno MD LAB BLOOD ORDERABLES Fin al Result [facility] [address] [place] [address], [place] [phone] * (ABNORMAL) Beta 2 microglobulin, serum (07/19/2025 5:28 AM EDT) Beta-2 Microglobulin 12.5(H) 0.7 - 1.8 mg/L LAB CHEMISTRY METHOD 07/19/2025 11:39 AM EDT [facility] Blood Venous blood specimen / Unknown Venipuncture / Unknown 07/19/2025 5:28 AM EDT 07/19/2025 8:52 AM EDT Susu Carreno MD LAB BLOOD ORDERABLES Fin al Result [facility] [address] [place] [address], [place] [phone] * (ABNORMAL) [place]-lambda free light chains, quantitative (07/19/2025 5:28 AM EDT) [place] Free Light Chain 1.34 0.33 - 1.94 mg/dL 07/21/2025 11:38 AM EDT [facility] Lambda Free Light Chain 143.05(H) 0.57 - 2.63 mg/dL 07/21/2025 11:38 AM EDT [facility] [place]/Lambda FLC Ratio <0.01(L) 0.26 - 1.65 07/21/2025 11:38 AM EDT [facility] Comment: Test performed at [facility], [address], [place] [address] Adele Luna MD, PhD - Vice President Sales And Marketing Blood Venous blood specimen / Unknown Venipuncture / Unknown 07/19/2025 5:28 AM EDT 07/19/2025 8:52 AM EDT Susu Carreno MD LAB BLOOD ORDERABLES Fin al Result [facility] [address] [place], [place] [id number] * (ABNORMAL) Comprehensive metabolic panel (07/19/2025 5:28 AM EDT) [facility] Sodium 137 133 - 145 mmol/L LAB CHEMISTRY METHOD 07/19/2025 11:39 AM EDT [facility] Potassium 3.1(L) 3.5 - 5.5 mmol/L LAB CHEMISTRY METHOD 07/19/2025 11:39 AM EDT [facility] Chloride 100 96 - 110 mmol/L LAB CHEMISTRY METHOD 07/19/2025 11:[facility] CO2 31 21 - 32 mmol/L LAB CHEMISTRY METHOD 07/19/2025 11:39 AM EDT [facility] Anion Gap 6 3 - 11 LAB CHEMISTRY METHOD 07/19/2025 11:39 AM EDT [facility] Glucose 92 70 - 100 [...] MD LAB BLOOD ORDERABLES Fin al Result [facility] [address] [place] [address], documented in this encounter Visit Diagnoses Diagnosis Multiple myeloma not having achieved remission (CMS/HCC V24, CMS/HCC V28) documented in this encounter Care Teams Drywall Taper Helper Relationship Specialty Start Date End Date Susu Carreno MD [address] [place] [id number] PCP - General Family Medicine 07/12/25 documented as of this encounter
--- OUTSIDE RECORDS SUMMARY | 2025-09-01 13:13 | XMS_ITS | Encounter Summary ---
Author Organization [facility] Address [id number] [place] [phone] Care Team Providers Care Harvest Contractor Name Role Phone Susu Carreno MD Primary Care Provider + Encounter Details Date Type Department Care Team (Late st Contact Info) Description 07/16/2025 Lab Requisition [facility] - Main Lab [address] [facility] [place] [address] Susu Carreno MD [address] [facility] 1 [place], [place] [id number] Weakness; Type 2 diabetes mellitus without complications [...] mmol/L LAB CHEMISTRY METHOD 07/17/2025 10:35 AM [facility] Potassium 3.2(L) 3.5 - 5.5 mmol/L LAB CHEMISTRY METHOD 07/17/2025 10:35 AM [facility] Chloride 102 96 - 110 mmol/L LAB CHEMISTRY METHOD 07/17/2025 10:35 AM [facility] CO2 27 21 - 32 mmol/L LAB CHEMISTRY METHOD 07/17/2025 10:35 AM [facility] Anion Gap 8 3 - 11 LAB CHEMISTRY METHOD 07/17/2025 10:35 AM [facility] Glucose 105(H) 70 - 100 mg/dL LAB CHEMISTRY METHOD 07/17/2025 10:35 AM [facility] BUN 14 5 - 25 mg/dL LAB CHEMISTRY METHOD 07/17/2025 10:35 AM [facility] Creatinine 1.08 0.50 - 1.10 mg/dL LAB CHEMISTRY METHOD 07/17/2025 10:35 AM [facility] eGFR 53(L) >=60 mL/min/1. 73m2 LAB CHEMISTRY METHOD 07/17/2025 10:35 AM [facility] Comment:Calculation based on the Chronic Kidney Disease Epidemiology Collaboration (CKD-EPI) equation refit without adjustment for race. BUN/Creatinine Ratio 13.0 LAB CHEMISTRY METHOD 07/17/2025 10:35 AM [facility] Calcium 8.3(L) 8.5 - 10.5 mg/dL LAB CHEMISTRY METHOD 07/17/2025 10:35 AM [facility] Blood Venous blood specimen / Unknown Venipuncture / Unknown 07/17/2025 7:28 AM EDT 07/17/2025 9:49 AM EDT Susu Carreno MD LAB BLOOD ORDERABLES Fin al Result [facility] [address] [place] [address], * (ABNORMAL) Complete blood count (07/17/2025 7:28 AM EDT) [facility] Signature WBC 5.9 4.8 - 10.8 [...] al Result [facility] [address] [place] [address], [place] [phone] documented in this encounter Visit Diagnoses Diagnosis Weakness Other malaise and fatigue Type 2 diabetes mellitus without complications (CMS/HCC V24, CMS/HCC V28) documented in this encounter Care Teams Harvest Contractor Relationship Specialty Start Date End Date Susu Carreno MD [address] [place] [id number] PCP - General Family Medicine 07/12/25 documented as of this encounter
--- OUTSIDE RECORDS SUMMARY | 2025-09-01 13:13 | XMS_ITS | Encounter Summary ---
Author Organization [facility] Address [address] [place] [address] Care Team Providers Care Anime Artist Name Role Phone Susu Carreno MD Primary Care Provider + Encounter Details Date Type Department Care Team (Late st Contact Info) Description 07/12/2025 Lab Requisition [facility] - Main Lab [address] [facility] [place] [address] Susu Carreno MD [address] [facility] 1 [place] [address] Weakness; Type 2 diabetes mellitus without complications (CMS/[facility] V24, CMS/[facility] V28) Social History Tobacco Use [...] 2 diabetes mellitus without complications (CMS/[facility] V24, CMS/[facility] V28) HEMOGLOBIN A1C Routine 07/12/2025 5:56 AM EDT Weakness Type 2 diabetes mellitus without complications (CMS/[facility] V24, CMS/[facility] V28) FOLATE Routine 07/12/2025 5:56 AM EDT Weakness Type 2 diabetes mellitus without complications ([facility] V24, [facility] V28) VITAMIN B12 Routine 07/12/2025 5:56 AM EDT Weakness Type 2 diabetes mellitus without complications ([facility] V24, [facility] V28) COMPREHENSIVE METABOLIC PANEL Routine 07/12/2025 5:56 AM EDT Weakness Type 2 diabetes mellitus without complications ([facility] V24, [facility] V28) documented in this encounter [...] [facility] [address] [place] [address], * (ABNORMAL) Folate (07/12/2025 5:56 AM EDT) Folate >20.0(H) 2.8 - 17.0 ng/ml LAB CHEMISTRY METHOD 07/12/2025 11:28 AM EDT [facility] Blood Venous blood specimen / Unknown Venipuncture / Unknown 07/12/2025 5:56 AM EDT 07/12/2025 9:03 AM EDT Susu Carreno MD LAB BLOOD ORDERABLES Fin al Result [facility] [address] [place] [address], [place] [phone] * Vitamin B12 (07/12/2025 5:56 AM EDT) Pathologist [facility] Vitamin B-12 580 250 - 900 pcg/mL LAB CHEMISTRY METHOD 07/12/2025 11:28 AM EDT [facility] Blood Venous blood specimen / Unknown Venipuncture / Unknown 07/12/2025 5:56 AM EDT 07/12/2025 9:03 AM EDT Susu Carreno MD LAB BLOOD ORDERABLES Fin al Result Performing Organization Address [facility]/ZIP Co de Phone Number [facility] [address] [place] [address], [place] [phone] * Thyroid stimulating hormone with reflex to free t4 and free t3 (07/12/2025 5:56 AM EDT) Pathologist [facility] TSH 0.54 0.40 - 4.00 mcIU/mL LAB CHEMISTRY METHOD 07/12/2025 11:58 AM EDT [facility] Blood Venous blood specimen / Unknown Venipuncture / Unknown 07/12/2025 5:56 AM EDT 07/12/2025 9:03 AM EDT Susu Carreno MD LAB BLOOD ORDERABLES Fin al Result [facility] [address] [place] [address], [place] [phone] * (ABNORMAL) Comprehensive metabolic panel (07/12/2025 5:56 AM EDT) Pathologist [facility] Sodium 140 133 - 145 mmol/L LAB CHEMISTRY METHOD 07/12/2025 11:28 AM [facility] Potassium 3.9 3.5 - 5.5 mmol/L LAB CHEMISTRY METHOD 07/12/2025 11:28 AM [facility] Chloride 110 96 - 110 mmol/L LAB CHEMISTRY METHOD 07/12/2025 11:28 AM [facility] CO2 25 21 - 32 mmol/L LAB CHEMISTRY METHOD 07/12/2025 11:28 AM [facility] Anion Gap 5 3 - 11 LAB CHEMISTRY METHOD 07/12/2025 11:28 AM [facility] Glucose 90 70 - 100 mg/dL LAB CHEMISTRY METHOD 07/12/2025 11:28 AM [facility] BUN 15 5 - 25 mg/dL LAB CHEMISTRY METHOD 07/12/2025 11:28 AM [facility] Creatinine 1.12(H) 0.50 - 1.10 mg/dL LAB CHEMISTRY METHOD 07/12/2025 11:28 AM [facility] eGFR 50(L) >=60 mL/min/1. 73m2 LAB CHEMISTRY METHOD 07/12/2025 11:28 AM [facility] Comment:Calculation based on the Chronic Kidney Disease Epidemiology Collaboration (CKD-EPI) equation refit without adjustment for race. BUN/Creatinine Ratio 13.4 LAB CHEMISTRY METHOD 07/12/2025 11:28 AM [facility] Calcium 8.2(L) 8.5 - 10.5 mg/dL LAB CHEMISTRY METHOD 07/12/2025 11:28 AM [facility] AST (SGOT) 19 10 - 42 unit/L LAB CHEMISTRY METHOD 07/12/2025 11:28 AM [facility] ALT (SGPT) 10 10 - 60 unit/L LAB CHEMISTRY METHOD 07/12/2025 11:28 AM [facility] Alkaline Phosphatase 66 42 - [...] [facility] [address] [place] [address], * (ABNORMAL) Complete blood count (07/12/2025 5:56 [...] [facility] [address] [place] [address], documented in this encounter Visit Diagnoses Diagnosis Weakness Other malaise and fatigue Type 2 diabetes mellitus without complications (CMS/HCC V24, CMS/HCC V28) documented in this encounter Care Teams Anime Artist Relationship Specialty Start Date End Date Susu Carreno MD [address] [place] [phone] PCP - General Family Medicine 07/12/25 documented as of this encounter
--- OUTSIDE RECORDS SUMMARY | 2025-09-01 13:13 | XMS_ITS | Clinical Summary ---
Author Organization [address] Address [address] [place] [address] Phone Care Team Providers Care Disability Specialist Name Role Phone Susu Carreno MD Primary Care Provider + Encounters Date Type Department Care Team Description 07/31/2025 9:52 AM EST - 07/31/2025 11:59 PM EST Hospital Encounter [facility] PET Scan [address] [place] [phone] Multiple myeloma, remission status unspecified ([facility] V24, [facility] V28) Discharge Disposition: Home or Self Care 07/24/2025 Lab Requisition [facility] Lab [address] [place] [phone] Susu Carreno MD Weakness; Type 2 diabetes mellitus without complications ([facility] V24, [facility] V28) 07/21/2025 Lab Requisition [facility] Lab [address] [place] [phone] Susu Crareno MD Weakness; Type 2 diabetes mellitus without complications ([facility] V24, [facility] V28) 07/19/2025 Lab Requisition [facility] Lab [address] [place] [phone] Susu Carreno MD Multiple myeloma not having achieved remission ([facility] V24, [facility] V28) 07/16/2025 Lab Requisition [facility] Lab [address] [place] [phone] Susu Carreno MD Weakness; Type 2 diabetes mellitus without complications (CMS/[facility] V24, [facility] V28) 07/12/2025 Lab Requisition [facility] [address] [place] [address] Susu Carreno MD Weakness; Type 2 diabetes mellitus without complications ([facility] V24, [facility] V28) from Last 3 Months Surgical History [...] remission status unspecified (CMS/HCC V24, CMS/HCC V28) [place] IMMUNOFIXATION ELECTROPHORESIS SERUM Routine 07/19/2025 5:28 AM [...] Signed Date: 08/01/2025 09:46 ET Workstation ID: [id number] Transcribed By: Self Edit Transcribed Date: 08/01/2025 [...] pathologic fracture. Compression fractures at T11 and [id number] significant increased activity. IMPRESSION: 1. Innumerable lytic [...] Signed Date: 08/01/2025 09:46 ET Workstation ID: [id number] Transcribed By: Self Edit Transcribed Date: 08/01/2025 08:09 ET us Nesha Gomez MD [facility] NM PROCEDURES Final Result * Pathologist Review Immunofixation (07/19/2025 5:28 AM EDT) Pathologist Interpretation Reviewed by Josette Munguia MD 07/20/2025 4:00 PM EDT [facility] Blood Venous blood specimen / Unknown 07/19/2025 5:28 AM EDT 07/20/2025 1:17 PM EDT Susu Carreno MD LAB BLOOD ORDERABLES Fin al Result Performing Organization Address City/[facility]/ZIP Co de Phone Number [facility] [address] [place] [address], [place] [phone] * SST tube (07/19/2025 5:28 AM EDT) Extra Tube Hold for add-ons. 07/19/2025 10:01 AM EDT [facility] Comment:Auto resulted. Blood Venous blood specimen / Unknown 07/19/2025 5:28 AM EDT 07/19/2025 8:55 AM EDT Susu Carreno MD LAB BLOOD ORDERABLES Fin al Result Performing Organization Address City/[facility]/ZIP Co de Phone Number [facility] [address] [place] [address], [place] [phone] * (ABNORMAL) [place]-lambda free light chains, quantitative (07/19/2025 5:28 AM EDT) [place] Free Light Chain 1.34 0.33 - 1.94 mg/dL 07/21/2025 11:38 AM EDT [facility] Lambda Free Light Chain 143.05(H) 0.57 - 2.63 mg/dL 07/21/2025 11:38 AM EDT [facility] [place]/Lambda FLC Ratio <0.01(L) 0.26 - 1.65 07/21/2025 11:38 AM EDT [facility] Comment: Test performed at [facility], [address] , [place] [address] Adele Luna MD, PhD - Proposal Consultant Blood Venous blood specimen / Unknown Venipuncture / Unknown 07/19/2025 5:28 AM EDT 07/19/2025 8:52 AM EDT Susu Carreno MD LAB BLOOD ORDERABLES Fin al Result [facility]AN [facility] [address] [place] [address] * (ABNORMAL) CBC auto differential (07/19/2025 5:28 AM EDT) Pathologist [facility] WBC 5.7 4.8 - 10.8 K/mcL LAB HEMETOLOGY METHOD 07/19/2025 9:19 AM EDT [facility] RBC 3.80 3.80 - 4.80 M/mcL LAB HEMETOLOGY METHOD 07/19/2025 9:19 AM [facility] Hemoglobin 10.0(L) 11.5 - 16.0 g/dL LAB HEMETOLOGY METHOD 07/19/2025 9:19 AM [facility] Hematocrit 32.9(L) 35.0 - 47.0 % LAB HEMETOLOGY METHOD 07/19/2025 9:19 AM [facility] MCV 87.7 79.0 - 98.0 FL LAB HEMETOLOGY METHOD 07/19/2025 9:19 AM [facility] MCH 26.7(L) 27.0 - 32.0 pcg LAB HEMETOLOGY METHOD 07/19/2025 9:19 AM [facility] MCHC 30.4(L) 32.0 - 37.0 g/dL LAB HEMETOLOGY METHOD 07/19/2025 9:19 AM [facility] RDW 16.0(H) 11.0 - 15.0 % LAB HEMETOLOGY METHOD 07/19/2025 9:19 AM [facility] Platelets 406(H) 130 - 400 K/mcL LAB HEMETOLOGY METHOD 07/19/2025 9:19 AM [facility] MPV 9.0 7.0 - 11.0 FL LAB HEMETOLOGY METHOD 07/19/2025 9:19 AM [facility] NRBC 0.0 <1.0 % LAB HEMETOLOGY METHOD 07/19/2025 9:19 AM [facility] NRBC Absolute 0.00 <0.10 K/mcL LAB HEMETOLOGY METHOD 07/19/2025 9:19 AM [facility] Neutrophils Relative 52.8 % LAB HEMETOLOGY METHOD 07/19/2025 9:19 AM [facility] Lymphocytes Relative 33.9 % LAB HEMETOLOGY METHOD 07/19/2025 9:19 AM [facility] Monocytes Relative 9.1 % LAB HEMETOLOGY METHOD 07/19/2025 9:19 AM [facility] Eosinophils Relative 3.0 % LAB HEMETOLOGY METHOD 07/19/2025 9:19 AM [facility] Basophils Relative 0.9 % LAB HEMETOLOGY METHOD 07/19/2025 9:19 AM [facility] Immature Granulocytes Relative 0.3 % LAB HEMETOLOGY METHOD 07/19/2025 9:19 AM [facility] Neutrophils Absolute 3.03 1.50 - 7.00 K/mcL LAB HEMETOLOGY METHOD 07/19/2025 9:19 AM [facility] Lymphocytes Absolute 1.94 1.00 - 5.00 K/mcL LAB HEMETOLOGY METHOD 07/19/2025 9:19 AM [facility] Monocytes Absolute 0.52 0.20 - 1.00 K/mcL LAB HEMETOLOGY METHOD 07/19/2025 9:19 AM [facility] Eosinophils Absolute 0.17 0.00 - 0.50 K/mcL LAB HEMETOLOGY METHOD 07/19/2025 9:19 AM EDT [facility] Basophils Absolute 0.05 0.00 - 0.20 K/[facility] LAB HEMETOLOGY METHOD 07/19/2025 9:19 AM EDT [facility] Immature Granulocytes Absolute 0.02 0.00 - 0.03 K/[facility] LAB HEMETOLOGY METHOD 07/19/2025 9:19 AM EDT [facility] Blood Venous blood specimen / Unknown Venipuncture / Unknown 07/19/2025 5:28 AM EDT 07/19/2025 8:52 AM EDT Susu Carreno MD LAB BLOOD ORDERABLES Fin al Result Performing Organization Address [facility]/ZIP Co de Phone Number [facility] [address] [place] [address], [place] [phone] * Immunofixation electrophoresis serum (07/19/2025 5:28 AM EDT) Pathologist [facility] Immunofixation Result, Serum IgG Lambda monoclonal immunoglobulins detected. LAB CHEMISTRY METHOD 07/20/2025 4:00 PM EDT [facility] Blood Venous blood specimen / Unknown 07/19/2025 5:28 AM EDT 07/20/2025 1:17 PM EDT Susu Carreno MD LAB BLOOD ORDERABLES Fin al Result [facility] [address] [place] [address], [place] [phone] * (ABNORMAL) Immunoglobulins IgG, IgA, IgM (07/19/2025 5:28 AM EDT) Pathologist [facility] Total IgG 3,700(H) 549 - 1,584 mg/dL LAB CHEMISTRY METHOD 07/20/2025 3:22 PM EDT [facility] IgA 40(L) 61 - 348 mg/dL LAB CHEMISTRY METHOD 07/20/2025 3:22 PM EDT [facility] IgM 21(L) 23 - 259 mg/dL LAB CHEMISTRY METHOD 07/20/2025 3:22 PM EDT [facility] Blood Venous blood specimen / Unknown 07/19/2025 5:28 AM EDT 07/20/2025 1:17 PM EDT Susu Carreno MD LAB BLOOD ORDERABLES Fin al Result Performing Organization Address City/[facility]/ZIP Co de Phone Number [facility] [address] [place] [address], [place] [phone] * (ABNORMAL) Beta 2 microglobulin, serum (07/19/2025 5:28 AM EDT) Beta-2 Microglobulin 12.5(H) 0.7 - 1.8 mg/L LAB CHEMISTRY METHOD 07/19/2025 11:39 AM EDT [facility] Blood Venous blood specimen / Unknown Venipuncture / Unknown 07/19/2025 5:28 AM EDT 07/19/2025 8:52 AM EDT Susu Carreno MD LAB BLOOD ORDERABLES Fin al Result Performing Organization Address City/[facility]/ZIP Co de Phone Number [facility] [address] [place] [address], [place] [phone] * (ABNORMAL) Comprehensive metabolic panel (07/19/2025 5:28 AM EDT) Only the most recent of2 resultswithin the time period is included. Sodium 137 133 - 145 mmol/L LAB CHEMISTRY METHOD 07/19/2025 11:39 AM EDT [facility] Potassium 3.1(L) 3.5 - 5.5 mmol/L LAB CHEMISTRY METHOD 07/19/2025 11:39 AM EDT [facility] Chloride 100 96 - 110 mmol/L LAB CHEMISTRY METHOD 07/19/2025 11:39 AM [facility] CO2 31 21 - 32 mmol/L LAB CHEMISTRY METHOD 07/19/2025 11:39 AM [facility] Anion Gap 6 3 - 11 LAB CHEMISTRY METHOD 07/19/2025 11:39 AM [facility] Glucose 92 70 - 100 mg/dL LAB CHEMISTRY METHOD 07/19/2025 11:39 AM [facility] BUN 16 5 - 25 mg/dL LAB CHEMISTRY METHOD 07/19/2025 11:39 AM [facility] Creatinine 1.14(H) 0.50 - 1.10 mg/dL LAB CHEMISTRY METHOD 07/19/2025 11:39 AM [facility] eGFR 49(L) >=60 mL/min/1. 73m2 LAB CHEMISTRY METHOD 07/19/2025 11:39 AM [facility] Comment:Calculation based on the Chronic Kidney Disease Epidemiology Collaboration (CKD-EPI) equation refit without adjustment for race. BUN/Creatinine Ratio 14.0 LAB CHEMISTRY METHOD 07/19/2025 11:39 AM [facility] Calcium 8.7 8.5 - 10.5 mg/dL LAB CHEMISTRY METHOD 07/19/2025 11:39 AM [facility] AST (SGOT) 20 10 - 42 unit/L LAB CHEMISTRY METHOD 07/19/2025 11:39 AM [facility] ALT (SGPT) 14 10 - 60 unit/L LAB CHEMISTRY METHOD 07/19/2025 11:39 AM [facility] Alkaline Phosphatase 78 42 - 121 unit/L LAB CHEMISTRY METHOD 07/19/2025 11:39 AM [facility] Total Protein 9.1(H) 6.0 - 8.0 g/dL LAB CHEMISTRY METHOD 07/19/2025 11:39 AM EDT [facility] Albumin 2.7(L) 3.2 - 5.0 g/dL LAB CHEMISTRY METHOD 07/19/2025 11:39 AM EDT [facility] Total Bilirubin 0.4 0.0 - 1.4 mg/dL LAB CHEMISTRY METHOD 07/19/2025 11:39 AM T [facility] Blood Venous blood specimen / Unknown Venipuncture / Unknown 07/19/2025 5:28 AM EDT 07/19/2025 8:52 AM EDT us Susu Carreno MD LAB BLOOD ORDERABLES Fin al Result [facility] [address] [place] [address], [place] [phone] * (ABNORMAL) Complete blood count (07/17/2025 7:28 AM EDT) Only the most recent of2 resultswithin the time period is included. WBC 5.9 4.8 - 10.8 K/mcL LAB HEMETOLOGY METHOD 07/17/2025 10:36 AM [facility] RBC 4.00 3.80 - 4.80 M/mcL LAB HEMETOLOGY METHOD 07/17/2025 10:36 AM [facility] Hemoglobin 10.6(L) 11.5 - 16.0 g/dL LAB HEMETOLOGY METHOD 07/17/2025 10:36 AM [facility] Hematocrit 35.0 35.0 - 47.0 % LAB HEMETOLOGY METHOD 07/17/2025 10:36 AM [facility] MCV 87.9 79.0 - 98.0 FL LAB HEMETOLOGY METHOD 07/17/2025 10:36 AM [facility] MCH 26.6(L) 27.0 - 32.0 pcg LAB HEMETOLOGY METHOD 07/17/2025 10:36 AM EDT [facility] MCHC 30.3(L) 32.0 - 37.0 g/dL LAB HEMETOLOGY METHOD 07/17/2025 10:36 AM EDT [facility] RDW 16.3(H) 11.0 - 15.0 % LAB HEMETOLOGY METHOD 07/17/2025 10:36 AM EDT [facility] Platelets 474(H) 130 - 400 K/mcL LAB HEMETOLOGY METHOD 07/17/2025 10:36 AM EDT [facility] MPV 9.5 7.0 - 11.0 FL LAB HEMETOLOGY METHOD 07/17/2025 10:36 AM EDT [facility] NRBC 0.0 <1.0 % LAB HEMETOLOGY METHOD 07/17/2025 10:36 AM EDT [facility] NRBC Absolute 0.00 <0.10 K/mcL LAB HEMETOLOGY METHOD 07/17/2025 10:36 AM T [facility] Blood Venous blood specimen / Unknown Venipuncture / Unknown 07/17/2025 7:28 AM EDT 07/17/2025 9:50 AM EDT us Susu Carreno MD LAB BLOOD ORDERABLES Fin al Result [facility] [address] [place] [address], * (ABNORMAL) Basic metabolic panel (07/17/2025 7:28 AM EDT) Sodium 137 133 - 145 mmol/L LAB CHEMISTRY METHOD 07/17/2025 10:35 AM EDT [facility] Potassium 3.2(L) 3.5 - 5.5 mmol/L LAB CHEMISTRY METHOD 07/17/2025 10:35 AM EDT [facility] Chloride 102 96 - 110 mmol/L LAB CHEMISTRY METHOD 07/17/2025 10:35 AM [facility] CO2 27 21 - 32 mmol/L LAB CHEMISTRY METHOD 07/17/2025 10:35 AM [facility] Anion Gap 8 3 - 11 LAB CHEMISTRY METHOD 07/17/2025 10:35 AM [facility] Glucose 105(H) 70 - 100 mg/dL LAB CHEMISTRY METHOD 07/17/2025 10:35 AM [facility] BUN 14 5 - 25 mg/dL LAB CHEMISTRY METHOD 07/17/2025 10:35 AM [facility] Creatinine 1.08 0.50 - 1.10 mg/dL LAB CHEMISTRY METHOD 07/17/2025 10:35 AM [facility] eGFR 53(L) >=60 mL/min/1. 73m2 LAB CHEMISTRY METHOD 07/17/2025 10:35 AM [facility] Comment:Calculation based on the Chronic Kidney Disease Epidemiology Collaboration (CKD-EPI) equation refit without adjustment for race. BUN/Creatinine Ratio 13.0 LAB CHEMISTRY METHOD 07/17/2025 10:35 AM [facility] Calcium 8.3(L) 8.5 - 10.5 mg/dL LAB CHEMISTRY METHOD 07/17/2025 10:35 AM [facility] Blood Venous blood specimen / Unknown Venipuncture / Unknown 07/17/2025 7:28 AM EDT 07/17/2025 9:49 AM EDT us Susu Carreno MD LAB BLOOD ORDERABLES Fin al Result [facility] [address] [place] [address], * Thyroid stimulating hormone with reflex to free t4 and free t3 (07/12/2025 5:56 AM EDT) TSH 0.54 0.40 - 4.00 mcIU/mL LAB CHEMISTRY METHOD 07/12/2025 11:58 AM EDT [facility] Blood Venous blood specimen / Unknown Venipuncture / Unknown 07/12/2025 5:56 AM EDT 07/12/2025 9:03 AM EDT Susu Carreno MD LAB BLOOD ORDERABLES Fin al Result Performing Organization Address [facility]/ZIP Co de Phone Number [facility] [address] [place] [address], [place] [phone] * Hemoglobin A1c (07/12/2025 5:56 AM EDT) Pathologist [facility] Hemoglobin A1C 6.0 <6.5 % LAB CHEMISTRY METHOD 07/12/2025 1:10 PM EDT [facility] Mean Bld Glu Estim. 126 mg/dL LAB CHEMISTRY METHOD 07/12/2025 1:10 PM EDT [facility] Blood Venous blood specimen / Unknown Venipuncture / Unknown 07/12/2025 5:56 AM EDT 07/12/2025 9:03 AM EDT Susu Carreno MD LAB BLOOD ORDERABLES Fin al Result Performing Organization Address [facility]/ZIP Co de Phone Number [facility] [address] [place] [address], [place] [phone] * (ABNORMAL) Folate (07/12/2025 5:56 AM EDT) Pathologist [facility] Folate >20.0(H) 2.8 - 17.0 ng/ml LAB CHEMISTRY METHOD 07/12/2025 11:28 AM EDT [facility] Blood Venous blood specimen / Unknown Venipuncture / Unknown 07/12/2025 5:56 AM EDT 07/12/2025 9:03 AM EDT us Susu Carreno MD LAB BLOOD ORDERABLES Fin al Result Performing Organization Address City/[facility]/ZIP Co de Phone Number [facility] [address] [place] [address], [place] [phone] * Vitamin B12 (07/12/2025 5:56 AM EDT) Vitamin B-12 580 250 - 900 pcg/mL LAB CHEMISTRY METHOD 07/12/2025 11:28 AM EDT [facility] Blood Venous blood specimen / Unknown Venipuncture / Unknown 07/12/2025 5:56 AM EDT 07/12/2025 9:03 AM EDT Susu Carreno MD LAB BLOOD ORDERABLES Fin al Result Performing Organization Address City/[facility] Co de Phone Number [facility] [address] [place] [address], [place] [phone] from Last [address] [place] [address] [address] [place] [address] PLAN Care Teams Disability Specialist Relationship Specialty Start Date End Date Susu Carreno MD [address] [place] [phone] PCP - General Family Medicine 07/12/25
[2025-09-01 13:25] LABS: Hematocrit 30.9 % (37.0-47.0); Hemoglobin 9.4 g/dl (12.0-16.0); Imm Gran Abs Auto 0.04 X10*3/uL (0.00-0.03); Imm Gran Pct Auto 0.5 % (0.0-0.4); Lymphocytes Absolute Auto 1.9 X10*3/uL (1.2-4.9); Mean Corpuscular HGB Conc 30.4 g/dl (31.0-35.0); Mean Corpuscular Hemoglobin 26.6 pg (27.0-33.0); Mean Corpuscular Volume 87.3 fL (80.0-98.0); NRBC Abs Auto 0.000 X10*3/uL (0.0-0.012); NRBC Pct Auto 0.0 /100WBC (0.0-0.2); Platelet Count 453 X10*3/uL (160-400); Red Blood Count 3.54 X10*6/uL (4.20-5.50); White Blood Count 7.8 X10*3/uL (4.8-10.8)
[2025-09-01 14:28] LABS: Alanine Aminotransferase < 6 U/L (0-31); Albumin Level 3.6 g/dL (3.5-5.0); Alkaline Phosphatase 95 U/L (39-117); Anion Gap 12 (12-20); Aspartate Amino Transferase 27 U/L (5-31); Blood Urea Nitrogen 28 mg/dL (9-16); Calcium 9.8 mg/dL (8.4-10.2); Carbon Dioxide 25 mmol/L (22-29); Chloride 102 mmol/L (96-108); Estimated Glomerular Filt Rate 27; Potassium 4.4 mmol/L (3.3-5.1); Sodium 135 mmol/L (135-145); Total Protein 10.6 g/dL (6.5-8.0)
[2025-09-02 08:10] LABS: HBS Num1 0.42 mIU/mL (0-7.99); HBc Num1 0.34 S/CO (0.00-0.79); HBsAGNum1 0.81 S/CO (0.00-0.99); Hepatitis B Surface Antigen Negative (Negative); ~HepC Num1 0.17 S/CO (0.00-0.79); ~Hepatitis B Surface Antibody NONREACTIVE (Nonreactive); ~Hepatitis C Antibody Nonreactive (Nonreactive)
--- OUTSIDE RECORDS SUMMARY | 2025-09-17 19:00 | XMS_ITS | Clinical Summary ---
Author Organization Unknown Care Team Providers Care Nicking Machine Operator Name Role Phone ASHWINI OTHER, SADIA Unavailable Unavailab ruth FERNANDO RN, RUPALI Unavailable Unavailab ruth HANLEY LPN, DIMPLE Unavailable Unavailable TEMI PT, RADHA Unavailable Unavailable DIALLO SADDLE STITCHING MACHINE OPERATOR, RANDOLPH Unavailable Unavailable READING OT, GRACIA Unavailable Unavailable CONDINO MASTER SONAR TECHNICIAN/HIGUERA, NASH Unavailable Unav ailable Payers Payer Name Policy Type Policy Number Effective Date Expira [facility]ion Date [id number] Problems Condition Name Condition Details Condition Category [...] 40 mg tablet 2024-09 00:00: 00 Yes [id number] FLUID RETENTION 1 tablet 2 TIMES DAILY 1 tablet 2 TIMES DAILY (route: oral) Med Classific ation: Cardiovas cular Therapy Agents FeroSul 325 mg (65 mg iron) tablet 2024-09 0- 00:00: 00 Yes [id number] SUPPLEMENT 1 tablet DAILY 1 tablet DAILY (route: oral) Med Classific ation: Electroly te Balance-N utritiona l Products simvastatin 10 mg tablet 06-22 00:00: 00 Yes [id number] HIGH CHOLESTEROL 1 tablet DAILY 1 tablet DAILY (route: oral) Med Classific ation: Cardiovas cular Therapy Agents acetaminoph en 325 mg tablet 2024-09 00:00: 00 Yes [id number] PAIN 2 tablet EVERY 4 HOURS 2 tablet EVERY 4 HOURS (route: oral) Med Classific ation: Analgesic , Anti-infl ammatory or Antipyret ic aspirin 81 mg tablet 2024-09 00:00: 00 Yes [id number] ANTIPLATELE T 1 tablet DAILY 1 tablet DAILY (route: oral) Med Classific ation: Hematolog ical Agents magnesium oxide 400 mg (241.3 mg magnesium) tablet 2024-09 00:00: 00 Yes [id number] SUPPLEMENT 1 tablet DAILY 1 tablet DAILY (route: oral) Med Classific ation: Electroly te Balance-N utritiona l Products melatonin 3 mg capsule 2024-09 00:00: 00 Yes [id number] SLEEP 1 capsule BEDTIME 1 capsule BEDTIME (route: oral) Med Classific ation: Central Nervous System Agents Multivitami n 50 Plus tablet 2024-09 00:00: 00 Yes [id number] SUPPLEMENT 1 tablet DAILY 1 tablet DAILY (route: oral) Med Classific ation: Electroly te Balance-N utritiona l Products PreserVisio n AREDS 2 CO Q-10 250 mg-90 mg-40 mg-1 mg-5 mg capsule 2024-09 00:00: 00 Yes [id number] SUPPLEMENT 1 capsule DAILY 1 capsule DAILY (route: oral) Med Classific ation: Electroly te Balance-N utritiona l Products Zyrtec 10 mg capsule 2024-09 00:00: 00 Yes [id number] ALLERGIES 1 capsule DAILY 1 capsule DAILY (route: oral) Med Classific ation: Respirato ry Therapy Agents Vital Signs Vital Name Observation Time Observation Value Commen ts Temperature 2025-08-31 13:46:00.000 97.5 [degF] Temperature 2025-08-30 [...] kg/m2 Height 2025-07-21 10:03:07.000 64 [in_us] Pulse 2025-08-31 13:46:00.000 85 /min Pulse 2025-08-30 [...] Saturation (%) 2025-07-21 10:18:00.000 96 % Respirations 2025-08-31 13:46:00.000 18 /min Respirations 2025-08-30 [...] 2025-07-21 10:03:12.000 109 [lb_av] Systolic Blood Pressure 2025-08-31 13:46:00.000 98 mm[ [...] 10:18:00.000 114 mm [Hg] Diastolic Blood Pressure 2025-08-31 13:46:00.000 [...] TION MANAGEMENT; RN TO ASSESS AND OBSERVE, IMAGING SERVICES DIRECTOR/SUPERVISOR LEAD BURNING TO OBSERVE FALL RISK FACTORS AND EDUCATE PATIENT/CAREGIVER ON STRATEGIES TO MINIMIZE THE RISK OF FALLING. [code = FALL REDUCTION MANAGEMENT; RN TO ASSESS AND OBSERVE, IMAGING SERVICES DIRECTOR/SUPERVISOR LEAD BURNING TO OBSERVE FALL RISK FACTORS AND EDUCATE PATIENT/CAREGIVER ON STRATEGIES TO MINIMIZE THE RISK OF FALLING.] Future Scheduled Test GENITOURIN JULIETTE MANAGEMENT; RN TO ASSESS AND TEACH, IMAGING SERVICES DIRECTOR/SUPERVISOR LEAD BURNING TO OBSERVE AND TEACH RELATED TO ALTERED GENITOURINARY STATUS TO MINIMIZE COMPLICATIONS AND REDUCE HOSPITALIZATION. [code = GENITOURINARY MANAGEMENT; RN TO ASSESS AND TEACH, IMAGING SERVICES DIRECTOR/SUPERVISOR LEAD BURNING TO OBSERVE AND TEACH RELATED TO ALTERED GENITOURINARY STATUS TO MINIMIZE COMPLICATIONS AND REDUCE HOSPITALIZATION.] Future Scheduled Test ANEMIA MAN AGEMENT; RN TO ASSESS AND TEACH, SUPERVISOR LEAD BURNING/IMAGING SERVICES DIRECTOR TO OBSERVE AND TEACH AND PROVIDE EDUCATION ON ANEMIA. [code = ANEMIA MANAGEMENT; RN TO ASSESS AND TEACH, SUPERVISOR LEAD BURNING/IMAGING SERVICES DIRECTOR TO OBSERVE AND TEACH AND PROVIDE EDUCATION ON ANEMIA.] Future Scheduled Test RN TO OBSE RVE, ASSESS, EVALUATE, AND DEVELOP AN INDIVIDUALIZED PLAN OF CARE. AGENCY MAY ACCEPT ORDERS FROM CONSULTING PHYSICIANS. RN TO OBSERVE AND ASSESS, IMAGING SERVICES DIRECTOR/SUPERVISOR LEAD BURNING TO OBSERVE FOR RISK FOR FALLS AND INSTRUCT IN FALL PREVENTION, HOME SAFETY, MEDICATION MANAGEMENT, INFECTION PREVENTION, AND NUTRITION MANAGEMENT. RN/IMAGING SERVICES DIRECTOR/SUPERVISOR LEAD BURNING NURSE MAY PERFORM O2 SATURATION LEVEL ON ADMISSION AND PRN FOR RN TO ASSESS/IMAGING SERVICES DIRECTOR TO OBSERVE PATIENT, WITH NOTIFICATION TO THE PHYSICIAN IF SATURATION IS 90% IN THE ABSENCE OF MORE SPECIFIC PARAMETERS FROM THE PHYSICIAN. AGENCY MAY PERFORM A RESUMPTION OF CARE VISIT FOLLOWING ANY HOSPITAL ADMISSION. RN/IMAGING SERVICES DIRECTOR/SUPERVISOR LEAD BURNING TO MONITOR CO-MORBID CONDITIONS LISTED ON THE PLAN OF CARE AND ANY NEW CONDITIONS THAT PRESENT THEMSELVES DURING THIS EPISODE TO IDENTIFY CHANGES AND INTERVENE TO MINIMIZE COMPLICATIONS. [code = RN TO OBSERVE, ASSESS, EVALUATE, AND DEVELOP AN INDIVIDUALIZED PLAN OF CARE. AGENCY MAY ACCEPT ORDERS FROM CONSULTING PHYSICIANS. RN TO OBSERVE AND ASSESS, IMAGING SERVICES DIRECTOR/SUPERVISOR LEAD BURNING TO OBSERVE FOR RISK FOR FALLS AND INSTRUCT IN FALL PREVENTION, HOME SAFETY, MEDICATION MANAGEMENT, INFECTION PREVENTION, AND NUTRITION MANAGEMENT. RN/IMAGING SERVICES DIRECTOR/SUPERVISOR LEAD BURNING NURSE MAY PERFORM O2 SATURATION LEVEL ON ADMISSION AND PRN FOR RN TO ASSESS/IMAGING SERVICES DIRECTOR TO OBSERVE PATIENT, WITH NOTIFICATION TO THE PHYSICIAN IF SATURATION IS 90% IN THE ABSENCE OF MORE SPECIFIC PARAMETERS FROM THE PHYSICIAN. AGENCY MAY PERFORM A RESUMPTION OF CARE VISIT FOLLOWING ANY HOSPITAL ADMISSION. RN/IMAGING SERVICES DIRECTOR/SUPERVISOR LEAD BURNING TO MONITOR CO-MORBID CONDITIONS LISTED ON THE PLAN OF CARE AND ANY NEW CONDITIONS THAT PRESENT THEMSELVES DURING THIS EPISODE TO IDENTIFY CHANGES AND INTERVENE TO MINIMIZE COMPLICATIONS.] Future Scheduled Test PAIN MANAG EMENT; RN TO ASSESS AND TEACH, SUPERVISOR LEAD BURNING/IMAGING SERVICES DIRECTOR TO OBSERVE AND TEACH AND PROVIDE EDUCATION ON PAIN MANAGEMENT TECHNIQUES. [code = PAIN MANAGEMENT; RN TO ASSESS AND TEACH, SUPERVISOR LEAD BURNING/IMAGING SERVICES DIRECTOR TO OBSERVE AND TEACH AND PROVIDE EDUCATION ON PAIN MANAGEMENT TECHNIQUES.] Future Scheduled Test RISK FOR H OSPITALIZATION; RN TO ASSESS/TEACH, SUPERVISOR LEAD BURNING/IMAGING SERVICES DIRECTOR TO OBSERVE/TEACH PATIENT/CAREGIVER ON RISK FOR HOSPITALIZATION/EMERGENCY ROOM VISITS, TEACH SIGNS AND SYMPTOMS THAT PUT PATIENT AT RISK, WHEN TO NOTIFY NURSE/PHYSICIAN OF COMPLICATIONS/DECLINE, AND WHEN TO CALL 911. [code = RISK FOR HOSPITALIZATION; RN TO ASSESS/TEACH, SUPERVISOR LEAD BURNING/IMAGING SERVICES DIRECTOR TO OBSERVE/TEACH PATIENT/CAREGIVER ON RISK FOR HOSPITALIZATION/EMERGENCY ROOM VISITS, TEACH SIGNS AND SYMPTOMS THAT PUT PATIENT AT RISK, WHEN TO NOTIFY NURSE/PHYSICIAN OF COMPLICATIONS/DECLINE, AND WHEN TO CALL 911.] Future Scheduled Test MEDICATION MANAGEMENT; RN/IMAGING SERVICES DIRECTOR/SUPERVISOR LEAD BURNING TO REVIEW MEDICATIONS FOR INTERACTIONS, EFFECTIVENESS OF DRUG THERAPY, AND SIGNS/SYMPTOMS OF ADVERSE REACTIONS. MAY INSTRUCT AND REINFORCE MEDICATION TEACHING RELATED TO THE USE OF MEDICATIONS, DOSAGE, FREQUENCY, PURPOSE, SIDE EFFECTS, AND TO REPORT COMPLICATIONS. [code = MEDICATION MANAGEMENT; RN/IMAGING SERVICES DIRECTOR/SUPERVISOR LEAD BURNING TO REVIEW MEDICATIONS FOR INTERACTIONS, EFFECTIVENESS OF DRUG THERAPY, AND SIGNS/SYMPTOMS OF ADVERSE REACTIONS. MAY INSTRUCT AND REINFORCE MEDICATION TEACHING RELATED TO THE USE OF MEDICATIONS, DOSAGE, FREQUENCY, PURPOSE, SIDE EFFECTS, AND TO REPORT COMPLICATIONS.] Future Scheduled Test RN TO ASSE SS, OBSERVE, AND EDUCATE; IMAGING SERVICES DIRECTOR/SUPERVISOR LEAD BURNING TO OBSERVE AND REINFORCE EDUCATION ON ELECTROLYTE IMBALANCES INCLUDING STRATEGIES TO MINIMIZE THE RISK OF HOSPITALIZATION. [code = RN TO ASSESS, OBSERVE, AND EDUCATE; IMAGING SERVICES DIRECTOR/SUPERVISOR LEAD BURNING TO OBSERVE AND REINFORCE EDUCATION ON ELECTROLYTE IMBALANCES INCLUDING STRATEGIES TO MINIMIZE THE RISK OF HOSPITALIZATION.] Future Scheduled Test AGENCY MAY PERFORM A RESUMPTION OF CARE VISIT FOLLOWING ANY HOSPITAL ADMISSION. OT TO EVALUATE, OBSERVE / ASSESS, AND MONITOR, MASTER SONAR TECHNICIAN TO OBSERVE AND MONITOR, PROVIDE SKILLED THERAPEUTIC INTERVENTION, ACTIVITY, EDUCATION, AND TRAINING TO ADDRESS; ACTIVITIES OF DAILY LIVING (OT/MASTER SONAR TECHNICIAN) MEAL PREPARATION AND CLEANUP (OT/ANUPAM) CHAIR TRANSFERS (OT/ANUPAM) TOILET TRANSFER (OT/MASTER SONAR TECHNICIAN) BATH/SHOWER TRANSFER (OT/MASTER SONAR TECHNICIAN) CAR TRANSFER (OT/ANUPAM) HOME ACTIVITY / EXERCISE PROGRAM (OT/MASTER SONAR TECHNICIAN) POSTURAL CONTROL/BALANCE (OT/MASTER SONAR TECHNICIAN) THERAPEUTIC EXERCISE (OT/ANUPAM) OT/ANUPAM TO MONITOR AND EDUCATE ON OXYGEN SATURATION DURING ADLS/IADLS, NOTIFY PHYSICIAN AND/OR THE RN CLINICAL PREFINISH OPERATOR FOR PHYSICIAN NOTIFICATION AND IF O2 SATS BELOW 90% AFTER 10 MIN OF REST. OT/ANUPAM MAY EDUCATE ON PAIN MANAGEMENT CLINICALLY INDICATED. [code = AGENCY MAY PERFORM A RESUMPTION OF CARE VISIT FOLLOWING ANY HOSPITAL ADMISSION. OT TO EVALUATE, OBSERVE / ASSESS, AND MONITOR, ANUPAM TO OBSERVE AND MONITOR, PROVIDE SKILLED THERAPEUTIC INTERVENTION, ACTIVITY, EDUCATION, AND TRAINING TO ADDRESS; ACTIVITIES OF DAILY LIVING (OT/MASTER SONAR TECHNICIAN) MEAL PREPARATION AND CLEANUP (OT/MASTER SONAR TECHNICIAN) CHAIR TRANSFERS (OT/ANUPAM) TOILET TRANSFER (OT/ANUPAM) BATH/SHOWER TRANSFER (OT/MASTER SONAR TECHNICIAN) CAR TRANSFER (OT/MASTER SONAR TECHNICIAN) HOME ACTIVITY / EXERCISE PROGRAM (OT/ANUPAM) POSTURAL CONTROL/BALANCE (OT/ANUPAM) THERAPEUTIC EXERCISE (OT/MASTER SONAR TECHNICIAN) OT/MASTER SONAR TECHNICIAN TO MONITOR AND EDUCATE ON OXYGEN SATURATION DURING ADLS/IADLS, NOTIFY PHYSICIAN AND/OR THE RN CLINICAL PREFINISH OPERATOR FOR PHYSICIAN NOTIFICATION AND IF O2 SATS BELOW 90% AFTER 10 MIN OF REST. OT/MASTER SONAR TECHNICIAN MAY EDUCATE ON PAIN MANAGEMENT CLINICALLY INDICATED.] Future Scheduled Test AGENCY MAY PERFORM A RESUMPTION OF CARE VISIT FOLLOWING ANY HOSPITAL ADMISSION. PT TO EVALUATE, OBSERVE / ASSESS, AND MONITOR, SADDLE STITCHING MACHINE OPERATOR TO OBSERVE AND MONITOR, PROVIDE SKILLED THERAPEUTIC INTERVENTION, ACTIVITY, EDUCATION, AND TRAINING TO ADDRESS; PT/SADDLE STITCHING MACHINE OPERATOR TO PROVIDE GAIT TRAINING FOR IMPROVED MOBILITY AND /OR TO NORMALIZE GAIT PATTERN NEUROMUSCULAR RE-EDUCATION / BALANCE / POSTURAL CONTROL (PT) THERAPEUTIC EXERCISES AND ESTABLISHING A HOME EXERCISE PROGRAM (PT/SADDLE STITCHING MACHINE OPERATOR) PT/SADDLE STITCHING MACHINE OPERATOR TO PROVIDE STAIR TRAINING SIT TO/FROM STAND TRANSFERS (PT/SADDLE STITCHING MACHINE OPERATOR) PT / SADDLE STITCHING MACHINE OPERATOR TO MONITOR AND EDUCATE ON OXYGEN SATURATION DURING ADLS/IADLS, NOTIFY PHYSICIAN AND/OR THE RN CLINICAL PREFINISH OPERATOR FOR PHYSICIAN NOTIFICATION AND IF O2 SATS BELOW PHYSICIAN ORDERED PARAMETERS AFTER 10 MIN OF REST PT / SADDLE STITCHING MACHINE OPERATOR TO MONITOR FOR HYPO/HYPERGLYCEMIA AND CONDUCT ROUTINE FOOT INSPECTIONS. RECORD PATIENT REPORTED BLOOD SUGAR LEVELS AND NOTIFY PHYSICIAN AND/OR THE RN CLINICAL PREFINISH OPERATOR FOR PHYSICIAN NOTIFICATION IF BLOOD SUGAR LEVELS ARE OUTSIDE ORDERED PARAMETERS. TEACH PATIENT/CAREGIVER ON DAILY FOOT INSPECTIONS PT/SADDLE STITCHING MACHINE OPERATOR TO IDENTIFY FALL RISK FACTORS; EDUCATE THE PATIENT/CAREGIVER ON WAYS TO REDUCE FALL RISK FACTORS AND ESTABLISH HOME EXERCISE PROGRAM TO MINIMIZE FALL RISK. MAY TEACH THE PATIENT FLOOR RECOVERY WHEN CLINICALLY APPROPRIATE PT / SADDLE STITCHING MACHINE OPERATOR MAY EDUCATE ON PAIN MANAGEMENT CLINICALLY INDICATED, INCLUDING NON-PHARMACOLOGICAL PAIN REDUCTION TECHNIQUES [code = AGENCY MAY PERFORM A RESUMPTION OF CARE VISIT FOLLOWING ANY HOSPITAL ADMISSION. PT TO EVALUATE, OBSERVE / ASSESS, AND MONITOR, SADDLE STITCHING MACHINE OPERATOR TO OBSERVE AND MONITOR, PROVIDE SKILLED THERAPEUTIC INTERVENTION, ACTIVITY, EDUCATION, AND TRAINING TO ADDRESS; PT/SADDLE STITCHING MACHINE OPERATOR TO PROVIDE GAIT TRAINING FOR IMPROVED MOBILITY AND /OR TO NORMALIZE GAIT PATTERN NEUROMUSCULAR RE-EDUCATION / BALANCE / POSTURAL CONTROL (PT) THERAPEUTIC EXERCISES AND ESTABLISHING A HOME EXERCISE PROGRAM (PT/SADDLE STITCHING MACHINE OPERATOR) PT/SADDLE STITCHING MACHINE OPERATOR TO PROVIDE STAIR TRAINING SIT TO/FROM STAND TRANSFERS (PT/SADDLE STITCHING MACHINE OPERATOR) PT / SADDLE STITCHING MACHINE OPERATOR TO MONITOR AND EDUCATE ON OXYGEN SATURATION DURING ADLS/IADLS, NOTIFY PHYSICIAN AND/OR THE RN CLINICAL PREFINISH OPERATOR FOR PHYSICIAN NOTIFICATION AND IF O2 SATS BELOW PHYSICIAN ORDERED PARAMETERS AFTER 10 MIN OF REST PT / SADDLE STITCHING MACHINE OPERATOR TO MONITOR FOR HYPO/HYPERGLYCEMIA AND CONDUCT ROUTINE FOOT INSPECTIONS. RECORD PATIENT REPORTED BLOOD SUGAR LEVELS AND NOTIFY PHYSICIAN AND/OR THE RN CLINICAL PREFINISH OPERATOR FOR PHYSICIAN NOTIFICATION IF BLOOD SUGAR LEVELS ARE OUTSIDE ORDERED PARAMETERS. TEACH PATIENT/CAREGIVER ON DAILY FOOT INSPECTIONS PT/SADDLE STITCHING MACHINE OPERATOR TO IDENTIFY FALL RISK FACTORS; EDUCATE THE PATIENT/CAREGIVER ON WAYS TO REDUCE FALL RISK FACTORS AND ESTABLISH HOME EXERCISE PROGRAM TO MINIMIZE FALL RISK. MAY TEACH THE PATIENT FLOOR RECOVERY WHEN CLINICALLY APPROPRIATE PT / SADDLE STITCHING MACHINE OPERATOR MAY EDUCATE ON PAIN MANAGEMENT CLINICALLY INDICATED, [...] PAIN MANAGEMENT TECHNIQUES EVIDENCED BY REDUCED PAIN Progress Notes Progress Notes <paragraph>[Visit Date: 2024 by RUPALI FERNANDO RN]:</paragraph><paragraph>[facility] FOR DIET AND CANCER EDUCATION</paragraph><paragraph></paragraph><paragraph>PATIENT REPORTING THAT HER FIRST BIOPSY WAS VERY PAINFUL, BECAUSE THEY GAVE NO ANESTHESIA. PATIENT REPORTS THEM NOT GETTING ENOUGH TISSUE AND REQUIRING A SECOND SAMPLE. TWO SITES ARE SCABS, NO SYMPTOMS OF INFECTION, NO DRAINAGE, REDNESS, OR SWELLING. 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 PATIENT REPORTS WEEKLY CHEMO TO HELP GET RID OF LESIONS FOR A COUPLE MONTHS, THEN SHE WILL GO EVERY THREE WEEKS. PATIENT REPORTS NEEDING DESENSITIZATION PROCEDURE THURSDAY AND EVERY WEEK DUE TO REACTION TO TREATMENT. REVIEWED DIET TO STAY STRONG DURING CHEMO, INCREASED PROTEIN, WATER, AND EATING A BALANCED DIET. PATIENT HAD NEUTROPENIC PRECAUTION EDUCATION, REVIEWED COOKING VEGETABLES, AND REVIEWED GENERAL DIET. REVIEWED ARTIFICIAL SWEETNERS BEING CANCER CAUSING, TO TRY AND AVOID THEM IF POSSIBLE. REVIEWED MEDICATIONS, AND NO CHANGES OR CONCERNS AT THIS TIME. REVIEWED FALL PRECAUTIONS, BLEEDING PRECAUTIONS, WHEN TO CALL [employer], AND WHEN TO CALL 911. PATIENT CONTINUES TO BE HOMEBOUND DUE TO WEAKNESS, SHORTNESS OF BREATH, AND NEEDING ASSISTANCE TO LEAVE HOME.</paragraph> Encounters Start Date/Time End Date/Time Encounter Type Admission Type Attending Clinicians Care Facility Care Department Encounter ID Discharge Date Discharge Status Discharge Condition Discharge Reason Percent Goals Met 2025-07-21 00:00:00 2025-09-18 00:00:00 Outpatient NEW ADMISSION RUPALI FERNANDO [facility] [id number] 18.92
== END 2025-09-01 10:48 | disposition home or self-care (01) ==
LOC: HO.HMGCLDS 10:47
PROVIDERS: PCP Internal Medicine; Visit Provider Internal Medicine Medical Oncology
DX: C90.00 Multiple myeloma not having achieved remission (principal)
CPT/HCPCS: 36415; 80053; 85025; 86704; 86706; 86803; 87340

== ENCOUNTER 2025-09-08 09:39 | Outpatient (REF) | payer MEDICARE, SELFPAY ==
[2025-09-08 13:54] LABS: MANUAL DIFF FLAG NO
[2025-09-08 13:59] LABS: Hematocrit 28.5 % (37.0-47.0); Hemoglobin 8.6 g/dl (12.0-16.0); Imm Gran Abs Auto 0.04 X10*3/uL (0.00-0.03); Imm Gran Pct Auto 0.6 % (0.0-0.4); Lymphocytes Absolute Auto 1.0 X10*3/uL (1.2-4.9); Mean Corpuscular HGB Conc 30.2 g/dl (31.0-35.0); Mean Corpuscular Hemoglobin 26.1 pg (27.0-33.0); Mean Corpuscular Volume 86.6 fL (80.0-98.0); NRBC Abs Auto 0.000 X10*3/uL (0.0-0.012); NRBC Pct Auto 0.0 /100WBC (0.0-0.2); Platelet Count 478 X10*3/uL (160-400); Red Blood Count 3.29 X10*6/uL (4.20-5.50); White Blood Count 7.1 X10*3/uL (4.8-10.8)
[2025-09-08 14:26] LABS: Alanine Aminotransferase 35 U/L (0-31); Albumin Level 3.6 g/dL (3.5-5.0); Alkaline Phosphatase 88 U/L (39-117); Anion Gap 14 (12-20); Aspartate Amino Transferase 57 U/L (5-31); Blood Urea Nitrogen 34 mg/dL (9-16); Calcium 8.1 mg/dL (8.4-10.2); Carbon Dioxide 21 mmol/L (22-29); Chloride 100 mmol/L (96-108); Estimated Glomerular Filt Rate 35; Potassium 3.9 mmol/L (3.3-5.1); Sodium 131 mmol/L (135-145); Total Protein 8.6 g/dL (6.5-8.0)
[2025-09-09 07:42] LABS: HBS Num1 0.00 mIU/mL (0-7.99); HBc Num1 0.12 S/CO (0.00-0.79); HBsAGNum1 0.63 S/CO (0.00-0.99); Hepatitis B Surface Antigen Negative (Negative); ~Hepatitis B Surface Antibody NONREACTIVE (Nonreactive)
== END 2025-09-08 09:40 | disposition home or self-care (01) ==
LOC: HO.HMGCLDS 09:39
PROVIDERS: PCP Internal Medicine; Visit Provider Internal Medicine Medical Oncology
DX: C90.00 Multiple myeloma not having achieved remission (principal)
CPT/HCPCS: 36415; 80053; 85025; 86704; 86706; 87340

== ENCOUNTER 2025-09-15 08:35 | Outpatient (REF) | payer MEDICARE, SELFPAY ==
--- OUTSIDE RECORDS SUMMARY | 2025-09-15 08:47 | XMS_ITS | Encounter Summary ---
Author Organization [facility] Address [address] [place] [phone] Care Team Providers Care Specialty Cook Name Role Phone Susu Carreno MD Primary Care Provider + Encounter Details Date Type Department Care Team (Late st Contact Info) Description 07/24/2025 Lab Requisition [facility] [address] [facility] [place] [address] Susu Carreno MD [address] [phone] Weakness; Type 2 diabetes mellitus without complications [...] V28) documented in this encounter Care Teams Specialty Cook Relationship Specialty Start Date End Date Susu Carreno MD [address] [place] [address] [phone] PCP - General Family Medicine 07/12/25 documented as of this encounter
--- OUTSIDE RECORDS SUMMARY | 2025-09-15 08:47 | XMS_ITS | Clinical Summary ---
Author Organization [address] Address [address] [place] [address] Phone Care Team Providers Care Computer Science Intern Name Role Phone Susu Carreno MD Primary Care Provider + Encounters Date Type Department Care Team Description 07/31/2025 9:52 AM EST - 07/31/2025 11:59 PM EST Hospital Encounter [facility] PET Scan [address] [place] [phone] Multiple myeloma, remission status unspecified ([facility] V24, [facility] V28) Discharge Disposition: Home or Self Care 07/24/2025 Lab Requisition [facility] [address] [place] [phone] Susu Carreno MD Weakness; Type 2 diabetes mellitus without complications ([facility] V24, [facility] V28) 07/21/2025 Lab Requisition [facility] [address] [place] [phone] Susu Carreno MD Weakness; Type 2 diabetes mellitus without complications ([facility] V24, [facility] V28) 07/19/2025 Lab Requisition [facility] [address] [place] [phone] Susu Carreno MD Multiple myeloma not having achieved remission ([facility] V24, [facility] V28) 07/16/2025 Lab Requisition [facility] [address] [place] [phone] Susu Carreno MD Weakness; Type 2 diabetes mellitus without complications ([facility] V24, [facility] V28) 07/12/2025 Lab Requisition [facility] Lab [address] [place] [address] Susu Carreno MD Weakness; Type 2 diabetes mellitus without complications ([facility] V24, [facility] V28) from Last 3 Months Surgical History [...] on file Sexual Orientation Not on file Plan of Treatment Health Maintenance Due Date Last Done Comments Diabetes: Annual Foot Exam 1955 Diabetes: Annual Retina Eye Exam 1955 DTaP,Tdap,and Td Vaccines (1 - Tdap) 1966 Pneumococcal Vaccine: 50+ Years (3 of 3 - PCV) 03/29/2019 03/29/2018, 07/19/2013 Depression Screening 09/28/2024 COVID-19 Vaccine ( season) 2025 07/29/2024, 08/06/2023, 08/01/2022, Additional history [...] EDT Multiple myeloma not having achieved remission ([facility]/HCC V24, CMS/HCC V28) KAPPA-LAMBDA QUANTITATIVE FREE LIGHT CHAINS Routine 07/19/2025 5:28 AM EDT Multiple myeloma not having achieved remission (CMS/HCC V24, CMS/HCC V28) CBC AND DIFFERENTIAL Routine 07/19/2025 5:28 AM EDT Multiple myeloma not having achieved remission ([facility]/HCC V24, CMS/HCC V28) COMPREHENSIVE METABOLIC PANEL Routine [...] Signed Date: 08/01/2025 09:46 ET Workstation ID: [id number] Transcribed By: Self Edit Transcribed Date: 08/01/2025 [...] pathologic fracture. Compression fractures at T11 and [id number] significant increased activity. IMPRESSION: 1. Innumerable lytic [...] Signed Date: 08/01/2025 09:46 ET Workstation ID: [id number] Transcribed By: Self Edit Transcribed Date: 08/01/2025 08:09 ET us Nesha Gomez MD [facility] NM PROCEDURES Final Result * Pathologist Review Immunofixation (07/19/2025 5:28 AM EDT) Pathologist Interpretation Reviewed by Josette Munguia MD 07/20/2025 4:00 PM EDT [facility] Blood Venous blood specimen / Unknown 07/19/2025 5:28 AM EDT 07/20/2025 1:17 PM EDT Susu Carreno MD LAB BLOOD ORDERABLES Fin al Result Performing Organization Address City/[facility]/ZIP Co de Phone Number [facility] [address] [place] [address], [place] [phone] * SST tube (07/19/2025 5:28 AM EDT) Pathologist [facility] Extra Tube Hold for add-ons. 07/19/2025 10:01 AM EDT [facility] Comment:Auto resulted. Blood Venous blood specimen / Unknown 07/19/2025 5:28 AM EDT 07/19/2025 8:55 AM EDT Susu Carreno MD LAB BLOOD ORDERABLES Fin al Result Performing Organization Address [facility]/ZIP Co de Phone Number [facility] [address] [place] [address], [place] [phone] * (ABNORMAL) [place]-lambda free light chains, quantitative (07/19/2025 5:28 AM EDT) [place] Free Light Chain 1.34 0.33 - 1.94 mg/dL 07/21/2025 11:38 AM EDT [facility] Lambda Free Light Chain 143.05(H) 0.57 - 2.63 mg/dL 07/21/2025 11:38 AM EDT [facility] [place]/Lambda FLC Ratio <0.01(L) 0.26 - 1.65 07/21/2025 11:38 AM EDT [facility] Comment: Test performed at [facility], [address] , [place] [address] Adele Luna MD, PhD - Rail Switch Operator Blood Venous blood specimen / Unknown Venipuncture / Unknown 07/19/2025 5:28 AM EDT 07/19/2025 8:52 AM EDT Susu Carreno MD LAB BLOOD ORDERABLES Fin al Result ALAN RENEE [address] [place] [address] * (ABNORMAL) CBC auto differential (07/19/2025 5:28 AM EDT) [facility] WBC 5.7 4.8 - 10.8 K/mcL LAB HEMETOLOGY METHOD [facility] RBC 3.80 3.80 - 4.80 M/mcL LAB HEMETOLOGY METHOD 07/19/2025 9:19 AM [facility] Hemoglobin 10.0(L) 11.5 - 16.0 g/dL LAB HEMETOLOGY METHOD 07/19/2025 9:19 AM [facility] Hematocrit 32.9(L) 35.0 - 47.0 % LAB HEMETOLOGY METHOD 07/19/2025 9:19 AM [facility] MCV 87.7 79.0 - 98.0 FL LAB HEMETOLOGY METHOD 07/19/2025 9:19 AM [facility] MCH 26.7(L) 27.0 - 32.0 pcg LAB HEMETOLOGY METHOD 07/19/2025 9:19 AM [facility] MCHC 30.4(L) 32.0 - 37.0 g/dL LAB HEMETOLOGY METHOD 07/19/2025 9:19 AM [facility] RDW 16.0(H) 11.0 - 15.0 % LAB HEMETOLOGY METHOD 07/19/2025 9:19 AM [facility] Platelets 406(H) 130 - 400 K/mcL LAB HEMETOLOGY METHOD 07/19/2025 9:19 AM [facility] MPV 9.0 7.0 - 11.0 FL LAB HEMETOLOGY METHOD 07/19/2025 9:19 AM [facility] NRBC 0.0 <1.0 % LAB HEMETOLOGY METHOD 07/19/2025 9:19 AM [facility] NRBC Absolute 0.00 <0.10 K/mcL LAB HEMETOLOGY METHOD 07/19/2025 9:19 AM [facility] Neutrophils Relative 52.8 % LAB HEMETOLOGY METHOD 07/19/2025 9:19 AM [facility] Lymphocytes Relative 33.9 % LAB HEMETOLOGY METHOD 07/19/2025 9:19 AM [facility] Monocytes Relative 9.1 % LAB HEMETOLOGY METHOD 07/19/2025 9:19 AM [facility] Eosinophils Relative 3.0 % LAB HEMETOLOGY METHOD 07/19/2025 9:19 AM [facility] Basophils Relative 0.9 % LAB HEMETOLOGY METHOD 07/19/2025 9:19 AM [facility] Immature Granulocytes Relative 0.3 % LAB HEMETOLOGY METHOD 07/19/2025 9:19 AM [facility] Neutrophils Absolute 3.03 1.50 - 7.00 K/mcL LAB HEMETOLOGY METHOD 07/19/2025 9:19 AM [facility] Lymphocytes Absolute 1.94 1.00 - 5.00 K/mcL LAB HEMETOLOGY METHOD 07/19/2025 9:19 AM [facility] Monocytes Absolute 0.52 0.20 - 1.00 K/mcL LAB HEMETOLOGY METHOD 07/19/2025 9:19 AM [facility] Eosinophils Absolute 0.17 0.00 - 0.50 K/mcL LAB HEMETOLOGY METHOD 07/19/2025 9:19 AM EDT [facility] Basophils Absolute 0.05 0.00 - 0.20 K/[facility] LAB HEMETOLOGY METHOD 07/19/2025 9:19 AM EDT [facility] Immature Granulocytes Absolute 0.02 0.00 - 0.03 K/[facility] LAB HEMETOLOGY METHOD 07/19/2025 9:19 AM EDT [facility] Blood Venous blood specimen / Unknown Venipuncture / Unknown 07/19/2025 5:28 AM EDT 07/19/2025 8:52 AM EDT Susu Carreno MD LAB BLOOD ORDERABLES Fin al Result Performing Organization Address [facility]/ZIP Co de Phone Number [facility] [address] [place] [address], [place] [phone] * Immunofixation electrophoresis serum (07/19/2025 5:28 AM EDT) Pathologist [facility] Immunofixation Result, Serum IgG Lambda monoclonal immunoglobulins detected. LAB CHEMISTRY METHOD 07/20/2025 4:00 PM EDT [facility] Blood Venous blood specimen / Unknown 07/19/2025 5:28 AM EDT 07/20/2025 1:17 PM EDT Susu Carreno MD LAB BLOOD ORDERABLES Fin al Result [facility] [address] [place] [address], [place] [phone] * (ABNORMAL) Immunoglobulins IgG, IgA, IgM (07/19/2025 5:28 AM EDT) Pathologist [facility] Total IgG 3,700(H) 549 - 1,584 mg/dL LAB CHEMISTRY METHOD 07/20/2025 3:22 PM EDT [facility] IgA 40(L) 61 - 348 mg/dL LAB CHEMISTRY METHOD 07/20/2025 3:22 PM EDT [facility] IgM 21(L) 23 - 259 mg/dL LAB CHEMISTRY METHOD 07/20/2025 3:22 PM EDT [facility] Blood Venous blood specimen / Unknown 07/19/2025 5:28 AM EDT 07/20/2025 1:17 PM EDT Susu Carreno MD LAB BLOOD ORDERABLES Fin al Result Performing Organization Address City/[facility]/ZIP Co de Phone Number [facility] [address] [place] [address], [place] [phone] * (ABNORMAL) Beta 2 microglobulin, serum (07/19/2025 5:28 AM EDT) Beta-2 Microglobulin 12.5(H) 0.7 - 1.8 mg/L LAB CHEMISTRY METHOD 07/19/2025 11:39 AM EDT [facility] Blood Venous blood specimen / Unknown Venipuncture / Unknown 07/19/2025 5:28 AM EDT 07/19/2025 8:52 AM EDT Susu Carreno MD LAB BLOOD ORDERABLES Fin al Result Performing Organization Address City/[facility]/ZIP Co de Phone Number [facility] [address] [place] [address], [place] [phone] * (ABNORMAL) Comprehensive metabolic panel (07/19/2025 5:28 AM EDT) Only the most recent of2 resultswithin the time period is included. Sodium 137 133 - 145 mmol/L LAB CHEMISTRY METHOD 07/19/2025 11:39 AM EDT [facility] Potassium 3.1(L) 3.5 - 5.5 mmol/L LAB CHEMISTRY METHOD 07/19/2025 11:39 AM EDT [facility] Chloride 100 96 - 110 mmol/L LAB CHEMISTRY METHOD 07/19/2025 11:39 AM [facility] CO2 31 21 - 32 mmol/L LAB CHEMISTRY METHOD 07/19/2025 11:39 AM [facility] Anion Gap 6 3 - 11 LAB CHEMISTRY METHOD 07/19/2025 11:39 AM [facility] Glucose 92 70 - 100 mg/dL LAB CHEMISTRY METHOD 07/19/2025 11:39 AM [facility] BUN 16 5 - 25 mg/dL LAB CHEMISTRY METHOD 07/19/2025 11:39 AM [facility] Creatinine 1.14(H) 0.50 - 1.10 mg/dL LAB CHEMISTRY METHOD 07/19/2025 11:39 AM [facility] eGFR 49(L) >=60 mL/min/1. 73m2 LAB CHEMISTRY METHOD 07/19/2025 11:39 AM [facility] Comment:Calculation based on the Chronic Kidney Disease Epidemiology Collaboration (CKD-EPI) equation refit without adjustment for race. BUN/Creatinine Ratio 14.0 LAB CHEMISTRY METHOD 07/19/2025 11:39 AM [facility] Calcium 8.7 8.5 - 10.5 mg/dL LAB CHEMISTRY METHOD 07/19/2025 11:39 AM [facility] AST (SGOT) 20 10 - 42 unit/L LAB CHEMISTRY METHOD 07/19/2025 11:39 AM [facility] ALT (SGPT) 14 10 - 60 unit/L LAB CHEMISTRY METHOD 07/19/2025 11:39 AM [facility] Alkaline Phosphatase 78 42 - 121 unit/L LAB CHEMISTRY METHOD 07/19/2025 11:39 AM [facility] Total Protein 9.1(H) 6.0 - 8.0 g/dL LAB CHEMISTRY METHOD 07/19/2025 11:39 AM EDT [facility] Albumin 2.7(L) 3.2 - 5.0 g/dL LAB CHEMISTRY METHOD 07/19/2025 11:39 AM EDT [facility] Total Bilirubin 0.4 0.0 - 1.4 mg/dL LAB CHEMISTRY METHOD 07/19/2025 11:39 AM T [facility] Blood Venous blood specimen / Unknown Venipuncture / Unknown 07/19/2025 5:28 AM EDT 07/19/2025 8:52 AM EDT us Susu Carreno MD LAB BLOOD ORDERABLES Fin al Result [facility] [address] [place] [address], [place] [phone] * (ABNORMAL) Complete blood count (07/17/2025 7:28 AM EDT) Only the most recent of2 resultswithin the time period is included. WBC 5.9 4.8 - 10.8 K/mcL LAB HEMETOLOGY METHOD 07/17/2025 10:36 AM [facility] RBC 4.00 3.80 - 4.80 M/mcL LAB HEMETOLOGY METHOD 07/17/2025 10:36 AM [facility] Hemoglobin 10.6(L) 11.5 - 16.0 g/dL LAB HEMETOLOGY METHOD 07/17/2025 10:36 AM [facility] Hematocrit 35.0 35.0 - 47.0 % LAB HEMETOLOGY METHOD 07/17/2025 10:36 AM [facility] MCV 87.9 79.0 - 98.0 FL LAB HEMETOLOGY METHOD 07/17/2025 10:36 AM [facility] MCH 26.6(L) 27.0 - 32.0 pcg LAB HEMETOLOGY METHOD 07/17/2025 10:36 AM EDT [facility] MCHC 30.3(L) 32.0 - 37.0 g/dL LAB HEMETOLOGY METHOD 07/17/2025 10:36 AM EDT [facility] RDW 16.3(H) 11.0 - 15.0 % LAB HEMETOLOGY METHOD 07/17/2025 10:36 AM EDT [facility] Platelets 474(H) 130 - 400 K/mcL LAB HEMETOLOGY METHOD 07/17/2025 10:36 AM EDT [facility] MPV 9.5 7.0 - 11.0 FL LAB HEMETOLOGY METHOD 07/17/2025 10:36 AM EDT [facility] NRBC 0.0 <1.0 % LAB HEMETOLOGY METHOD 07/17/2025 10:36 AM EDT [facility] NRBC Absolute 0.00 <0.10 K/mcL LAB HEMETOLOGY METHOD 07/17/2025 10:36 AM T [facility] Blood Venous blood specimen / Unknown Venipuncture / Unknown 07/17/2025 7:28 AM EDT 07/17/2025 9:50 AM EDT Susu Carreno MD LAB BLOOD ORDERABLES Fin al Result [facility] [address] [place] [address], * (ABNORMAL) Basic metabolic panel (07/17/2025 7:28 AM EDT) Sodium 137 133 - 145 mmol/L LAB CHEMISTRY METHOD 07/17/2025 10:35 AM EDT [facility] Potassium 3.2(L) 3.5 - 5.5 mmol/L LAB CHEMISTRY METHOD 07/17/2025 10:35 AM EDT [facility] Chloride 102 96 - 110 mmol/L LAB CHEMISTRY METHOD 07/17/2025 10:35 AM [facility] CO2 27 21 - 32 mmol/L LAB CHEMISTRY METHOD 07/17/2025 10:35 AM [facility] Anion Gap 8 3 - 11 LAB CHEMISTRY METHOD 07/17/2025 10:35 AM [facility] Glucose 105(H) 70 - 100 mg/dL LAB CHEMISTRY METHOD 07/17/2025 10:35 AM [facility] BUN 14 5 - 25 mg/dL LAB CHEMISTRY METHOD 07/17/2025 10:35 AM [facility] Creatinine 1.08 0.50 - 1.10 mg/dL LAB CHEMISTRY METHOD 07/17/2025 10:35 AM [facility] eGFR 53(L) >=60 mL/min/1. 73m2 LAB CHEMISTRY METHOD 07/17/2025 10:35 AM [facility] Comment:Calculation based on the Chronic Kidney Disease Epidemiology Collaboration (CKD-EPI) equation refit without adjustment for race. BUN/Creatinine Ratio 13.0 LAB CHEMISTRY METHOD 07/17/2025 10:35 AM [facility] Calcium 8.3(L) 8.5 - 10.5 mg/dL LAB CHEMISTRY METHOD 07/17/2025 10:35 AM [facility] Blood Venous blood specimen / Unknown Venipuncture / Unknown 07/17/2025 7:28 AM EDT 07/17/2025 9:49 AM EDT us Susu Carreno MD LAB BLOOD ORDERABLES Fin al Result [facility] [address] [place] [address], * Thyroid stimulating hormone with reflex to free t4 and free t3 (07/12/2025 5:56 AM EDT) TSH 0.54 0.40 - 4.00 mcIU/mL LAB CHEMISTRY METHOD 07/12/2025 11:58 AM EDT [facility] Blood Venous blood specimen / Unknown Venipuncture / Unknown 07/12/2025 5:56 AM EDT 07/12/2025 9:03 AM EDT Susu Carreno MD LAB BLOOD ORDERABLES Fin al Result Performing Organization Address [facility]/ZIP Co de Phone Number [facility] [address] [place] [address], [place] [phone] * Hemoglobin A1c (07/12/2025 5:56 AM EDT) Pathologist [facility] Hemoglobin A1C 6.0 <6.5 % LAB CHEMISTRY METHOD 07/12/2025 1:10 PM EDT [facility] Mean Bld Glu Estim. 126 mg/dL LAB CHEMISTRY METHOD 07/12/2025 1:10 PM EDT [facility] Blood Venous blood specimen / Unknown Venipuncture / Unknown 07/12/2025 5:56 AM EDT 07/12/2025 9:03 AM EDT Susu Carreno MD LAB BLOOD ORDERABLES Fin al Result Performing Organization Address City/[facility]/ZIP Co de Phone Number [facility] [address] [place] [address], [place] [phone] * (ABNORMAL) Folate (07/12/2025 5:56 AM EDT) Folate >20.0(H) 2.8 - 17.0 ng/ml LAB CHEMISTRY METHOD 07/12/2025 11:28 AM EDT [facility] Blood Venous blood specimen / Unknown Venipuncture / Unknown 07/12/2025 5:56 AM EDT 07/12/2025 9:03 AM EDT us Susu Carreno MD LAB BLOOD ORDERABLES Fin al Result Performing Organization Address City/[facility]/ZIP Co de Phone Number [facility] [address] [place] [address], [place] [phone] * Vitamin B12 (07/12/2025 5:56 AM EDT) Vitamin B-12 580 250 - 900 pcg/mL LAB CHEMISTRY METHOD 07/12/2025 11:28 AM EDT [facility] Blood Venous blood specimen / Unknown Venipuncture / Unknown 07/12/2025 5:56 AM EDT 07/12/2025 9:03 AM EDT Susu Carreno MD LAB BLOOD ORDERABLES Fin al Result Performing Organization Address City/[facility]/ZIP Co de Phone Number [facility] [address] [place] [address], [place] [phone] from Last [address] [address] PLAN Care Teams Computer Science Intern Relationship Specialty Start Date End Date Susu Carreno MD [address] [place] [id number] PCP - General Family Medicine 07/12/25
--- OUTSIDE RECORDS SUMMARY | 2025-09-15 08:47 | XMS_ITS | Patient Health Record ---
Author Organization [facility] Address [address] [place] [address] Care Team Providers Care Product Applications Scientist Name Role Phone Didier Reyna MD Primary Care Provider Minh Gongora Unavailable [phone] Reason For Referral No Information Medications Medication [...] Problem Acquired hammer toe of right foot (294288953665454 5) Other hammer toe(s) (acquired), right foot (M20.41) Active confirmed Problem Acquired hammer toe of left foot ([id number] 3) Other hammer toe(s) (acquired), left foot (M20.42) Active confirmed Problem Type II diabetes mellitus without complication (365640188) Type 2 diabetes mellitus without complications (E11.9) Active confirmed Plan Of Treatment No Information Insurance Providers Payer Name Payer Address Payer Phone Subscriber Number Group Number Insured Name Patient Relationship to Insured Coverage Start Date Coverage End Date [employer] Pref[employer] [address] [place] [address] [phone] [id number] Marlen Cesar i Self - patient is the insured Medical (General) History Medical History History ICD Code High blood pressure Diabetic
--- OUTSIDE RECORDS SUMMARY | 2025-09-15 08:47 | XMS_ITS | Encounter Summary ---
Author Organization [facility] Address [address] [place] [id number] Care Team Providers Care Painter And Decorator Apprentice Name Role Phone Susu Carreno MD Primary Care Provider + Encounter Details Date Type Department Care Team (Late st Contact Info) Description 07/21/2025 Lab Requisition [facility] [address] [facility] [place] [address] Susu Carreno MD [address] [phone] Weakness; Type 2 diabetes mellitus without complications [...] V28) documented in this encounter Care Teams Painter And Decorator Apprentice Relationship Specialty Start Date End Date Susu Carreno MD [address] [place] [address] [phone] PCP - General Family Medicine 07/12/25 documented as of this encounter
--- OUTSIDE RECORDS SUMMARY | 2025-09-15 08:47 | XMS_ITS | Encounter Summary ---
Author Organization [facility] Address [address] [place] [address] Care Team Providers Care Operations Analyst Name Role Phone Susu Carreno MD Primary Care Provider + Encounter Details Date Type Department Care Team (Late st Contact Info) Description 07/19/2025 Lab Requisition [facility] - Main Lab [address] [facility] [place] [address] Susu Carreno MD [address] [facility] 1 [place] [address] Multiple myeloma not having achieved [...] EDT Multiple myeloma not having achieved remission ([facility]/HCC V24, CMS/HCC V28) COMPREHENSIVE METABOLIC PANEL Routine 07/19/2025 5:28 AM EDT Multiple myeloma not having achieved remission ([facility]/HCC V24, CMS/HCC V28) documented in this encounter Results * Pathologist Review Immunofixation (07/19/2025 5:28 AM EDT) Pathologist Interpretation Reviewed by Josette Munguia MD 07/20/2025 4:00 PM EDT [facility] Blood Venous blood specimen / Unknown 07/19/2025 5:28 AM EDT 07/20/2025 1:17 PM EDT us Susu Carreno MD LAB BLOOD ORDERABLES Fin al Result [facility] [address] [place] [address], [place] [phone] * (ABNORMAL) Immunoglobulins IgG, IgA, IgM (07/19/2025 5:28 AM EDT) [facility] Total IgG 3,700(H) 549 - 1,584 mg/dL [...] ORDERABLES Fin al Result Performing Organization Address [facility] Co de Phone Number [facility] [address] [place] [address], [place] [phone] * Immunofixation electrophoresis serum (07/19/2025 5:28 AM EDT) [facility] Immunofixation Result, Serum IgG Lambda monoclonal immunoglobulins detected. LAB CHEMISTRY METHOD 07/20/2025 4:[address] [facility] Blood Venous blood specimen / Unknown 07/19/2025 5:28 AM EDT 07/20/2025 1:17 PM EDT Susu Carreno MD LAB BLOOD ORDERABLES Fin al Result [facility] [address] [place] [address], [place] [phone] * SST tube (07/19/2025 5:28 AM EDT) [facility] Extra Tube Hold for add-ons. 07/19/2025 10:[address] [facility] Comment:Auto resulted. Blood Venous blood specimen / Unknown 07/19/2025 5:28 AM EDT 07/19/2025 8:55 AM EDT us Susu Carreno MD LAB BLOOD ORDERABLES Fin al Result [facility] [address] [place] [address], * (ABNORMAL) CBC auto differential (07/19/2025 5:28 AM EDT) [facility] WBC 5.7 4.8 - 10.8 K/mcL LAB HEMETOLOGY METHOD 07/19/2025 9:[address] [facility] RBC 3.80 3.80 - 4.80 M/mcL LAB HEMETOLOGY METHOD 07/19/2025 9:[address] [facility] Hemoglobin 10.0(L) 11.5 - 16.0 g/dL LAB HEMETOLOGY METHOD 07/19/2025 9:[address] [facility] Hematocrit 32.9(L) 35.0 - 47.0 % LAB HEMETOLOGY METHOD 07/19/2025 9:[address] [facility] MCV 87.7 79.0 - 98.0 FL LAB HEMETOLOGY METHOD 07/19/2025 9:[address] [facility] MCH 26.7(L) 27.0 - 32.0 pcg LAB HEMETOLOGY METHOD 07/19/2025 9:[address] [facility] MCHC 30.4(L) 32.0 - 37.0 g/dL LAB HEMETOLOGY METHOD 07/19/2025 9:[address] [facility] RDW 16.0(H) 11.0 - 15.0 % LAB HEMETOLOGY METHOD 07/19/2025 9:[address] [facility] Platelets 406(H) 130 - 400 K/mcL LAB HEMETOLOGY METHOD 07/19/2025 9:[address] [facility] MPV 9.0 7.0 - 11.0 FL LAB HEMETOLOGY METHOD 07/19/2025 9:[address] [facility] NRBC 0.0 <1.0 % LAB HEMETOLOGY METHOD 07/19/2025 9:[address] [facility] NRBC Absolute 0.00 <0.10 K/[facility] LAB HEMETOLOGY METHOD 07/19/2025 9:[address] [facility] Neutrophils Relative 52.8 % LAB HEMETOLOGY METHOD 07/19/2025 9:[address] [facility] Lymphocytes Relative 33.9 % LAB HEMETOLOGY METHOD 07/19/2025 9:[address] [facility] Monocytes Relative 9.1 % LAB HEMETOLOGY METHOD 07/19/2025 9:[address] [facility] Eosinophils Relative 3.0 % LAB HEMETOLOGY METHOD 07/19/2025 9:[address] [facility] Basophils Relative 0.9 % LAB HEMETOLOGY METHOD 07/19/2025 9:[address] [facility] Immature Granulocytes Relative 0.3 % LAB HEMETOLOGY METHOD 07/19/2025 9:[address] [facility] Neutrophils Absolute 3.03 1.50 - 7.00 K/mcL LAB HEMETOLOGY METHOD 07/19/2025 9:[address] [facility] Lymphocytes Absolute 1.94 1.00 - 5.00 K/mcL LAB HEMETOLOGY METHOD 07/19/2025 9:[address] [facility] Monocytes Absolute 0.52 0.20 - 1.00 K/mcL LAB HEMETOLOGY METHOD 07/19/2025 9:[address] [facility] Eosinophils Absolute 0.17 0.00 - 0.50 K/mcL LAB HEMETOLOGY METHOD 07/19/2025 9:[address] [facility] Basophils Absolute 0.05 0.00 - 0.20 K/[facility] LAB HEMETOLOGY METHOD 07/19/2025 9:[address] [facility] Immature Granulocytes Absolute 0.02 0.00 - 0.03 K/mcL LAB HEMETOLOGY METHOD 07/19/2025 9:[address] [facility] Blood Venous blood specimen / Unknown Venipuncture / Unknown 07/19/2025 5:28 AM EDT 07/19/2025 8:52 AM EDT Susu Carreno MD LAB BLOOD ORDERABLES Fin al Result [facility] [address] [place] [address], [place] [phone] * (ABNORMAL) Beta 2 microglobulin, serum (07/19/2025 5:28 AM EDT) Beta-2 Microglobulin 12.5(H) 0.7 - 1.8 mg/L LAB CHEMISTRY METHOD 07/19/2025 11:[address] [facility] Blood Venous blood specimen / Unknown Venipuncture / Unknown 07/19/2025 5:28 AM EDT 07/19/2025 8:52 AM EDT Susu Carreno MD LAB BLOOD ORDERABLES Fin al Result [facility] [address] [place] [address], [place] [phone] * (ABNORMAL) [place]-lambda free light chains, quantitative (07/19/2025 5:28 AM EDT) [place] Free Light Chain 1.34 0.33 - 1.94 mg/dL 07/21/2025 11:38 AM EDT [facility] Lambda Free Light Chain 143.05(H) 0.57 - 2.63 mg/dL 07/21/2025 11:38 AM EDT [facility] [place]/Lambda FLC Ratio <0.01(L) 0.26 - 1.65 07/21/2025 11:38 AM EDT [facility] Comment: Test performed at [facility], [address], [place] [address] Adele Luna MD, PhD - Engineering Drawings Checker Blood Venous blood specimen / Unknown Venipuncture / Unknown 07/19/2025 5:28 AM EDT 07/19/2025 8:52 AM EDT Susu Carreno MD LAB BLOOD ORDERABLES Fin al Result [facility] [address] [place], [place] [id number] * (ABNORMAL) Comprehensive metabolic panel (07/19/2025 5:28 AM EDT) [facility] Sodium 137 133 - 145 mmol/L LAB CHEMISTRY METHOD 07/19/2025 11:[address] [facility] Potassium 3.1(L) 3.5 - 5.5 mmol/L LAB CHEMISTRY METHOD 07/19/2025 11:[address] [facility] Chloride 100 96 - 110 mmol/L LAB CHEMISTRY METHOD 07/19[facility]25 [facility] CO2 31 21 - 32 mmol/L LAB CHEMISTRY METHOD 07/19/2025 11:[address] [facility] Anion Gap 6 3 - 11 LAB CHEMISTRY METHOD 07/19/2025 11:[address] [facility] Glucose 92 70 - 100 mg/dL LAB CHEMISTRY METHOD 07/19/2025 11:[address] [facility] BUN 16 5 - 25 mg/dL LAB CHEMISTRY METHOD 07/19/2025 11:[address] [facility] Creatinine 1.14(H) 0.50 - 1.10 mg/dL LAB CHEMISTRY METHOD 07/19/2025 11:[address] [facility] eGFR 49(L) >=60 mL/min/1. 73m2 LAB CHEMISTRY METHOD 07/19/2025 11:[address] [facility] Comment:Calculation based on the Chronic Kidney Disease Epidemiology Collaboration (CKD-EPI) equation refit without adjustment for race. BUN/Creatinine Ratio 14.0 LAB CHEMISTRY METHOD 07/19/2025 11:[address] [facility] Calcium 8.7 8.5 - 10.5 mg/dL LAB CHEMISTRY METHOD 07/19/2025 11:[address] [facility] AST (SGOT) 20 10 - 42 unit/L LAB CHEMISTRY METHOD 07/19/2025 11:[address] [facility] ALT (SGPT) 14 10 - 60 unit/L LAB CHEMISTRY METHOD 07/19/2025 11:[address] [facility] Alkaline Phosphatase 78 42 - 121 unit/L LAB CHEMISTRY METHOD 07/19/2025 11:[address] [facility] Total Protein 9.1(H) 6.0 - 8.0 g/dL LAB CHEMISTRY METHOD 07/19/2025 11:[address] [facility] Albumin 2.7(L) 3.2 - 5.0 g/dL LAB CHEMISTRY METHOD 07/19/2025 11:[address] [facility] Total Bilirubin 0.4 0.0 - 1.4 mg/dL LAB CHEMISTRY METHOD 07/19/2025 11:[address] [facility] Blood Venous blood specimen / Unknown Venipuncture / Unknown 07/19/2025 5:28 AM EDT 07/19/2025 8:52 AM EDT us Susu Carreno MD LAB BLOOD ORDERABLES Fin al Result [facility] [address] [place] [address], documented in this encounter Visit Diagnoses Diagnosis Multiple myeloma not having achieved remission (CMS/HCC V24, CMS/HCC V28) documented in this encounter Care Teams Operations Analyst Relationship Specialty Start Date End Date Susu Carreno MD [address] [place] [id number] PCP - General Family Medicine 07/12/25 documented as of this encounter
--- OUTSIDE RECORDS SUMMARY | 2025-09-15 08:47 | XMS_ITS | Encounter Summary ---
Author Organization [facility] Address [address] [place] [address] Care Team Providers Care Fur Polisher Name Role Phone Susu Carreno MD Primary Care Provider + Encounter Details Date Type Department Care Team (Late st Contact Info) Description 07/12/2025 Lab Requisition [facility] - Main Lab 299 [facility] [place] [address] Susu Carreno MD [address] [facility] 1 [place] [address] Weakness; Type 2 diabetes mellitus without complications (CMS/[facility] V24, CMS/[facility] V28) Social History Tobacco [...] Weakness Type 2 diabetes mellitus without complications (CMS/[facility] V24, CMS/[facility] V28) HEMOGLOBIN A1C Routine 07/12/2025 5:56 AM EDT Weakness Type 2 diabetes mellitus without complications (CMS/[facility] V24, CMS/[facility] V28) FOLATE Routine 07/12/2025 5:56 AM EDT Weakness Type 2 diabetes mellitus without complications ([facility] V24, [facility] V28) VITAMIN B12 Routine 07/12/2025 5:56 AM EDT Weakness Type 2 diabetes mellitus without complications ([facility] V24, [facility] V28) COMPREHENSIVE METABOLIC PANEL Routine 07/12/2025 5:56 AM EDT Weakness Type 2 diabetes mellitus without complications ([facility] V24, [facility] V28) documented in this encounter Results * Hemoglobin A1c (07/12/2025 5:56 AM EDT) Hemoglobin A1C 6.0 <6.5 % LAB CHEMISTRY METHOD 07/12/2025 1:10 PM EDT [facility] Mean Bld Glu Estim. 126 mg/dL LAB CHEMISTRY METHOD 07/12/2025 1:10 PM EDT [facility] Blood Venous blood specimen / Unknown Venipuncture / Unknown 07/12/2025 5:56 AM EDT 07/12/2025 9:03 AM EDT us Susu Carreno MD LAB BLOOD ORDERABLES Fin al Result [facility] [address] [place] [address], * (ABNORMAL) Folate (07/12/2025 5:56 AM EDT) Folate >20.0(H) 2.8 - 17.0 ng/ml LAB CHEMISTRY METHOD 07/12/2025 11:28 AM EDT [facility] Blood Venous blood specimen / Unknown Venipuncture / Unknown 07/12/2025 5:56 AM EDT 07/12/2025 9:03 AM EDT Susu Carreno MD LAB BLOOD ORDERABLES Fin al Result [facility] [address] [place] [address], [place] [phone] * Vitamin B12 (07/12/2025 5:56 AM EDT) Pathologist [facility] Vitamin B-12 580 250 - 900 pcg/mL LAB CHEMISTRY METHOD 07/12/2025 11:28 AM EDT [facility] Blood Venous blood specimen / Unknown Venipuncture / Unknown 07/12/2025 5:56 AM EDT 07/12/2025 9:03 AM EDT Susu Carreno MD LAB BLOOD ORDERABLES Fin al Result Performing Organization Address [facility]/ZIP Co de Phone Number [facility] [address] [place] [address], [place] [phone] * Thyroid stimulating hormone with reflex to free t4 and free t3 (07/12/2025 5:56 AM EDT) Pathologist [facility] TSH 0.54 0.40 - 4.00 mcIU/mL LAB CHEMISTRY METHOD 07/12/2025 11:58 AM EDT [facility] Blood Venous blood specimen / Unknown Venipuncture / Unknown 07/12/2025 5:56 AM EDT 07/12/2025 9:03 AM EDT Susu Carreno MD LAB BLOOD ORDERABLES Fin al Result [facility] [address] [place] [address], [place] [phone] * (ABNORMAL) Comprehensive metabolic panel (07/12/2025 5:56 AM EDT) Pathologist [facility] Sodium 140 133 - 145 mmol/L LAB CHEMISTRY METHOD 07/12/2025 11:28 AM [facility] Potassium 3.9 3.5 - 5.5 mmol/L LAB CHEMISTRY METHOD 07/12/2025 11:28 AM [facility] Chloride 110 96 - 110 mmol/L LAB CHEMISTRY METHOD 07/12/2025 11:28 AM [facility] CO2 25 21 - 32 mmol/L LAB CHEMISTRY METHOD 07/12/2025 11:28 AM [facility] Anion Gap 5 3 - 11 LAB CHEMISTRY METHOD 07/12/2025 11:28 AM [facility] Glucose 90 70 - 100 mg/dL LAB CHEMISTRY METHOD 07/12/2025 11:28 AM [facility] BUN 15 5 - 25 mg/dL LAB CHEMISTRY METHOD 07/12/2025 11:28 AM [facility] Creatinine 1.12(H) 0.50 - 1.10 mg/dL LAB CHEMISTRY METHOD 07/12/2025 11:28 AM [facility] eGFR 50(L) >=60 mL/min/1. 73m2 LAB CHEMISTRY METHOD 07/12/2025 11:28 AM [facility] Comment:Calculation based on the Chronic Kidney Disease Epidemiology Collaboration (CKD-EPI) equation refit without adjustment for race. BUN/Creatinine Ratio 13.4 LAB CHEMISTRY METHOD 07/12/2025 11:28 AM [facility] Calcium 8.2(L) 8.5 - 10.5 mg/dL LAB CHEMISTRY METHOD 07/12/2025 11:28 AM [facility] AST (SGOT) 19 10 - 42 unit/L LAB CHEMISTRY METHOD 07/12/2025 11:28 AM [facility] ALT (SGPT) 10 10 - 60 unit/L LAB CHEMISTRY METHOD 07/12/2025 11:28 AM [facility] Alkaline Phosphatase 66 42 - 121 unit/L LAB CHEMISTRY METHOD 07/12/2025 11:28 AM EDT [facility] Total Protein 8.1(H) 6.0 - 8.0 g/dL LAB CHEMISTRY METHOD 07/12/2025 11:28 AM EDT [facility] Albumin 2.3(L) 3.2 - 5.0 g/dL LAB CHEMISTRY METHOD 07/12/2025 11:28 AM EDT [facility] Total Bilirubin 0.4 0.0 - 1.4 mg/dL LAB CHEMISTRY METHOD 07/12/2025 11:28 AM EDT [facility] Blood Venous blood specimen / Unknown Venipuncture / Unknown 07/12/2025 5:56 AM EDT 07/12/2025 9:03 AM EDT us Susu Carreno MD LAB BLOOD ORDERABLES Fin al Result [facility] [address] [place] [address], * (ABNORMAL) Complete blood count (07/12/2025 5:56 AM EDT) WBC 5.6 4.8 - 10.8 K/mcL LAB HEMETOLOGY METHOD 07/12/2025 10:25 AM T [facility] RBC 3.70(L) 3.80 - 4.80 M/mcL LAB HEMETOLOGY METHOD 07/12/2025 10:25 AM EDT [facility] Hemoglobin 9.9(L) 11.5 - 16.0 g/dL LAB HEMETOLOGY METHOD 07/12/2025 10:25 AM EDT [facility] Hematocrit 32.6(L) 35.0 - 47.0 % LAB HEMETOLOGY METHOD 07/12/2025 10:25 AM EDT [facility] MCV 88.8 79.0 - 98.0 FL LAB HEMETOLOGY METHOD 07/12/2025 10:25 AM EDT [facility] MCH 27.0 27.0 - 32.0 pcg LAB HEMETOLOGY METHOD 07/12/2025 10:25 AM EDT [facility] MCHC 30.4(L) 32.0 - 37.0 g/dL LAB HEMETOLOGY METHOD 07/12/2025 10:25 AM EDT [facility] RDW 17.2(H) 11.0 - 15.0 % LAB HEMETOLOGY METHOD 07/12/2025 10:25 AM EDT [facility] Platelets 278 130 - 400 K/mcL LAB HEMETOLOGY METHOD 07/12/2025 10:25 AM EDT [facility] MPV 8.9 7.0 - 11.0 FL LAB HEMETOLOGY METHOD 07/12/2025 10:25 AM EDT [facility] NRBC 0.0 <1.0 % LAB HEMETOLOGY METHOD 07/12/2025 10:25 AM EDT [facility] NRBC Absolute 0.00 <0.10 K/mcL LAB HEMETOLOGY METHOD 07/12/2025 10:25 AM T [facility] Blood Venous blood specimen / Unknown Venipuncture / Unknown 07/12/2025 5:56 AM EDT 07/12/2025 9:03 AM EDT us Susu Carreno MD LAB BLOOD ORDERABLES Fin al Result [facility] [address] [place] [address], documented in this encounter Visit Diagnoses Diagnosis Weakness Other malaise and fatigue Type 2 diabetes mellitus without complications (CMS/HCC V24, CMS/HCC V28) documented in this encounter Care Teams Fur Polisher Relationship Specialty Start Date End Date Susu Carreno MD [address] [place] [id number] PCP - General Family Medicine 07/12/25 documented as of this encounter
--- OUTSIDE RECORDS SUMMARY | 2025-09-15 08:47 | XMS_ITS | Encounter Summary ---
Author Organization [facility] Address [address] [place] [phone] Care Team Providers Care Employment Coach Name Role Phone Susu Carreno MD Primary Care Provider + Encounter Details Date Type Department Care Team (Late st Contact Info) Description 07/16/2025 Lab Requisition [facility] - Main Lab 299 [facility] [place] [address] Susu Carreno MD 8[address] [facility] 1 [place] [address] Weakness; Type 2 diabetes mellitus [...] AM [facility] Potassium 3.2(L) 3.5 - 5.5 mmol/L LAB CHEMISTRY METHOD 07/17/2025 10:35 AM [facility] Chloride 102 96 [...] al Result [facility] [address] [place] [address], * (ABNORMAL) Complete blood count (07/17/2025 7:28 AM EDT) [facility] Signature WBC 5.9 4.8 - 10.8 K/mcL LAB HEMETOLOGY METHOD 07/17/2025 10:36 AM EDT [facility] RBC 4.00 3.80 - 4.80 M/mcL LAB HEMETOLOGY METHOD 07/17/2025 10:36 AM EDT [facility] Hemoglobin 10.6(L) 11.5 - 16.0 g/dL LAB HEMETOLOGY METHOD 07/17/2025 10:36 AM EDT [facility] Hematocrit 35.0 35.0 - 47.0 % LAB HEMETOLOGY METHOD 07/17/2025 10:36 AM EDT [facility] MCV 87.9 79.0 - 98.0 FL LAB HEMETOLOGY METHOD 07/17/2025 10:36 AM EDT [facility] MCH 26.6(L) 27.0 - 32.0 pcg LAB HEMETOLOGY METHOD 07/17/2025 10:36 AM EDT [facility] MCHC 30.3(L) 32.0 - 37.0 g/dL LAB HEMETOLOGY METHOD 07/17/2025 10:36 AM EDT [facility] RDW 16.3(H) 11.0 - 15.0 % LAB HEMETOLOGY METHOD 07/17/2025 10:36 AM EDT [facility] Platelets 474(H) 130 - 400 K/mcL LAB HEMETOLOGY METHOD 07/17/2025 10:36 AM EDT [facility] MPV 9.5 7.0 - 11.0 FL LAB HEMETOLOGY METHOD 07/17/2025 10:36 AM EDT [facility] NRBC 0.0 <1.0 % LAB HEMETOLOGY METHOD 07/17/2025 10:36 AM EDT [facility] NRBC Absolute 0.00 <0.10 K/mcL LAB HEMETOLOGY METHOD 07/17/2025 10:36 AM EDT [facility] Blood Venous blood specimen / Unknown Venipuncture / Unknown 07/17/2025 7:28 AM EDT 07/17/2025 9:50 AM EDT us Susu Carreno MD LAB BLOOD ORDERABLES Fin al Result [facility] [address] [place] [address], [place] [phone] documented in this encounter Visit Diagnoses Diagnosis Weakness Other malaise and fatigue Type 2 diabetes mellitus without complications (CMS/HCC V24, CMS/HCC V28) documented in this encounter Care Teams Employment Coach Relationship Specialty Start Date End Date Susu Carreno MD [address] [place] [id number] PCP - General Family Medicine 07/12/25 documented as of this encounter
[2025-09-15 10:07] LABS: MANUAL DIFF FLAG NO
[2025-09-15 10:17] LABS: Hematocrit 29.1 % (37.0-47.0); Hemoglobin 9.0 g/dl (12.0-16.0); Imm Gran Abs Auto 0.03 X10*3/uL (0.00-0.03); Imm Gran Pct Auto 0.4 % (0.0-0.4); Lymphocytes Absolute Auto 1.1 X10*3/uL (1.2-4.9); Mean Corpuscular HGB Conc 30.9 g/dl (31.0-35.0); Mean Corpuscular Hemoglobin 26.5 pg (27.0-33.0); Mean Corpuscular Volume 85.6 fL (80.0-98.0); NRBC Abs Auto 0.000 X10*3/uL (0.0-0.012); NRBC Pct Auto 0.0 /100WBC (0.0-0.2); Platelet Count 595 X10*3/uL (160-400); Red Blood Count 3.40 X10*6/uL (4.20-5.50); White Blood Count 7.1 X10*3/uL (4.8-10.8)
[2025-09-15 10:49] LABS: Alanine Aminotransferase 24 U/L (0-31); Albumin Level 4.2 g/dL (3.5-5.0); Alkaline Phosphatase 130 U/L (39-117); Anion Gap 13 (12-20); Aspartate Amino Transferase 18 U/L (5-31); Blood Urea Nitrogen 33 mg/dL (9-16); Calcium 9.9 mg/dL (8.4-10.2); Carbon Dioxide 27 mmol/L (22-29); Chloride 95 mmol/L (96-108); Estimated Glomerular Filt Rate 35; Potassium 4.6 mmol/L (3.3-5.1); Sodium 130 mmol/L (135-145); Total Protein 7.4 g/dL (6.5-8.0)
[2025-09-15 11:14] LABS: Ferritin 282 ng/mL (10-250)
[2025-09-15 11:30] LABS: HBS Num1 0.00 mIU/mL (0-7.99); HBc Num1 0.07 S/CO (0.00-0.79); HBsAGNum1 0.23 S/CO (0.00-0.99); Hepatitis B Surface Antigen Negative (Negative); ~Hepatitis B Surface Antibody NONREACTIVE (Nonreactive)
--- OUTSIDE RECORDS SUMMARY | 2025-09-17 19:00 | XMS_ITS | Clinical Summary ---
Author Organization Unknown Care Team Providers Care Manager Video Name Role Phone ASHWINI OTHER, SADIA Unavailable Unavailab ruth FERNANDO RN, RUPALI Unavailable Unavailab ruth HANLEY LPN, DIMPLE Unavailable Unavailable TEMI PT, RADHA Unavailable Unavailable DIALLO SUPERVISOR WET ROOM, RANDOLPH Unavailable Unavailable READING OT, GRACIA Unavailable Unavailable CONDINO OPHTHALMIC TECHNICIAN/HIGUERA, NASH Unavailable Unav ailable Payers Payer Name Policy Type Policy Number Effective Date [facility]pira [facility]ion Date [id number] Problems Condition Name Condition Details Condition Category Status Onset Date Resolution Date Last Treatment Date Treating Clinician Comments HYPERCALCEMI A Active 2024-09 00:00: 00 ACUTE KIDNEY FAILURE, UNSPECIFIED Active 2024-09 00:00: 00 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 Ordering Clinician Indication Dosage Frequency Signature (SIG) Comments Components furosemide 40 mg tablet 2024-09 00:00: 00 Yes [id number] FLUID RETENTION 1 tablet 2 TIMES DAILY 1 tablet 2 TIMES DAILY (route: oral) Med Classific ation: Cardiovas cular Therapy Agents FeroSul 325 mg (65 mg iron) tablet 2024-09 0- 00:00: 00 Yes [id number] SUPPLEMENT 1 tablet DAILY 1 tablet DAILY (route: oral) Med Classific ation: Electroly te Balance-N utritiona l Products simvastatin 10 mg tablet 06-22 00:00: 00 Yes [id number] HIGH CHOLESTEROL 1 tablet DAILY 1 tablet DAILY (route: oral) Med Classific ation: Cardiovas cular Therapy Agents acetaminoph en 325 mg tablet 2024-09 00:00: 00 Yes [id number] PAIN 2 tablet EVERY 4 HOURS 2 tablet EVERY 4 HOURS (route: oral) Med Classific ation: Analgesic , Anti-infl ammatory or Antipyret ic aspirin 81 mg tablet 2024-09 00:00: 00 Yes [id number] ANTIPLATELE T 1 tablet DAILY 1 tablet DAILY (route: oral) Med Classific ation: Hematolog ical Agents magnesium oxide 400 mg (241.3 mg magnesium) tablet 2024-09 00:00: 00 Yes [id number] SUPPLEMENT 1 tablet DAILY 1 tablet DAILY (route: oral) Med Classific ation: Electroly te Balance-N utritiona l Products melatonin 3 mg capsule 2024-09 00:00: 00 Yes [id number] SLEEP 1 capsule BEDTIME 1 capsule BEDTIME (route: oral) Med Classific ation: Central Nervous System Agents Multivitami n 50 Plus tablet 2024-09 00:00: 00 Yes [id number] SUPPLEMENT 1 tablet DAILY 1 tablet DAILY (route: oral) Med Classific ation: Electroly te Balance-N utritiona l Products PreserVisio n AREDS 2 CO Q-10 250 mg-90 mg-40 mg-1 mg-5 mg capsule 2024-09 00:00: 00 Yes [id number] SUPPLEMENT 1 capsule DAILY 1 capsule DAILY (route: oral) Med Classific ation: Electroly te Balance-N utritiona l Products Zyrtec 10 mg capsule 2024-09 00:00: 00 Yes [id number] ALLERGIES 1 capsule DAILY 1 capsule DAILY (route: oral) Med Classific ation: Respirato ry Therapy Agents Vital Signs Vital Name Observation Time Observation Value Commen ts Temperature 2025-09-05 13:18:00.000 97.8 [degF] Temperature 2025-08-31 13:46:00.000 97.5 [degF] Temperature 2025-08-30 10:07:00.000 99.3 [degF] Temperature 2025-08-23 12:56:00.000 98 [degF] Temperature 2025-08-21 11:36:00.000 99 [degF] Temperature 2025-08-18 12:06:00.000 97.7 [degF] Temperature 2025-08-17 12:11:00.000 97 [degF] Temperature 2025-08-16 14:31:00.000 98.6 [degF] Temperature 2025-08-11 09:08:00.000 97.8 [degF] Temperature 2025-08-08 10:06:00.000 98.2 [degF] Temperature 2025-08-04 09:59:00.000 97.5 [degF] Temperature 2025-08-01 11:33:00.000 97 [degF] Temperature 2025-07-26 08:27:00.000 97.7 [degF] Temperature 2025-07-25 10:59:00.000 97.5 [degF] Temperature 2025-07-21 10:18:00.000 98.7 [degF] BMI (%) 2025-07-21 10:03:12.000 18 kg/m2 Height 2025-07-21 10:03:07.000 64 [in_us] Pulse 2025-09-05 13:18:00.000 70 /min Pulse 2025-08-31 13:46:00.000 85 /min Pulse 2025-08-30 10:07:00.000 81 /min Pulse 2025-08-23 12:56:00.000 75 /min Pulse 2025-08-21 11:36:00.000 80 /min Pulse 2025-08-18 12:06:00.000 79 /min Pulse 2025-08-17 12:11:00.000 80 /min Pulse 2025-08-16 14:31:00.000 78 /min Pulse 2025-08-11 09:08:00.000 81 /min Pulse 2025-08-08 10:06:00.000 72 /min Pulse 2025-08-04 09:59:00.000 78 /min Pulse 2025-08-01 11:33:00.000 80 /min Pulse 2025-07-26 08:27:00.000 80 /min Pulse 2025-07-25 10:59:00.000 81 /min Pulse 2025-07-21 10:18:00.000 86 /min O2 Saturation (%) 2025-08-31 13:46:00.000 96 % O2 Saturation (%) 2025-08-21 11:36:00.000 98 % O2 Saturation (%) 2025-08-18 12:06:00.000 97 % O2 Saturation (%) 2025-08-16 14:31:00.000 99 % O2 Saturation (%) 2025-08-11 09:08:00.000 97 % O2 Saturation (%) 2025-08-04 09:59:00.000 98 % O2 Saturation (%) 2025-07-26 08:27:00.000 99 % O2 Saturation (%) 2025-07-25 10:59:00.000 99 % O2 Saturation (%) 2025-07-21 10:18:00.000 96 % Respirations 2025-09-05 13:18:00.000 18 /min Respirations 2025-08-31 13:46:00.000 18 /min Respirations 2025-08-30 10:07:00.000 18 /min Respirations 2025-08-23 12:56:00.000 18 /min Respirations 2025-08-21 11:36:00.000 18 /min Respirations 2025-08-18 12:06:00.000 18 /min Respirations 2025-08-17 12:11:00.000 18 /min Respirations 2025-08-16 14:31:00.000 18 /min Respirations 2025-08-11 09:08:00.000 18 /min Respirations 2025-08-08 10:06:00.000 18 /min Respirations 2025-08-04 09:59:00.000 18 /min Respirations 2025-08-01 11:33:00.000 18 /min Respirations 2025-07-26 08:27:00.000 18 /min Respirations 2025-07-25 10:59:00.000 18 /min Respirations 2025-07-21 10:18:00.000 17 /min Weight (lbs) 2025-08-21 11:36:00.000 117 [lb_av] Weight (lbs) 2025-08-16 14:31:00.000 118 [lb_av] Weight (lbs) 2025-08-11 09:08:00.000 118 [lb_av] Weight (lbs) 2025-07-21 10:03:12.000 109 [lb_av] Systolic Blood Pressure 2025-09-05 13:20:00.000 98 mm[ Hg] Systolic Blood Pressure 2025-08-31 13:46:00.000 98 mm[ Hg] Systolic Blood Pressure 2025-08-30 10:07:00.000 122 mm [Hg] Systolic Blood Pressure 2025-08-23 12:56:00.000 106 mm [Hg] Systolic Blood Pressure 2025-08-21 11:36:00.000 110 mm [Hg] Systolic Blood Pressure 2025-08-18 12:06:00.000 96 mm[ Hg] Systolic Blood Pressure 2025-08-17 12:11:00.000 120 mm [Hg] Systolic Blood Pressure 2025-08-16 14:31:00.000 122 mm [Hg] Systolic Blood Pressure 2025-08-11 09:08:00.000 120 mm [Hg] Systolic Blood Pressure 2025-08-08 10:06:00.000 142 mm [Hg] Systolic Blood Pressure 2025-08-04 09:59:00.000 140 mm [Hg] Systolic Blood Pressure 2025-08-01 11:33:00.000 122 mm [Hg] Systolic Blood Pressure 2025-07-26 08:27:00.000 132 mm [Hg] Systolic Blood Pressure 2025-07-25 10:59:00.000 118 mm [Hg] Systolic Blood Pressure 2025-07-21 10:18:00.000 114 mm [Hg] Diastolic Blood Pressure 2025-09-05 13:20:00.000 58 mm [Hg] Diastolic Blood Pressure 2025-08-31 13:46:00.000 50 mm [Hg] Diastolic Blood Pressure 2025-08-30 10:07:00.000 68 mm [Hg] Diastolic Blood Pressure 2025-08-23 12:56:00.000 56 mm [Hg] Diastolic Blood Pressure 2025-08-21 11:36:00.000 56 mm [Hg] Diastolic Blood Pressure 2025-08-18 12:06:00.000 60 mm [Hg] Diastolic Blood Pressure 2025-08-17 12:11:00.000 62 mm [Hg] Diastolic Blood Pressure 2025-08-16 14:31:00.000 60 mm [Hg] Diastolic Blood Pressure 2025-08-11 09:08:00.000 60 mm [Hg] Diastolic Blood Pressure 2025-08-08 10:06:00.000 74 mm [Hg] Diastolic Blood Pressure 2025-08-04 09:59:00.000 70 mm [Hg] Diastolic Blood Pressure 2025-08-01 11:33:00.000 62 mm [Hg] Diastolic Blood Pressure 2025-07-26 08:27:00.000 70 mm [Hg] Diastolic Blood Pressure 2025-07-25 10:59:00.000 64 mm [Hg] Diastolic Blood Pressure 2025-07-21 10:18:00.000 74 mm [Hg] Plan of Treatment Planned Activity Planned Date Details Comments Future Scheduled Test PHYSICAL T HERAPIST TO EVALUATE FOR SAFETY AND STRENGTHENING. [code = PHYSICAL THERAPIST TO EVALUATE FOR SAFETY AND STRENGTHENING.] Future Scheduled Test OCCUPATION AL THERAPIST TO EVALUATE FOR SAFETY WITH ADLS AND IADLS. [code = OCCUPATIONAL THERAPIST TO EVALUATE FOR SAFETY WITH ADLS AND IADLS.] Future Scheduled Test FALL REDUC TION MANAGEMENT; RN TO ASSESS AND OBSERVE, FISH HOUSE WORKER/NEWSPERSON TO OBSERVE FALL RISK FACTORS AND EDUCATE PATIENT/CAREGIVER ON STRATEGIES TO MINIMIZE THE RISK OF FALLING. [code = FALL REDUCTION MANAGEMENT; RN TO ASSESS AND OBSERVE, FISH HOUSE WORKER/NEWSPERSON TO OBSERVE FALL RISK FACTORS AND EDUCATE PATIENT/CAREGIVER ON STRATEGIES TO MINIMIZE THE RISK OF FALLING.] Future Scheduled Test GENITOURIN JULIETTE MANAGEMENT; RN TO ASSESS AND TEACH, FISH HOUSE WORKER/NEWSPERSON TO OBSERVE AND TEACH RELATED TO ALTERED GENITOURINARY STATUS TO MINIMIZE COMPLICATIONS AND REDUCE HOSPITALIZATION. [code = GENITOURINARY MANAGEMENT; RN TO ASSESS AND TEACH, FISH HOUSE WORKER/NEWSPERSON TO OBSERVE AND TEACH RELATED TO ALTERED GENITOURINARY STATUS TO MINIMIZE COMPLICATIONS AND REDUCE HOSPITALIZATION.] Future Scheduled Test ANEMIA MAN AGEMENT; RN TO ASSESS AND TEACH, NEWSPERSON/FISH HOUSE WORKER TO OBSERVE AND TEACH AND PROVIDE EDUCATION ON ANEMIA. [code = ANEMIA MANAGEMENT; RN TO ASSESS AND TEACH, NEWSPERSON/FISH HOUSE WORKER TO OBSERVE AND TEACH AND PROVIDE EDUCATION ON ANEMIA.] Future Scheduled Test RN TO OBSE RVE, ASSESS, EVALUATE, AND DEVELOP AN INDIVIDUALIZED PLAN OF CARE. AGENCY MAY ACCEPT ORDERS FROM CONSULTING PHYSICIANS. RN TO OBSERVE AND ASSESS, FISH HOUSE WORKER/NEWSPERSON TO OBSERVE FOR RISK FOR FALLS AND INSTRUCT IN FALL PREVENTION, HOME SAFETY, MEDICATION MANAGEMENT, INFECTION PREVENTION, AND NUTRITION MANAGEMENT. RN/FISH HOUSE WORKER/NEWSPERSON NURSE MAY PERFORM O2 SATURATION LEVEL ON ADMISSION AND PRN FOR RN TO ASSESS/FISH HOUSE WORKER TO OBSERVE PATIENT, WITH NOTIFICATION TO THE PHYSICIAN IF SATURATION IS 90% IN THE ABSENCE OF MORE SPECIFIC PARAMETERS FROM THE PHYSICIAN. AGENCY MAY PERFORM A RESUMPTION OF CARE VISIT FOLLOWING ANY HOSPITAL ADMISSION. RN/FISH HOUSE WORKER/NEWSPERSON TO MONITOR CO-MORBID CONDITIONS LISTED ON THE PLAN OF CARE AND ANY NEW CONDITIONS THAT PRESENT THEMSELVES DURING THIS EPISODE TO IDENTIFY CHANGES AND INTERVENE TO MINIMIZE COMPLICATIONS. [code = RN TO OBSERVE, ASSESS, EVALUATE, AND DEVELOP AN INDIVIDUALIZED PLAN OF CARE. AGENCY MAY ACCEPT ORDERS FROM CONSULTING PHYSICIANS. RN TO OBSERVE AND ASSESS, FISH HOUSE WORKER/NEWSPERSON TO OBSERVE FOR RISK FOR FALLS AND INSTRUCT IN FALL PREVENTION, HOME SAFETY, MEDICATION MANAGEMENT, INFECTION PREVENTION, AND NUTRITION MANAGEMENT. RN/FISH HOUSE WORKER/NEWSPERSON NURSE MAY PERFORM O2 SATURATION LEVEL ON ADMISSION AND PRN FOR RN TO ASSESS/FISH HOUSE WORKER TO OBSERVE PATIENT, WITH NOTIFICATION TO THE PHYSICIAN IF SATURATION IS 90% IN THE ABSENCE OF MORE SPECIFIC PARAMETERS FROM THE PHYSICIAN. AGENCY MAY PERFORM A RESUMPTION OF CARE VISIT FOLLOWING ANY HOSPITAL ADMISSION. RN/FISH HOUSE WORKER/NEWSPERSON TO MONITOR CO-MORBID CONDITIONS LISTED ON THE PLAN OF CARE AND ANY NEW CONDITIONS THAT PRESENT THEMSELVES DURING THIS EPISODE TO IDENTIFY CHANGES AND INTERVENE TO MINIMIZE COMPLICATIONS.] Future Scheduled Test PAIN MANAG EMENT; RN TO ASSESS AND TEACH, NEWSPERSON/FISH HOUSE WORKER TO OBSERVE AND TEACH AND PROVIDE EDUCATION ON PAIN MANAGEMENT TECHNIQUES. [code = PAIN MANAGEMENT; RN TO ASSESS AND TEACH, NEWSPERSON/FISH HOUSE WORKER TO OBSERVE AND TEACH AND PROVIDE EDUCATION ON PAIN MANAGEMENT TECHNIQUES.] Future Scheduled Test RISK FOR H OSPITALIZATION; RN TO ASSESS/TEACH, NEWSPERSON/FISH HOUSE WORKER TO OBSERVE/TEACH PATIENT/CAREGIVER ON RISK FOR HOSPITALIZATION/EMERGENCY ROOM VISITS, TEACH SIGNS AND SYMPTOMS THAT PUT PATIENT AT RISK, WHEN TO NOTIFY NURSE/PHYSICIAN OF COMPLICATIONS/DECLINE, AND WHEN TO CALL 911. [code = RISK FOR HOSPITALIZATION; RN TO ASSESS/TEACH, NEWSPERSON/FISH HOUSE WORKER TO OBSERVE/TEACH PATIENT/CAREGIVER ON RISK FOR HOSPITALIZATION/EMERGENCY ROOM VISITS, TEACH SIGNS AND SYMPTOMS THAT PUT PATIENT AT RISK, WHEN TO NOTIFY NURSE/PHYSICIAN OF COMPLICATIONS/DECLINE, AND WHEN TO CALL 911.] Future Scheduled Test MEDICATION MANAGEMENT; RN/FISH HOUSE WORKER/NEWSPERSON TO REVIEW MEDICATIONS FOR INTERACTIONS, EFFECTIVENESS OF DRUG THERAPY, AND SIGNS/SYMPTOMS OF ADVERSE REACTIONS. MAY INSTRUCT AND REINFORCE MEDICATION TEACHING RELATED TO THE USE OF MEDICATIONS, DOSAGE, FREQUENCY, PURPOSE, SIDE EFFECTS, AND TO REPORT COMPLICATIONS. [code = MEDICATION MANAGEMENT; RN/FISH HOUSE WORKER/NEWSPERSON TO REVIEW MEDICATIONS FOR INTERACTIONS, EFFECTIVENESS OF DRUG THERAPY, AND SIGNS/SYMPTOMS OF ADVERSE REACTIONS. MAY INSTRUCT AND REINFORCE MEDICATION TEACHING RELATED TO THE USE OF MEDICATIONS, DOSAGE, FREQUENCY, PURPOSE, SIDE EFFECTS, AND TO REPORT COMPLICATIONS.] Future Scheduled Test RN TO ASSE SS, OBSERVE, AND EDUCATE; FISH HOUSE WORKER/NEWSPERSON TO OBSERVE AND REINFORCE EDUCATION ON ELECTROLYTE IMBALANCES INCLUDING STRATEGIES TO MINIMIZE THE RISK OF HOSPITALIZATION. [code = RN TO ASSESS, OBSERVE, AND EDUCATE; FISH HOUSE WORKER/NEWSPERSON TO OBSERVE AND REINFORCE EDUCATION ON ELECTROLYTE IMBALANCES INCLUDING STRATEGIES TO MINIMIZE THE RISK OF HOSPITALIZATION.] Future Scheduled Test AGENCY MAY PERFORM A RESUMPTION OF CARE VISIT FOLLOWING ANY HOSPITAL ADMISSION. OT TO EVALUATE, OBSERVE / ASSESS, AND MONITOR, OPHTHALMIC TECHNICIAN TO OBSERVE AND MONITOR, PROVIDE SKILLED THERAPEUTIC INTERVENTION, ACTIVITY, EDUCATION, AND TRAINING TO ADDRESS; ACTIVITIES OF DAILY LIVING (OT/OPHTHALMIC TECHNICIAN) MEAL PREPARATION AND CLEANUP (OT/ANUPAM) CHAIR TRANSFERS (OT/ANUPAM) TOILET TRANSFER (OT/ANUPAM) BATH/SHOWER TRANSFER (OT/ANUPAM) CAR TRANSFER (OT/OPHTHALMIC TECHNICIAN) HOME ACTIVITY / EXERCISE PROGRAM (OT/OPHTHALMIC TECHNICIAN) POSTURAL CONTROL/BALANCE (OT/OPHTHALMIC TECHNICIAN) THERAPEUTIC EXERCISE (OT/ANUPAM) OT/OPHTHALMIC TECHNICIAN TO MONITOR AND EDUCATE ON OXYGEN SATURATION DURING ADLS/IADLS, NOTIFY PHYSICIAN AND/OR THE RN CLINICAL CIVIL PREPAREDNESS OFFICER FOR PHYSICIAN NOTIFICATION AND IF O2 SATS BELOW 90% AFTER 10 MIN OF REST. OT/OPHTHALMIC TECHNICIAN MAY EDUCATE ON PAIN MANAGEMENT CLINICALLY INDICATED. [code = AGENCY MAY PERFORM A RESUMPTION OF CARE VISIT FOLLOWING ANY HOSPITAL ADMISSION. OT TO EVALUATE, OBSERVE / ASSESS, AND MONITOR, ANUPAM TO OBSERVE AND MONITOR, PROVIDE SKILLED THERAPEUTIC INTERVENTION, ACTIVITY, EDUCATION, AND TRAINING TO ADDRESS; ACTIVITIES OF DAILY LIVING (OT/OPHTHALMIC TECHNICIAN) MEAL PREPARATION AND CLEANUP (OT/ANUPAM) CHAIR TRANSFERS (OT/ANUPAM) TOILET TRANSFER (OT/ANUPAM) BATH/SHOWER TRANSFER (OT/ANUPAM) CAR TRANSFER (OT/OPHTHALMIC TECHNICIAN) HOME ACTIVITY / EXERCISE PROGRAM (OT/ANUPAM) POSTURAL CONTROL/BALANCE (OT/OPHTHALMIC TECHNICIAN) THERAPEUTIC EXERCISE (OT/OPHTHALMIC TECHNICIAN) OT/ANUPAM TO MONITOR AND EDUCATE ON OXYGEN SATURATION DURING ADLS/IADLS, NOTIFY PHYSICIAN AND/OR THE RN CLINICAL CIVIL PREPAREDNESS OFFICER FOR PHYSICIAN NOTIFICATION AND IF O2 SATS BELOW 90% AFTER 10 MIN OF REST. OT/ANUPAM MAY EDUCATE ON PAIN MANAGEMENT CLINICALLY INDICATED.] Future Scheduled Test AGENCY MAY PERFORM A RESUMPTION OF CARE VISIT FOLLOWING ANY HOSPITAL ADMISSION. PT TO EVALUATE, OBSERVE / ASSESS, AND MONITOR, SUPERVISOR WET ROOM TO OBSERVE AND MONITOR, PROVIDE SKILLED THERAPEUTIC INTERVENTION, ACTIVITY, EDUCATION, AND TRAINING TO ADDRESS; PT/SUPERVISOR WET ROOM TO PROVIDE GAIT TRAINING FOR IMPROVED MOBILITY AND /OR TO NORMALIZE GAIT PATTERN NEUROMUSCULAR RE-EDUCATION / BALANCE / POSTURAL CONTROL (PT) THERAPEUTIC EXERCISES AND ESTABLISHING A HOME EXERCISE PROGRAM (PT/SUPERVISOR WET ROOM) PT/SUPERVISOR WET ROOM TO PROVIDE STAIR TRAINING SIT TO/FROM STAND TRANSFERS (PT/SUPERVISOR WET ROOM) PT / SUPERVISOR WET ROOM TO MONITOR AND EDUCATE ON OXYGEN SATURATION DURING ADLS/IADLS, NOTIFY PHYSICIAN AND/OR THE RN CLINICAL CIVIL PREPAREDNESS OFFICER FOR PHYSICIAN NOTIFICATION AND IF O2 SATS BELOW PHYSICIAN ORDERED PARAMETERS AFTER 10 MIN OF REST PT / SUPERVISOR WET ROOM TO MONITOR FOR HYPO/HYPERGLYCEMIA AND CONDUCT ROUTINE FOOT INSPECTIONS. RECORD PATIENT REPORTED BLOOD SUGAR LEVELS AND NOTIFY PHYSICIAN AND/OR THE RN CLINICAL CIVIL PREPAREDNESS OFFICER FOR PHYSICIAN NOTIFICATION IF BLOOD SUGAR LEVELS ARE OUTSIDE ORDERED PARAMETERS. TEACH PATIENT/CAREGIVER ON DAILY FOOT INSPECTIONS PT/SUPERVISOR WET ROOM TO IDENTIFY FALL RISK FACTORS; EDUCATE THE PATIENT/CAREGIVER ON WAYS TO REDUCE FALL RISK FACTORS AND ESTABLISH HOME EXERCISE PROGRAM TO MINIMIZE FALL RISK. MAY TEACH THE PATIENT FLOOR RECOVERY WHEN CLINICALLY APPROPRIATE PT / SUPERVISOR WET ROOM MAY EDUCATE ON PAIN MANAGEMENT CLINICALLY INDICATED, INCLUDING NON-PHARMACOLOGICAL PAIN REDUCTION TECHNIQUES [code = AGENCY MAY PERFORM A RESUMPTION OF CARE VISIT FOLLOWING ANY HOSPITAL ADMISSION. PT TO EVALUATE, OBSERVE / ASSESS, AND MONITOR, SUPERVISOR WET ROOM TO OBSERVE AND MONITOR, PROVIDE SKILLED THERAPEUTIC INTERVENTION, ACTIVITY, EDUCATION, AND TRAINING TO ADDRESS; PT/SUPERVISOR WET ROOM TO PROVIDE GAIT TRAINING FOR IMPROVED MOBILITY AND /OR TO NORMALIZE GAIT PATTERN NEUROMUSCULAR RE-EDUCATION / BALANCE / POSTURAL CONTROL (PT) THERAPEUTIC EXERCISES AND ESTABLISHING A HOME EXERCISE PROGRAM (PT/SUPERVISOR WET ROOM) PT/SUPERVISOR WET ROOM TO PROVIDE STAIR TRAINING SIT TO/FROM STAND TRANSFERS (PT/SUPERVISOR WET ROOM) PT / SUPERVISOR WET ROOM TO MONITOR AND EDUCATE ON OXYGEN SATURATION DURING ADLS/IADLS, NOTIFY PHYSICIAN AND/OR THE RN CLINICAL CIVIL PREPAREDNESS OFFICER FOR PHYSICIAN NOTIFICATION AND IF O2 SATS BELOW PHYSICIAN ORDERED PARAMETERS AFTER 10 MIN OF REST PT / SUPERVISOR WET ROOM TO MONITOR FOR HYPO/HYPERGLYCEMIA AND CONDUCT ROUTINE FOOT INSPECTIONS. RECORD PATIENT REPORTED BLOOD SUGAR LEVELS AND NOTIFY PHYSICIAN AND/OR THE RN CLINICAL CIVIL PREPAREDNESS OFFICER FOR PHYSICIAN NOTIFICATION IF BLOOD SUGAR LEVELS ARE OUTSIDE ORDERED PARAMETERS. TEACH PATIENT/CAREGIVER ON DAILY FOOT INSPECTIONS PT/SUPERVISOR WET ROOM TO IDENTIFY FALL RISK FACTORS; EDUCATE THE PATIENT/CAREGIVER ON WAYS TO REDUCE FALL RISK FACTORS AND ESTABLISH HOME EXERCISE PROGRAM TO MINIMIZE FALL RISK. MAY TEACH THE PATIENT FLOOR RECOVERY WHEN CLINICALLY APPROPRIATE PT / SUPERVISOR WET ROOM MAY EDUCATE ON PAIN MANAGEMENT CLINICALLY INDICATED, INCLUDING NON-PHARMACOLOGICAL PAIN REDUCTION TECHNIQUES] Goal Patient Goal - GET STRONGER. Goal Provider Goal - Goal Provider Goal - Goal Provider Goal - PATIENT/CAREGIVER WILL VERBALIZE/DEMONSTRATE UNDERSTANDING OF FALL RISK FACTORS AND IMPLEMENT STRATEGIES TO MINIMIZE FALL RISK. PATIENT/CAREGIVER WILL VERBALIZE/DEMONSTRATE AN ABILITY TO ADHERE TO FALL REDUCTION SELF-MANAGEMENT AND LIFE-STYLE CHANGES BY END OF EPISODE. Goal Provider Goal - PATIENT / CAREGIVER WILL VERBALIZE/DEMONSTRATE UNDERSTANDING OF MEASURES TO MANAGE ALTERED GENITOURINARY STATUS BY END OF EPISODE. Goal Provider Goal - PATIENT/CAREGIVER WILL VERBALIZE UNDERSTANDING OF CARE AND MANAGEMENT OF ANEMIA BY END OF EPISODE. Goal Provider Goal - A PLAN OF CARE WILL BE ESTABLISHED THAT MEETS THE PATIENT S NEEDS. PATIENT WILL DEMONSTRATE OXYGEN SATURATION WITHIN NORMAL LIMITS OR PATIENT S OPTIMAL LEVEL ESTABLISHED BY THE PHYSICIAN THROUGHOUT CARE. CHANGES TO CO-MORBID CONDITIONS AND ANY NEW CONDITIONS WILL BE IDENTIFIED AND REPORTED TO THE PHYSICIAN. Goal Provider Goal - PATIENT / CAREGIVER WILL VERBALIZE / DEMONSTRATE UNDERSTANDING OF PAIN CONTROL MEASURES BY END OF EPISODE. Goal Provider Goal - PATIENT/CAREGIVER WILL VERBALIZE UNDERSTANDING OF SIGNS AND SYMPTOMS THAT PUT THE PATIENT AT RISK FOR HOSPITALIZATION /EMERGENCY ROOM VISITS, WHEN TO NOTIFY NURSE/PHYSICIAN OF COMPLICATIONS/DECLINE AND WHEN TO CALL 911. Goal Provider Goal - PATIENT/CAREGIVER TO VERBALIZE, AND CONSISTENTLY DEMONSTRATE EFFECTIVE, SAFE MANAGEMENT OF MEDICATION INCLUDING KNOWLEDGE OF EFFECTIVENESS, POTENTIAL SIDE EFFECTS AND DRUG REACTIONS AND WHEN TO CONTACT THE APPROPRIATE CARE PROVIDER. PATIENT/CAREGIVER WILL BE ABLE TO VERBALIZE UNDERSTANDING OF MEDICATION REGIMEN AND ACCURATELY TAKE MEDICATIONS PRESCRIBED WITHOUT ADVERSE EFFECTS BY END OF EPISODE. Goal Provider Goal - PATIENT/CAREGIVER WILL DEMONSTRATE UNDERSTANDING OF ELECTROLYTE IMBALANCES AND SELF-MANAGE STRATEGIES BY END OF EPISODE. Goal Provider Goal - OT LTG: PATIENT WILL DEMONSTRATE IMPROVEMENT IN MODIFIED DYAN INDEX SCORE FROM 83/100 TO 90/100 INDICATING DECREASED DEPENDENCY ON CAREGIVER ASSISTANCE WITH ACTIVITIES OF DAILY LIVING WITHIN 8 WEEKS OT LTG: PATIENT WILL DEMONSTRATE THE ABILITY TO COMPLETE MEAL PREPARATION AND CLEANUP TO REDUCE CAREGIVER BURDEN FROM MOD A TO IND WITHIN 8 WEEKS OT LTG: PATIENT WILL DEMONSTRATE IMPROVED ABILITY TO PERFORM CHAIR TRANSFERS TO REDUCE THE RISK OF SKIN BREAKDOWN AND IMPROVE PARTICIPATION IN ADLS FROM CGA WITH DIFFICULTY TO IND WITHIN 8 WEEKS OT LTG: PATIENT WILL DEMONSTRATE IMPROVED ABILITY TO PERFORM TOILET TRANSFERS TO REDUCE FALL RISK AND RISK OF INCONTINENCE AND UTI DEVELOPMENT FROM CGA TO IND WITHIN 8 WEEKS OT STG: PATIENT WILL DEMONSTRATE IMPROVED ABILITY TO COMPLETE SHOWER TRANSFER WITH CONTACT GUARD ASSISTANCE WITHIN 4 WEEKS OT LTG: PATIENT WILL DEMONSTRATE IMPROVED ABILITY AND SAFETY TO PERFORM BATH/SHOWER TRANSFER FROM MOD A TO IND WITHIN 8 WEEKS OT LTG: PATIENT WILL DEMONSTRATE THE ABILITY TO COMPLETE A CAR TRANSFER FROM MIN A TO SUP WITHIN 8 WEEKS OT LTG: PATIENT/CAREGIVER WILL BE ABLE TO DEMONSTRATE BUE STRENGTH EXERCISES / ACTIVITIES FOR IMPROVED BUE STRENGTH FROM UNABLE TO IND WITHIN 8 WEEKS OT LTG: PATIENT WILL DEMONSTRATE IMPROVED POSTURAL CONTROL AND DECREASED FALL RISK EVIDENCED BY AN IMPROVEMENT IN FUNCTIONAL REACH SCORE FROM 5 TO 10 IN WITHIN 8 WEEKSIN ORDER TO DECREASE RISK OF FALLING OT LTG: PATIENT WILL DEMONSTRATE IMPROVED BUE MUSCLE STRENGTH EVIDENCED BY AN IMPROVEMENT IN MMT/FUNCTIONAL STRENGTH FROM 3/5 TO 4/5 WITHIN 8 WEEKS IN ORDER TO IMPROVE INDEPENDENCE WITH FUNCTIONAL TASKS. OT LTG: PATIENT WILL MAINTAIN OXYGEN SATURATION WITHIN PHYSICIAN ORDERED PARAMETERS THROUGHOUT THE EPISODE OF CARE. OT LTG: PATIENT WILL DEMONSTRATE UNDERSTANDING OF PAIN MANAGEMENT TECHNIQUES NEEDED DURING EPISODE OF CARE Goal Provider Goal - PT LTG: PATIENT WILL DEMONSTRATE REDUCED GAIT DEVIATIONS TO REDUCE THE RISK FOR FALLING AND MINIMIZE STRAIN ON KNEES/HIPS AND BACK EVIDENCED BY IMPROVED HEEL STRIKE, ADEQUATE STEP LENGTH AND CONSISTENT FOOT CLEARANCE BILATERALLY USING LRAD TO WALK INDEPENDENTLY IN ORDER TO ACCESS ALL AREAS OF THE HOME AND TRANSPORTATION WITHIN 9 WEEKS PT LTG: PATIENT WILL DEMONSTRATE REDUCED FALL RISK EVIDENCED BY TUG TEST (CUT SCORE >11 SECONDS INDICATES INCREASED FALL RISK) IMPROVING FROM 25 SECONDS TO 15 SECONDS WITHIN 9 WEEKS PT LTG: PATIENT WILL DEMONSTRATE IMPROVED FUNCTIONAL STRENGTH EVIDENCED BY FIVE TIMES SIT TO STAND TEST (CUT SCORE >12 SECONDS INDICATES AN INCREASED FALL RISK) IMPROVING FROM 26 SECONDS TO 16 SECONDS WITHIN 9 WEEKS PT LTG: PATIENT WILL DEMONSTRATE INCREASED STRENGTH OF BILATERAL LES FROM 3-/5 TO 4/5 WITHIN 9 WEEKS IN ORDER TO IMPROVE SAFETY AND STABILITY WITH GAIT AND STAIRS PT LTG: PATIENT WILL DEMONSTRATE IMPROVED ABILITY TO SAFELY NEGOTIATE STAIRS FROM MIN ASSIST TO INDEPENDENT WITH RAIL/GRAB BARS IN ORDER TO SAFELY ENTER AND EXIT HOME WITHIN 9 WEEKS PT STG: PATIENT WILL DEMONSTRATE IMPROVED ABILITY TO PERFORM SIT TO/FROM STAND TRANSFERS TO REDUCE THE RISK OF SKIN BREAKDOWN AND REDUCE FALL RISK FROM SBA TO INDEPENDENT WITHIN 4 WEEKS PT LTG: PATIENT WILL MAINTAIN OXYGEN SATURATION WITHIN PHYSICIAN ORDERED PARAMETERS THROUGHOUT EPISODE OF CARE. PATIENT S BLOOD SUGAR WILL REMAIN WELL CONTROLLED WITH SELF-MANAGEMENT THROUGHOUT EPISODE OF CARE. PT LTG: PATIENT/CAREGIVER WILL DEMONSTRATE ADHERENCE TO FALL REDUCTION SELF-MANAGEMENT AND REDUCING FALL RISK FACTORS TO MINIMIZE FALL RISK BY END OF EPISODE. PT STG: PATIENT WILL BE INDEPENDENT WITH IMPLEMENTATION OF HEP WITHIN 4 WEEKS PT GOAL: PATIENT WILL DEMONSTRATE UNDERSTANDING OF PAIN MANAGEMENT TECHNIQUES EVIDENCED BY REDUCED PAIN Encounters Start Date/Time End Date/Time Encounter Type Admission Type Attending [facility] Care Department Encounter ID Discharge Date Discharge Status Discharge Condition Discharge Reason Percent Goals Met 2025-07-21 00:00:00 2025-09-18 00:00:00 Outpatient NEW ADMISSION [facility] [id number] 18.92
== END 2025-09-15 08:36 | disposition home or self-care (01) ==
LOC: HO.HMGCLDS 08:35
PROVIDERS: Absent Provider Internal Medicine; PCP Internal Medicine; Visit Provider Internal Medicine Medical Oncology
DX: C90.00 Multiple myeloma not having achieved remission (principal); G25.81 Restless legs syndrome; E11.22 Type 2 diabetes mellitus with diabetic chronic kidney disease; N18.9 Chronic kidney disease, unspecified
CPT/HCPCS: 36415; 80053; 82728; 83036; 85025; 86704; 86706; 87340

== ENCOUNTER 2025-09-22 09:39 | Outpatient (REF) | payer MEDICARE, SELFPAY ==
--- OUTSIDE RECORDS SUMMARY | 2025-09-22 09:41 | XMS_ITS | Encounter Summary ---
Author Organization [facility] Address [id number] [place] [phone] Care Team Providers Care International Project Manager Name Role Phone Susu Carreno MD Primary Care Provider + Encounter Details Date Type Department Care Team (Late st Contact Info) Description 07/16/2025 Lab Requisition [facility] - Main Lab [address] [facility] [place] [address] Susu Carreno MD [address] [facility] [address] [place], [place] [id number] Weakness; Type 2 diabetes mellitus without complications [...] mmol/L LAB CHEMISTRY METHOD 07/17/2025 10:35 AM [facility] Potassium 3.2(L) 3.5 - 5.5 mmol/L LAB CHEMISTRY METHOD 07/17/2025 10:35 AM [facility] Chloride 102 96 - 110 mmol/L LAB CHEMISTRY METHOD 07/17/2025 10:35 AM [facility] CO2 27 21 - 32 mmol/L LAB CHEMISTRY METHOD 07/17/2025 10:35 AM [facility] Anion Gap 8 3 - 11 LAB CHEMISTRY METHOD 07/17/2025 10:35 AM [facility] Glucose 105(H) 70 - 100 mg/dL LAB CHEMISTRY METHOD 07/17/2025 10:35 AM [facility] BUN 14 5 - 25 mg/dL LAB CHEMISTRY METHOD 07/17/2025 10:35 AM [facility] Creatinine 1.08 0.50 - 1.10 mg/dL LAB CHEMISTRY METHOD 07/17/2025 10:35 AM [facility] eGFR 53(L) >=60 mL/min/1. 73m2 LAB CHEMISTRY METHOD 07/17/2025 10:35 AM [facility] Comment:Calculation based on the Chronic Kidney Disease Epidemiology Collaboration (CKD-EPI) equation refit without adjustment for race. BUN/Creatinine Ratio 13.0 LAB CHEMISTRY METHOD 07/17/2025 10:35 AM [facility] Calcium 8.3(L) 8.5 - 10.5 mg/dL LAB CHEMISTRY METHOD 07/17/2025 10:35 AM [facility] Blood Venous blood specimen / Unknown Venipuncture / Unknown 07/17/2025 7:28 AM EDT 07/17/2025 9:49 AM EDT Susu Carreno MD LAB BLOOD ORDERABLES Fin al Result [facility] [address] [place] [address], * (ABNORMAL) Complete blood count (07/17/2025 7:28 AM EDT) [facility] Signature WBC 5.9 4.8 - 10.8 K/mcL LAB HEMETOLOGY METHOD 07/17/2025 10:36 AM EDT [facility] RBC 4.00 3.80 - 4.80 M/mcL LAB HEMETOLOGY METHOD 07/17/2025 10:36 AM EDT [facility] Hemoglobin 10.6(L) 11.5 - 16.0 g/dL LAB HEMETOLOGY METHOD 07/17/2025 10:36 AM EDT [facility] Hematocrit 35.0 35.0 - 47.0 % LAB HEMETOLOGY METHOD 07/17/2025 10:36 AM EDT [facility] MCV 87.9 79.0 - 98.0 FL LAB HEMETOLOGY METHOD 07/17/2025 10:36 AM EDT [facility] MCH 26.6(L) 27.0 - 32.0 pcg LAB HEMETOLOGY METHOD 07/17/2025 10:36 AM EDT [facility] MCHC 30.3(L) 32.0 - 37.0 g/dL LAB HEMETOLOGY METHOD 07/17/2025 10:36 AM EDT [facility] RDW 16.3(H) 11.0 - 15.0 % LAB HEMETOLOGY METHOD 07/17/2025 10:36 AM EDT [facility] Platelets 474(H) 130 - 400 K/mcL LAB HEMETOLOGY METHOD 07/17/2025 10:36 AM EDT [facility] MPV 9.5 7.0 - 11.0 FL LAB HEMETOLOGY METHOD 07/17/2025 10:36 AM EDT [facility] NRBC 0.0 <1.0 % LAB HEMETOLOGY METHOD 07/17/2025 10:36 AM EDT [facility] NRBC Absolute 0.00 <0.10 K/mcL LAB HEMETOLOGY METHOD 07/17/2025 10:36 AM EDT [facility] Blood Venous blood specimen / Unknown Venipuncture / Unknown 07/17/2025 7:28 AM EDT 07/17/2025 9:50 AM EDT us Susu Carreno MD LAB BLOOD ORDERABLES Fin al Result [facility] [address] [place] [address], [place] [phone] documented in this encounter Visit Diagnoses Diagnosis Weakness Other malaise and fatigue Type 2 diabetes mellitus without complications (CMS/HCC V24, CMS/HCC V28) documented in this encounter Care Teams International Project Manager Relationship Specialty Start Date End Date Susu Carreno MD [address] [place] [id number] PCP - General Family Medicine 07/12/25 documented as of this encounter
--- OUTSIDE RECORDS SUMMARY | 2025-09-22 09:41 | XMS_ITS | Encounter Summary ---
Author Organization [facility] Address [address] [place] [address] Care Team Providers Care Shoemaker Custom Name Role Phone Susu Carreno MD Primary Care Provider + Encounter Details Date Type Department Care Team (Late st Contact Info) Description 07/19/2025 Lab Requisition [facility] - Main Lab [address] [facility] [place] [address] Susu Carreno MD 819 [facility] 1 [place] [address] Multiple myeloma not having achieved [...] Procedure Name Priority Date/Time Associated Diagnosis Comments [place] IMMUNOFIXATION ELECTROPHORESIS SERUM Routine 07/19/2025 5:28 AM [...] EDT Multiple myeloma not having achieved remission ([facility]/HCC V24, CMS/HCC V28) COMPREHENSIVE METABOLIC PANEL Routine 07/19/2025 5:28 AM EDT Multiple myeloma not having achieved remission ([facility]/HCC V24, CMS/HCC V28) documented in this encounter Results * Pathologist Review Immunofixation (07/19/2025 5:28 AM EDT) Pathologist Interpretation Reviewed by Josette Munguia MD 07/20/2025 4:00 PM EDT [facility] Blood Venous blood specimen / Unknown 07/19/2025 5:28 AM EDT 07/20/2025 1:17 PM EDT us Susu Carreno MD LAB BLOOD ORDERABLES Fin al Result [facility] [address] [place] [address], [place] [phone] * (ABNORMAL) Immunoglobulins IgG, IgA, IgM (07/19/2025 5:28 AM EDT) [facility] Total IgG 3,700(H) 549 - 1,584 mg/dL LAB CHEMISTRY METHOD 07/20/2025 3:22 PM EDT [facility] IgA 40(L) 61 - 348 mg/dL LAB CHEMISTRY METHOD 07/20/2025 3:22 PM EDT [facility] IgM 21(L) 23 - 259 mg/dL LAB CHEMISTRY METHOD 07/20/2025 3:22 PM EDT [facility] Blood Venous blood specimen / Unknown 07/19/2025 5:28 AM EDT 07/20/2025 1:17 PM EDT Susu Carreno MD LAB BLOOD ORDERABLES Fin al Result Performing Organization Address [facility] Co de Phone Number [facility] [address] [place] [address], [place] [phone] * Immunofixation electrophoresis serum (07/19/2025 5:28 AM EDT) [facility] Immunofixation Result, Serum IgG Lambda monoclonal immunoglobulins detected. LAB CHEMISTRY METHOD 07/20/2025 4:00 PM EDT [facility] Blood Venous blood specimen / Unknown 07/19/2025 5:28 AM EDT 07/20/2025 1:17 PM EDT Susu Carreno MD LAB BLOOD ORDERABLES Fin al Result [facility] [address] [place] [address], [place] [phone] * SST tube (07/19/2025 5:28 AM EDT) [facility] Extra Tube Hold for add-ons. 07/19/2025 10:01 AM EDT [facility] Comment:Auto resulted. Blood Venous blood specimen / Unknown 07/19/2025 5:28 AM EDT 07/19/2025 8:55 AM EDT us Susu Carreno MD LAB BLOOD ORDERABLES Fin al Result [facility] [address] [place] [address], * (ABNORMAL) CBC auto differential (07/19/2025 5:28 AM EDT) [facility] WBC 5.7 4.8 - 10.8 K/mcL LAB HEMETOLOGY METHOD 07/19/2025 9:19 AM [facility] RBC 3.80 3.80 - 4.80 M/mcL LAB HEMETOLOGY METHOD 07/19/2025 9:19 AM [facility] Hemoglobin 10.0(L) 11.5 - 16.0 g/dL LAB HEMETOLOGY METHOD 07/19/2025 9:19 AM [facility] Hematocrit 32.9(L) 35.0 - 47.0 % LAB HEMETOLOGY METHOD 07/19/2025 9:19 AM [facility] MCV 87.7 79.0 - 98.0 FL LAB HEMETOLOGY METHOD 07/19/2025 9:19 AM [facility] MCH 26.7(L) 27.0 - 32.0 pcg LAB HEMETOLOGY METHOD 07/19/2025 9:19 AM [facility] MCHC 30.4(L) 32.0 - 37.0 g/dL LAB HEMETOLOGY METHOD 07/19/2025 9:19 AM EDT [facility] RDW 16.0(H) 11.0 - 15.0 % LAB HEMETOLOGY METHOD 07/19/2025 9:19 AM [facility] Platelets 406(H) 130 - 400 K/mcL LAB HEMETOLOGY METHOD 07/19/2025 9:19 AM [facility] MPV 9.0 7.0 - 11.0 FL LAB HEMETOLOGY METHOD 07/19/2025 9:19 AM [facility] NRBC 0.0 <1.0 % LAB HEMETOLOGY METHOD 07/19/2025 9:19 AM [facility] NRBC Absolute 0.00 <0.10 K/[facility] LAB HEMETOLOGY METHOD 07/19/2025 9:19 AM [facility] Neutrophils Relative 52.8 % LAB HEMETOLOGY METHOD 07/19/2025 9:19 AM [facility] Lymphocytes Relative 33.9 % LAB HEMETOLOGY METHOD 07/19/2025 9:19 AM [facility] Monocytes Relative 9.1 % LAB HEMETOLOGY METHOD 07/19/2025 9:19 AM [facility] Eosinophils Relative 3.0 % LAB HEMETOLOGY METHOD 07/19/2025 9:19 AM [facility] Basophils Relative 0.9 % LAB HEMETOLOGY METHOD 07/19/2025 9:19 AM [facility] Immature Granulocytes Relative 0.3 % LAB HEMETOLOGY METHOD 07/19/2025 9:19 AM [facility] Neutrophils Absolute 3.03 1.50 - 7.00 K/mcL LAB HEMETOLOGY METHOD 07/19/2025 9:19 AM [facility] Lymphocytes Absolute 1.94 1.00 - 5.00 K/mcL LAB HEMETOLOGY METHOD 07/19/2025 9:19 AM EDT [facility] Monocytes Absolute 0.52 0.20 - 1.00 K/mcL LAB HEMETOLOGY METHOD 07/19/2025 9:19 AM EDT [facility] Eosinophils Absolute 0.17 0.00 - 0.50 K/mcL LAB HEMETOLOGY METHOD 07/19/2025 9:19 AM EDT [facility] Basophils Absolute 0.05 0.00 - 0.20 K/[facility] LAB HEMETOLOGY METHOD 07/19/2025 9:19 AM EDT [facility] Immature Granulocytes Absolute 0.02 0.00 - 0.03 K/mcL LAB HEMETOLOGY METHOD 07/19/2025 9:19 AM EDT [facility] Blood Venous blood specimen / Unknown Venipuncture / Unknown 07/19/2025 5:28 AM EDT 07/19/2025 8:52 AM EDT Susu Carreno MD LAB BLOOD ORDERABLES Fin al Result [facility] [address] [place] [address], [place] [phone] * (ABNORMAL) Beta 2 microglobulin, serum (07/19/2025 5:28 AM EDT) Beta-2 Microglobulin 12.5(H) 0.7 - 1.8 mg/L LAB CHEMISTRY METHOD 07/19/2025 11:39 AM EDT [facility] Blood Venous blood specimen / Unknown Venipuncture / Unknown 07/19/2025 5:28 AM EDT 07/19/2025 8:52 AM EDT Susu Carreno MD LAB BLOOD ORDERABLES Fin al Result [facility] [address] [place] [address], [place] [phone] * (ABNORMAL) Rillito-lambda free light chains, quantitative (07/19/2025 5:28 AM EDT) Rillito Free Light Chain 1.34 0.33 - 1.94 mg/dL 07/21/2025 11:38 AM EDT [facility] Lambda Free Light Chain 143.05(H) 0.57 - 2.63 mg/dL 07/21/2025 11:38 AM EDT [facility] Rillito/Lambda FLC Ratio <0.01(L) 0.26 - 1.65 07/21/2025 11:38 AM EDT [facility] Comment: Test performed at [facility], [address], [place] [address] Adele Luna MD, PhD - Shipper Blood Venous blood specimen / Unknown Venipuncture / Unknown 07/19/2025 5:28 AM EDT 07/19/2025 8:52 AM EDT Susu Carreno MD LAB BLOOD ORDERABLES Fin al Result [facility] [address] [place], [place] [id number] * (ABNORMAL) Comprehensive metabolic panel (07/19/2025 5:28 AM EDT) [facility] Sodium 137 133 - 145 mmol/L LAB CHEMISTRY METHOD 07/19/2025 11:39 AM EDT [facility] Potassium 3.1(L) 3.5 - 5.5 mmol/L LAB CHEMISTRY METHOD 07/19/2025 11:39 AM EDT [facility] [place] 100 96 - 110 mmol/L LAB CHEMISTRY METHOD 07/19/2025 11:[facility] CO2 31 21 - 32 mmol/L LAB CHEMISTRY METHOD 07/19/2025 11:39 AM EDT [facility] Anion Gap 6 3 - 11 LAB CHEMISTRY METHOD 07/19/2025 11:39 AM EDT [facility] Glucose 92 70 - 100 mg/dL LAB CHEMISTRY METHOD 07/19/2025 11:39 AM [facility] BUN 16 5 - 25 mg/dL LAB CHEMISTRY METHOD 07/19/2025 11:39 AM [facility] Creatinine 1.14(H) 0.50 - 1.10 mg/dL LAB CHEMISTRY METHOD 07/19/2025 11:39 AM [facility] eGFR 49(L) >=60 mL/min/1. 73m2 LAB CHEMISTRY METHOD 07/19/2025 11:39 AM [facility] Comment:Calculation based on the Chronic Kidney Disease Epidemiology Collaboration (CKD-EPI) equation refit without adjustment for race. BUN/Creatinine Ratio 14.0 LAB CHEMISTRY METHOD 07/19/2025 11:39 AM [facility] Calcium 8.7 8.5 - 10.5 mg/dL LAB CHEMISTRY METHOD 07/19/2025 11:39 AM [facility] AST (SGOT) 20 10 - 42 unit/L LAB CHEMISTRY METHOD 07/19/2025 11:39 AM [facility] ALT (SGPT) 14 10 - 60 unit/L LAB CHEMISTRY METHOD 07/19/2025 11:39 AM [facility] Alkaline Phosphatase 78 42 - 121 unit/L LAB CHEMISTRY METHOD 07/19/2025 11:39 AM [facility] Total Protein 9.1(H) 6.0 - 8.0 g/dL LAB CHEMISTRY METHOD 07/19/2025 11:39 AM [facility] Albumin 2.7(L) 3.2 - 5.0 g/dL LAB CHEMISTRY METHOD 07/19/2025 11:39 AM [facility] Total Bilirubin 0.4 0.0 - 1.4 mg/dL LAB CHEMISTRY METHOD 07/19/2025 11:39 AM [facility] Blood Venous blood specimen / Unknown Venipuncture / Unknown 07/19/2025 5:28 AM EDT 07/19/2025 8:52 AM EDT us Susu Carreno MD LAB BLOOD ORDERABLES Fin al Result [facility] [address] [place] [address], documented in this encounter Visit Diagnoses Diagnosis Multiple myeloma not having achieved remission (CMS/HCC V24, CMS/HCC V28) documented in this encounter Care Teams Shoemaker Custom Relationship Specialty Start Date End Date Susu Carreno MD [address] [place] [id number] PCP - General Family Medicine 07/12/25 documented as of this encounter
--- OUTSIDE RECORDS SUMMARY | 2025-09-22 09:41 | XMS_ITS | Patient Health Record ---
[facility] Address [address] [place] [address] Care Team Providers Care Merchandise Processor Name Role Phone Didier Reyna MD Primary Care Provider Minh Gongora Unavailable [phone] Reason For Referral No Information Medications Medication [...] Problem Acquired hammer toe of right foot ([id number] 5) Other hammer toe(s) (acquired), right foot (M20.41) Active confirmed Problem Acquired hammer toe of left foot ([id number] 3) Other hammer toe(s) (acquired), left foot (M20.42) Active confirmed Problem Type II diabetes mellitus without complication (219683860) Type 2 diabetes mellitus without complications (E11.9) Active confirmed Plan Of Treatment No Information Insurance Providers Payer Name Payer Address Payer Phone Subscriber Number Group Number Insured Name Patient Relationship to Insured Coverage Start Date Coverage End Date [employer] Pref[employer] [address] [place] [address] [id number] Marlen Cesar i Self - patient is the insured Medical (General) History Medical History History ICD Code High blood pressure Diabetic
--- OUTSIDE RECORDS SUMMARY | 2025-09-22 09:41 | XMS_ITS | Encounter Summary ---
Author Organization [facility] Address [address] [place] [phone] Care Team Providers Care Potato Chip Processing Supervisor Name Role Phone Susu Carreno MD Primary Care Provider + Encounter Details Date Type Department Care Team (Late st Contact Info) Description 07/24/[address] [facility] - Main Lab 299 [facility] [place] [address] Susu Carreno MD [address] [phone] Weakness; Type 2 diabetes mellitus without complications [...] V28) documented in this encounter Care Teams Potato Chip Processing Supervisor Relationship Specialty Start Date End Date Susu Carreno MD [address] [place] [address] [phone] PCP - General Family Medicine 07/12/25 documented as of this encounter
--- OUTSIDE RECORDS SUMMARY | 2025-09-22 09:41 | XMS_ITS | Encounter Summary ---
Author Organization [facility] Address [address] [place] [phone] Care Team Providers Care Duty Officer Name Role Phone Susu Carreno MD Primary Care Provider + Encounter Details Date Type Department Care Team (Late st Contact Info) Description 07/21/2025 Lab Requisition [facility] - Main Lab 299 [facility] [place] [address] Susu Carreno MD [address] [place] [address] [phone] Weakness; Type 2 diabetes mellitus without complications [...] V28) documented in this encounter Care Teams Duty Officer Relationship Specialty Start Date End Date Susu Carreno MD [address] [place] [address] [phone] PCP - General Family Medicine 07/12/25 documented as of this encounter
--- OUTSIDE RECORDS SUMMARY | 2025-09-22 09:42 | XMS_ITS | Encounter Summary ---
Author Organization [facility] Address [address] [place] [address] Care Team Providers Care Social Sciences Department Chair Name Role Phone Susu Carreno MD Primary Care Provider + Encounter Details Date Type Department Care Team (Late st Contact Info) Description 07/12/2025 Lab Requisition [facility] - Main Lab 299 [facility] [place] [address] Susu Carreno MD 819 [facility] 1 [place] [address] Weakness; Type 2 diabetes mellitus without complications ([facility] V24, CMS/[facility] V28) Social History Tobacco Use Types Packs/Day [...] Weakness Type 2 diabetes mellitus without complications ([facility] V24, [facility] V28) HEMOGLOBIN A1C Routine 07/12/2025 5:56 AM EDT Weakness Type 2 diabetes mellitus without complications ([facility] V24, [facility] V28) FOLATE Routine 07/12/2025 5:56 AM EDT Weakness Type 2 diabetes mellitus without complications ([facility] V24, [facility] V28) VITAMIN B12 Routine 07/12/2025 5:56 AM EDT Weakness Type 2 diabetes mellitus without complications ([facility] V24, [facility] V28) COMPREHENSIVE METABOLIC PANEL Routine 07/12/2025 5:56 AM EDT Weakness Type 2 diabetes mellitus without complications ([facility] V24, [facility] V28) documented in this encounter Results * Hemoglobin A1c (07/12/2025 5:56 AM EDT) Hemoglobin A1C 6.0 <6.5 % LAB CHEMISTRY METHOD 07/12/2025 1:10 PM EDT [facility] Mean Bld Glu Estim. 126 mg/dL LAB CHEMISTRY METHOD 07/12/2025 1:10 PM EDT [facility] Blood Venous blood specimen / Unknown Venipuncture / Unknown 07/12/2025 5:56 AM EDT 07/12/2025 9:03 AM EDT us Susu Carreno MD LAB BLOOD ORDERABLES Fin al Result [facility] [address] [place] [address], * (ABNORMAL) Folate (07/12/2025 5:56 AM EDT) Folate >20.0(H) 2.8 - 17.0 ng/ml LAB CHEMISTRY METHOD 07/12/2025 11:28 AM EDT [facility] Blood Venous blood specimen / Unknown Venipuncture / Unknown 07/12/2025 5:56 AM EDT 07/12/2025 9:03 AM EDT Susu Carreno MD LAB BLOOD ORDERABLES Fin al Result [facility] [address] [place] [address], [place] [phone] * Vitamin B12 (07/12/2025 5:56 AM EDT) Pathologist [facility] Vitamin B-12 580 250 - 900 pcg/mL LAB CHEMISTRY METHOD 07/12/2025 11:28 AM EDT [facility] Blood Venous blood specimen / Unknown Venipuncture / Unknown 07/12/2025 5:56 AM EDT 07/12/2025 9:03 AM EDT Susu Carreno MD LAB BLOOD ORDERABLES Fin al Result Performing Organization Address [facility]/ZIP Co de Phone Number [facility] [address] [place] [address], [place] [phone] * Thyroid stimulating hormone with reflex to free t4 and free t3 (07/12/2025 5:56 AM EDT) Pathologist [facility] TSH 0.54 0.40 - 4.00 mcIU/mL LAB CHEMISTRY METHOD 07/12/2025 11:58 AM EDT [facility] Blood Venous blood specimen / Unknown Venipuncture / Unknown 07/12/2025 5:56 AM EDT 07/12/2025 9:03 AM EDT Susu Carreno MD LAB BLOOD ORDERABLES Fin al Result [facility] [address] [place] [address], [place] [phone] * (ABNORMAL) Comprehensive metabolic panel (07/12/2025 5:56 AM EDT) Pathologist [facility] Sodium 140 133 - 145 mmol/L LAB CHEMISTRY METHOD 07/12/2025 11:28 AM [facility] Potassium 3.9 3.5 - 5.5 mmol/L LAB CHEMISTRY METHOD 07/12/2025 11:28 AM [facility] Chloride 110 96 - 110 mmol/L LAB CHEMISTRY METHOD 07/12/2025 11:28 AM [facility] CO2 25 21 - 32 mmol/L LAB CHEMISTRY METHOD 07/12/2025 11:28 AM [facility] Anion Gap 5 3 - 11 LAB CHEMISTRY METHOD 07/12/2025 11:28 AM [facility] Glucose 90 70 - 100 mg/dL LAB CHEMISTRY METHOD 07/12/2025 11:28 AM [facility] BUN 15 5 - 25 mg/dL LAB CHEMISTRY METHOD 07/12/2025 11:28 AM [facility] Creatinine 1.12(H) 0.50 - 1.10 mg/dL LAB CHEMISTRY METHOD 07/12/2025 11:28 AM [facility] eGFR 50(L) >=60 mL/min/1. 73m2 LAB CHEMISTRY METHOD 07/12/2025 11:28 AM [facility] Comment:Calculation based on the Chronic Kidney Disease Epidemiology Collaboration (CKD-EPI) equation refit without adjustment for race. BUN/Creatinine Ratio 13.4 LAB CHEMISTRY METHOD 07/12/2025 11:28 AM [facility] Calcium 8.2(L) 8.5 - 10.5 mg/dL LAB CHEMISTRY METHOD 07/12/2025 11:28 AM [facility] AST (SGOT) 19 10 - 42 unit/L LAB CHEMISTRY METHOD 07/12/2025 11:28 AM [facility] ALT (SGPT) 10 10 - 60 unit/L LAB CHEMISTRY METHOD 07/12/2025 11:28 AM [facility] Alkaline Phosphatase 66 42 - 121 unit/L LAB CHEMISTRY METHOD 07/12/2025 11:28 AM EDT [facility] Total Protein 8.1(H) 6.0 - 8.0 g/dL LAB CHEMISTRY METHOD 07/12/2025 11:28 AM EDT [facility] Albumin 2.3(L) 3.2 - 5.0 g/dL LAB CHEMISTRY METHOD 07/12/2025 11:28 AM EDT [facility] Total Bilirubin 0.4 0.0 - 1.4 mg/dL LAB CHEMISTRY METHOD 07/12/2025 11:28 AM EDT [facility] Blood Venous blood specimen / Unknown Venipuncture / Unknown 07/12/2025 5:56 AM EDT 07/12/2025 9:03 AM EDT us Susu Carreno MD LAB BLOOD ORDERABLES Fin al Result [facility] [address] [place] [address], * (ABNORMAL) Complete blood count (07/12/2025 5:56 AM EDT) WBC 5.6 4.8 - 10.8 K/mcL LAB HEMETOLOGY METHOD 07/12/2025 10:25 AM T [facility] RBC 3.70(L) 3.80 - 4.80 M/mcL LAB HEMETOLOGY METHOD 07/12/2025 10:25 AM EDT [facility] Hemoglobin 9.9(L) 11.5 - 16.0 g/dL LAB HEMETOLOGY METHOD 07/12/2025 10:25 AM EDT [facility] Hematocrit 32.6(L) 35.0 - 47.0 % LAB HEMETOLOGY METHOD 07/12/2025 10:25 AM EDT [facility] MCV 88.8 79.0 - 98.0 FL LAB HEMETOLOGY METHOD 07/12/2025 10:25 AM EDT [facility] MCH 27.0 27.0 - 32.0 pcg LAB HEMETOLOGY METHOD 07/12/2025 10:25 AM EDT [facility] MCHC 30.4(L) 32.0 - 37.0 g/dL LAB HEMETOLOGY METHOD 07/12/2025 10:25 AM EDT [facility] RDW 17.2(H) 11.0 - 15.0 % LAB HEMETOLOGY METHOD 07/12/2025 10:25 AM EDT [facility] Platelets 278 130 - 400 K/mcL LAB HEMETOLOGY METHOD 07/12/2025 10:25 AM EDT [facility] MPV 8.9 7.0 - 11.0 FL LAB HEMETOLOGY METHOD 07/12/2025 10:25 AM EDT [facility] NRBC 0.0 <1.0 % LAB HEMETOLOGY METHOD 07/12/2025 10:25 AM EDT [facility] NRBC Absolute 0.00 <0.10 K/mcL LAB HEMETOLOGY METHOD 07/12/2025 10:25 AM T [facility] Blood Venous blood specimen / Unknown Venipuncture / Unknown 07/12/2025 5:56 AM EDT 07/12/2025 9:03 AM EDT us uSsu Carreno MD LAB BLOOD ORDERABLES Fin al Result [facility] [address] [place] [address], documented in this encounter Visit Diagnoses Diagnosis Weakness Other malaise and fatigue Type 2 diabetes mellitus without complications (CMS/HCC V24, CMS/HCC V28) documented in this encounter Care Teams Social Sciences Department Chair Relationship Specialty Start Date End Date Susu Carreno MD [address] [place] [id number] PCP - General Family Medicine 07/12/25 documented as of this encounter
--- OUTSIDE RECORDS SUMMARY | 2025-09-22 09:42 | XMS_ITS | Clinical Summary ---
Author Organization [address] Address [address] [place] [address] Phone Care Team Providers Care Real Estate Office Supervisor Name Role Phone Susu Carreno MD Primary Care Provider + Encounters Date Type Department Care Team Description 07/31/2025 9:52 AM EST - 07/31/2025 11:59 PM EST Hospital Encounter [facility] PET Scan [address] [place] [phone] Multiple myeloma, remission status unspecified ([facility] V24, [facility] V28) Discharge Disposition: Home or Self Care 07/24/2025 Lab Requisition [facility] [address] [place] [phone] Susu Carreno MD Weakness; Type 2 diabetes mellitus without complications ([facility] V24, [facility] V28) 07/21/2025 Lab Requisition [facility] [address] [place] [phone] Susu Carreno MD Weakness; Type 2 diabetes mellitus without complications ([facility] V24, [facility] V28) 07/19/2025 Lab Requisition [facility] [address] [place] [phone] Susu Carreno MD Multiple myeloma not having achieved remission ([facility] V24, [facility] V28) 07/16/2025 Lab Requisition [facility] [address] [place] [phone] Susu Carreno MD Weakness; Type 2 diabetes mellitus without complications ([facility] V24, [facility] V28) 07/12/2025 Lab Requisition [facility] [address] [place] [phone] Susu Carreno MD Weakness; Type 2 diabetes mellitus without complications ([facility] V24, [facility] V28) from Last 3 Months Surgical History [...] remission status unspecified (CMS/HCC V24, CMS/HCC V28) AK IMMUNOFIXATION ELECTROPHORESIS SERUM Routine 07/19/2025 5:28 AM [...] EDT Multiple myeloma not having achieved remission ([facility]/HCC V24, [facility]/HCC V28) KAPPA-LAMBDA QUANTITATIVE FREE LIGHT CHAINS Routine 07/19/2025 5:28 AM EDT Multiple myeloma not having achieved remission (CMS/HCC V24, CMS/HCC V28) CBC AND DIFFERENTIAL Routine 07/19/2025 5:28 AM EDT Multiple myeloma not having achieved remission ([facility]/HCC V24, CMS/HCC V28) COMPREHENSIVE METABOLIC PANEL [...] Signed Date: 08/01/2025 09:46 ET Workstation ID: [id number] Transcribed By: Self Edit Transcribed Date: 08/01/2025 [...] pathologic fracture. Compression fractures at T11 and [id number] significant increased activity. IMPRESSION: 1. Innumerable lytic [...] Signed Date: 08/01/2025 09:46 ET Workstation ID: [id number] Transcribed By: Self Edit Transcribed Date: 08/01/2025 08:09 ET us Nesha Gomez MD [facility] [place] PROCEDURES Final Result * Pathologist Review Immunofixation (07/19/2025 5:28 AM EDT) Pathologist Interpretation Reviewed by Josette Munguia MD 07/20/2025 4:00 PM EDT [facility] Blood Venous blood specimen / Unknown 07/19/2025 5:28 AM EDT 07/20/2025 1:17 PM EDT Susu Carreno MD LAB BLOOD ORDERABLES Fin al Result Performing Organization Address City/[facility]/ZIP Co de Phone Number [facility] [address] [place] [address], [place] [phone] * SST tube (07/19/2025 5:28 AM EDT) Pathologist [facility] Extra Tube Hold for add-ons. 07/19/2025 10:01 AM EDT [facility] Comment:Auto resulted. Blood Venous blood specimen / Unknown 07/19/2025 5:28 AM EDT 07/19/2025 8:55 AM EDT Susu Carreno MD LAB BLOOD ORDERABLES Fin al Result Performing Organization Address [facility]/ZIP Co de Phone Number [facility] [address] [place] [address], [place] [phone] * (ABNORMAL) Noxon-lambda free light chains, quantitative (07/19/2025 5:28 AM EDT) [place]on Free Light Chain 1.34 0.33 - 1.94 mg/dL 07/21/2025 11:38 AM EDT [facility] Lambda Free Light Chain 143.05(H) 0.57 - 2.63 mg/dL 07/21/2025 11:38 AM EDT [facility] Noxon/Lambda FLC Ratio <0.01(L) 0.26 - 1.65 07/21/2025 11:38 AM EDT [facility] Comment: Test performed at [facility], [address] , [place] [address] Adele Luna MD, PhD - Chemical Unit Operator Blood Venous blood specimen / Unknown Venipuncture / Unknown 07/19/2025 5:28 AM EDT 07/19/2025 8:52 AM EDT Susu Carreno MD LAB BLOOD ORDERABLES Fin al Result [facility] [address] [place] [address] * (ABNORMAL) CBC auto differential (07/19/2025 5:28 AM EDT) [facility] WBC 5.7 4.8 - 10.8 K/mcL LAB HEMETOLOGY METHOD 07/19/2025 9:[facility] RBC 3.80 3.80 - 4.80 M/mcL LAB HEMETOLOGY METHOD 07/19/2025 9:19 AM [facility] Hemoglobin 10.0(L) 11.5 - 16.0 g/dL LAB HEMETOLOGY METHOD 07/19/2025 9:19 AM [facility] Hematocrit 32.9(L) 35.0 - 47.0 % LAB HEMETOLOGY METHOD 07/19/2025 9:19 AM [facility] MCV 87.7 79.0 - 98.0 FL LAB HEMETOLOGY METHOD 07/19/2025 9:19 AM [facility] MCH 26.7(L) 27.0 - 32.0 pcg LAB HEMETOLOGY METHOD 07/19/2025 9:19 AM [facility] MCHC 30.4(L) 32.0 - 37.0 g/dL LAB HEMETOLOGY METHOD 07/19/2025 9:19 AM [facility] RDW 16.0(H) 11.0 - 15.0 % LAB HEMETOLOGY METHOD 07/19/2025 9:19 AM [facility] Platelets 406(H) 130 - 400 K/mcL LAB HEMETOLOGY METHOD 07/19/2025 9:19 AM [facility] MPV 9.0 7.0 - 11.0 FL LAB HEMETOLOGY METHOD 07/19/2025 9:19 AM [facility] NRBC 0.0 <1.0 % LAB HEMETOLOGY METHOD 07/19/2025 9:19 AM [facility] NRBC Absolute 0.00 <0.10 K/mcL LAB HEMETOLOGY METHOD 07/19/2025 9:19 AM [facility] Neutrophils Relative 52.8 % LAB HEMETOLOGY METHOD 07/19/2025 9:19 AM [facility] Lymphocytes Relative 33.9 % LAB HEMETOLOGY METHOD 07/19/2025 9:19 AM [facility] Monocytes Relative 9.1 % LAB HEMETOLOGY METHOD 07/19/2025 9:19 AM [facility] Eosinophils Relative 3.0 % LAB HEMETOLOGY METHOD 07/19/2025 9:19 AM [facility] Basophils Relative 0.9 % LAB HEMETOLOGY METHOD 07/19/2025 9:19 AM [facility] Immature Granulocytes Relative 0.3 % LAB HEMETOLOGY METHOD 07/19/2025 9:19 AM [facility] Neutrophils Absolute 3.03 1.50 - 7.00 K/mcL LAB HEMETOLOGY METHOD 07/19/2025 9:19 AM [facility] Lymphocytes Absolute 1.94 1.00 - 5.00 K/mcL LAB HEMETOLOGY METHOD 07/19/2025 9:19 AM [facility] Monocytes Absolute 0.52 0.20 - 1.00 K/mcL LAB HEMETOLOGY METHOD 07/19/2025 9:19 AM [facility] Eosinophils Absolute 0.17 0.00 - 0.50 K/mcL LAB HEMETOLOGY METHOD 07/19/2025 9:19 AM EDT [facility] Basophils Absolute 0.05 0.00 - 0.20 K/[facility] LAB HEMETOLOGY METHOD 07/19/2025 9:19 AM EDT [facility] Immature Granulocytes Absolute 0.02 0.00 - 0.03 K/[facility] LAB HEMETOLOGY METHOD 07/19/2025 9:19 AM EDT [facility] Blood Venous blood specimen / Unknown Venipuncture / Unknown 07/19/2025 5:28 AM EDT 07/19/2025 8:52 AM EDT Susu Carreno MD LAB BLOOD ORDERABLES Fin al Result Performing Organization Address [facility]/ZIP Co de Phone Number [facility] [address] [place] [address], [place] [phone] * Immunofixation electrophoresis serum (07/19/2025 5:28 AM EDT) Pathologist [facility] Immunofixation Result, Serum IgG Lambda monoclonal immunoglobulins detected. LAB CHEMISTRY METHOD 07/20/2025 4:00 PM EDT [facility] Blood Venous blood specimen / Unknown 07/19/2025 5:28 AM EDT 07/20/2025 1:17 PM EDT Susu Carreno MD LAB BLOOD ORDERABLES Fin al Result [facility] [address] [place] [address], [place] [phone] * (ABNORMAL) Immunoglobulins IgG, IgA, IgM (07/19/2025 5:28 AM EDT) Pathologist [facility] Total IgG 3,700(H) 549 - 1,584 mg/dL LAB CHEMISTRY METHOD 07/20/2025 3:22 PM EDT [facility] IgA 40(L) 61 - 348 mg/dL LAB CHEMISTRY METHOD 07/20/2025 3:22 PM EDT [facility] IgM 21(L) 23 - 259 mg/dL LAB CHEMISTRY METHOD 07/20/2025 3:22 PM EDT [facility] Blood Venous blood specimen / Unknown 07/19/2025 5:28 AM EDT 07/20/2025 1:17 PM EDT Susu Carreno MD LAB BLOOD ORDERABLES Fin al Result Performing Organization Address City/[facility]/ZIP Co de Phone Number [facility] [address] [place] [address], [place] [phone] * (ABNORMAL) Beta 2 microglobulin, serum (07/19/2025 5:28 AM EDT) Beta-2 Microglobulin 12.5(H) 0.7 - 1.8 mg/L LAB CHEMISTRY METHOD 07/19/2025 11:39 AM EDT [facility] Blood Venous blood specimen / Unknown Venipuncture / Unknown 07/19/2025 5:28 AM EDT 07/19/2025 8:52 AM EDT Susu Carreno MD LAB BLOOD ORDERABLES Fin al Result Performing Organization Address City/[facility]/ZIP Co de Phone Number [facility] [address] [place] [address], [place] [phone] * (ABNORMAL) Comprehensive metabolic panel (07/19/2025 5:28 AM EDT) Only the most recent of2 resultswithin the time period is included. Sodium 137 133 - 145 mmol/L LAB CHEMISTRY METHOD 07/19/2025 11:39 AM EDT [facility] Potassium 3.1(L) 3.5 - 5.5 mmol/L LAB CHEMISTRY METHOD 07/19/2025 11:39 AM EDT [facility] Chloride 100 96 - 110 mmol/L LAB CHEMISTRY METHOD 07/19/2025 11:39 AM [facility] CO2 31 21 - 32 mmol/L LAB CHEMISTRY METHOD 07/19/2025 11:39 AM [facility] Anion Gap 6 3 - 11 LAB CHEMISTRY METHOD 07/19/2025 11:39 AM [facility] Glucose 92 70 - 100 mg/dL LAB CHEMISTRY METHOD 07/19/2025 11:39 AM [facility] BUN 16 5 - 25 mg/dL LAB CHEMISTRY METHOD 07/19/2025 11:39 AM [facility] Creatinine 1.14(H) 0.50 - 1.10 mg/dL LAB CHEMISTRY METHOD 07/19/2025 11:39 AM [facility] eGFR 49(L) >=60 mL/min/1. 73m2 LAB CHEMISTRY METHOD 07/19/2025 11:39 AM [facility] Comment:Calculation based on the Chronic Kidney Disease Epidemiology Collaboration (CKD-EPI) equation refit without adjustment for race. BUN/Creatinine Ratio 14.0 LAB CHEMISTRY METHOD 07/19/2025 11:39 AM [facility] Calcium 8.7 8.5 - 10.5 mg/dL LAB CHEMISTRY METHOD 07/19/2025 11:39 AM [facility] AST (SGOT) 20 10 - 42 unit/L LAB CHEMISTRY METHOD 07/19/2025 11:39 AM [facility] ALT (SGPT) 14 10 - 60 unit/L LAB CHEMISTRY METHOD 07/19/2025 11:39 AM [facility] Alkaline Phosphatase 78 42 - 121 unit/L LAB CHEMISTRY METHOD 07/19/2025 11:39 AM [facility] Total Protein 9.1(H) 6.0 - 8.0 g/dL LAB CHEMISTRY METHOD 07/19/2025 11:39 AM EDT [facility] Albumin 2.7(L) 3.2 - 5.0 g/dL LAB CHEMISTRY METHOD 07/19/2025 11:39 AM EDT [facility] Total Bilirubin 0.4 0.0 - 1.4 mg/dL LAB CHEMISTRY METHOD 07/19/2025 11:39 AM T [facility] Blood Venous blood specimen / Unknown Venipuncture / Unknown 07/19/2025 5:28 AM EDT 07/19/2025 8:52 AM EDT us Susu Carreno MD LAB BLOOD ORDERABLES Fin al Result [facility] [address] [place] [address], [place] [phone] * (ABNORMAL) Complete blood count (07/17/2025 7:28 AM EDT) Only the most recent of2 resultswithin the time period is included. WBC 5.9 4.8 - 10.8 K/mcL LAB HEMETOLOGY METHOD 07/17/2025 10:36 AM [facility] RBC 4.00 3.80 - 4.80 M/mcL LAB HEMETOLOGY METHOD 07/17/2025 10:36 AM [facility] Hemoglobin 10.6(L) 11.5 - 16.0 g/dL LAB HEMETOLOGY METHOD 07/17/2025 10:36 AM [facility] Hematocrit 35.0 35.0 - 47.0 % LAB HEMETOLOGY METHOD 07/17/2025 10:36 AM [facility] MCV 87.9 79.0 - 98.0 FL LAB HEMETOLOGY METHOD 07/17/2025 10:36 AM [facility] MCH 26.6(L) 27.0 - [...] LAB HEMETOLOGY METHOD 07/17/2025 10:36 AM T [facility] Blood Venous blood specimen / Unknown Venipuncture / Unknown 07/17/2025 7:28 AM EDT 07/17/2025 9:50 AM EDT Susu Carreno MD LAB BLOOD ORDERABLES Fin al Result [facility] [address] [place] [address], * (ABNORMAL) Basic metabolic panel (07/17/2025 7:28 AM EDT) Sodium 137 133 - 145 mmol/L LAB CHEMISTRY METHOD 07/17/2025 10:35 AM EDT [facility] Potassium 3.2(L) 3.5 - 5.5 mmol/L LAB CHEMISTRY METHOD 07/17/2025 10:35 AM EDT [facility] Chloride 102 96 - 110 mmol/L LAB CHEMISTRY METHOD 07/17/2025 10:35 AM [facility] CO2 27 21 - 32 mmol/L LAB CHEMISTRY METHOD 07/17/2025 10:35 AM [facility] Anion Gap 8 3 - 11 LAB CHEMISTRY METHOD 07/17/2025 10:35 AM [facility] Glucose 105(H) 70 - 100 mg/dL LAB CHEMISTRY METHOD 07/17/2025 10:35 AM [facility] BUN 14 5 - 25 mg/dL LAB CHEMISTRY METHOD 07/17/2025 10:35 AM [facility] Creatinine 1.08 0.50 - 1.10 mg/dL LAB CHEMISTRY METHOD 07/17/2025 10:35 AM [facility] eGFR 53(L) >=60 mL/min/1. 73m2 LAB CHEMISTRY METHOD 07/17/2025 10:35 AM [facility] Comment:Calculation based on the Chronic Kidney Disease Epidemiology Collaboration (CKD-EPI) equation refit without adjustment for race. BUN/Creatinine Ratio 13.0 LAB CHEMISTRY METHOD 07/17/2025 10:35 AM [facility] Calcium 8.3(L) 8.5 - 10.5 mg/dL LAB CHEMISTRY METHOD 07/17/2025 10:35 AM [facility] Blood Venous blood specimen / Unknown Venipuncture / Unknown 07/17/2025 7:28 AM EDT 07/17/2025 9:49 AM EDT us Susu Carreno MD LAB BLOOD ORDERABLES Fin al Result [facility] [address] [place] [address], * Thyroid stimulating hormone with reflex to free t4 and free t3 (07/12/2025 5:56 AM EDT) TSH 0.54 0.40 - 4.00 mcIU/mL LAB CHEMISTRY METHOD 07/12/2025 11:58 AM EDT [facility] Blood Venous blood specimen / Unknown Venipuncture / Unknown 07/12/2025 5:56 AM EDT 07/12/2025 9:03 AM EDT Susu Carreno MD LAB BLOOD ORDERABLES Fin al Result Performing Organization Address [facility]/ZIP Co de Phone Number [facility] [address] [place] [address], [place] [phone] * Hemoglobin A1c (07/12/2025 5:56 AM EDT) Pathologist [facility] Hemoglobin A1C 6.0 <6.5 % LAB CHEMISTRY METHOD 07/12/2025 1:10 PM EDT [facility] Mean Bld Glu Estim. 126 mg/dL LAB CHEMISTRY METHOD 07/12/2025 1:10 PM EDT [facility] Blood Venous blood specimen / Unknown Venipuncture / Unknown 07/12/2025 5:56 AM EDT 07/12/2025 9:03 AM EDT Susu Carreno MD LAB BLOOD ORDERABLES Fin al Result Performing Organization Address City/[facility]/ZIP Co de Phone Number [facility] [address] [place] [address], [place] [phone] * (ABNORMAL) Folate (07/12/2025 5:56 AM EDT) Folate >20.0(H) 2.8 - 17.0 ng/ml LAB CHEMISTRY METHOD 07/12/2025 11:28 AM EDT [facility] Blood Venous blood specimen / Unknown Venipuncture / Unknown 07/12/2025 5:56 AM EDT 07/12/2025 9:03 AM EDT us Susu Carreno MD LAB BLOOD ORDERABLES Fin al Result Performing Organization Address City/[facility]/ZIP Co de Phone Number [facility] [address] [place] [address], [place] [phone] * Vitamin B12 (07/12/2025 5:56 AM EDT) Vitamin B-12 580 250 - 900 pcg/mL LAB CHEMISTRY METHOD 07/12/2025 11:28 AM EDT [facility] Blood Venous blood specimen / Unknown Venipuncture / Unknown 07/12/2025 5:56 AM EDT 07/12/2025 9:03 AM EDT Susu Carreno MD LAB BLOOD ORDERABLES Fin al Result Performing Organization Address City/[facility]/ZIP Co de Phone Number [facility] [address] [place] [address], [place] [phone] from Last [address] [place] [address] [place] [address] PLAN Care Teams Real Estate Office Supervisor Relationship Specialty Start Date End Date Susu Carreno MD [address] [place] [id number] PCP - General Family Medicine 07/12/25
[2025-09-22 14:41] LABS: MANUAL DIFF FLAG NO
[2025-09-22 14:43] LABS: Hematocrit 28.6 % (37.0-47.0); Hemoglobin 8.7 g/dl (12.0-16.0); Imm Gran Abs Auto 0.02 X10*3/uL (0.00-0.03); Imm Gran Pct Auto 0.6 % (0.0-0.4); Lymphocytes Absolute Auto 0.7 X10*3/uL (1.2-4.9); Mean Corpuscular HGB Conc 30.4 g/dl (31.0-35.0); Mean Corpuscular Hemoglobin 27.2 pg (27.0-33.0); Mean Corpuscular Volume 89.4 fL (80.0-98.0); NRBC Abs Auto 0.000 X10*3/uL (0.0-0.012); NRBC Pct Auto 0.0 /100WBC (0.0-0.2); Platelet Count 309 X10*3/uL (160-400); Red Blood Count 3.20 X10*6/uL (4.20-5.50); White Blood Count 3.3 X10*3/uL (4.8-10.8)
[2025-09-22 14:55] LABS: Alanine Aminotransferase 11 U/L (0-31); Albumin Level 4.0 g/dL (3.5-5.0); Alkaline Phosphatase 231 U/L (39-117); Anion Gap 14 (12-20); Aspartate Amino Transferase 15 U/L (5-31); Blood Urea Nitrogen 34 mg/dL (9-16); Calcium 9.2 mg/dL (8.4-10.2); Carbon Dioxide 24 mmol/L (22-29); Chloride 102 mmol/L (96-108); Estimated Glomerular Filt Rate 38; Potassium 4.7 mmol/L (3.3-5.1); Sodium 135 mmol/L (135-145); Total Protein 6.5 g/dL (6.5-8.0)
[2025-09-23 05:15] LABS: HBS Num1 0.00 mIU/mL (0-7.99); HBc Num1 0.04 S/CO (0.00-0.79); HBsAGNum1 0.29 S/CO (0.00-0.99); Hepatitis B Surface Antigen Negative (Negative); ~Hepatitis B Surface Antibody NONREACTIVE (Nonreactive)
--- OUTSIDE RECORDS SUMMARY | 2025-11-16 19:00 | XMS_ITS | Clinical Summary ---
Author Organization Unknown Care Team Providers Care Animal Cop Name Role Phone ASHWINI OTHER, SADIA Unavailable Unavailab le [facility] CHAIR, RANDOLPH Unavailable Unavailable TEMI PT, RADHA Unavailable Unavailable PENDRAJEEVS FLIGHT DISPATCHER, DIMPLE Unavailable Unavailable CONDINO SENIOR INTERACTION DESIGNER/HIGUERA, NASH Unavailable Unav carlitaable ABDULLAHI RN, RUPALI Unavailable Unavailab le READING OT, GRACIA Unavailable Unavailable Payers Payer Name Policy Type Policy Number Effective Date Expira tion Date [id number] Problems Condition Name Condition Details Condition Category [...] 40 mg tablet 2024-09 00:00: 00 Yes [id number] FLUID RETENTION 1 tablet 2 TIMES DAILY 1 tablet 2 TIMES DAILY (route: oral) Med Classific ation: Cardiovas cular Therapy Agents FeroSul 325 mg (65 mg iron) tablet 2024-09 0- 00:00: 00 Yes [id number] SUPPLEMENT 1 tablet DAILY 1 tablet DAILY (route: oral) Med Classific ation: Electroly te Balance-N utritiona l Products simvastatin 10 mg tablet 06-22 00:00: 00 Yes [id number] HIGH CHOLESTEROL 1 tablet DAILY 1 tablet DAILY (route: oral) Med Classific ation: Cardiovas cular Therapy Agents acetaminoph en 325 mg tablet 2024-09 00:00: 00 Yes [id number] PAIN 2 tablet EVERY 4 HOURS 2 tablet EVERY 4 HOURS (route: oral) Med Classific ation: Analgesic , Anti-infl ammatory or Antipyret ic aspirin 81 mg tablet 2024-09 00:00: 00 Yes [id number] ANTIPLATELE T 1 tablet DAILY 1 tablet DAILY (route: oral) Med Classific ation: Hematolog ical Agents magnesium oxide 400 mg (241.3 mg magnesium) tablet 2024-09 00:00: 00 Yes [id number] SUPPLEMENT 1 tablet DAILY 1 tablet DAILY (route: oral) Med Classific ation: Electroly te Balance-N utritiona l Products melatonin 3 mg capsule 2024-09 00:00: 00 Yes [id number] SLEEP 1 capsule BEDTIME 1 capsule BEDTIME (route: oral) Med Classific ation: Central Nervous System Agents Multivitami n 50 Plus tablet 2024-09 00:00: 00 Yes [id number] SUPPLEMENT 1 tablet DAILY 1 tablet DAILY (route: oral) Med Classific ation: Electroly te Balance-N utritiona l Products PreserVisio n AREDS 2 CO Q-10 250 mg-90 mg-40 mg-1 mg-5 mg capsule 2024-09 00:00: 00 Yes [id number] SUPPLEMENT 1 capsule DAILY 1 capsule DAILY (route: oral) Med Classific ation: Electroly te Balance-N utritiona l Products Zyrtec 10 mg capsule 2024-09 00:00: 00 Yes [id number] ALLERGIES 1 capsule DAILY 1 capsule DAILY (route: oral) Med Classific ation: Respirato ry Therapy Agents Vital Signs Vital Name Observation Time Observation Value Commen ts Temperature 2025-09-19 11:41:00.000 97 [degF] Pulse 2025-09-19 11:41:00.000 80 /min Respirations 2025-09-19 11:41:00.000 18 /min Systolic Blood Pressure 2025-09-19 11:41:00.000 110 mm [Hg] Diastolic Blood Pressure 2025-09-19 11:41:00.000 62 mm [Hg] Plan of Treatment Planned Activity Planned Date Details Comments Future Scheduled Test RN TO OBSE RVE, ASSESS, EVALUATE, AND DEVELOP AN INDIVIDUALIZED PLAN OF CARE. AGENCY MAY ACCEPT ORDERS FROM CONSULTING PHYSICIANS. RN TO OBSERVE AND ASSESS, FLIGHT DISPATCHER/BICYCLE MESSENGER TO OBSERVE FOR RISK FOR FALLS AND INSTRUCT IN FALL PREVENTION, HOME SAFETY, MEDICATION MANAGEMENT, INFECTION PREVENTION, AND NUTRITION MANAGEMENT. RN/FLIGHT DISPATCHER/BICYCLE MESSENGER NURSE MAY PERFORM O2 SATURATION LEVEL ON ADMISSION AND PRN FOR RN TO ASSESS/FLIGHT DISPATCHER TO OBSERVE PATIENT, WITH NOTIFICATION TO THE PHYSICIAN IF SATURATION IS 90% IN THE ABSENCE OF MORE SPECIFIC PARAMETERS FROM THE PHYSICIAN. AGENCY MAY PERFORM A RESUMPTION OF CARE VISIT FOLLOWING ANY HOSPITAL ADMISSION. RN/FLIGHT DISPATCHER/BICYCLE MESSENGER TO MONITOR CO-MORBID CONDITIONS LISTED ON THE PLAN OF CARE AND ANY NEW CONDITIONS THAT PRESENT THEMSELVES DURING THIS EPISODE TO IDENTIFY CHANGES AND INTERVENE TO MINIMIZE COMPLICATIONS. [code = RN TO OBSERVE, ASSESS, EVALUATE, AND DEVELOP AN INDIVIDUALIZED PLAN OF CARE. AGENCY MAY ACCEPT ORDERS FROM CONSULTING PHYSICIANS. RN TO OBSERVE AND ASSESS, FLIGHT DISPATCHER/BICYCLE MESSENGER TO OBSERVE FOR RISK FOR FALLS AND INSTRUCT IN FALL PREVENTION, HOME SAFETY, MEDICATION MANAGEMENT, INFECTION PREVENTION, AND NUTRITION MANAGEMENT. RN/FLIGHT DISPATCHER/BICYCLE MESSENGER NURSE MAY PERFORM O2 SATURATION LEVEL ON ADMISSION AND PRN FOR RN TO ASSESS/FLIGHT DISPATCHER TO OBSERVE PATIENT, WITH NOTIFICATION TO THE PHYSICIAN IF SATURATION IS 90% IN THE ABSENCE OF MORE SPECIFIC PARAMETERS FROM THE PHYSICIAN. AGENCY MAY PERFORM A RESUMPTION OF CARE VISIT FOLLOWING ANY HOSPITAL ADMISSION. RN/FLIGHT DISPATCHER/BICYCLE MESSENGER TO MONITOR CO-MORBID CONDITIONS LISTED ON THE PLAN OF CARE AND ANY NEW CONDITIONS THAT PRESENT THEMSELVES DURING THIS EPISODE TO IDENTIFY CHANGES AND INTERVENE TO MINIMIZE COMPLICATIONS.] Future Scheduled Test MEDICATION MANAGEMENT; RN/FLIGHT DISPATCHER/BICYCLE MESSENGER TO REVIEW MEDICATIONS FOR INTERACTIONS, EFFECTIVENESS OF DRUG THERAPY, AND SIGNS/SYMPTOMS OF ADVERSE REACTIONS. MAY INSTRUCT AND REINFORCE MEDICATION TEACHING RELATED TO THE USE OF MEDICATIONS, DOSAGE, FREQUENCY, PURPOSE, SIDE EFFECTS, AND TO REPORT COMPLICATIONS. [code = MEDICATION MANAGEMENT; RN/FLIGHT DISPATCHER/BICYCLE MESSENGER TO REVIEW MEDICATIONS FOR INTERACTIONS, EFFECTIVENESS OF DRUG THERAPY, AND SIGNS/SYMPTOMS OF ADVERSE REACTIONS. MAY INSTRUCT AND REINFORCE MEDICATION TEACHING RELATED TO THE USE OF MEDICATIONS, DOSAGE, FREQUENCY, PURPOSE, SIDE EFFECTS, AND TO REPORT COMPLICATIONS.] Future Scheduled Test RISK FOR H OSPITALIZATION; RN TO ASSESS/TEACH, BICYCLE MESSENGER/FLIGHT DISPATCHER TO OBSERVE/TEACH PATIENT/CAREGIVER ON RISK FOR HOSPITALIZATION/EMERGENCY ROOM VISITS, TEACH SIGNS AND SYMPTOMS THAT PUT PATIENT AT RISK, WHEN TO NOTIFY NURSE/PHYSICIAN OF COMPLICATIONS/DECLINE, AND WHEN TO CALL 911. [code = RISK FOR HOSPITALIZATION; RN TO ASSESS/TEACH, BICYCLE MESSENGER/FLIGHT DISPATCHER TO OBSERVE/TEACH PATIENT/CAREGIVER ON RISK FOR HOSPITALIZATION/EMERGENCY ROOM VISITS, TEACH SIGNS AND SYMPTOMS THAT PUT PATIENT AT RISK, WHEN TO NOTIFY NURSE/PHYSICIAN OF COMPLICATIONS/DECLINE, AND WHEN TO CALL 911.] Future Scheduled Test CARDIOVASC ULAR SYSTEM; RN TO ASSESS/TEACH, FLIGHT DISPATCHER/BICYCLE MESSENGER TO OBSERVE/TEACH RELATED TO ALTERED CARDIOVASCULAR STATUS TO MINIMIZE COMPLICATIONS AND REDUCE HOSPITALIZATION. [code = CARDIOVASCULAR SYSTEM; RN TO ASSESS/TEACH, FLIGHT DISPATCHER/BICYCLE MESSENGER TO OBSERVE/TEACH RELATED TO ALTERED CARDIOVASCULAR STATUS TO MINIMIZE COMPLICATIONS AND REDUCE HOSPITALIZATION.] Future Scheduled Test HYPERTENSI ON MANAGEMENT; RN TO ASSESS AND TEACH, FLIGHT DISPATCHER/BICYCLE MESSENGER TO OBSERVE AND TEACH WARNING SIGNS AND SYMPTOMS TO AVOID HOSPITALIZATION. [code = HYPERTENSION MANAGEMENT; RN TO ASSESS AND TEACH, FLIGHT DISPATCHER/BICYCLE MESSENGER TO OBSERVE AND TEACH WARNING SIGNS AND SYMPTOMS TO AVOID HOSPITALIZATION.] Future Scheduled Test SKIN INTEG RITY RN TO ASSESS AND TEACH, FLIGHT DISPATCHER/BICYCLE MESSENGER TO OBSERVE AND TEACH INTEGUMENTARY STATUS TO IDENTIFY CHANGES AND INTERVENE TO MINIMIZE COMPLICATIONS. PROVIDE SKILLED TEACHING OF GENERAL WOUND AND SKIN CARE AND PREVENTION RELATED TO ACTUAL ALTERED SKIN INTEGRITY [code = SKIN INTEGRITY RN TO ASSESS AND TEACH, FLIGHT DISPATCHER/BICYCLE MESSENGER TO OBSERVE AND TEACH INTEGUMENTARY STATUS TO IDENTIFY CHANGES AND INTERVENE TO MINIMIZE COMPLICATIONS. PROVIDE SKILLED TEACHING OF GENERAL WOUND AND SKIN CARE AND PREVENTION RELATED TO ACTUAL ALTERED SKIN INTEGRITY] Future Scheduled Test PAIN MANAG EMENT; RN TO ASSESS AND TEACH, BICYCLE MESSENGER/FLIGHT DISPATCHER TO OBSERVE AND TEACH AND PROVIDE EDUCATION ON PAIN MANAGEMENT TECHNIQUES. [code = PAIN MANAGEMENT; RN TO ASSESS AND TEACH, BICYCLE MESSENGER/FLIGHT DISPATCHER TO OBSERVE AND TEACH AND PROVIDE EDUCATION ON PAIN MANAGEMENT TECHNIQUES.] Future Scheduled Test CANCER MAN AGEMENT; RN TO ASSESS AND TEACH, BICYCLE MESSENGER/FLIGHT DISPATCHER TO OBSERVE AND TEACH AND PROVIDE EDUCATION ON CANCER. [code = CANCER MANAGEMENT; RN TO ASSESS AND TEACH, BICYCLE MESSENGER/FLIGHT DISPATCHER TO OBSERVE AND TEACH AND PROVIDE EDUCATION ON CANCER.] Future Scheduled Test FALL REDUC TION MANAGEMENT; RN TO ASSESS AND OBSERVE, FLIGHT DISPATCHER/BICYCLE MESSENGER TO OBSERVE FALL RISK FACTORS AND EDUCATE PATIENT/CAREGIVER ON STRATEGIES TO MINIMIZE THE RISK OF FALLING. [code = FALL REDUCTION MANAGEMENT; RN TO ASSESS AND OBSERVE, FLIGHT DISPATCHER/BICYCLE MESSENGER TO OBSERVE FALL RISK FACTORS AND EDUCATE PATIENT/CAREGIVER ON STRATEGIES TO MINIMIZE THE RISK OF FALLING.] Future Scheduled Test GASTROINTE STINAL MANAGEMENT; RN TO ASSESS AND TEACH, BICYCLE MESSENGER/FLIGHT DISPATCHER TO OBSERVE AND TEACH RELATED TO ALTERED GASTROINTESTINAL STATUS TO MINIMIZE COMPLICATIONS AND REDUCE HOSPITALIZATION. [code = GASTROINTESTINAL MANAGEMENT; RN TO ASSESS AND TEACH, BICYCLE MESSENGER/FLIGHT DISPATCHER TO OBSERVE AND TEACH RELATED TO ALTERED GASTROINTESTINAL STATUS TO MINIMIZE COMPLICATIONS AND REDUCE HOSPITALIZATION.] Future Scheduled Test AGENCY MAY PERFORM A RESUMPTION OF CARE VISIT FOLLOWING ANY HOSPITAL ADMISSION. OT TO EVALUATE, OBSERVE / ASSESS, AND MONITOR, SENIOR INTERACTION DESIGNER TO OBSERVE AND MONITOR, PROVIDE SKILLED THERAPEUTIC INTERVENTION, ACTIVITY, EDUCATION, AND TRAINING TO ADDRESS; PERSONAL HYGIENE/GROOMING (OT/SENIOR INTERACTION DESIGNER) BATHING/SHOWERING (OT/ANUPAM) DRESSING (OT/ANUPAM) BED TRANSFERS (OT/SENIOR INTERACTION DESIGNER) CHAIR TRANSFERS (OT/SENIOR INTERACTION DESIGNER) TOILET TRANSFER (OT/SENIOR INTERACTION DESIGNER) BATH/SHOWER TRANSFER (OT/ANUPAM) POSTURAL CONTROL/BALANCE (OT/SENIOR INTERACTION DESIGNER) THERAPEUTIC EXERCISE (OT/SENIOR INTERACTION DESIGNER) ENERGY CONSERVATION/ACTIVITY DEMAND (OT/SENIOR INTERACTION DESIGNER) OT/SENIOR INTERACTION DESIGNER TO MONITOR AND EDUCATE ON OXYGEN SATURATION DURING ADLS/IADLS, NOTIFY PHYSICIAN AND/OR THE RN CLINICAL FOOD SERVICES COORDINATOR FOR PHYSICIAN NOTIFICATION AND IF O2 SATS BELOW 90% AFTER 10 MIN OF REST. OT/SENIOR INTERACTION DESIGNER MAY EDUCATE ON PAIN MANAGEMENT CLINICALLY INDICATED. [code = AGENCY MAY PERFORM A RESUMPTION OF CARE VISIT FOLLOWING ANY HOSPITAL ADMISSION. OT TO EVALUATE, OBSERVE / ASSESS, AND MONITOR, SENIOR INTERACTION DESIGNER TO OBSERVE AND MONITOR, PROVIDE SKILLED THERAPEUTIC INTERVENTION, ACTIVITY, EDUCATION, AND TRAINING TO ADDRESS; PERSONAL HYGIENE/GROOMING (OT/SENIOR INTERACTION DESIGNER) BATHING/SHOWERING (OT/SENIOR INTERACTION DESIGNER) DRESSING (OT/SENIOR INTERACTION DESIGNER) BED TRANSFERS (OT/ANUPAM) CHAIR TRANSFERS (OT/SENIOR INTERACTION DESIGNER) TOILET TRANSFER (OT/ANUPAM) BATH/SHOWER TRANSFER (OT/ANUPAM) POSTURAL CONTROL/BALANCE (OT/SENIOR INTERACTION DESIGNER) THERAPEUTIC EXERCISE (OT/ANUPAM) ENERGY CONSERVATION/ACTIVITY DEMAND (OT/ANUPAM) OT/SENIOR INTERACTION DESIGNER TO MONITOR AND EDUCATE ON OXYGEN SATURATION DURING ADLS/IADLS, NOTIFY PHYSICIAN AND/OR THE RN CLINICAL FOOD SERVICES COORDINATOR FOR PHYSICIAN NOTIFICATION AND IF O2 SATS BELOW 90% AFTER 10 MIN OF REST. OT/SENIOR INTERACTION DESIGNER MAY EDUCATE ON PAIN MANAGEMENT CLINICALLY INDICATED.] Goal 2025-09-14 Patient Goal - GET STRONGER. Goal Patient Goal - G ET STRONGER, GET THROUGH CHEMO Goal Provider Goal - A PLAN OF CARE WILL BE ESTABLISHED THAT MEETS THE PATIENT S NEEDS. PATIENT WILL DEMONSTRATE OXYGEN SATURATION WITHIN NORMAL LIMITS OR PATIENT S OPTIMAL LEVEL ESTABLISHED BY THE PHYSICIAN THROUGHOUT CARE. CHANGES TO CO-MORBID CONDITIONS AND ANY NEW CONDITIONS WILL BE IDENTIFIED AND REPORTED TO THE PHYSICIAN. Goal Provider Goal - PATIENT/CAREGIVER TO VERBALIZE, AND CONSISTENTLY DEMONSTRATE EFFECTIVE, SAFE MANAGEMENT OF MEDICATION INCLUDING KNOWLEDGE OF EFFECTIVENESS, POTENTIAL SIDE EFFECTS AND DRUG REACTIONS AND WHEN TO CONTACT THE APPROPRIATE CARE PROVIDER. PATIENT/CAREGIVER WILL BE ABLE TO VERBALIZE UNDERSTANDING OF MEDICATION REGIMEN AND ACCURATELY TAKE MEDICATIONS PRESCRIBED WITHOUT ADVERSE EFFECTS BY Goal Provider Goal - PATIENT/CAREGIVER WILL VERBALIZE UNDERSTANDING OF SIGNS AND SYMPTOMS THAT PUT THE PATIENT AT RISK FOR HOSPITALIZATION /EMERGENCY ROOM VISITS, WHEN TO NOTIFY NURSE/PHYSICIAN OF COMPLICATIONS/DECLINE AND WHEN TO CALL 911 BY EOE Goal Provider Goal - PATIENT / CAREGIVER WILL VERBALIZE/DEMONSTRATE UNDERSTANDING OF MEASURES TO MANAGE ALTERED CARDIOVASCULAR STATUS BY EOE. Goal Provider Goal - PATIENT / CAREGIVER WILL VERBALIZE/DEMONSTRATE AN ABILITY TO ADHERE TO SELF-MANAGEMENT OF HTN TO MINIMIZE COMPLICATIONS AND AVOID HOSPITALIZATION BY EOE Goal Provider Goal - CHANGES IN SKIN INTEGRITY STATUS WILL BE IDENTIFIED AND REPORTED TO THE PHYSICIAN FOR PROMPT INTERVENTION. PATIENT / CAREGIVER WILL VERBALIZE/DEMONSTRATE ADEQUATE KNOWLEDGE OF INTEGUMENTARY STATUS AND APPROPRIATE MEASURES TO PROMOTE SKIN INTEGRITY AND PREVENT INJURY BY EOE Goal Provider Goal - PATIENT / CAREGIVER WILL VERBALIZE / DEMONSTRATE UNDERSTANDING OF PAIN CONTROL MEASURES BY EOE Goal Provider Goal - PATIENT / CAREGIVER WILL VERBALIZE/DEMONSTRATE UNDERSTANDING OF MEASURES TO MINIMIZE COMPLICATIONS AND REDUCE HOSPITALIZATION RELATED TO CANCER BY EOE Goal Provider Goal - PATIENT/CAREGIVER WILL VERBALIZE/DEMONSTRATE UNDERSTANDING OF FALL RISK FACTORS AND IMPLEMENT STRATEGIES TO MINIMIZE FALL RISK. PATIENT/CAREGIVER WILL VERBALIZE/DEMONSTRATE AN ABILITY TO ADHERE TO FALL REDUCTION SELF-MANAGEMENT AND LIFE-STYLE CHANGES BY EOE Goal Provider Goal - PATIENT / CAREGIVER WILL VERBALIZE/DEMONSTRATE UNDERSTANDING OF MEASURES TO MANAGE ALTERED GASTROINTESTINAL STATUS BY EOE Goal Provider Goal - OT LTG: PATIENT WILL DEMONSTRATE IMPROVED ABILITY TO PERFORM PERSONAL HYGIENE FROM CGA TO IND WITHIN 8 WEEKS OT LTG: PATIENT WILL DEMONSTRATE IMPROVED ABILITY TO PERFORM BATHING/SHOWERING AND REDUCE CAREGIVER BURDEN FROM CGA TO SUP WITHIN 8 WEEKS OT LTG: PATIENT WILL DEMONSTRATE IMPROVED ABILITY TO PARTICIPATE IN SHOWERING ROUTINE EVIDENCE BY INCREASED PARTICIPATION IN SHOWER ROUTINE AT LEAST ONCE PER WEEK WITH CAREGIVER SUPERVISION WITHIN 8 WEEKS OT LTG: PATIENT WILL DEMONSTRATE IMPROVED ABILITY TO PERFORM LOWER BODY DRESSING TO REDUCE CAREGIVER BURDEN FROM CGA TO IND WITHIN 8 WEEKS OT LTG: PATIENT WILL DEMONSTRATE IMPROVED ABILITY TO PERFORM BED TRANSFERS IN ORDER TO REDUCE RISK OF SKIN BREAKDOWN AND TO IMPROVE PARTICIPATION IN ADLS FROM CGA TO IND WITHIN 8 WEEKS OT LTG : PATIENT WILL DEMONSTRATE IMPROVED ABILITY TO PERFORM CHAIR TRANSFERS EVIDENCED BY AND IMPROVEMENT FROM 6 TO 10 REPETITIONS ON THE CHAIR RISE TEST WITHIN 8 WEEKS OT LTG: PATIENT WILL DEMONSTRATE IMPROVED ABILITY TO PERFORM CHAIR TRANSFERS TO REDUCE THE RISK OF SKIN BREAKDOWN AND IMPROVE PARTICIPATION IN ADLS FROM SBA TO IND WITHIN 8 WEEKS OT LTG: PATIENT WILL DEMONSTRATE IMPROVED ABILITY TO PERFORM TOILET TRANSFERS TO REDUCE FALL RISK AND RISK OF INCONTINENCE AND UTI DEVELOPMENT FROM SBA TO IND WITHIN 8 WEEKS OT LTG: PATIENT WILL DEMONSTRATE IMPROVED ABILITY, SAFETY, AND CONFIDENCE TO PERFORM BATH/SHOWER TRANSFER FROM CGA TO SUP WITHIN 8 WEEKS OT LTG: PATIENT WILL DEMONSTRATE IMPROVED POSTURAL CONTROL AND DECREASED FALL RISK EVIDENCED BY AN IMPROVEMENT IN FUNCTIONAL REACH SCORE FROM 7 TO 10 WITHIN 8 WEEKS IN ORDER TO DECREASE RISK OF FALLING OT LTG: PATIENT WILL DEMONSTRATE IMPROVED BUE MUSCLE STRENGTH EVIDENCED BY AN IMPROVEMENT IN MMT/FUNCTIONAL STRENGTH FROM 3+/5 TO 4/5 WITHIN 8 WEEKS IN ORDER TO INCREASE INDEPENDENCE WITH FUNCTIONAL TRANSFERS. OT LTG: PATIENT WILL INDEPENDENTLY INCORPORATE LEARNED ENERGY CONSERVATION TECHNIQUES IN ORDER TO EFFECTIVELY MANAGE FATIGUE DURING ADL AND IADL ROUTINE WITHIN 8 WEEKS. OT LTG: PATIENT WILL MAINTAIN OXYGEN SATURATION WITHIN PHYSICIAN ORDERED PARAMETERS THROUGHOUT THE EPISODE OF CARE. OT LTG: PATIENT WILL DEMONSTRATE UNDERSTANDING OF PAIN MANAGEMENT TECHNIQUES NEEDED DURING EPISODE OF CARE Encounters Start Date/Time End Date/Time Encounter Type Admission Type Attending [facility] Care Facility Care Department Encounter ID Discharge Date Discharge Status Discharge Condition Discharge Reason Percent Goals Met 2025-09-19 00:00:00 2025-11-17 00:00:00 Outpatient [facility]ERT[facility] [id number]
== END 2025-09-22 09:40 | disposition home or self-care (01) ==
LOC: HO.HMGCLDS 09:39
PROVIDERS: PCP Internal Medicine; Visit Provider Internal Medicine Medical Oncology
DX: C90.00 Multiple myeloma not having achieved remission (principal)
CPT/HCPCS: 36415; 80053; 85025; 86704; 86706; 87340